=== PATIENT | male | born 1940 | race Caucasian/White ===

== ENCOUNTER 2024-01-27 14:08 | Outpatient (AMB) | payer OTHER, SELFPAY ==
[2024-01-27 14:13] VITALS: BP 112/60; PULSE 64; O2SAT 96; BMI 25.6
--- NOTE | 2024-01-27 14:13 | MHC.OFFVIS ---
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 Patient states that he was treated with a course of antibiotics with resolution of his bronchitis symptoms. Patient denies any dyspnea on exertion before or after his bronchitic episode. He was employed without exposure to industrial dusts. Patient denies prior personal of family history of lung disease. Results or imaging of CT chest and results of PFT are not available for this appointment. [facility] Social History (Updated 01/27/24 @ 14:25 by Melissa Huntley [facility]) Patient Tobacco Use Status: Former Tobacco user Non Cigarette Tobacco use Quit date or years: 1967 Review of Systems Const Denies daytime sleepiness, Denies excessive sweating, Denies fatigue, Denies fever(s), Denies lethargy, Denies malaise, Denies night sweats, Denies snoring and Denies weight loss Eyes Denies blurry vision and Denies itchy eyes ENT Denies nasal congestion, Denies post nasal drip, Denies sinus pain, Denies sinus pressure and Denies other ( Thrush) Card Denies chest pain, Denies pedal edema, Denies dyspnea, Denies orthopnea and Denies paroxysmal nocturnal dyspnea Resp Denies cough, Denies hemoptysis, Denies excessive phlegm production, Denies dyspnea, Denies snoring and Denies wheezing GI Denies abdominal pain and Denies heartburn Musc Denies myalgias, Denies arthralgias and Denies joint swelling Skin/Breast Denies rash Neuro Denies memory loss and Denies seizure-like activity Psych Denies abnormal sleep pattern, Denies anxiety and Denies memory loss Endo Denies excessive sweating, Denies fatigue and Denies heat intolerance Pranay/Lymph Denies easy bruising Aller/Immun Denies itchy eyes, Denies seasonal rhinorrhea and Denies wheezing Physical Exam Vital Signs: Last Vital Signs Pulse 64 01/27/24 14:13 BP 112/60 01/27/24 14:13 Pulse Ox 96 01/27/24 14:13 Oxygen Delivery Method Room Air 01/27/24 14:13 BMI result Body Mass Index 25.6 Const General: no acute distress and alert Nutritional Appearance: not obese Orientation/consciousness: Other orientation findings ( oriented) HEENT Head: Yes atraumatic Eyes General: appearance normal, both eyes and all related structures Sclerae: sclerae normal EOM: EOMs intact bilaterally Neck Neck: Yes supple Lymphatic: no lymphadenopathy noted Resp Effort & Inspection: normal respiratory effort and no use of accessory muscles Auscultation: clear to auscultation bilaterally Cardio Rate: regular rate Rhythm: regular rhythm Heart sounds: no gallops, no murmurs and no rubs Skin General skin exam: other ( warm) Extrem General: No clubbing, No cyanosis and No edema Assessment & Plan Assessment & Plan (1) Abnormal chest x-ray: Code(s): R93.89 - Abnormal findings on diagnostic imaging of other specified body structures Category: Medical Plan: History of abnormal chest x-ray at the time of an acute bronchitis. CT imaging of a chest obtained within 2 weeks of an acute bronchitic episode, however neither the results, nor imaging available for this appointment. Patient states that he had recent pulmonary function tests at [facility] with results not available for this appointment. At this time patient is essentially asymptomatic. Will request imaging and PFT results and review. Coding Level of Care Code New Pt Level 3 (38716) Diagnoses Abnormal chest x-ray R93.89
== END 2024-01-27 15:09 | disposition home or self-care (01) ==
PROVIDERS: PCP Physician Assistant; Visit Provider Internal Medicine Pulmonary Disease
DX: R93.89 Abnormal findings on diagnostic imaging of other specified body structures (principal)
CPT/HCPCS: 99203

== ENCOUNTER → 2024-01-27 14:08 | Outpatient (BNVA) | payer OTHER, SELFPAY | PROVIDERS: PCP Physician Assistant; Visit Provider Internal Medicine Pulmonary Disease | DX: R93.89 Abnormal findings on diagnostic imaging of other specified body structures (principal) | CPT/HCPCS: 99202 ==

== ENCOUNTER 2024-04-10 10:34 | Outpatient (AMB) | payer OTHER, SELFPAY ==
--- NOTE | 2024-04-10 10:49 | A.OFFVIS_ITS ---
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 He is a patient of Dr. Viramontes. He is seen for following urologic conditions - nephrolithiasis Nephrolithiasis CT scan small stones bilateral - question of lobulation Has passed 1 without too much difficulty Recommend fluid intake with vitamin B6 Six-month follow-up imaging renal ultrasound [facility] Medical History Unspecified hearing loss, unspecified ear Type 2 diabetes mellitus without complications Type 2 diabetes mellitus with diabetic nephropathy Pure hypercholesterolemia, unspecified Gout, unspecified Essential (primary) hypertension Deficiency of other specified B group vitamins Contact with and (suspected) exposure to other hazardous substances Arteriosclerotic coronary artery disease Social History Patient Tobacco Use Status: Former Tobacco user Review of Systems Const Denies chills and Denies fever(s) Card Reports no additional complaints and Denies syncope Resp Denies cough GI Denies abdominal pain and Denies heartburn Reports as per HPI and Denies change in libido Neuro Denies syncope Psych Denies change in libido Endo Denies change in libido Physical Exam Const General: cooperative, healthy appearing, comfortable and no acute distress Orientation/consciousness: patient oriented x3 HEENT Face and sinus: Yes normal facial exam Mouth: moist mucous membranes Neck Neck: Yes normal visual inspection, Yes full ROM and Yes trachea midline Chest Chest palpation & inspection: normal inspection of the chest Resp Effort & Inspection: normal respiratory effort, able to speak in complete sentences and no respiratory distress GI Inspection: Yes normal to inspection Back/Spine/Pelvis Cervical Spine: normal cervical lordosis Thoracic/Lumbar Spine: thoracic and lumbar spine normal to inspection Skin General skin exam: no rashes or lesions noted Neuro General: patient oriented x3, gait normal, tone normal and moves all extremities Extrem General: Yes normal to inspection and Yes capillary refill normal Assessment & Plan Assessment & Plan (1) Bilateral nephrolithiasis: Code(s): N20.0 - Calculus of kidney Category: Medical Plan Six-month follow-up renal ultrasound Orders: Orders US renal BI 6 Months N20.0 - Calculus of kidney Medications: New pyridoxine (vitamin B6) 50 mg PO DAILY 90 days 90 tabs 1RF N20.0 - Calculus of kidney Patient Instructions: Imaging studies, laboratory and physical exam results were discussed and reviewed in detail. No major barriers to patient understanding were identified. An opportunity to ask questions regarding the treatment plan was provided. All questions were answered. The patient expressed understanding and agreement with the above treatment plan. The patient is aware they should contact our office by phone for worsening of their current condition or the appearance of new urologic symptoms. Compliance is encouraged with any medications and followup testing that is ordered. It is a privilege to participate in the urologic care of your patient. If you have any questions or concerns regarding treatment for the above conditions, or other urologic issues, please do not hesitate to contact me. The office telephone contact is [phone]. This note is constructed using voice recognition software. While every effort has been made to ensure accuracy betting clerk errors may have been included. Yours sincerely, Dr Farhad Garrido MD, [facility] - Urology Providers of Expert, Compassionate Care for the Genitourinary System Coding Level of Care Code New Pt Level 3 (22281) Diagnoses Bilateral nephrolithiasis N20.0
== END 2024-04-10 11:14 | disposition home or self-care (01) ==
PROVIDERS: PCP Physician Assistant; Visit Provider Urology
DX: N20.0 Calculus of kidney (principal)
CPT/HCPCS: 99203

== ENCOUNTER → 2024-04-10 10:34 | Outpatient (BNVA) | payer OTHER, SELFPAY | PROVIDERS: PCP Physician Assistant; Visit Provider Urology | DX: N20.0 Calculus of kidney (principal) | CPT/HCPCS: 99202 ==

== ENCOUNTER 2024-06-04 10:52 | Outpatient (REF) | payer OTHER, SELFPAY ==
--- OUTSIDE RECORDS SUMMARY | 2024-06-04 12:16 | XMS_ITS | Encounter Summary ---
Author Name [facility] Organization [facility] Address [address] [place] [address] Care Team Providers Care Geoscientist Name Role Phone ADRIANA ROMERO Primary Care Provider YOSELIN Riojas Primary Care Provider Unavailabl e Insurance Providers: All historical and current Section Date Range: From patient's date of to the date document was created. This section includes the names of all active insurance providers for the patient. Insurance Provider Type of Coverage Plan Name Start of Policy Coverage End of Policy Coverage Group Number Member ID Insurance Provider's Telephone Number Policy Kendrick's Name Patient's Relationship to Policy Kendrick GIC INDEMNITY PLAN MEDICAL EXPENSE (OPT/PROF ) [facility] N Dec 28, 2016 [id number] [phone] EMILIA GONZALEZ HN PATIENT MEDICARE (WNR) MEDICARE (M) PART A Dec 28, 2016 PART A [id number] EMILIA GONZALEZ HN PATIENT MEDICARE (WNR) MEDICARE (M) PART B Dec 28, 2016 PART B [id number] EMILIA GONZALEZ HN PATIENT MEDICARE (WNR) MEDICARE (M) PART A Dec 28, 2016 PART A [id number] EMILIA GONZALEZ HN PATIENT MEDICARE (WNR) MEDICARE (M) PART B Dec 28, 2016 PART B [id number] EMILIA GONZALEZ PATIENT UNICVIRGIL PREFERRED PROVIDER ORGANIZAT ION (PPO) DENI [facility] N Dec 28, 2016 [id number] SBEMILIA [place] PATIENT UNICARE MEDICAL EXPENSE (OPT/PROF ) DENI [facility] N Dec 28, 2016 [id number] EMILIA GONZALEZ PATIENT Selected Encounter This section includes the information on record at ME for the Encounter. Date/Time Encounter Type Encounter Description Reason Provider Source October 25, 2023 08:00 AM COMPRE OPH EXAM EST PT 1/> OPTOMETRY ICD-10-CM E11.9 Type 2 diabetes mellitus without complications KAYLEE BARRAGAN [facility] Encounter Template Text not used by ME Assessments - Encounter Diagnoses This section includes the primary and secondary diagnoses documented for the Encounter. Date/Time Primary/Secondary Diagnosis Diagnosis Name Provider Source October 25, 2023 08:35 AM PRIMARY Type 2 diabetes mellitus without complications KAYLEE BARRAGAN [facility] [place] [facility] October 25, 2023 08:35 AM SECONDARY Age-related nuclear cataract, bilateral KAYLEE BARRAGAN [facility] [place] [facility] October 25, 2023 08:35 AM SECONDARY Hypermetropia, bilateral YUNG,KAYLEE B [facility] [place] [facility] Plan of Treatment: Future Appointments (+ 6 months) and Future Tests (+/- 45 days) The Plan of Treatment section includes future care activities for the patient from all [place] treatmentfacilities. This section includes future appointments and future orders which are active, pending or scheduled. Future Appointments This section includes appointments that were scheduled to occur 6 months from the date of the Encounter, up to a maximum of 20 appointments. The data comes from all [place] treatment facilities. Appointment Date/Time Appointment Type Appointme nt Facility Name Nov 03, 2023 09:00 AM AMBULATORY - MEDICINE [facility] [place] [facility] Nov 09, 2023 08:30 AM AMBULATORY - MEDICINE [facility] [place] [facility] Nov 18, 2023 08:30 AM AMBULATORY - NONE [facility] [place] [facility] Dec 13, 2023 02:30 PM [facility] Dec 21, 2023 09:45 AM AMBULATORY - MEDICINE [facility] [place] [facility] Jan 31, 2024 01:30 PM AMBULATORY - MEDICINE [facility] [place] [facility] Feb 02, 2024 11:15 AM [facility] NONE [facility] Apr 10, 2024 11:00 AM AMBULATORY - MEDICINE [facility] C [facility] Lab Results: +/- 30 days of the encounter This section includes the Chemistry and Hematology Lab Results on record with ME for the patient. Radiology Reports and Pathology Reports are provided separately, in subsequent sections. Lab Results This section contains the Chemistry/Hematology Results that were resulted 30 days before or 30 daysafter the date of the Encounter. Date/Time Source Result Type Result - Unit Interpretation Reference Range Comment Nov 01, 2023 08:44 AM [facility] BASIC METABOLIC PANEL (fasting) Specimen Type: SERUM No comment entered. Ordering Provider: MICHAELA ROMERO F Report Released Date/Time: Apr 18, 2023 10:07 AM Reporting Lab: [address] [address] Performing Lab: [address] [address] UREA NITROGEN 19 mg/dL 7-25 GLUCOSE 178 mg/dL H 65-100 SODIUM 138 mmol/L 135-145 POTASSIUM 5.2 mmol/L H 3.5-5.0 CHLORIDE 105 mmol/L 100-110 CO2 24 meq/L 20-30 CREATININE, Serum 1.39 mg/dL 0.50-1.40 eGFR(CKD-EPI 2020) 50 mL/min L >60 Nov 01, 2023 08:44 AM [facility] LIVER FUNCTION Specimen Type: SERUM No comment entered. Ordering Provider: MICHAELA ROMERO F Report Released Date/Time: Apr 18, 2023 10:07 AM Reporting Lab: [address] [address] Performing Lab: [facility] [address] [facility] [address] PROTEIN,TOTAL 7.1 g/dL 6.0-8.3 ALBUMIN 4.0 g/dL 3.5-5.0 ALKALINE PHOSPHATASE 57 U/L 40-150 AST 23 U/L 5-34 ALT 17 U/L BILIRUBIN, TOTAL 0.5 mg/dL 0.2-1.2 Nov 01, 2023 08:44 AM [facility] LIPID PANEL FASTING Specimen Type: SERUM No comment entered. Ordering Provider: MICHAELA ROMERO F Report Released Date/Time: Apr 18, 2023 10:07 AM Reporting Lab: [address] [address] Performing Lab: [address] [address] CHOLESTEROL 158 mg/dL TRIGLYCERIDE 131 mg/dL 0-150 LDL calculated 103 mg/dL 0-129 CHOL/HDL 5.4 HDL CHOLESTEROL 29 mg/dL L 40-60 Nov 01, 2023 08:44 AM [facility] HEMOGLOBIN A1C PANEL Specimen Type: BLOOD Comment: Values obtained from A1C measurements can vary. For atypical A1C assays, a reported value of 7.0 could actually be between 6.72 and 7.28 if measured by a reference method. A reported value of 9.0 could actually be between 8.73 and 9.27. Ref: http://www.ngs p.org/CAPdata. asp Ordering Provider: MICHAELA ROMERO F Report Released Date/Time: Apr 18, 2023 10:07 AM Reporting Lab: [address] [address] Performing Lab: [address] [address] HEMOGLOBIN A1C 8.2 H 4.0-5.6 Nov 01, 2023 08:44 AM [facility] MICROALBUMIN CREATININE RATIO PANEL Specimen Type: URINE No comment entered. Ordering Provider: MICHAELA ROMERO F Report Released Date/Time: Apr 18, 2023 10:07 AM Reporting Lab: [facility] [address] [facility] [address] Performing Lab: [facility] [address] [facility] [address] MICROALBUMIN/C REATININE RATIO 170.4 mg/g H 0-29.9 MICROALBUMIN,Q UANTITATIVE 11.6 mg/dL RR UNAVAIL CREATININE URINE 68.07 mg/dL Nov 01, 2023 08:44 AM [facility] URIC ACID Specimen Type: SERUM No comment entered. Ordering Provider: MICHAELA ROMERO Report Released Date/Time: Nov 07, 2023 10:27 AM Reporting Lab: [facility] [address] [facility] [address] Performing Lab: [address] [address] URIC ACID 5.7 mg/dL 3.5-7.2 Social History: Smoking Status (Most current) and Tobacco Use (All prior to encounter date) This section includes the most current, and the historical, smoking and tobacco- related health factors from the ME facility where the Encounter took place. Current Smoking Status This section includes the most current smoking, or tobacco-related health factor, from the ME facility where the Encounter took place. Date/Time Current Smoking Status Comment Facil ity Dec 10, 2022 10:00 AM VA-TOBACCO FORMER USER [facility] Tobacco Use History This section includes a history of the smoking, or tobacco-related health factors, that were collected on or before the date of the Encounter. The data comes from the ME facility where the Encounter took place. Date/Time Smoking Status/Tobacco Use Comment F acility Dec 10, 2022 10:00 AM ME-TOBACCO QUIT 15 YRS OR MORE [facility] Jan 07, 2022 12:47 PM VA-TOBACCO DOESNT USE WI 30 MIN WAKEUP [facility] Jan 07, 2022 12:47 PM VA-TOBACCO USE 30 YEARS OR MORE [facility] Jan 07, 2022 12:47 PM VA-TOBACCO USE ADVICE [facility] Jan 07, 2022 12:47 PM VA-TOBACCO USE GAME SHOW HOST NO [facility] L[facility]AT[facility] Jan 07, 2022 12:47 PM VA-TOBACCO USE MED NO [facility] L[facility] Jan 07, 2022 12:47 PM VA-TOBACCO USER EVERY DAY [facility] Radiology Reports: +/- 30 days of the encounter Radiology Reports For cases when an order for radiology services may have been completed prior to the date of the Encounter, the report list includes the Radiology Reports that were completed up to 30 days before dateof the Encounter. For cases when an order for radiology services may have been completed after the date of the Encounter, the report list also includes the Radiology Reports that were completed up to30 days after date of the Encounter. The data comes from all [facility] facilities. Date/Time Radiology Report Provider Source Nov 18, 2023 08:[address] W/O CONT: FABY GONZALEZ [id number] -[id number] M Exm Date: NOV 18, 2023@08:12 Req Phys: ADRIANA ROMERO Loc: CWM/NO/PHARM/PACT 3 (Req'g Loc Img Loc: NHM/CT Service: Unknown [facility] , (Case [id number] COMPLETE) CT THORAX W/O CONT (CT Detailed) CPT:36627 Reason for Study: pulmonary fibrosis on cxr at [facility] last week. Clinical History: pulmonary fibrosis on cxr at [facility] last week. He finished aUGMENTIN 6/5, but now reports that phlegm is now returning. Report Status: Verified Date Reported: NOV 24, 2023 Date Verified: NOV 24, 2023 Executive Advisor E-Sig: Report: EXAM: CT chest without contrast COMPARISON: None. HISTORY: pulmonary fibrosis on cxr at [facility] last week. He finished aUGMENTIN 6/5, but now reports that phlegm is now returning. TECHNIQUE: Contiguous axial images of the chest were obtained without intravenous contrast. Coronal and sagittal reformatted images were also obtained. Total number of images submitted = 1150. Total DLP (mGy*cm): 128.50 IV contrast: Not administered FINDINGS: Lungs/pleura: Bilateral subpleural reticular opacities, which involve all lobes, but greatest for in the lung bases. Associated traction bronchiectasis in the right middle lobe and lingula. Mild bibasilar honeycombing. No lung consolidation or masses. Multiple small bilateral calcified granulomas. No pleural effusions. Mediastinum/farnaz: No mediastinal or hilar lymphadenopathy. Coronary artery, aortic and aortic valvular calcifications. Status post CABG. Borderline enlarged ascending and descending aorta, measuring 4.0 cm and 3 cm, respectively. No pericardial effusion. Chest wall/axillae: No axillary lymphadenopathy. Upper abdomen: Nonobstructing 5 mm left upper pole renal calculus. Bones: Thoracic dextroscoliosis. Multilevel degenerative changes within the spine. No suspicious bone lesions. Impression: 1. No acute abnormality. 2. UIP pattern of pulmonary fibrosis. READING PHYSICIAN: Kaiden Jacob D.O. -[phone] 11/24/2023 13:44 EDT [facility] National Teleradiology Program [phone] (For Medical Practitioner Use Only) Attention Patients / Veterans: If you have questions or concerns about these test results, please contact your ordering provider or primary care team. Primary Diagnostic Code: NO ALERT REQUIRED Primary Interpreting Staff: RADIOLOGY,OUTSIDE SERVICE, Staff Physician / RADIOLOGY,OUTSIDE SERVICE [facility] October 25, 2023 10:53 AM OUTSIDE CHEST (2 VIEWS): FABY GONZALEZ [id number] -1940 M Ex Date: OCTOBER 25, 2023@10:53 Req Phys: ADRIANA ROMERO Loc: [facility]/OUTSIDE IMAGING NON-CNT (R Img Loc: OUTSIDE GENERAL RADIOLOGY Service: Unknown (Case 10 COMPLETE) OUTSIDE CHEST (2 VIEWS) (RAD Detailed) CPT:33570 Reason for Study: outside images downloaded for continuity of care Clinical History: outside images downloaded for continuity of care Report Status: Electronically Filed Date Reported: OCTOBER 25, 2023 Report: THIS EXAM WAS PERFORMED AND INTERPRETED AT AN OUTSIDE HOSPITAL Impression: THIS EXAM WAS PERFORMED AND INTERPRETED AT AN OUTSIDE HOSPITAL Primary Diagnostic Code: VERIFIED BY: / *ELECTRONICALLY FILED* [facility] [place] [facility] Encounter Notes: All associated encounter notes This section contains the clinical notes associated to the Encounter. Date/Time Encounter Note(s) Provider Source October 25, 2023 07:42 AM OPTOMETRY NOTE: LOCAL TITLE: OPTOMETRY NOTE STANDARD TITLE: OPTOMETRY NOTE DATE OF NOTE: OCTOBER 25, 2023@07:42 ENTRY DATE: OCTOBER 25, 2023@07:43:08 AUTHOR: TONYA MARY JR EXP COSIGNER: KAYLEE BARRAGAN URGENCY: STATUS: COMPLETED OPTOMETRY NOTE Has ADDENDA Active problems - Computerized Problem List is the source for the followin. Exposure to potentially hazardous substance ([facility] [id number]) 2. 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 Hearing Loss ([facility] [id number]) 4. Vitamin B12 Deficiency ([facility] [id number]) 5. CAD - Coronary Artery Disease ([facility] [id number]) 6. Diabetes Mellitus Type 2 ([facility] [id number]) 7. Gout ([facility] [id number]) 8. Hypercholesterolemia 9. Hypertension Active Outpatient Medications (including Supplies): Active Outpatient Medications Status 1) ASPIRIN 81MG EC TAB TAKE ONE TABLET BY MOUTH ONCE ACTIVE DAILY TO PREVENT STROKE/HEART ATTACK TAKE 15 MINUTES BEFORE NIACIN TO REDUCE/PREVENT FLUSHING. 2) ATORVASTATIN CALCIUM 80MG TAB TAKE ONE TABLET BY ACTIVE MOUTH ONCE DAILY FOR CHOLESTEROL 3) CANDESARTAN CILEXETIL 8MG TAB TAKE ONE TABLET BY ACTIVE MOUTH ONCE DAILY 4) CHOLECALCIF 25MCG (D3-1,000UNIT) TAB TAKE ONE TABLET ACTIVE BY MOUTH ONCE DAILY FOR VITAMIN SUPPLEMENTATION 5) CYANOCOBALAMIN 1000MCG TAB TAKE ONE TABLET BY MOUTH ACTIVE ONCE DAILY FOR VITAMIN SUPPLEMENTATION 6) EZETIMIBE 10MG TAB TAKE ONE TABLET BY MOUTH ONCE ACTIVE DAILY TO LOWER CHOLESTEROL 7) FOLIC ACID 1MG TAB TAKE TWO TABLETS BY MOUTH ONCE ACTIVE DAILY VITAMIN/NUTRITION SUPPLEMENT 8) GEMFIBROZIL 600MG TAB TAKE ONE TABLET BY MOUTH TWICE ACTIVE DAILY TO LOWER CHOLESTEROL 9) METFORMIN HCL 500MG TAB TAKE ONE TABLET BY MOUTH ACTIVE TWICE DAILY FOR DIABETES 10) METRONIDAZOLE 0.75% TOP CREAM APPLY A SMALL AMOUNT ACTIVE TOPICALLY AT BEDTIME NEEDED FOR SKIN INFECTION 11) MULTIVITAMIN/MINERALS CAP/TAB TAKE 1 TABLET BY MOUTH ACTIVE ONCE DAILY FOR VITAMIN SUPPLEMENTATION Allergies: SHRIMP, BENAZEPRIL All medications including those prescribed by outside VA's, community providers, and all OTC meds were reviewed and reconciled with patient to the best of their abilities. This 82 year old MALE is seen today for annual diabetic CEE. ANNE-MARIE 09/2022 in our clinic. Chief Complaint: Pt. is here for CEE. Feels that vision is fine through near portion of glasses, having slight blur OU with distance portion since last visit. Denies any changes to ocular health or vision since last visit. No changes to systemic health or medication use. Pt. has been diabetic for ~10 years. Does not recall last BS reading or A1C. Says that his PCP is happy with his diabetic control and meets with him for routine check-ups Last A1C 7.4% per chart. OHx: - T2 DM with Mild NPDR OS, no retinopathy OD. No DME OU - NS cataracts OU - Hyperopia with astigmatism & presbyopia OU (-) Pain: (-) Flashes: (-) Floaters: (-) Eye Injury: (-) Eye Surgery: (-) Itch (-) Redness FOHx: (-) Glaucoma/ARMD/Blindness VITALS (most recent, as listed in the electronic record): B/P: 130/70 (04/18/2023 09:31) Pulse: 47 (04/18/2023 09:31) Temperature: 98.3 F [36.8 C] (04/18/2023 09:31) Weight: 174.5 lb [79.15 kg] (04/18/2023 09:31) Height: 69 in [175.3 cm] (04/20/2022 10:35) BMI: BMI: 25.8 PERTINENT LABS: HEMOGLOBIN A1C TREND Collection DT Spec HGBA1c 04/14/2023 07:58 BLOOD 7.4 H 08/09/2022 08:02 BLOOD 7.3 H 04/14/2022 07:52 BLOOD 7.1 H 01/18/2022 07:25 BLOOD 7.3 H (-) Smoker/Length of Time/PPD: Current Rx with last BCVA: OD:+1.25-2.77b023 20/20-1 OS:+1.00-1.36t411 2020-2 Add:+2.50 20/20 OU DVA ( )sc (x)cc - phoropter OD: 20-1 OS: 2020-2 Pupils: PERRL (-)APD EOMs: SAFE OU, (-)Pain/Diplopia CVF (facial, peripheral): FTFC OU Subjective Refraction: OD:+1.25-2.77q030 20/20 OS:+0.75-1.34z334 20/20 OU 20/20 Add: +2.50 20/20 All the above performed by student, reviewed by attending Anterior segment: Performed by student, repeated by attending Lids: Dermatochalasis OU Conj: white and quiet OU Cornea: Arcus OU AC: 4x4 OU Iris: flat and clear OU (-)NVI Lens: 2+ NS OU Tr. ACC OS Tonometry: Performed by student, reviewed by attending [x] GAT [ ] iCare OD 14 mmHg OS 14 mmHg Time:7:59am Fundus exam: Dilated: XX 8:03am Non dilated: Dilating Drops: 1GTT 1 % Tropicamide OU & 1GTT 2.5% Phenylephrine OU (Pt. ed. on side effects, dilation warning given and verbal consent obtained) Patient advised not to drive if they feel they have any symptoms which could affect their ability to drive safely. Patient advised not to engage in any activities which could put themselves or others at risk if they feel they have any symptoms which could affect their ability to perform those activities safely. Performed by student, repeated by attending Vit: Syneresis OU C/D: 0.35 OD, 0.35 OS, pink & healthy rim tissue (-)NVD OU Macula: flat and clear (-)DME OU PPole: clear (-)NVE (-)dot/blot hemorrhage (-)exudates A/V: 2/3 Vessels: normal caliber (-)VB OU Periph: flat and intact (-)holes, tears, detachments 360 OU (-)NVE (-)Exudates (-)dot/blot hemorrhage OU Assessment/Plan: 1. Type II Diabetes without retinopathy or macular edema OU. Last A1c 7.4% - Pt ed on today's findings and the possible ocular health and visual complications associated with diabetes. - Ed. on importance of attending future appointments - Encouraged pt to monitor blood sugar and continue taking medications as prescribed by their PCP - Pt ed to call immediately if experiencing any sudden changes in vision - Monitor annually 2. Nuclear sclerosis Cataracts OU - Pt. ed. on findings - cataracts are not visually significant and that surgery is not necessary at this time - Ed. 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 educated on refractive findings and minor change in Rx. - Picking out new PAL frames today - Continue to monitor Return to Clinic 1 year or earlier PRN Patient Education: Diabetes: Patient was educated regarding diabetes and related ocular complications including retinopathy and cataract formation as well as other related systemic complications. The importance of good blood sugar control, blood sugar testing as recommended by their PCP and the importance of timely follow up were all emphasized. /renny/ TONYA MARY JR OPTOMETRY STUDENT Signed: 10/25/2023 09:10 /renny/ KAYLEE BARRAGAN OD Cinder Pit Crane Operator Cosigned: 10/25/2023 09:12 10/25/2023 ADDENDUM STATUS: COMPLETED The optometry software developer intern participated in this exam, I saw this [place] in conjunction with the optometry student. The entrance tests and refraction were performed by the student and reviewed by me. I personally met with the patient, confirmed the history, complaints and the student's findings, and performed slit lamp and fundus evaluation as indicated. I reviewed and agree with the stated findings, assessment and plan. I have added/edited the documentation to reflect my exam findings and changes to the assessment and plan. patient offered and declined printed medication list Medication Reconciliation: Outpatient: Has the patient been taking medications as documented in the EMLR? YES: The patient has been taking medications as documented in the EMLR. Essential Medication List for Review used to complete this medication reconciliation. INCLUDED IN THIS LIST: Alphabetical list of active outpatient prescriptions dispensed from this ME (local) and dispensed from another ME or DoD facility (remote) as well as inpatient orders (local, pending and active), local clinic medications, locally documented non-VA medications, and local prescriptions that have or been discontinued in the past 90 days. - All changes in medications, including all non-VA/Herbal/OTC medications were entered into CPRS. - If there were any medications the patient should no longer take, they were discontinued. - The patient/caregiver was instructed to update this list, discard old lists, and take this list to the next appointment, whether with a VA or non-VA provider. JLV Link Data on this list may not be complete. Please check JLV. Allergies/ADRs (Tool #5) FACILITY ALLERGY/ADR -------- [facility] BAND-AIDS [facility] BENAZEPRIL [facility] SHRIMP [facility] [place] [facility] BENAZEPRIL [facility] [place] [facility] SHRIMP Med Recon NoGlossary (Tool #1) INCLUDED IN THIS LIST: Alphabetical list of active outpatient prescriptions dispensed from this ME (local) and dispensed from another ME or DoD facility (remote) as well as inpatient orders (local pending and active), local clinic medications, locally documented non-VA medications, and local prescriptions that have or been discontinued in the past 90 days. Non-VA Meds Last Documented On: Data not found NOTE The display of VA prescriptions dispensed from another ME or DoD facility (remote) is limited to active outpatient prescription entries matched to National Drug File at the originating site and may not include some items such as investigational drugs, compounds, etc. NOT INCLUDED IN THIS LIST: Medications self-entered by the patient into personal health records (i.e. [employer]) are NOT included in this list. Non-VA medications documented outside this ME, remote inpatient orders (regardless of status) and remote clinic medications are NOT included in this list. The patient and provider must always discuss medications the patient is taking, regardless of where the medication was dispensed or obtained. OUTPT ASPIRIN 81MG EC TAB (Status = Discontinued) TAKE ONE TABLET BY MOUTH ONCE DAILY TO PREVENT STROKE/HEART ATTACK TAKE 15 MINUTES BEFORE NIACIN TO REDUCE/PREVENT FLUSHING. Rx# [id number] Last Released: 08/10/23 Qty/Days Supply: 120/90 Rx Expiration Date: 08/24/23 Refills Remainin Indication: FOR MYOCARDIAL REINFARCTION PREVENTION OUTPT ASPIRIN 81MG EC TAB (Status = Active) TAKE ONE TABLET BY MOUTH ONCE DAILY TO PREVENT STROKE/HEART ATTACK TAKE 15 MINUTES BEFORE NIACIN TO REDUCE/PREVENT FLUSHING. Rx# [id number] Last Released: 10/19/23 Qty/Days Supply: 120/90 Rx Expiration Date: 10/18/24 Refills Remainin Indication: FOR MYOCARDIAL REINFARCTION PREVENTION OUTPT ATORVASTATIN CALCIUM 80MG TAB (Status = Discontinued) TAKE ONE TABLET BY MOUTH ONCE DAILY FOR CHOLESTEROL Rx# [id number] Last Released: 06/01/23 Qty/Days Supply: Rx Expiration Date: 08/11/23 Refills Remainin OUTPT ATORVASTATIN CALCIUM 80MG TAB (Status = Active) TAKE ONE TABLET BY MOUTH ONCE DAILY FOR CHOLESTEROL Rx# [id number] Last Released: 10/19/23 Qty/Days Supply: Rx Expiration Date: 08/08/24 Refills Remainin OUTPT CANDESARTAN CILEXETIL 8MG TAB (Status = Discontinued) TAKE ONE TABLET BY MOUTH ONCE DAILY Rx# [id number] Last Released: 06/01/23 Qty/Days Supply: Rx Expiration Date: 08/11/23 Refills Remainin OUTPT CANDESARTAN CILEXETIL 8MG TAB (Status = Active) TAKE ONE TABLET BY MOUTH ONCE DAILY Rx# [id number] Last Released: 10/19/23 Qty/Days Supply: Rx Expiration Date: 08/08/24 Refills Remainin OUTPT CHOLECALCIF 25MCG (D3-1,000UNIT) TAB (Status = Discontinued) TAKE ONE TABLET BY MOUTH ONCE DAILY FOR VITAMIN SUPPLEMENTATION Rx# [id number] Last Released: 06/01/23 Qty/Days Supply: Rx Expiration Date: 08/11/23 Refills Remainin OUTPT CHOLECALCIF 25MCG (D3-1,000UNIT) TAB (Status = Active) TAKE ONE TABLET BY MOUTH ONCE DAILY FOR VITAMIN SUPPLEMENTATION Rx# [id number] Last Released: 10/19/23 Qty/Days Supply: Rx Expiration Date: 08/08/24 Refills Remainin OUTPT CYANOCOBALAMIN 1000MCG TAB (Status = Discontinued) TAKE ONE TABLET BY MOUTH ONCE DAILY FOR VITAMIN SUPPLEMENTATION Rx# [id number] Last Released: 06/01/23 Qty/Days Supply: Rx Expiration Date: 08/11/23 Refills Remainin OUTPT CYANOCOBALAMIN 1000MCG TAB (Status = Active) TAKE ONE TABLET BY MOUTH ONCE DAILY FOR VITAMIN SUPPLEMENTATION Rx# [id number] Last Released: 10/19/23 Qty/Days Supply: 90 Rx Expiration Date: 08/08/24 Refills Remainin OUTPT EZETIMIBE 10MG TAB (Status = Discontinued) TAKE ONE TABLET BY MOUTH ONCE DAILY TO LOWER CHOLESTEROL Rx# [id number] Last Released: 06/01/23 Qty/Days Supply: 90 Rx Expiration Date: 08/11/23 Refills Remainin OUTPT EZETIMIBE 10MG TAB (Status = Active) TAKE ONE TABLET BY MOUTH ONCE DAILY TO LOWER CHOLESTEROL Rx# [id number] Last Released: 10/19/23 Qty/Days Supply: 90 Rx Expiration Date: 08/08/24 Refills Remainin OUTPT FOLIC ACID 1MG TAB (Status = Discontinued) TAKE TWO TABLETS BY MOUTH ONCE DAILY VITAMIN/NUTRITION SUPPLEMENT Rx# [id number] Last Released: 06/01/23 Qty/Days Supply: 180 Rx Expiration Date: 08/11/23 Refills Remainin OUTPT FOLIC ACID 1MG TAB (Status = Active) TAKE TWO TABLETS BY MOUTH ONCE DAILY VITAMIN/NUTRITION SUPPLEMENT Rx# [id number] Last Released: 10/19/23 Qty/Days Supply: 180 Rx Expiration Date: 08/08/24 Refills Remainin OUTPT GEMFIBROZIL 600MG TAB (Status = Discontinued) TAKE ONE TABLET BY MOUTH TWICE DAILY TO LOWER CHOLESTEROL Rx# [id number] Last Released: 06/01/23 Qty/Days Supply: 180 Rx Expiration Date: 08/11/23 Refills Remainin OUTPT GEMFIBROZIL 600MG TAB (Status = Active) TAKE ONE TABLET BY MOUTH TWICE DAILY TO LOWER CHOLESTEROL Rx# [id number] Last Released: 10/19/23 Qty/Days Supply: 180 Rx Expiration Date: 08/08/24 Refills Remainin OUTPT METFORMIN HCL 500MG TAB (Status = Discontinued) TAKE ONE TABLET BY MOUTH TWICE DAILY FOR DIABETES Rx# [id number] Last Released: 06/01/23 Qty/Days Supply: 180 Rx Expiration Date: 08/11/23 Refills Remainin OUTPT METFORMIN HCL 500MG TAB (Status = Active) TAKE ONE TABLET BY MOUTH TWICE DAILY FOR DIABETES Rx# [id number] Last Released: 10/19/23 Qty/Days Supply: 180 Rx Expiration Date: 08/08/24 Refills Remainin OUTPT METRONIDAZOLE 0.75% TOP CREAM (Status = Discontinued) APPLY A SMALL AMOUNT TOPICALLY AT BEDTIME NEEDED FOR SKIN INFECTION Rx# [id number] Last Released: 08/18/23 Qty/Days Supply: Rx Expiration Date: 04/18/24 Refills Remainin Indication: FOR ACNE ROSACEA OUTPT METRONIDAZOLE 0.75% TOP CREAM (Status = Active) APPLY A SMALL AMOUNT TOPICALLY AT BEDTIME NEEDED FOR SKIN INFECTION Rx# [id number] Last Released: 10/19/23 Qty/Days Supply: Rx Expiration Date: 10/18/24 Refills Remainin Indication: FOR ACNE ROSACEA OUTPT MULTIVITAMIN/MINERALS CAP/TAB (Status = Discontinued) TAKE 1 TABLET BY MOUTH ONCE DAILY FOR VITAMIN SUPPLEMENTATION Rx# [id number] Last Released: 02/04/23 Qty/Days Supply: Rx Expiration Date: 08/11/23 Refills Remainin OUTPT MULTIVITAMIN/MINERALS CAP/TAB (Status = Active) TAKE 1 TABLET BY MOUTH ONCE DAILY FOR VITAMIN SUPPLEMENTATION Rx# [id number] Last Released: 10/19/23 Qty/Days Supply: Rx Expiration Date: 08/08/24 Refills Remainin SUPPLIES /mary ellen BARRAGAN OD Cinder Pit Crane Operator Signed: 10/25/2023 09:13 TONYA MARY JR [facility]
--- OUTSIDE RECORDS SUMMARY | 2024-06-04 12:16 | XMS_ITS | Encounter Summary ---
Author Name [facility] [facility] [place] Address [address] [place] [address] Care Team Providers Care Electrical Worker Name Role Phone ADRIANA ROMERO Primary Care [...] GIC INDEMNITY PLAN MEDICAL EXPENSE (OPT/PROF ) [facility] N Dec 28, 2016 [id number] [phone] EMILIA GONZALEZ HN PATIENT MEDICARE (WNR) MEDICARE (M) PART A Dec 28, 2016 PART A [id number] [phone] LISAEMILIA HN PATIENT MEDICARE (WNR) MEDICARE (M) PART B Dec 28, 2016 PART B [id number] EMILIA GONZALEZ HN PATIENT MEDICARE (WNR) MEDICARE (M) PART A Dec 28, 2016 PART A [id number] SBREGA,EMILIA HN PATIENT MEDICARE (WNR) MEDICARE (M) PART B Dec 28, 2016 PART B [id number] EMILIA GONZALEZ PATIENT BRIANA PREFERRED PROVIDER ORGANIZAT ION (PPO) DENI IRAHETA [facility] INDEM N Dec 28, 2016 [id number] EMILIA GONZALEZ PATIENT UNICARE MEDICAL EXPENSE (OPT/PROF ) DENI IRAHETA [facility] N Dec 28, 2016 [id number] EMILIA GONZALEZ PATIENT Selected Encounter This section includes the information on record at [place] for the Encounter. Date/Time Encounter Type Encounter Description Reason Provider Source October 25, 2023 08:47 AM FIT SPECTACLES MULTIFOCAL OPTOMETRY ICD-10-CM Z46.0 Encounter for fit/adjst of spectacles and contact lenses KAYLEE BARRAGAN IHE Encounter Template Text not used by [place] Assessments - Encounter Diagnoses This section includes the primary and secondary diagnoses documented for the Encounter. Date/Time Primary/Secondary Diagnosis Diagnosis Name Provider Source October 25, 2023 08:47 AM PRIMARY Encounter for fit/adjst of spectacles and contact lenses LEIDA HIRSCH [place] [facility] [place] [facility] Plan of Treatment: Future Appointments (+ 6 months) and Future Tests (+/- 45 days) The Plan of Treatment section includes future care activities for the patient from all [place] treatmentfacilities. This section includes future appointments and future orders which are active, pending or scheduled. Future Appointments This section includes appointments that were scheduled to occur 6 months from the date of the Encounter, up to a maximum of 20 appointments. The data comes from all [place] treatment facilities. Appointment Date/Time Appointment Type Appointme nt Facility Name Nov 03, 2023 09:00 AM AMBULATORY - MEDICINE [place] [facility] [place] [facility] Nov 09, 2023 08:30 AM AMBULATORY - MEDICINE [facility] [place] [facility] Nov 18, 2023 08:30 AM AMBULATORY - NONE [place] [facility] [place] [facility] Dec 13, 2023 02:30 PM AMBULATORY - MEDICINE [place] [facility] [place] [facility] Dec 21, 2023 09:45 AM AMBULATORY - MEDICINE [place] [facility] [place] [facility] Jan 31, 2024 01:30 PM AMBULATORY - MEDICINE [place] [facility] [place] [facility] Feb 02, 2024 11:15 AM [facility] Apr 10, 2024 11:00 AM AMBULATORY - MEDICINE [facility] Lab Results: +/- 30 days of the encounter This section includes the Chemistry and Hematology Lab Results on record with [place] for the patient. Radiology Reports and Pathology Reports are provided separately, in subsequent sections. Lab Results This section contains the Chemistry/Hematology Results that were resulted 30 days before or 30 daysafter the date of the Encounter. Date/Time Source Result Type Result - Unit Interpretation Reference Range Comment Nov 01, 2023 08:44 AM [facility] BASIC METABOLIC PANEL (fasting) Specimen Type: SERUM No comment entered. Ordering Provider: MICHAELA ROMERO F Report Released Date/Time: Apr 18, 2023 10:07 AM Reporting Lab[facility] [address] [address] Performing Lab: [facility] [address] [address] UREA NITROGEN 19 mg/dL 7-25 GLUCOSE 178 mg/dL H 65-100 SODIUM 138 mmol/L 135-145 POTASSIUM 5.2 mmol/L H 3.5-5.0 CHLORIDE 105 mmol/L 100-110 CO2 24 meq/L 20-30 CREATININE, Serum 1.39 mg/dL 0.50-1.40 eGFR(CKD-EPI 2020) 50 mL/min L >60 Nov 01, 2023 08:44 AM [facility] LIVER FUNCTION Specimen Type: SERUM No comment entered. Ordering Provider: MICHAELA ROMERO F Report Released Date/Time: Apr 18, 2023 10:07 AM Reporting Lab: [facility] [address] [address] Performing Lab: [address] [address] PROTEIN,TOTAL 7.1 g/dL 6.0-8.3 ALBUMIN 4.0 g/dL 3.5-5.0 ALKALINE PHOSPHATASE 57 U/L 40-150 AST 23 U/L 5-34 ALT 17 U/L BILIRUBIN, TOTAL 0.5 mg/dL 0.2-1.2 Nov 01, 2023 08:44 AM [facility] HEMOGLOBIN A1C PANEL Specimen Type: BLOOD Comment: Values obtained from A1C measurements can vary. For atypical A1C assays, a reported value of 7.0 could actually be between 6.72 and 7.28 if measured by a reference method. A reported value of 9.0 could actually be between 8.73 and 9.27. Ref: http://www.ngs p.org/CAPdata. asp Ordering Provider: MICHAELA ROMERO Report Released Date/Time: Apr 18, 2023 10:07 AM Reporting Lab: [address] [address] Performing Lab: [address] [address] HEMOGLOBIN A1C 8.2 H 4.0-5.6 Nov 01, 2023 08:44 AM [facility] LIPID PANEL FASTING Specimen Type: SERUM No comment entered. Ordering Provider: MICHAELA ROMERO Report Released Date/Time: Apr 18, 2023 10:07 AM Reporting Lab: [address] [address] Performing Lab: [address] [address] CHOLESTEROL 158 mg/dL TRIGLYCERIDE 131 mg/dL 0-150 LDL calculated 103 mg/dL 0-129 CHOL/HDL 5.4 HDL CHOLESTEROL 29 mg/dL L 40-60 Nov 01, 2023 08:44 AM [facility] MICROALBUMIN CREATININE RATIO PANEL Specimen Type: URINE No comment entered. Ordering Provider: MICHAELA ROMERO Report Released Date/Time: Apr 18, 2023 10:07 AM Reporting Lab: [address] [address] Performing Lab: [address] [place] [address] MICROALBUMIN/C REATININE RATIO 170.4 mg/g H 0-29.9 MICROALBUMIN,Q UANTITATIVE 11.6 mg/dL RR UNAVAIL CREATININE URINE 68.07 mg/dL Nov 01, 2023 08:44 AM [facility] URIC ACID Specimen Type: SERUM No comment entered. Ordering Provider: MICHAELA ROMERO Report Released Date/Time: Nov 07, 2023 10:27 AM Reporting Lab: [facility] [address] [facility] [address] Performing Lab: [address] [address] URIC ACID 5.7 mg/dL 3.5-7.2 Social History: Smoking Status (Most current) and Tobacco Use (All prior to encounter date) This section includes the most current, and the historical, smoking and tobacco- related health factors from the [place] facility where the Encounter took place. Current Smoking Status This section includes the most current smoking, or tobacco-related health factor, from the [place] facility where the Encounter took place. Date/Time Current Smoking Status Comment Facil ity Dec 10, 2022 10:00 AM VA-TOBACCO FORMER USER [facility] Tobacco Use History This section includes a history of the smoking, or tobacco-related health factors, that were collected on or before the date of the Encounter. The data comes from the [place] facility where the Encounter took place. Date/Time Smoking Status/Tobacco Use Comment F acility Dec 10, 2022 10:00 AM VA-TOBACCO QUIT 15 YRS OR MORE [facility] Jan 07, 2022 12:47 PM VA-TOBACCO DOESNT USE WI 30 MIN WAKEUP [facility] Jan 07, 2022 12:47 PM VA-TOBACCO USE 30 YEARS OR MORE [place] [facility] Jan 07, 2022 12:47 PM VA-TOBACCO USE ADVICE [facility] Jan 07, 2022 12:47 PM VA-TOBACCO USE HEARING AID CONSULTANT NO [facility] Jan 07, 2022 12:47 PM VA-TOBACCO USE MED NO [facility] Jan 07, 2022 12:47 PM VA-TOBACCO USER EVERY DAY [facility] Radiology Reports: +/- 30 days of the [...] the Encounter. The data comes from all [place] treatment facilities. Date/Time Radiology Report Provider Source Nov 18, 2023 08:[address] W/O CONT: SHEELAJENNIFERFABY Hinkle J [id number] -1940 M Exm Date: NOV 18, 2023@08:12 Req Phys: ADRIANA ROMERO Loc: CWM/NO/PHARM/PACT 3 (Req'g Loc Img Loc: [facility]/CT Service: Unknown [facility] , (Case [id number] COMPLETE) CT THORAX W/O CONT (CT Detailed) CPT:90164 Reason for Study: pulmonary fibrosis on cxr at [facility] last week. Clinical History: pulmonary fibrosis on cxr at [facility] last week. He finished aUGMENTIN 6/5, but now reports that phlegm is now returning. Report Status: Verified Date Reported: NOV 24, 2023 Date Verified: NOV 24, 2023 Talent Acquisition Assistant E-Sig: Report: EXAM: CT chest without contrast COMPARISON: None. HISTORY: pulmonary fibrosis on cxr at [facility] week. He finished aUGMENTIN 6/5, but [...] pulmonary fibrosis. READING PHYSICIAN: Kaiden Jacob D.O. -[phone] 11/24/2023 13:44 EDT [facility] [phone] (For Medical Practitioner Use Only) Attention Patients / Veterans: If you have questions or concerns about these test results, please contact your ordering provider or primary care team. Primary Diagnostic Code: NO ALERT REQUIRED Primary Interpreting Staff: RADIOLOGY,OUTSIDE SERVICE, Staff Physician / RADIOLOGY,OUTSIDE SERVICE [facility] October 25, 2023 10:53 AM OUTSIDE CHEST (2 VIEWS): FABY GONZALEZ [id number] -1940 M Exm Date: OCTOBER 25, 2023@10:53 Req Phys: ADRIANA ROMERO Loc: [facility]/OUTSIDE IMAGING NON-CNT (R Img Loc: OUTSIDE GENERAL RADIOLOGY Service: Unknown (Case 10 COMPLETE) OUTSIDE CHEST (2 VIEWS) (RAD Detailed) CPT:90019 Reason for Study: outside images downloaded for continuity of care Clinical History: outside images downloaded for continuity of care Report Status: Electronically Filed Date Reported: OCTOBER 25, 2023 Report: THIS EXAM WAS PERFORMED AND INTERPRETED AT AN OUTSIDE HOSPITAL Impression: THIS EXAM WAS PERFORMED AND INTERPRETED AT AN OUTSIDE HOSPITAL Primary Diagnostic Code: VERIFIED BY: / *ELECTRONICALLY FILED* [facility] Encounter Notes: All associated encounter notes This section contains the clinical notes associated to the Encounter. Date/Time Encounter Note(s) Provider Source October 25, 2023 08:47 AM OPTOMETRY NOTE: LOCAL TITLE: OPTOMETRY NOTE STANDARD TITLE: OPTOMETRY NOTE DATE OF NOTE: OCTOBER 25, 2023@08:47 ENTRY DATE: OCTOBER 25, 2023@08:47:07 AUTHOR: KISHAN VERDE EXP COSIGNER: URGENCY: STATUS: COMPLETED OPTOMETRY NOTE Has ADDENDA The quote provided below is for informational purposes only. Please verify prior to the creation of a purchase order. FABY Sportoman[employer] [id number] RX INFORMATION OD +1.25 -2.00 X90 Add:+2.50 Pzm:0.00 Dir: Prz2:0.00 Dir2: OS +0.75 -1.75 X95 Add:+2.50 Pzm:0.00 Dir: Prz2:0.00 Dir2: FITTING INFORMATION FPD: NPD: [place]:R:29.5 L:31.0 SEG HT:R:21 L:21 Tint:None Shade:None VA Billable Items FRAME: BIG TWIST BLACK [phone] Right Lens: PLASTIC VA PROGRESSIVE PHOTOCHROMIC RODRIGUEZ 1.498 PLASTIC CR39 Left Lens: PLASTIC VA PROGRESSIVE PHOTOCHROMIC RODRIGUEZ 1.498 PLASTIC CR39 KLEAR ANTI-REFLECTIVE COATING /renny/ KISHAN VERDE BACK STAYER Signed: 10/25/2023 08:47 Receipt Acknowledged By: 10/25/2023 15:54 /renny/ [facility] 10/25/2023 ADDENDUM STATUS: COMPLETED PDS equipment services associate fit 1 PAL eyeglasses on 10/25/2023. OPT HT entered consult(s) as requested for provider signature. /renny/ [facility] Signed: 10/25/2023 15:55 KISHAN VERDE [facility]
--- OUTSIDE RECORDS SUMMARY | 2024-06-04 12:16 | XMS_ITS | Encounter Summary ---
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 Name Role Phone ADRIANA ROMERO Primary Care [...] GIC INDEMNITY PLAN MEDICAL EXPENSE (OPT/PROF ) [facility] N Dec 28, 2016 [id number] LISAEMILIA HN PATIENT MEDICARE (WNR) MEDICARE (M) PART A Dec 28, 2016 PART A [id number] LISAEMILIA HN PATIENT MEDICARE (WNR) MEDICARE (M) PART B Dec 28, 2016 PART B [id number] [phone] LISAEMILIA HN PATIENT MEDICARE (WNR) MEDICARE (M) PART A Dec 28, 2016 PART A [id number] [phone] LISAEMILIA HN PATIENT MEDICARE (WNR) MEDICARE (M) PART B Dec 28, 2016 PART B [id number] EMILIA GONZALEZ HN PATIENT BRIANA PREFERRED PROVIDER ORGANIZAT ION (PPO) [facility] Dec [facility], 2016 [id number] [id number] [phone] EMILIA GONZALEZ PATIENT UNICARE MEDICAL EXPENSE (OPT/PROF ) [facility] Dec 28, 2016 [id number] [phone] EMILIA GONZALEZ PATIENT Selected Encounter This section includes the information on record at [place] for the Encounter. Date/Time Encounter Type Encounter Description Reason Pro vider Source Nov 11, 2023 09:50 AM Outpatient Encounter ADMIN PAT ACTIVTIES (MASNONCT) IHE Encounter Template Text not used by [place] Plan of Treatment: Future Appointments (+ 6 months) and Future Tests (+/- 45 days) The Plan of Treatment section includes future care activities for the patient from all [place] treatmentfacilities. This section includes future appointments and future orders which are active, pending or scheduled. Future Appointments This section includes appointments that were scheduled to occur 6 months from the date of the Encounter, up to a maximum of 20 appointments. The data comes from all [place] treatment facilities. Appointment Date/Time Appointment Type Appointme nt Facility Name Nov 18, 2023 08:30 AM AMBULATORY - NONE [place] [facility] [place] [facility] Dec 13, 2023 02:30 PM AMBULATORY - [place]ICINE [place] [facility] [place] [facility] Dec 21, 2023 09:45 AM AMBULATORY - MEDICINE [place] [facility] [facility] Jan 31, 2024 01:30 PM AMBULATORY - MEDICINE [place] [facility] [place] [facility] Feb 02, 2024 11:15 AM AMBULATORY - NONE [place] [facility] [place] [facility] Apr 10, 2024 11:00 AM AMBULATORY - MEDICINE [place] [facility] [facility] May 10, 2024 09:00 AM AMBULATORY - MEDICINE [facility] [place] [facility] Lab Results: +/- 30 days of the encounter This section includes the Chemistry and Hematology Lab Results on record with [place] for the patient. Radiology Reports and Pathology Reports are provided separately, in subsequent sections. Lab Results This section contains the Chemistry/Hematology Results that were resulted 30 days before or 30 daysafter the date of the Encounter. Date/Time Source Result Type Result - Unit Interpretation Reference Range Comment Nov 01, 2023 08:44 AM [facility] BASIC METABOLIC PANEL (fasting) Specimen Type: SERUM No comment entered. Ordering Provider: MICHAELA ROMERO F Report Released Date/Time: Apr 18, 2023 10:07 AM Reporting Lab: [facility] [address] [facility] [address] Performing Lab: [address] [address] UREA NITROGEN 19 mg/dL 7-25 GLUCOSE 178 mg/dL H 65-100 SODIUM 138 mmol/L 135-145 POTASSIUM 5.2 mmol/L H 3.5-5.0 CHLORIDE 105 mmol/L 100-110 CO2 24 meq/L 20-30 CREATININE, Serum 1.39 mg/dL 0.50-1.40 eGFR(CKD-EPI 2020) 50 mL/min L >60 Nov 01, 2023 08:44 AM [facility] LIVER FUNCTION Specimen Type: SERUM No comment entered. Ordering Provider: MICHAELA ROMERO F Report Released Date/Time: Apr 18, 2023 10:07 AM Reporting Lab: [facility] [address] [facility] [address] Performing Lab: [address] [address] PROTEIN,TOTAL 7.1 g/dL 6.0-8.3 ALBUMIN 4.0 g/dL 3.5-5.0 ALKALINE PHOSPHATASE 57 U/L 40-150 AST 23 U/L 5-34 ALT 17 U/L BILIRUBIN, TOTAL 0.5 mg/dL 0.2-1.2 Nov 01, 2023 08:44 AM [facility] HEMOGLOBIN A1C PANEL Specimen Type: BLOOD [...] Apr 18, 2023 10:07 AM Reporting Lab: [facility] [address] [facility] [address] Performing Lab: [facility] [address] [address] HEMOGLOBIN A1C 8.2 H 4.0-5.6 Nov 01, 2023 08:44 AM [facility] LIPID PANEL FASTING Specimen Type: SERUM No comment entered. Ordering Provider: MICHAELA ROMERO F Report Released Date/Time: Apr 18, 2023 10:07 AM Reporting Lab: [facility] [address] [facility] [address] Performing Lab: [facility] [address] CHOLESTEROL 158 mg/dL TRIGLYCERIDE 131 mg/dL 0-150 LDL calculated 103 mg/dL 0-129 CHOL/HDL 5.4 HDL CHOLESTEROL 29 mg/dL L 40-60 Nov 01, 2023 08:44 AM [facility] MICROALBUMIN CREATININE RATIO PANEL Specimen Type: URINE No comment entered. Ordering Provider: MICHAELA ROMERO Report Released Date/Time: Apr 18, 2023 10:07 AM Reporting Lab: [facility] [address] [facility] [address] Performing Lab: [facility] [address] MICROALBUMIN/C REATININE RATIO 170.4 mg/g H 0-29.9 MICROALBUMIN,Q UANTITATIVE 11.6 mg/dL RR UNAVAIL CREATININE URINE 68.07 mg/dL Nov 01, 2023 08:44 AM [facility] URIC ACID Specimen Type: SERUM No comment entered. Ordering Provider: MICHAELA ROMERO F Report Released Date/Time: Nov 07, 2023 10:27 AM Reporting Lab: [facility] [address] [facility] [address] Performing Lab: [facility] [address] [facility] [address] URIC ACID 5.7 mg/dL 3.5-7.2 Social History: Smoking Status (Most current) and Tobacco Use (All prior to encounter date) This section includes the most current, and the historical, smoking and tobacco- related health factors from the [place] facility where the Encounter took place. Current Smoking Status This section includes the most current smoking, or tobacco-related health factor, from the [place] facility where the Encounter took place. Date/Time Current Smoking Status Comment Facil ity Oct 30, 2019 10:03 AM [place]-TOBACCO QUIT [address] [facility] Tobacco Use History This section includes a history of the smoking, or tobacco-related health factors, that were collected on or before the date of the Encounter. The data comes from the [place] facility where the Encounter took place. Date/Time Smoking Status/Tobacco Use Comment F acility Oct 30, 2019 10:03 AM VA-TOBACCO QUIT [address] [facility] Aug 28, 2018 02:25 PM VA-TOBACCO FORMER USER [facility] Aug 28, 2018 02:25 PM VA-TOBACCO QUIT [address] [facility] Sep 12, 2017 08:15 AM QUIT TOBACCO USE > 7 YEARS AGO Quit smoking in [address] [facility] October 05, 2016 07:24 AM QUIT TOBACCO USE > [address] [facility] Apr 30, 2015 07:44 AM QUIT TOBACCO USE > 7 YEARS AGO [address] [facility] Jan 05, 2012 01:53 PM QUIT TOBACCO USE > [address] [facility] Radiology Reports: +/- 30 days of [...] the Encounter. The data comes from all [place] treatment facilities. Date/Time Radiology Report Provider Source Nov 18, 2023 08:[address] W/O CONT: FABY GONZALEZ [id number] -1940 M Exm Date: NOV 18, 2023@08:12 Req Phys: ADRIANA ROMERO Pat Loc: CWM/NO/PHARM/PACT 3 (Req'g Loc Img Loc: NHM/CT Service: Unknown [place] [facility] , ([id number] COMPLETE) CT THORAX W/O CONT (CT Detailed) CPT:09171 Reason for Study: pulmonary fibrosis on cxr at [facility] last week. Clinical History: pulmonary fibrosis on cxr at [facility] last week. He finished aUGMENTIN 6/5, but now reports that phlegm is now returning. Report Status: Verified Date Reported: NOV 24, 2023 Date Verified: NOV 24, 2023 Textile Technologist E-Sig: Report: EXAM: CT chest without contrast COMPARISON: None. HISTORY: pulmonary fibrosis on cxr at [facility] last week. He finished aUGMENTIN 6/5, but [...] pulmonary fibrosis. READING PHYSICIAN: Kaiden Jacob D.O. -[id number] 11/24/2023 13:44 EDT [facility] [employer] Program [phone] (For Medical Practitioner Use Only) Attention Patients / Veterans: If you have questions or concerns about these test results, please contact your ordering provider or primary care team. Primary Diagnostic Code: NO ALERT REQUIRED Primary Interpreting Staff: RADIOLOGY,OUTSIDE SERVICE, Staff Physician / RADIOLOGY,OUTSIDE SERVICE [facility] October 25, 2023 10:53 AM OUTSIDE CHEST (2 VIEWS): FABY GONZALEZ [id number] -1940 M Exm Date: OCTOBER 25, 2023@10:53 Req Phys: ADRIANA ROMERO Loc: NHM/OUTSIDE IMAGING NON-CNT (R Img Loc: OUTSIDE GENERAL RADIOLOGY Service: Unknown (Case 10 COMPLETE) OUTSIDE CHEST (2 VIEWS) (RAD Detailed) CPT:09242 Reason for Study: outside images downloaded for continuity of care Clinical History: outside images downloaded for continuity of care Report Status: Electronically Filed Date Reported: OCTOBER 25, 2023 Report: THIS EXAM WAS PERFORMED AND INTERPRETED AT AN OUTSIDE HOSPITAL Impression: THIS EXAM WAS PERFORMED AND INTERPRETED AT AN OUTSIDE HOSPITAL Primary Diagnostic Code: VERIFIED BY: / *ELECTRONICALLY FILED* [facility] Encounter Notes: All associated encounter notes This section contains the clinical notes associated to the Encounter. Date/Time Encounter Note(s) Provider Source Nov 11, 2023 09:50 AM ERRONEOUSLY ENTERE D DOCUMENT: LOCAL TITLE: ERRONEOUS NOTE/HIMS STANDARD TITLE: ERRONEOUSLY ENTERED DOCUMENT DATE OF NOTE: NOV 11, 2023@09:50:33 ENTRY DATE: NOV 11, 2023@09:50:33 AUTHOR: JOSE ANGEL PULLIAM EXP COSIGNER: URGENCY: STATUS: COMPLETED ERRONEOUS NOTE/HIMS Has ADDENDA You may not VIEW this COMPLETED ERRONEOUS NOTE/HIMS. JOSE ANGEL PULLIAMWYSelma [facility]
--- OUTSIDE RECORDS SUMMARY | 2024-06-04 12:16 | XMS_ITS | Encounter Summary ---
Author Name [facility] [place] Organization [facility] [place] Address [address] [place] [address] Care Team Providers Care Dietetic Technician Name Role Phone ADRIANA ROMERO Primary Care [...] GIC INDEMNITY PLAN MEDICAL EXPENSE (OPT/PROF ) [facility] Dec 28, 2016 [id number] [phone] LISAEMILIA HN PATIENT MEDICARE (WNR) MEDICARE (M) PART A Dec 28, 2016 PART A [id number] [phone] LISAEMILIA HN PATIENT MEDICARE (WNR) MEDICARE (M) PART B Dec 28, 2016 PART B [id number] LISAEMILIA HN PATIENT MEDICARE (WNR) MEDICARE (M) PART A Dec 28, 2016 PART A [id number] LISAEMILIA HN PATIENT MEDICARE (WNR) MEDICARE (M) PART B Dec 28, 2016 PART B [id number] [phone] EMILIA GONZALEZ HN PATIENT BRIANA PREFERRED PROVIDER ORGANIZAT ION (PPO) [facility] Dec [facility], 2016 [id number] [id number] [phone] EMILIA GONZALEZ PATIENT UNICARE MEDICAL EXPENSE (OPT/PROF ) [facility] Dec 28, 2016 [id number] [phone] EMILIA GONZALEZ PATIENT Selected Encounter This section includes the information on record at [place] for the Encounter. Date/Time Encounter Type Encounter Description Reason Pro vider Source Nov 11, 2023 09:01 AM Outpatient Encounter ADMIN PAT ACTIVTIES (MASNONCT) IHE Encounter Template Text not used by [place] Plan of Treatment: Future Appointments (+ 6 months) and Future Tests (+/- 45 days) The Plan of Treatment section includes future care activities for the patient from all [place] treatmentfacilities. This section includes future appointments and future orders which are active, pending or scheduled. Future Appointments This section includes appointments that were scheduled to occur 6 months from the date of the Encounter, up to a maximum of 20 appointments. The data comes from all [place] treatment facilities. Appointment Date/Time Appointment Type Appointme nt Facility Name Nov 18, 2023 08:30 AM AMBULATORY - NONE [place] [facility] [place] [place] [facility] Dec 13, 2023 02:30 PM AMBULATORY - MEDICINE [place] [facility] [place] [facility] Dec 21, 2023 09:45 AM AMBULATORY - MEDICINE [place] [facility] [place] [facility] Jan 31, 2024 01:30 PM AMBULATORY - MEDICINE [place] [facility] [place] [facility] Feb 02, 2024 11:15 AM AMBULATORY - NONE [place] [facility] [place] [facility] Apr 10, 2024 11:00 AM AMBULATORY - MEDICINE [place] [facility] [place] [facility] May 10, 2024 09:00 AM AMBULATORY - MEDICINE [facility] [place] [facility] Lab Results: +/- 30 days of the encounter This section includes the Chemistry and Hematology Lab Results on record with [place] for the patient. Radiology Reports and Pathology Reports are provided separately, in subsequent sections. Lab Results This section contains the Chemistry/Hematology Results that were resulted 30 days before or 30 daysafter the date of the Encounter. Date/Time Source Result Type Result - Unit Interpretation Reference Range Comment Nov 01, 2023 08:44 AM [facility] BASIC METABOLIC PANEL (fasting) Specimen Type: SERUM No comment entered. Ordering Provider: MICHAELA ROMERO F Report Released Date/Time: Apr 18, 2023 10:07 AM Reporting Lab: [address] [address] Performing Lab: [address] [address] UREA NITROGEN 19 mg/dL 7-25 GLUCOSE 178 mg/dL H 65-100 SODIUM 138 mmol/L 135-145 POTASSIUM 5.2 mmol/L H 3.5-5.0 CHLORIDE 105 mmol/L 100-110 CO2 24 meq/L 20-30 CREATININE, Serum 1.39 mg/dL 0.50-1.40 eGFR(CKD-EPI 2020) 50 mL/min L >60 Nov 01, 2023 08:44 AM [facility] LIVER FUNCTION Specimen Type: SERUM No comment entered. Ordering Provider: MICHAELA ROMERO F Report Released Date/Time: Apr 18, 2023 10:07 AM Reporting Lab: [address] [address] Performing Lab: [address] [address] PROTEIN,TOTAL 7.1 g/dL 6.0-8.3 ALBUMIN 4.0 g/dL 3.5-5.0 ALKALINE PHOSPHATASE 57 U/L 40-150 AST 23 U/L 5-34 ALT 17 U/L BILIRUBIN, TOTAL 0.5 mg/dL 0.2-1.2 Nov 01, 2023 08:44 AM [facility] LIPID PANEL FASTING Specimen Type: SERUM No comment entered. Ordering Provider: MICHAELA ROMERO F Report Released Date/Time: Apr 18, 2023 10:07 AM Reporting Lab: [address] [place] [address] Performing Lab: [facility] [address] [facility] [address] CHOLESTEROL 158 mg/dL TRIGLYCERIDE 131 mg/dL 0-150 LDL calculated 103 mg/dL 0-129 CHOL/HDL 5.4 HDL CHOLESTEROL 29 mg/dL L 40-60 Nov 01, 2023 08:44 AM [facility] HEMOGLOBIN A1C PANEL Specimen Type: BLOOD [...] Apr 18, 2023 10:07 AM Reporting Lab: [address] [address] Performing Lab: [address] [address] HEMOGLOBIN A1C 8.2 H 4.0-5.6 Nov 01, 2023 08:44 AM [facility] MICROALBUMIN CREATININE RATIO PANEL Specimen Type: URINE No comment entered. Ordering Provider: MICHAELA ROMERO Report Released Date/Time: Apr 18, 2023 10:07 AM Reporting Lab: [address] [address] Performing Lab: [address] [address] MICROALBUMIN/C REATININE RATIO 170.4 mg/g H 0-29.9 MICROALBUMIN,Q UANTITATIVE 11.6 mg/dL RR UNAVAIL CREATININE URINE 68.07 mg/dL Nov 01, 2023 08:44 AM [facility] URIC ACID Specimen Type: SERUM No comment entered. Ordering Provider: MICHAELA ROMERO Report Released Date/Time: Nov 07, 2023 10:27 AM Reporting Lab: [facility] [address] [facility] [address] Performing Lab: [facility] [address] [facility] [address] URIC ACID 5.7 mg/dL 3.5-7.2 Social History: Smoking Status (Most current) and Tobacco Use (All prior to encounter date) This section includes the most current, and the historical, smoking and tobacco- related health factors from the [place] facility where the Encounter took place. Current Smoking Status This section includes the most current smoking, or tobacco-related health factor, from the [place] facility where the Encounter took place. Date/Time Current Smoking Status Comment Facil ity Oct 30, 2019 10:03 AM PR-TOBACCO QUIT [address] [facility] Tobacco Use History This section includes a history of the smoking, or tobacco-related health factors, that were collected on or before the date of the Encounter. The data comes from the [place] facility where the Encounter took place. Date/Time Smoking Status/Tobacco Use Comment F acility Oct 30, 2019 10:03 AM VA-TOBACCO QUIT [address] [facility] Aug 28, 2018 02:25 PM VA-TOBACCO FORMER USER [facility] Aug 28, 2018 02:25 PM VA-TOBACCO QUIT [address] OR [address] [facility] Sep 12, 2017 08:15 AM QUIT TOBACCO USE > 7 YEARS AGO Quit smoking in [address] [facility] October 05, 2016 07:24 AM QUIT TOBACCO USE > [address] [facility] Apr 30, 2015 07:44 AM QUIT TOBACCO USE > 7 YEARS AGO [address] [facility] Jan 05, 2012 01:53 PM QUIT TOBACCO USE > [address] [facility] Radiology Reports: +/- 30 days [...] the Encounter. The data comes from all [place] treatment facilities. Date/Time Radiology Report Provider Source Nov 18, 2023 08:[address] W/O CONT: FABY GONZALEZ [id number] -1940 M Exm Date: NOV 18, 2023@08:12 Req Phys: ADRIANA ROMERO Pat Loc: CWM/NO/PHARM/PACT 3 (Req'g Loc Img Loc: NHM/CT Service: Unknown [place] [facility] , (Case 542 COMPLETE) CT THORAX W/O CONT (CT Detailed) CPT:32770 Reason for Study: pulmonary fibrosis on cxr at [facility] last week. Clinical History: pulmonary fibrosis on cxr at [facility] last week. He finished aUGMENTIN 6/5, but now reports that phlegm is now returning. Report Status: Verified Date Reported: NOV 24, 2023 Date Verified: NOV 24, 2023 Roll Forming Machine Set Up Mechanic E-Sig: Report: EXAM: CT chest without contrast [...] pulmonary fibrosis. READING PHYSICIAN: Kaiden Jacob D.O. -[phone] 11/24/2023 13:44 EDT [facility] [employer] Program [phone] (For Medical Practitioner Use Only) Attention Patients / Veterans: If you have questions or concerns about these test results, please contact your ordering provider or primary care team. Primary Diagnostic Code: NO ALERT REQUIRED Primary Interpreting Staff: RADIOLOGY,OUTSIDE SERVICE, Staff Physician / RADIOLOGY,OUTSIDE SERVICE [place] [facility] [place] [facility] October 25, 2023 10:53 AM OUTSIDE CHEST (2 VIEWS): FABY GONZALEZ [id number] -1940 M Exm Date: OCTOBER 25, 2023@10:53 Req Phys: ADRIANA ROMERO Loc: NHM/OUTSIDE IMAGING NON-CNT (R Img Loc: OUTSIDE GENERAL RADIOLOGY Service: Unknown (Case 10 COMPLETE) OUTSIDE CHEST (2 VIEWS) (RAD Detailed) CPT:04173 Reason for Study: outside images downloaded for continuity of care Clinical History: outside images downloaded for continuity of care Report Status: Electronically Filed Date Reported: OCTOBER 25, 2023 Report: THIS EXAM WAS PERFORMED AND INTERPRETED AT AN OUTSIDE HOSPITAL Impression: THIS EXAM WAS PERFORMED AND INTERPRETED AT AN OUTSIDE HOSPITAL Primary Diagnostic Code: VERIFIED BY: / *ELECTRONICALLY FILED* [facility] Encounter Notes: All associated encounter notes This section contains the clinical notes associated to the Encounter. Date/Time Encounter Note(s) Provider Source Nov 11, 2023 09:42 AM ADDENDUM: LOCAL TITLE: Addendum STANDARD TITLE: ADDENDUM DATE OF NOTE: NOV 11, 2023@09:42:09 ENTRY DATE: NOV 11, 2023@09:42:10 AUTHOR: CARLOS ABDI EXP COSIGNER: URGENCY: STATUS: COMPLETED Chart reviewed is no longer established with [facility] system. Established in [facility]. Notified AMA PACT RN via teams, who acknowledged alert from and agrees to follow up. Spoke with . Alert and oriented x3. NAD. Storage Specialist alerted typewriter aligner alerted his AMA PACT and to to follow up with them regarding his concerns as his call was forwarded to previous va. apprecative of assistance. Endorses he has [place] PCC number. ALERT HSS Please remove ve from PCP3 panel, no longer established with [facility]. Seen by AMA PR. /es/ S Michelle TITUS Signed: 11/11/2023 09:47 Receipt Acknowledged By: 11/14/2023 14:13 /es/ BIPIN CARRILLO [facility] Clinical Assessment Manager CBOC's --- Original Document --- 11/11/23 CCC: SCHEDULING ADMINISTRATION: Patient Demographics Patient Name: FABY GONZALEZ Patient Primary Phone: [phone] Patient Primary [address] [address] [place] [id number] Patient : 1940 Patient Age: 82 Caller/Recipient Relation to Patient: Self Administrative Administrative Note Reason: Other Administrative Note Comments: [place] has been treated for lung issues and pneumonia has run out of medication. Was advised to get an x-ray after medication however still not feeling 100%. Still coughing up phlegm. How should I proceed please advise. Declined transfer to TRIAGE /renny/ ERICKA ARANDA 1 [facility] AMSA Signed: 11/11/2023 09:01 Receipt Acknowledged By: 11/11/2023 09:39 /es/ S CARLOS Conn RN [facility] Nov 11, 2023 09:01 AM ADMINISTRATIVE NOT E: LOCAL TITLE: CCC: SCHEDULING ADMINISTRATION STANDARD TITLE: ADMINISTRATIVE NOTE DATE OF NOTE: NOV 11, 2023@09:01:22 ENTRY DATE: NOV 11, 2023@09:01:22 AUTHOR: ERICKA LOVE EXP COSIGNER: URGENCY: STATUS: COMPLETED CCC: SCHEDULING ADMINISTRATION Has ADDENDA Patient Demographics Patient Name: FABY GONZALEZ Patient Primary Phone: [phone] Patient Primary Address: [address] [place] [id number] Patient : 1940 Patient Age: 82 Caller/Recipient Relation to Patient: Self Administrative Administrative Note Reason: Other Administrative Note Comments: [place] has been treated for lung issues and pneumonia has run out of medication. Was advised to get an x-ray after medication however still not feeling 100%. Still coughing up phlegm. How should I proceed please advise. Declined transfer to TRIAGE /renny/ ERICKA LOVE VISN 1 [facility] AMSA Signed: 11/11/2023 09:01 Receipt Acknowledged By: 11/11/2023 09:39 /renny/ Yousuf Abdi RN 11/11/2023 ADDENDUM STATUS: COMPLETED Chart reviewed is no longer established with [facility] system. Established in [facility]. Notified [place] PACT RN via teams, who acknowledged alert from and agrees to follow up. Spoke with . Alert and oriented x3. NAD. Storage Specialist alerted typewriter aligner alerted his [place] PACT and to to follow up with them regarding his concerns as his call was forwarded to previous va. apprecative of assistance. Endorses he has [place] PCC number. ALERT HSS Please remove ve from PCP3 panel, no longer established with [facility]. Seen by [facility]. /renny/ Yousuf Abdi RN Signed: 11/11/2023 09:47 Receipt Acknowledged By: * AWAITING SIGNATURE * BIPIN CARRILLO,ERICKA Maher [facility]
--- OUTSIDE RECORDS SUMMARY | 2024-06-04 12:16 | XMS_ITS | Encounter Summary ---
Author Name [facility] [place] Address [address] [place] [address] Care Team Providers Care Web Merchant Name Role Phone JAGDISH HUITRON Primary Care Provider YOSELIN Riojas Primary Care [...] GIC INDEMNITY PLAN MEDICAL EXPENSE (OPT/PROF ) [facility] N Dec 28, 2016 [id number] EMILIA GONZALEZ HN PATIENT MEDICARE (WNR) MEDICARE (M) PART A Dec 28, 2016 PART A [id number] [phone] EMILIA GONZALEZ HN PATIENT MEDICARE (WNR) MEDICARE (M) PART B Dec 28, 2016 PART B [id number] [phone] EMILAI GONZALEZ HN PATIENT MEDICARE (WNR) MEDICARE (M) PART A Dec 28, 2016 PART A [id number] EMILIA GONZALEZ HN PATIENT MEDICARE (WNR) MEDICARE (M) PART B Dec 28, 2016 PART B [id number] EMILIA GONZALEZ PATIENT UNICARE PREFERRED PROVIDER ORGANIZAT ION (PPO) DENI [facility] Dec 28, 2016 [id number] [phone] SBEMILIA HILL PATIENT UNICARE MEDICAL EXPENSE (OPT/PROF ) DENI [facility] N Dec 28, 2016 [id number] EMILIA GONZALEZ PATIENT Selected Encounter This section includes the information on record at [place] for the Encounter. Date/Time Encounter Type Encounter Description Reason Pro vider Source Aug 05, 2023 03:33 PM Outpatient Encounter ADMIN PAT ACTIVTIES (MASNONCT) IHE Encounter Template Text not used by [place] Plan of Treatment: Future Appointments (+ 6 months) and Future Tests (+/- 45 days) The Plan of Treatment section includes future care activities for the patient from all [place] treatmentfacilities. This section includes future appointments and future orders which are active, pending or scheduled. Future Appointments This section includes appointments that were scheduled to occur 6 months from the date of the Encounter, up to a maximum of 20 appointments. The data comes from all [place] treatment facilities. Appointment Date/Time Appointment Type Appointme nt Facility Name Aug 10, 2023 09:00 AM AMBULATORY - MEDICINE [facility] [place] [facility] October 25, 2023 08:00 AM AMBULATORY - MEDICINE [facility] [place] [place] [facility] Nov 03, 2023 09:00 AM AMBULATORY - MEDICINE [facility] [place] [facility] Nov 09, 2023 08:30 AM AMBULATORY - MEDICINE [facility] [place] [facility] Nov 18, 2023 08:30 AM AMBULATORY - NONE [facility] [place] [facility] Dec 13, 2023 02:30 PM AMBULATORY - MEDICINE [facility] [place] [facility] Dec 21, 2023 09:45 AM AMBULATORY - MEDICINE [facility] [facility] Jan 31, 2024 01:30 PM AMBULATORY - MEDICINE [facility] [place] [facility] Feb 02, 2024 11:15 AM [facility]ORY - NONE [facility] Social History: Smoking Status (Most current) and Tobacco Use (All prior to encounter date) This section includes the most current, and the historical, smoking and tobacco- related health factors from the [place] facility where the Encounter took place. Current Smoking Status This section includes the most current smoking, or tobacco-related health factor, from the [place] facility where the Encounter took place. Date/Time Current Smoking Status Comment Sun gruber Dec 10, 2022 10:00 AM VA-TOBACCO [facility] Tobacco Use History This section includes a history of the smoking, or tobacco-related health factors, that were collected on or before the date of the Encounter. The data comes from the [place] facility where the Encounter took place. Date/Time Smoking Status/Tobacco Use Comment F gabriella Dec 10, 2022 10:00 AM VA-TOBACCO QUIT 15 YRS OR MORE [place] [facility] Jan 07, 2022 12:47 PM VA-TOBACCO DOESNT USE WI 30 MIN WAKEUP [place] [facility] [place] [facility] Jan 07, 2022 12:47 PM VA-TOBACCO USE 30 YEARS OR MORE [place] [facility] [place] [facility] Jan 07, 2022 12:47 PM VA-TOBACCO USE ADVICE [place] [facility] [place] [facility] Jan 07, 2022 12:47 PM VA-TOBACCO USE FREIGHT CAR CLEANER NO [place] [facility] [place] [facility] Jan 07, 2022 12:47 PM VA-TOBACCO USE MED NO [place] [facility] Jan 07, 2022 12:47 PM VA-TOBACCO USER EVERY DAY [facility] Encounter Notes: All associated encounter notes This section contains the clinical notes associated to the Encounter. Date/Time Encounter Note(s) Provider Source Aug 08, 2023 08:11 AM ADDENDUM: LOCAL TITLE: Addendum STANDARD TITLE: ADDENDUM DATE OF NOTE: AUG 08, 2023@08:11:48 ENTRY DATE: AUG 08, 2023@08:11:49 AUTHOR: JAGDISH HUITRON COSIGNER: URGENCY: STATUS: COMPLETED renewed as above. I reviewed DR Bojorquez's last note in which he mentioned using FOUR antilipid agents. I will ask our CPP to review and consider consulting with this patient for same as well as DM. /renny/ Jagdish Huitron PA-C STAFF PHYSICIAN DIPPER CLOCK AND WATCH HANDS Signed: 08/08/2023 08:13 Receipt Acknowledged By: 08/10/2023 16:09 /renny/ CHRISTIANO MCKEON PHARMD,[facility] PRACTITIONER === --- Original Document --- 08/05/23 CCC: SCHEDULING ADMINISTRATION: Patient Demographics Patient Name: FABY GONZALEZ Patient Primary Phone: [phone] Patient Primary Address: [address] [place] [address] Patient : 1940 Patient Age: 82 Caller/Recipient Relation to Patient: Self Administrative Administrative Note Reason: Medication Renewal Medications Refill/Renewal Request: [place] requesting renewal of the following medications to be mailed, address verified Rx #[id number] - ATORVASTATIN CALCIUM 80MG TAB Rx #[id number] - CANDESARTAN CILEXETIL 8MG TAB Rx #[id number] - CHOLECALCIF 25MCG (D3-1,000UNIT) TAB Rx #[id number] - CYANOCOBALAMIN 1000MCG TAB Rx #[id number] - EZETIMIBE 10MG TAB Rx #[id number] - FOLIC ACID 1MG TAB Rx #[id number] - GEMFIBROZIL 600MG TAB Rx #[id number] - METFORMIN HCL 500MG TAB Rx #[id number] - MULTIVITAMIN/MINERALS CAP/TAB /es/ DAKOTAH IBARRA VISN1 [facility] AMSA Signed: 08/05/2023 15:33 Receipt Acknowledged By: 08/08/2023 09:50 /es/ NI FLETCHER RN REGISTERED NURSE 08/08/2023 08:21 /renny/ Jagdish Huitron PA-C STAFF PHYSICIAN DIPPER CLOCK AND WATCH HANDS JAGDISH HUITRON [place] [facility] Aug 05, 2023 03:33 PM ADMINISTRATIVE NOTE: LOCAL TITLE: CCC: SCHEDULING ADMINISTRATION STANDARD TITLE: ADMINISTRATIVE NOTE DATE OF NOTE: AUG 05, 2023@15:33:42 ENTRY DATE: AUG 05, 2023@15:33:42 AUTHOR: DAKOTAH IBARRAIGNER: URGENCY: STATUS: COMPLETED CCC: SCHEDULING ADMINISTRATION Has ADDENDA Patient Demographics Patient Name: FAYB GONZALEZ Patient Primary Phone: [phone] Patient Primary Address: [address] [place] [id number] Patient : 1940 Patient Age: 82 Caller/Recipient Relation to Patient: Self Administrative Administrative Note Reason: Medication Renewal Medications Refill/Renewal Request: requesting renewal of the following medications to be mailed, address verified Rx #[id number] - ATORVASTATIN CALCIUM 80MG TAB Rx #[id number] - CANDESARTAN CILEXETIL 8MG TAB Rx #[id number] - CHOLECALCIF 25MCG (D3-1,000UNIT) TAB Rx #[id number] - CYANOCOBALAMIN 1000MCG TAB Rx #[id number] - EZETIMIBE 10MG TAB Rx #[id number] - FOLIC ACID 1MG TAB Rx #[id number] - GEMFIBROZIL 600MG TAB Rx #[id number] - METFORMIN HCL 500MG TAB Rx #[id number] - MULTIVITAMIN/MINERALS CAP/TAB /renny/ DAKOTAH IBARRA VISN1 [facility] AMS[facility] Signed: 08/05/2023 15:33 Receipt Acknowledged By: 08/08/2023 09:50 /es/ NI FLETCHER RN REGISTERED NURSE 08/08/2023 08:21 /es/ Jagdish Huitron PA-C STAFF PHYSICIAN DIPPER CLOCK AND WATCH HANDS 08/08/2023 ADDENDUM STATUS: COMPLETED renewed as above. I reviewed DR Bojorquez's last note in which he mentioned using FOUR antilipid agents. I will ask our CPP to review and consider consulting with this patient for same as well as DM. /renny/ Jagdish Huitron PA-C STAFF PHYSICIAN DIPPER CLOCK AND WATCH HANDS Signed: 08/08/2023 08:13 Receipt Acknowledged By: * AWAITING SIGNATURE * CHRISTIANO MCKEON L[place]NN [facility]
--- OUTSIDE RECORDS SUMMARY | 2024-06-04 12:16 | XMS_ITS | Encounter Summary ---
Author Name [facility] [place] Address [address] [place] [address] Care Team Providers Care Mining Manager Name Role Phone ADRIANA ROMERO Primary Care [...] GIC INDEMNITY PLAN MEDICAL EXPENSE (OPT/PROF ) [facility] N Dec 28, 2016 [id number] EMILIA GONZALEZ HN PATIENT MEDICARE (WNR) MEDICARE (M) PART A Dec 28, 2016 PART A [id number] [phone] EMILIA GONZALEZ HN PATIENT MEDICARE (WNR) MEDICARE (M) PART B Dec 28, 2016 PART B [id number] EMILIA GONZALEZ HN PATIENT MEDICARE (WNR) MEDICARE (M) PART A Dec 28, 2016 PART A [id number] [phone] EMIILA GONZALEZ PATIENT MEDICARE (WNR) MEDICARE (M) PART B Dec 28, 2016 PART B [id number] EMILIA GONZALEZ PATIENT BRIANA PREFERRED PROVIDER ORGANIZAT ION (PPO) DENI [place] N Dec 28, 2016 [id number] EMILIA GONZALEZ PATIENT UNICARE MEDICAL EXPENSE (OPT/PROF ) DENI [place] [facility] N Dec 28, 2016 [id number] EMILIA GONZALEZ PATIENT Selected Encounter This section includes the [place] for the Encounter. 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 This section includes future appointments and future orders which are active, pending or scheduled. Future Appointments This section includes appointments that were scheduled to occur 6 months from the date of the Encounter, up to a maximum of 20 appointments. The data comes from all [place] treatment facilities. Appointment Date/Time Appointment Type Appointme nt Facility Name October 25, 2023 08:00 AM AM[place]ULATORY [place] [facility] Nov 03, 2023 09:00 AM AMBULATORY - MEDICINE [place] [facility] Nov 09, 2023 08:30 AM AMBULATORY - MEDICINE [place] [facility] Nov 18, 2023 08:30 AM AMBULATORY - NONE [place] [facility] [place] [facility] Dec 13, 2023 02:30 PM AMBULATORY - MEDICINE [facility] [place] [facility] Dec 21, 2023 09:45 AM AMBULATORY - MEDICINE [facility] [place] [facility] Jan 31, 2024 01:30 PM AMBULATORY - MEDICINE [place] [facility] [place] [facility] Feb 02, 2024 11:15 AM [facility]UL[place]ORY - NONE [place] [facility] Social History: Smoking Status (Most current) and Tobacco Use (All prior to encounter date) This section includes the most current, and the historical, smoking and tobacco- related health factors from the [place] facility where the Encounter took place. Current Smoking Status This section includes the most current smoking, or tobacco-related health factor, from the [place] facility where the Encounter took place. Date/Time Current Smoking Status Comment Facil ity Dec 10, 2022 10:00 AM [facility] Tobacco Use History This section includes a history of the smoking, or tobacco-related health factors, that were collected on or before the date of the Encounter. The data comes from the [place] facility where the Encounter took place. Date/Time Smoking Status/Tobacco Use Comment F acility Dec 10, 2022 10:00 AM VA-TOBACCO QUIT 15 YRS OR MORE [place] [facility] [facility] Jan 07, 2022 12:47 PM VA-TOBACCO DOESNT USE WI 30 MIN WAKEUP [place] [facility] [facility] Jan 07, 2022 12:47 PM VA-TOBACCO USE 30 YEARS OR MORE [place] [facility] Jan 07, 2022 12:47 PM VA-TOBACCO USE ADVICE [place] [facility] [place] [facility] Jan 07, 2022 12:47 PM VA-TOBACCO USE BATCH TESTER NO [facility] [place] [facility] Jan 07, 2022 12:47 PM VA-TOBACCO USE MED NO [place] [facility] [place] [facility] Jan 07, 2022 12:47 PM VA-TOBACCO USER EVERY DAY [place] [facility] Encounter Notes: All associated encounter notes This section contains the clinical notes associated to the Encounter. Date/Time Encounter Note(s) Provider Source Aug 10, 2023 01:43 PM PODIATRY NOTE: LOCAL TITLE: PODIATRY PAVE FOOT EXAM STANDARD TITLE: PODIATRY NOTE DATE OF NOTE: AUG 10, 2023@13:43 ENTRY DATE: AUG 10, 2023@13:43:12 AUTHOR: RENETTA KYLE COSIGNER: URGENCY: STATUS: COMPLETED Patient will follow-up at primary care annually for PAVE foot exam does not need to return to podiatry unless wrist exam elevates to level 2 PAVE FOOT EXAM A foot risk level was completed. The following risk level was identified for this patient: +POD RISK SCORE+ * --LEVEL 1 - (LOW RISK)* Normal sensation and circulation EITHER foot deformity OR minor foot infection No ulceration, nor history of ulceration, osteomyelitis, or amputation No Charcot joint disease with foot deformity No chronic kidney disease, or less than CKD 4 LEVEL 1 FOOT EDUCATION: 1. Advised patient not to walk barefoot. Instructed the patient to pay close attention to the style and fit of shoes. 2. Explained the importance of daily foot checks. Explained that loss of sensation leads to callouses. Callouses break down, which result in ulcers that may lead to gangrene and amputation. 3. Stressed the importance of daily foot hygiene. Warm (not hot) bathing of the feet, complete drying and thorough inspection for changes in the condition of the skin constitute daily foot care. Demonstrated how to do a thorough foot check. 4. Emphasized the use of clean, non-restrictive socks/stockings and well fitting shoes. 5. Stressed the importance of immediate follow-up of any foot injuries or ulcers. Explained that he/she should be non-weight bearing whenever there are lesions on the foot, to prevent cellular damage. Level of Understanding: Herbert /renny/ RENETTA KYLE DPM PODIATRY ATTENDING Signed: 08/10/2023 13:43 RENETTA KYLE [place] [facility] Aug 10, 2023 09:28 AM PODIATRY NOTE: LOCAL TITLE: PODIATRY NOTE STANDARD TITLE: PODIATRY NOTE DATE OF NOTE: AUG 10, 2023@09:28 ENTRY DATE: AUG 10, 2023@09:28:19 AUTHOR: RENETTA KYLE EXP COSIGNER: URGENCY: STATUS: COMPLETED Podiatry High Risk Foot Encounter [facility] provider: Renetta Kyle DPM Date: AUG 10, 2023 FABY GONZALEZ [id number] Nov [employer] FROM Mar TO Apr Primary Care:T[facility] Subjective: 82-year-old type II diabetic male with out history of PVD or neuropathy remote history of left foot injury in high school that left him with some mild degenerative changes and deformity however this is largely asymptomatic. Patient denies claudication denies paresthesias in feet denies any difficulty with ambulation is able to care for his own toenails. Diabetic/ HRF/ PVD LE History: [None] pvd [None] pvd interventions [None] neuropathy [ ] meds: [None] wound active [None] infection active [None] wound history yes [None] amputation hx [Left foot] deformity [ ] charcot [None] surgical deformity intervention PMH list CPRS: Active problems - Computerized Problem List is the source for the followin. 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 [id number]) 2. Hearing Loss ([facility] [id number]) 3. Vitamin B12 Deficiency ([facility] [id number]) 4. CAD - Coronary Artery Disease ([facility] [id number]) 5. Diabetes Mellitus Type 2 ([facility] [id number]) 6. Gout ([facility] [id number]) 7. Hypercholesterolemia 8. Hypertension Active Out Patient medications: Active Outpatient Medications (including Supplies): Active Outpatient [...] MOUTH ACTIVE ONCE DAILY FOR VITAMIN SUPPLEMENTATION Imaging reports: Lab Data: CHEM 7 TREND LAB CUMULATIVE SELECTED Collection DT Spec GLUCOSE BUN CREATIN Sodium K+/Pot CL CO2 04/14/2023 07:58 SERUM 144 H 33 H 1.49 H 139 4.6 104 23 12/08/2022 08:22 SERUM 123 H 24 1.47 H 141 4.6 106 24 08/09/2022 08:02 SERUM 153 H 19 1.39 141 4.2 106 24 04/14/2022 07:52 SERUM 153 H 19 1.27 141 4.2 105 26 01/18/2022 07:25 SERUM 134 H 23 1.35 140 4.4 103 25 LAB CUMULATIVE SELECTED 2 No selection items chosen for this component. CHEM 7 Results Collection DT Spec Sodium K+/Pot CL CO2 GLUCOSE BUN 04/14/2023 07:58 SERUM 139 4.6 104 23 144 H 33 H 12/08/2022 08:22 SERUM 141 4.6 106 24 123 H 24 08/09/2022 08:02 SERUM 141 4.2 106 24 153 H 19 04/14/2022 07:52 SERUM 141 4.2 105 26 153 H 19 01/18/2022 07:25 SERUM 140 4.4 103 25 134 H 23 HEMOGLOBIN A1C TREND Collection DT Spec HGBA1c 04/14/2023 07:58 BLOOD 7.4 H 08/09/2022 08:02 BLOOD 7.3 H 04/14/2022 07:52 BLOOD 7.1 H 01/18/2022 07:25 BLOOD 7.3 H ALBUMIN Collection DT Specimen Test Name Result Units Ref Range 04/14/2023 07:58 SERUM ALBUMIN 4.2 g/dL 3.5 - 5.0 BMI:BMI: 25.8 PE:General: -palpable pulses -warm [place] skin -sensate to swmf -mild dj at mid tarsus left asymptomatic -no calluses, nails normal well trimmed. PAVE:0 Impression: -low no risk -send back to primary care for annula foot exam Plan: exam discharged. white socks ordered. Return sooner if any clinical signs of infection such as redness, swelling drainage fever chills nausea , or go to nearest hospital emergency / urgent care for evaluation. -As part of the service the pertinent primary care, specialty care and urgent care notes have been reviewed as well as the patient's medication list, problem list, and current imaging as well as past imaging, laboratory data and other pertinent contributory consults. -All new and discontinued medications have been discussed in detail with the patient and or caregiver, including indications for additions and deletions, as well as possible side effects, interactions as foreseen, and risk of not taking as prescribed If applicable, the patient was advised clearly on application of wound care agents how to apply and when to apply. The patient was able to recitethis information back to the prescriber with good understanding and agreed to the plan of care as indicated above. -Plan of care discuss with the patient and or caregiver, including medical decision making which includes discussion of abnormal lab results, imaging and other diagnostic modalities as well as results of the physical exam and regional engagement consultant opinions and recommendations as sought. Alternatives to surgery or outlined care above as appropriate have also been discussed. -The patient/ caregiver has displayed good understanding of above and with no further questions at this time. Patient is aware of next appointment and agrees to follow-up interval. Patient agrees to seek sooner follow up if any irregular events occur in between such as cardinal signs of infection, increased pain or deformity. -The on this visit was given information [employer] service and encouraged to enroll if not already having done so. Disease / RENETTA KYLE DPM PODIATRY ATTENDING Signed: 08/10/2023 13:43 RENETTA KYLE [place] [facility]
--- OUTSIDE RECORDS SUMMARY | 2024-06-04 12:16 | XMS_ITS | Encounter Summary ---
Author Name [facility] [place] [facility] [place] Address [address] [place] [address] Care Team Providers [employer] Community Relations Coordinator Name Role Phone JAGDISH HUITRON Primary Care Provider YOSELIN Rioajs Primary Care Provider Unavailabl e Insurance Providers: [...] GIC INDEMNITY PLAN MEDICAL EXPENSE (OPT/PROF ) [facility] N Dec 28, 2016 [id number] EMILIA GONZALEZ HN PATIENT MEDICARE (WNR) MEDICARE (M) PART A Dec 28, 2016 PART A [id number] [phone] EMILIA GONZALEZ HN PATIENT MEDICARE (WNR) MEDICARE (M) PART B Dec 28, 2016 PART B [id number] [phone] EMILIA GONZALEZ HN PATIENT MEDICARE (WNR) MEDICARE (M) PART A Dec 28, 2016 PART A [id number] EMILIA GONZALEZ HN PATIENT MEDICARE (WNR) MEDICARE (M) PART B Dec 28, 2016 PART B [id number] EMILIA GONZALEZ PATIENT UNICARE PREFERRED PROVIDER ORGANIZAT ION (PPO) [facility] Dec 28, 2016 [id number] SBEM[place]IA [place] PATIENT UNICARE MEDICAL EXPENSE (OPT/PROF ) [facility] N Dec 28, 2016 [id number] EMILIA GONZALEZ PATIENT Selected Encounter This section includes the [place] at [place] for the [place]counter. Date/Time Encounter Type Encounter Description Reason Pro vider Source October 17, 2023 05:38 PM Outpatient Encounter ADMIN PAT ACTIVTIES (MASNONCT) [...] - MEDICINE [facility] [place] [facility] Nov 03, 2023 09:00 AM AMBULATORY - MEDICINE [facility] [place] [facility] Nov 09, 2023 08:30 AM AMBULATORY - MEDICINE [facility] [place] [facility] Nov 18, 2023 08:30 AM AMBULATORY - NONE [facility] [place] [facility] Dec 13, 2023 02:30 PM AMBULATORY - MEDICINE [facility] [place] [facility] Dec 21, 2023 09:45 AM AMBULATORY - MEDICINE [facility] [place] [facility] Jan 31, 2024 01:30 PM AMBULATORY - MEDICINE [facility] [place] [facility] Feb 02, 2024 11:15 AM AMBULATORY - NONE [facility] [place] [facility] Apr 10, 2024 11:00 AM AMBULATORY - MEDICINE [facility] Lab Results: +/- 30 days of [...] Range Comment Nov 01, 2023 08:44 AM [facility] LIVER FUNCTION Specimen Type: SERUM No comment entered. Ordering Provider: MICHAELA HUITRON F Report Released Date/Time: Apr 18, 2023 10:07 AM Reporting Lab: [address] [address] Performing Lab: [address] [address] PROTEIN,TOTAL 7.1 g/dL 6.0-8.3 ALBUMIN 4.0 g/dL 3.5-5.0 ALKALINE PHOSPHATASE 57 U/L 40-150 AST 23 U/L 5-34 ALT 17 U/L BILIRUBIN, TOTAL 0.5 mg/dL 0.2-1.2 Nov 01, 2023 08:44 AM [facility] BASIC METABOLIC PANEL (fasting) Specimen Type: SERUM No comment entered. Ordering Provider: MICHAELA HUITRON F Report Released Date/Time: Apr 18, 2023 10:07 AM Reporting Lab: [address] [address] Performing Lab: [address] [address] UREA NITROGEN 19 mg/dL 7-25 GLUCOSE 178 mg/dL H 65-100 SODIUM 138 mmol/L 135-145 POTASSIUM 5.2 mmol/L H 3.5-5.0 CHLORIDE 105 mmol/L 100-110 CO2 24 meq/L 20-30 CREATININE, Serum 1.39 mg/dL 0.50-1.40 eGFR(CKD-EPI 2020) 50 mL/min L >60 Nov 01, 2023 08:44 AM [facility] LIPID PANEL FASTING Specimen Type: SERUM No comment entered. Ordering Provider: MICHAELA HUITRON F Report Released Date/Time: Apr 18, 2023 10:07 AM Reporting Lab: [facility] [address] [address] Performing Lab: [facility] [address] [address] CHOLESTEROL 158 mg/dL TRIGLYCERIDE 131 mg/dL 0-150 LDL calculated 103 mg/dL 0-129 CHOL/HDL 5.4 HDL CHOLESTEROL 29 mg/dL L 40-60 Nov 01, 2023 08:44 AM [facility] MICROALBUMIN CREATININE RATIO PANEL Specimen Type: URINE No comment entered. Ordering Provider: MICHAELA HUITRON F Report Released Date/Time: Apr 18, 2023 10:07 AM Reporting Lab: [address] [address] Performing Lab: [address] [address] MICROALBUMIN/C REATININE RATIO 170.4 mg/g H 0-29.9 MICROALBUMIN,Q UANTITATIVE 11.6 mg/dL RR UNAVAIL CREATININE URINE 68.07 mg/dL Nov 01, 2023 08:44 AM [facility] HEMOGLOBIN A1C PANEL Specimen Type: BLOOD Comment: Values obtained from A1C measurements can vary. For atypical A1C assays, a reported value of 7.0 could actually be between 6.72 and 7.28 if measured by a reference method. A reported value of 9.0 could actually be between 8.73 and 9.27. Ref: http://www.ngs p.org/CAPdata. asp Ordering Provider: MICHAELA HUITRON F Report Released Date/Time: Apr 18, 2023 10:07 AM Reporting Lab: [facility] [address] [address] Performing Lab: [address] [address] HEMOGLOBIN A1C 8.2 H 4.0-5.6 Nov 01, 2023 08:44 [facility] URIC ACID Specimen Type: SERUM No comment entered. Ordering Provider: MICHAELA HUITRON Report Released Date/Time: Nov 07, 2023 10:27 AM Reporting Lab: [facility] [address] [address] Performing Lab: [facility] [address] [address] URIC ACID 5.7 mg/dL 3.5-7.2 Social History: [...] 10, 2022 10:00 AM VA-TOBACCO FOR[facility] USER [facility] Tobacco Use History This section includes a history of the smoking, or tobacco-related health factors, that were collected on or before the date of the Encounter. The data comes from the [place] facility where the Encounter took place. Date/Time Smoking Status/Tobacco Use Comment F acility Dec 10, 2022 10:00 AM VA-TOBACCO QUIT 15 YRS OR MORE [place] [facility] [place] [facility] Jan 07, 2022 12:47 PM VA-TOBACCO DOESNT USE WI 30 MIN WAKEUP [place] [facility] [place] [facility] Jan 07, 2022 12:47 PM VA-TOBACCO USE 30 YEARS OR MORE [place] [facility] [place] [facility] Jan 07, 2022 12:47 PM VA-TOBACCO USE ADVICE [place] [facility] [place] [facility] Jan 07, 2022 12:47 PM VA-TOBACCO USE ADMINISTRATIVE SERVICES MANAGER NO [place] [facility] [place] [facility] Jan 07, 2022 12:47 PM VA-TOBACCO USE MED NO [place] [facility] [place] [facility] Jan 07, 2022 12:47 PM VA-TOBACCO USER EVERY DAY [facility] Radiology Reports: +/- 30 days of [...] treatment facilities. Date/Time Radiology Report Provider Source October 25, 2023 10:53 AM OUTSIDE CHEST (2 V IEWS): FABY GONZALEZ [id number] -[id number] M Exm Date: OCTOBER 25, 2023@10:53 Req Phys: JAGDISH HUITRON Loc: [facility]/OUTSIDE IMAGING NON-CNT (R Img Loc: OUTSIDE GENERAL RADIOLOGY Service: Unknown (Case 10 COMPLETE) OUTSIDE CHEST (2 VIEWS) (RAD Detailed) CPT:39203 Reason for Study: outside images downloaded for continuity of care Clinical History: outside images downloaded for continuity of care Report Status: Electronically Filed Date Reported: OCTOBER 25, 2023 Report: THIS EXAM WAS PERFORMED AND INTERPRETED AT AN OUTSIDE HOSPITAL Impression: THIS EXAM WAS PERFORMED AND INTERPRETED AT AN OUTSIDE HOSPITAL Primary Diagnostic Code: VERIFIED BY: / *ELECTRONICALLY FILED* [place] [facility] [place] [facility] Encounter Notes: All associated encounter notes This section contains the clinical notes associated to the Encounter. Date/Time Encounter Note(s) Provider Source October 17, 2023 05:38 PM PHARMACY NOTE: LOCAL TITLE: V1 PHARMACY CUSTOMER CARE MEDICATION RENEWAL STANDARD TITLE: PHARMACY NOTE DATE OF NOTE: OCTOBER 17, 2023@17:38 ENTRY DATE: OCTOBER 17, 2023@17:38:59 AUTHOR: MOMO IQBAL COSIGNER: URGENCY: STATUS: COMPLETED Date: September Division: [facility] referred by Pharmacy Call Center for medication renewal: Non-controlled/maintenanc e medication Medications requested: [id number] ASPIRIN 81MG EC TAB [id number] METRONIDAZOLE 0.75% TOP CREAM Defer to primary care provider To be mailed . Please review and renew if appropriate. *This note was generated by [facility] Pharm[facility] Customer Care. If you have any questions or need assistance, do not contact this author. Please refer all questions to your local, on-site pharmacy departments. /renny/ MOMO IQBAL CPhT RADAR ENGINEERING TEACHER, MS/PHARMACY CUSTOMER CARE Signed: 10/17/2023 17:39 Receipt Acknowledged By: 10/18/2023 08:04 /renny/ NI FLETCHER RN REGISTERED NURSE 10/18/2023 08:00 /renny/ Jagdish Huitron PA-C STAFF PHYSICIAN SHOP COOPER MOMO IQBAL [place] [facility]
--- OUTSIDE RECORDS SUMMARY | 2024-06-04 12:17 | XMS_ITS | Encounter Summary ---
Author Name [facility] [place] Organization [facility] [place] Address [address] [place] [address] Care Team Providers Care Merchant Police Name Role Phone ADRIANA ROMERO Primary Care [...] INDEMNITY PLAN MEDICAL EXPENSE (OPT/PROF ) [facility] N Dec 28, 2016 [id number] EMILIA GONZALEZ HN PATIENT MEDICARE (WNR) MEDICARE (M) PART A Dec 28, 2016 PART A [id number] EMILIA GONZALEZ HN PATIENT MEDICARE (WNR) MEDICARE (M) PART B Dec 28, 2016 PART B [id number] [phone] EMILIA GONZALEZ HN PATIENT MEDICARE (WNR) MEDICARE (M) PART A Dec 28, 2016 PART A [id number] [phone] EMILIA GONZALEZ PATIENT MEDICARE (WNR) MEDICARE (M) PART B Dec 28, 2016 PART B [id number] EMILIA GONZALEZ PATIENT BRIANA PREFERRED PROVIDER ORGANIZAT ION (PPO) [facility] N Dec 28, 2016 [id number] EMILIA GONZALEZ PATIENT UNICARE MEDICAL EXPENSE (OPT/PROF ) [facility] N Dec 28, 2016 [id number] EMILIA GONZALEZ PATIENT Selected Encounter This section includes the information on record at OR for the Encounter. 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 Date/Time Primary/Secondary Diagnosis Diagnosis Name Provider Source Nov 04, 2023 09:44 AM PRIMARY Athscl heart disease of [place] coronary artery w/o ang pctrs CHRISTIANO MCKEON [facility] Nov 04, 2023 09:44 AM SECONDARY Pure hypercholesterolem ia, unspecified CHRISTIANO MCKEON [facility] [place] [facility] Nov 04, 2023 09:44 AM SECONDARY Type 2 diabetes mellitus without complications [facility] Plan of Treatment: Future Appointments (+ 6 months) and Future Tests (+/- 45 days) The Plan of Treatment section includes future care activities for the patient from all OR treatmentfacilities. This section includes future appointments and future orders which are active, pending or scheduled. Future Appointments This section includes appointments that were scheduled to occur 6 months from the date of the Encounter, up to a maximum of 20 appointments. The data comes from all [place] treatment facilities. Appointment Date/Time Appointment Type Appointme nt Facility Name Nov 09, 2023 08:30 AM AMBULATORY - MEDICINE [facility] Nov 18, 2023 08:30 AM AMBULATORY - NONE [place] [facility] [place] [facility] Dec 13, 2023 02:30 PM [facility] Dec 21, 2023 09:45 AM AMBULATORY - MEDICINE [place] [facility] [place] [facility] Jan 31, 2024 01:30 PM [facility] Feb 02, 2024 11:15 AM [facility] Apr 10, 2024 11:00 AM AMBULATORY - MEDICINE [facility] Lab Results: +/- 30 days of the encounter This section includes the Chemistry and Hematology Lab Results on record with OR for the patient. Radiology Reports and Pathology Reports are provided separately, in subsequent sections. Lab Results This section contains the Chemistry/Hematology Results that were resulted 30 days before or 30 daysafter the date of the Encounter. Date/Time Source Result Type Result - Unit Interpretation Reference Range Comment Nov 01, 2023 08:44 AM [facility] BASIC METABOLIC PANEL (fasting) Specimen Type: SERUM No comment entered. Ordering Provider: MICHAELA ROMERO F Report Released Date/Time: Apr 18, 2023 10:07 AM Reporting Lab: [address] [address] Performing Lab: [address] [address] UREA NITROGEN 19 mg/dL 7-25 GLUCOSE 178 mg/dL H 65-100 SODIUM 138 mmol/L 135-145 POTASSIUM 5.2 mmol/L H 3.5-5.0 CHLORIDE 105 mmol/L 100-110 CO2 24 meq/L 20-30 CREATININE, Serum 1.39 mg/dL 0.50-1.40 eGFR(CKD-EPI 2020) 50 mL/min L >60 Nov 01, 2023 08:44 AM [facility] LIVER FUNCTION Specimen Type: SERUM No comment entered. Ordering Provider: MICHAELA ROMERO F Report Released Date/Time: Apr 18, 2023 10:07 AM Reporting Lab: [address] [address] Performing Lab: [facility] [address] [facility] [address] PROTEIN,TOTAL 7.1 g/dL 6.0-8.3 ALBUMIN 4.0 g/dL 3.5-5.0 ALKALINE PHOSPHATASE 57 U/L 40-150 AST 23 U/L 5-34 ALT 17 U/L BILIRUBIN, TOTAL 0.5 mg/dL 0.2-1.2 Nov 01, 2023 08:44 AM [facility] HEMOGLOBIN A1C PANEL Specimen Type: [...] Apr 18, 2023 10:07 AM Reporting Lab: [facility] [address] [facility] [address] Performing Lab: [facility] [address] [facility] [address] HEMOGLOBIN A1C 8.2 H 4.0-5.6 Nov 01, 2023 08:44 AM [facility] LIPID PANEL FASTING Specimen Type: SERUM No comment entered. Ordering Provider: MICHAELA ROMERO Report Released Date/Time: Apr 18, 2023 10:07 AM Reporting Lab: [facility] [address] [facility] [address] Performing Lab: [facility] [address] [facility] [address] CHOLESTEROL 158 mg/dL TRIGLYCERIDE 131 mg/dL 0-150 LDL calculated 103 mg/dL 0-129 CHOL/HDL 5.4 HDL CHOLESTEROL 29 mg/dL L 40-60 Nov 01, 2023 08:44 AM [facility] MICROALBUMIN CREATININE RATIO PANEL Specimen Type: URINE No comment entered. Ordering Provider: MICHAELA ROMERO F Report Released Date/Time: Apr 18, 2023 10:07 AM Reporting [facility] [address] [facility] [address] Performing Lab: [facility] [address] [facility] [address] MICROALBUMIN/C REATININE RATIO 170.4 mg/g H 0-29.9 MICROALBUMIN,Q UANTITATIVE 11.6 mg/dL RR UNAVAIL CREATININE URINE 68.07 mg/dL Nov 01, 2023 08:44 AM [facility] URIC ACID Specimen Type: SERUM No comment entered. Ordering Provider: MICHAELA ROMERO F Report Released Date/Time: Nov 07, 2023 10:27 AM Reporting [facility] [address] [facility] [address] Performing Lab: [facility] [address] [facility] [address] URIC ACID 5.7 mg/dL 3.5-7.2 Social History: Smoking Status (Most current) and Tobacco Use (All prior to encounter date) This section includes the most current, and the historical, smoking and tobacco- related health factors from the OR facility where the Encounter took place. Current Smoking Status This section includes the most current smoking, or tobacco-related health factor, from the OR facility where the Encounter took place. Date/Time Current Smoking Status Comment Facil ity Dec 10, 2022 10:00 AM OR-TOBACCO QUIT 15 YRS OR MORE [facility] Tobacco Use History This section includes a history of the smoking, or tobacco-related health factors, that were collected on or before the date of the Encounter. The data comes from the OR facility where the Encounter took place. Date/Time Smoking Status/Tobacco Use Comment F acsimón Dec 10, 2022 10:00 AM OR-TOBACCO QUIT [address] [facility] Jan 07, 2022 12:47 PM VA-TOBACCO DOESNT USE [place] [address] [facility] Jan 07, 2022 12:47 PM VA-TOBACCO USE [address] 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 The data comes from all [place] treatment facilities. Date/Time Radiology Report Provider Source Nov 18, 2023 08:[address] W/O CONT: FABY GONZALEZ [id number] -[id number] M Exm Date: NOV 18, 2023@08:12 Req Phys: ADRIANA ROMERO Loc: CWM/NO/PHARM/PACT 3 (Req'g Loc Img Loc: NHM/CT Service: Unknown [facility] , (Case [id number] COMPLETE) CT THORAX W/O CONT (CT Detailed) CPT:05158 Reason for Study: pulmonary fibrosis on cxr at [facility] last week. Clinical History: pulmonary fibrosis on cxr at [facility] last week. He finished aUGMENTIN 6/5, but now reports that phlegm is now returning. 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 HISTORY: pulmonary fibrosis on cxr at [facility] last week. He finished aUGMENTIN 6/5, [...] pulmonary fibrosis. READING PHYSICIAN: Kaiden Jacob D.O. -[phone] 11/24/2023 13:44 EDT [facility] National Teleradiology Program [phone] (For Medical Practitioner Use Only) Attention Patients / Veterans: If you have questions or concerns about these test results, please contact your ordering provider or primary care team. Primary Diagnostic Code: NO ALERT REQUIRED Primary Interpreting Staff: RADIOLOGY,OUTSIDE SERVICE, Staff Physician / RADIOLOGY,OUTSIDE SERVICE [facility] October 25, 2023 10:53 AM OUTSIDE CHEST (2 VIEWS): FABY GONZALEZ [id number] -1940 M Ex Date: OCTOBER 25, 2023@10:53 Req Phys: ADRIANA ROMERO Loc: [facility]/OUTSIDE IMAGING NON-CNT (R Img Loc: OUTSIDE GENERAL RADIOLOGY Service: Unknown (Case 10 COMPLETE) OUTSIDE CHEST (2 VIEWS) (RAD Detailed) CPT:01500 Reason for Study: outside images downloaded for continuity of care Clinical History: outside images downloaded for continuity of care Report Status: Electronically Filed Date Reported: OCTOBER 25, 2023 Report: THIS EXAM WAS PERFORMED AND INTERPRETED AT AN OUTSIDE HOSPITAL Impression: THIS EXAM WAS PERFORMED AND INTERPRETED AT AN OUTSIDE HOSPITAL Primary Diagnostic Code: VERIFIED BY: / *ELECTRONICALLY FILED* OR [facility] [facility] Encounter Notes: All associated encounter notes This section contains the clinical notes associated to the Encounter. Date/Time Encounter Note(s) Provider Source Nov 04, 2023 04:22 PM ADDENDUM: LOCAL TITLE: Addendum STANDARD TITLE: ADDENDUM DATE OF NOTE: NOV 04, 2023@16:22:25 ENTRY DATE: NOV 04, 2023@16:22:25 AUTHOR: CHRISTIANO MCKEON EXP COSIGNER: URGENCY: STATUS: COMPLETED Will ask AMSA to please schedule patient for: [X] CWM/NO/PHARM/PACT 3 RTC order placed. Appointment Length: _60__ minutes. 11/09/23 @ 0830 Thank you! /renny/ CHRISTIANO MCKEON PHARMD,[facility] CLINICAL PHARMACY PRACTITIONER Signed: 11/04/2023 16:22 Receipt Acknowledged By: 11/04/2023 16:29 /es/ JOSE ANGEL HOUGH Clinical Rock [employer] Insulator --- Original Document --- 11/04/23 TELEPHONE NOTE/PHARMACY: FABY GONZALEZ, 82 yo WHITE MALE, contacted via telephone for diabetes and hyperlipidemia management. Today, pt reports he is doing ok. We discuss rational for dc of gemfibrozil. He would like a CC cardilogy consult- forgot to ask PCP. He denies any steroid used within the past 3 month or any sickness that could increase BG. He denies any changes that would increase BG. He notes he only had a problem when he took the immediate release niacin. He denies any current episodes of gout- was on allopurinol, is no longer. Current diabetes medications: - metformin 500 mg BID Current hyperlipidemia medications: - atorvastatin 80 mg - ezetimibe 10 mg Previous hyperlipidemia medications: - niacin- d/c d/t not available - gemfibrozil dc d/t DI Medication Adherence: daily no misses Diet Patterns: patient eats on avg. 3x/day: B:cereal/toast L:yogurt or toast if not for bf D:meat/veg/starch Snacks: no Drinks:2 cups of flavored coffee, no water, seltzer 48 oz, cranberry and oj Alcohol:2-3 drinks/week Tobacco:none- quit August 1967 Exercise:very little SMBG: doesnt check SMBG assessment: HYPOGLYCEMIC Events: 0 in last 2 weeks - Hypoglycemia recognition & treatment reviewed: Yes Allergies/ADR: SHRIMP, BENAZEPRIL Active and Recently Outpatient Medications (including Supplies): Active Outpatient Medications [...] MOUTH ONCE ACTIVE DAILY VITAMIN/NUTRITION SUPPLEMENT 8) METFORMIN HCL 500MG TAB TAKE ONE TABLET BY MOUTH ACTIVE TWICE DAILY FOR DIABETES 9) METRONIDAZOLE 0.75% TOP CREAM APPLY A SMALL AMOUNT ACTIVE TOPICALLY AT BEDTIME NEEDED FOR SKIN INFECTION 10) MULTIVITAMIN/MINERALS CAP/TAB TAKE 1 TABLET BY MOUTH ACTIVE ONCE DAILY FOR VITAMIN SUPPLEMENTATION Inactive Outpatient Medications Status 1) ASPIRIN 81MG EC TAB TAKE ONE TABLET BY MOUTH ONCE DISCONTINUED DAILY TO PREVENT STROKE/HEART ATTACK TAKE 15 MINUTES BEFORE NIACIN TO REDUCE/PREVENT FLUSHING. 2) ASPIRIN 81MG EC TAB TAKE ONE TABLET BY MOUTH TWICE DISCONTINUED DAILY FOR MYOCARDIAL REINFARCTION PREVENTION TO (EDIT) PREVENT STROKE/HEART ATTACK TAKE 15 MINUTES BEFORE NIACIN TO REDUCE/PREVENT FLUSHING. 3) ASPIRIN 81MG EC TAB TAKE ONE TABLET BY MOUTH ONCE DISCONTINUED DAILY TO PREVENT STROKE/HEART ATTACK (EDIT) 4) ATORVASTATIN CALCIUM 80MG TAB TAKE ONE TABLET BY DISCONTINUED MOUTH ONCE DAILY FOR CHOLESTEROL 5) CANDESARTAN CILEXETIL 8MG TAB TAKE ONE TABLET BY DISCONTINUED MOUTH ONCE DAILY 6) CHOLECALCIF 25MCG (D3-1,000UNIT) TAB TAKE ONE TABLET DISCONTINUED BY MOUTH ONCE DAILY FOR VITAMIN SUPPLEMENTATION 7) CYANOCOBALAMIN 1000MCG TAB TAKE ONE TABLET BY MOUTH DISCONTINUED ONCE DAILY FOR VITAMIN SUPPLEMENTATION 8) EZETIMIBE 10MG TAB TAKE ONE TABLET BY MOUTH ONCE DISCONTINUED DAILY TO LOWER CHOLESTEROL 9) FOLIC ACID 1MG TAB TAKE TWO TABLETS BY MOUTH ONCE DISCONTINUED DAILY VITAMIN/NUTRITION SUPPLEMENT 10) GEMFIBROZIL 600MG TAB TAKE ONE TABLET BY MOUTH TWICE DISCONTINUED DAILY TO LOWER CHOLESTEROL 11) METFORMIN HCL 500MG TAB TAKE ONE TABLET BY MOUTH DISCONTINUED TWICE DAILY FOR DIABETES 12) METRONIDAZOLE 0.75% TOP CREAM APPLY A SMALL AMOUNT DISCONTINUED TOPICALLY AT BEDTIME NEEDED FOR SKIN INFECTION 13) MULTIVITAMIN/MINERALS CAP/TAB TAKE 1 TABLET BY MOUTH DISCONTINUED ONCE DAILY FOR VITAMIN SUPPLEMENTATION 14) NIACIN (SLO-NIACIN) 500MG TAB,SA TAKE TWO TABLETS BY DISCONTINUED MOUTH ONCE DAILY 24 Total Medications Labs: CHEM 7 TREND LAB CUMULATIVE SELECTED Collection DT Spec GLUCOSE BUN CREATIN Sodium K+/Pot CL CO2 11/01/2023 08:44 SERUM 178 H 19 1.39 138 5.2 H 105 24 04/14/2023 07:58 SERUM 144 H 33 H 1.49 H 139 4.6 104 23 12/08/2022 08:22 SERUM 123 H 24 1.47 H 141 4.6 106 24 08/09/2022 08:02 SERUM 153 H 19 1.39 141 4.2 106 24 04/14/2022 07:52 SERUM 153 H 19 1.27 141 4.2 105 26 LAB CUMULATIVE SELECTED 2 No selection items chosen for this component. CHEM 7 Results Collection DT Spec Sodium K+/Pot CL CO2 GLUCOSE BUN 11/01/2023 08:44 SERUM 138 5.2 H 105 24 178 H 19 04/14/2023 07:58 SERUM 139 4.6 104 23 144 H 33 H 12/08/2022 08:22 SERUM 141 4.6 106 24 123 H 24 08/09/2022 08:02 SERUM 141 4.2 106 24 153 H 19 04/14/2022 07:52 SERUM 141 4.2 105 26 153 H 19 01/18/2022 07:25 SERUM 140 4.4 103 25 134 H 23 eGFR CKD-EPI 202011/01/23 08:44 50 L SERUM LIVER PANEL TREND Collection DT Spec AST ALT T BILI ALK ANALI T. PROT ALBUMIN 11/01/2023 08:44 SERUM 23 17 0.5 57 7.1 4.0 04/14/2023 07:58 SERUM 30 19 0.4 66 7.8 4.2 12/08/2022 08:22 SERUM 28 22 0.6 56 7.5 4.2 08/09/2022 08:02 SERUM 24 21 0.5 65 7.6 4.3 04/14/2022 07:52 SERUM 29 22 0.5 64 7.8 4.4 HEMOGLOBIN A1C TREND Collection DT Spec HGBA1c 11/01/2023 08:44 BLOOD 8.2 H 04/14/2023 07:58 BLOOD 7.4 H 08/09/2022 08:02 BLOOD 7.3 H 04/14/2022 07:52 BLOOD 7.1 H 01/18/2022 07:25 BLOOD 7.3 H LIPID PANEL TREND Collection DT Spec CHOL HDL CHO/HDL LDL-c TRIG 11/01/2023 08:44 SERUM 158 29 L 5.4 103 131 04/14/2023 07:58 SERUM 153 33 L 4.6 97 115 12/08/2022 08:22 SERUM 150 29 L 5.2 96 125 08/09/2022 08:02 SERUM 113 32 L 3.5 60 107 04/14/2022 07:52 SERUM 112 33 L 3.4 58 104 == Vitals: Ht: 69 in [175.3 cm] (04/20/2022 10:35) Wt: 179 lb [81.19 kg] (11/03/2023 08:55) BMI: BMI: 26.5 BP: 108/62 (11/03/2023 08:55) HR: 70 (11/03/2023 08:55) Assessment: DIABETES: Goal: A1c goal is 7.5% based on microalbuminuria, CAD and age -A1c is above goal of 7.5% (8.2% 11/01/23) CARDIOVASCULAR: Goal BP = <130/80 mmHg -Current BP is108/62 (11/03/2023 08:55) -Lipids:LDL is above goal- on max dose statin -ASA:81 mg daily PREVENTIVE CARE: - Most recent visit to Podiatry:? 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 Plan: - Medication management - CONTINUE: Metformin 500 mg BID - Will consider adding empagliflozing during office visit - Schedule Office visit to review how to SMBG with glucometer - Continue to SMBG x/day - Monitor for s/sx hypoglycemia and contact clinic if BG consistently <70mg/dL - Healthy dietary and lifestyle modifications encouraged - Repeat A1c:tbd on therapy change - ADD uric acid to 11/01/23 labs - Request CC cardiology apt - Discuss lipid management with PCP EDUCATION -A shared decision-making approach was used in the development of this plan, involving the [place], clinician, and any caregivers present. The [place] was provided the opportunity express questions or concerns, and the plan was adjusted as needed to address these concerns. -Reviewed with [place] any new medications, changes to the medication list, education, and plan from today's visit. Patient (and/or caregiver) verbalized understanding of the plan, including possible known risks and benefits, and had no additional questions. RTC:11/09/23 @ 0830 Time Spent: 28 mins PBM PharmD Pharmacotherapy Rem V12: PHARMACIST INTERVENTIONS: LIPID MANAGEMENT Medication monitoring, no dosage change required, continue to monitor and assess TYPE 2 DIABETES MELLITUS Medication monitoring, no dosage change required, continue to monitor and assess /renny/ CHRISTIANO MCKEON PHARMD,[facility] CLINICAL PHARMACY PRACTITIONER Signed: 11/04/2023 16:22 CHRISTIANO MCKEON [facility] Nov 04, 2023 09:44 AM PHARMACY TELEPHONE ENCOUNTER NOTE: LOCAL TITLE: TELEPHONE NOTE/PHARMACY STANDARD TITLE: PHARMACY TELEPHONE ENCOUNTER NOTE DATE OF NOTE: NOV 04, 2023@09:44 ENTRY DATE: NOV 04, 2023@09:44:39 AUTHOR: CHRISTIANO MCKEONIGNER: URGENCY: STATUS: COMPLETED TELEPHONE NOTE/PHARMACY Has ADDENDA FABY GONZALEZ, 82 yo WHITE MALE, contacted via telephone for diabetes and hyperlipidemia management. Today, pt reports he is doing ok. We discuss rational for dc of gemfibrozil. He would like a CC cardilogy consult- forgot to ask PCP. He denies any steroid used within the past 3 month or any sickness that could increase BG. He denies any changes that would increase BG. He notes he only had a problem when he took the immediate release niacin. He denies any current episodes of gout- was on allopurinol, is no longer. Current diabetes medications: - metformin 500 mg BID Current hyperlipidemia medications: - atorvastatin 80 mg - ezetimibe 10 mg Previous hyperlipidemia medications: - niacin- d/c d/t not available - gemfibrozil dc d/t DI Medication Adherence: daily no misses Diet Patterns: patient eats on avg. 3x/day: B:cereal/toast L:yogurt or toast if not for bf D:meat/veg/starch Snacks: no Drinks:2 cups of flavored coffee, no water, seltzer 48 oz, cranberry and oj Alcohol:2-3 drinks/week Tobacco:none- quit August 1967 Exercise:very little SMBG: doesnt check SMBG assessment: HYPOGLYCEMIC Events: 0 in last 2 weeks - Hypoglycemia recognition & treatment reviewed: Yes Allergies/ADR: SHRIMP, BENAZEPRIL Active and Recently Outpatient Medications (including Supplies): Active Outpatient Medications [...] MOUTH ONCE ACTIVE DAILY VITAMIN/NUTRITION SUPPLEMENT 8) METFORMIN HCL 500MG TAB TAKE ONE TABLET BY MOUTH ACTIVE TWICE DAILY FOR DIABETES 9) METRONIDAZOLE 0.75% TOP CREAM APPLY A SMALL AMOUNT ACTIVE TOPICALLY AT BEDTIME NEEDED FOR SKIN INFECTION 10) MULTIVITAMIN/MINERALS CAP/TAB TAKE 1 TABLET BY MOUTH ACTIVE ONCE DAILY FOR VITAMIN SUPPLEMENTATION Inactive Outpatient Medications Status 1) ASPIRIN 81MG EC TAB TAKE ONE TABLET BY MOUTH ONCE DISCONTINUED DAILY TO PREVENT STROKE/HEART ATTACK TAKE 15 MINUTES BEFORE NIACIN TO REDUCE/PREVENT FLUSHING. 2) ASPIRIN 81MG EC TAB TAKE ONE TABLET BY MOUTH TWICE DISCONTINUED DAILY FOR MYOCARDIAL REINFARCTION PREVENTION TO (EDIT) PREVENT STROKE/HEART ATTACK TAKE 15 MINUTES BEFORE NIACIN TO REDUCE/PREVENT FLUSHING. 3) ASPIRIN 81MG EC TAB TAKE ONE TABLET BY MOUTH ONCE DISCONTINUED DAILY TO PREVENT STROKE/HEART ATTACK (EDIT) 4) ATORVASTATIN CALCIUM 80MG TAB TAKE ONE TABLET BY DISCONTINUED MOUTH ONCE DAILY FOR CHOLESTEROL 5) CANDESARTAN CILEXETIL 8MG TAB TAKE ONE TABLET BY DISCONTINUED MOUTH ONCE DAILY 6) CHOLECALCIF 25MCG (D3-1,000UNIT) TAB TAKE ONE TABLET DISCONTINUED BY MOUTH ONCE DAILY FOR VITAMIN SUPPLEMENTATION 7) CYANOCOBALAMIN 1000MCG TAB TAKE ONE TABLET BY MOUTH DISCONTINUED ONCE DAILY FOR VITAMIN SUPPLEMENTATION 8) EZETIMIBE 10MG TAB TAKE ONE TABLET BY MOUTH ONCE DISCONTINUED DAILY TO LOWER CHOLESTEROL 9) FOLIC ACID 1MG TAB TAKE TWO TABLETS BY MOUTH ONCE DISCONTINUED DAILY VITAMIN/NUTRITION SUPPLEMENT 10) GEMFIBROZIL 600MG TAB TAKE ONE TABLET BY MOUTH TWICE DISCONTINUED DAILY TO LOWER CHOLESTEROL 11) METFORMIN HCL 500MG TAB TAKE ONE TABLET BY MOUTH DISCONTINUED TWICE DAILY FOR DIABETES 12) METRONIDAZOLE 0.75% TOP CREAM APPLY A SMALL AMOUNT DISCONTINUED TOPICALLY AT BEDTIME NEEDED FOR SKIN INFECTION 13) MULTIVITAMIN/MINERALS CAP/TAB TAKE 1 TABLET BY MOUTH DISCONTINUED ONCE DAILY FOR VITAMIN SUPPLEMENTATION 14) NIACIN (SLO-NIACIN) 500MG TAB,SA TAKE TWO TABLETS BY DISCONTINUED MOUTH ONCE DAILY 24 Total Medications Labs: CHEM 7 TREND LAB CUMULATIVE SELECTED Collection DT Spec GLUCOSE BUN CREATIN Sodium K+/Pot CL CO2 11/01/2023 08:44 SERUM 178 H 19 1.39 138 5.2 H 105 24 04/14/2023 07:58 SERUM 144 H 33 H 1.49 H 139 4.6 104 23 12/08/2022 08:22 SERUM 123 H 24 1.47 H 141 4.6 106 24 08/09/2022 08:02 SERUM 153 H 19 1.39 141 4.2 106 24 04/14/2022 07:52 SERUM 153 H 19 1.27 141 4.2 105 26 LAB CUMULATIVE SELECTED 2 No selection items chosen for this component. CHEM 7 Results Collection DT Spec Sodium K+/Pot CL CO2 GLUCOSE BUN 11/01/2023 08:44 SERUM 138 5.2 H 105 24 178 H 19 04/14/2023 07:58 SERUM 139 4.6 104 23 144 H 33 H 12/08/2022 08:22 SERUM 141 4.6 106 24 123 H 24 08/09/2022 08:02 SERUM 141 4.2 106 24 153 H 19 04/14/2022 07:52 SERUM 141 4.2 105 26 153 H 19 01/18/2022 07:25 SERUM 140 4.4 103 25 134 H 23 eGFR CKD-EPI 202011/01/23 08:44 50 L SERUM LIVER PANEL TREND Collection DT Spec AST ALT T BILI ALK ANALI T. PROT ALBUMIN 11/01/2023 08:44 SERUM 23 17 0.5 57 7.1 4.0 04/14/2023 07:58 SERUM 30 19 0.4 66 7.8 4.2 12/08/2022 08:22 SERUM 28 22 0.6 56 7.5 4.2 08/09/2022 08:02 SERUM 24 21 0.5 65 7.6 4.3 04/14/2022 07:52 SERUM 29 22 0.5 64 7.8 4.4 HEMOGLOBIN A1C TREND Collection DT Spec HGBA1c 11/01/2023 08:44 BLOOD 8.2 H 04/14/2023 07:58 BLOOD 7.4 H 08/09/2022 08:02 BLOOD 7.3 H 04/14/2022 07:52 BLOOD 7.1 H 01/18/2022 07:25 BLOOD 7.3 H LIPID PANEL TREND Collection DT Spec CHOL HDL CHO/HDL LDL-c TRIG 11/01/2023 08:44 SERUM 158 29 L 5.4 103 131 04/14/2023 07:58 SERUM 153 33 L 4.6 97 115 12/08/2022 08:22 SERUM 150 29 L 5.2 96 125 08/09/2022 08:02 SERUM 113 32 L 3.5 60 107 04/14/2022 07:52 SERUM 112 33 L 3.4 58 104 == Vitals: Ht: 69 in [175.3 cm] (04/20/2022 10:35) Wt: 179 lb [81.19 kg] (11/03/2023 08:55) BMI: BMI: 26.5 BP: 108/62 (11/03/2023 08:55) HR: 70 (11/03/2023 08:55) Assessment: DIABETES: Goal: A1c goal is 7.5% based on microalbuminuria, CAD and age -A1c is above goal of 7.5% (8.2% 11/01/23) CARDIOVASCULAR: Goal BP = <130/80 mmHg -Current BP is108/62 (11/03/2023 08:55) -Lipids:LDL is above goal- on max dose statin -ASA:81 mg daily PREVENTIVE CARE: - Most recent visit to Podiatry:? 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 Plan: - Medication management - CONTINUE: Metformin 500 mg BID - Will consider adding empagliflozing during office visit - Schedule Office visit to review how to SMBG with glucometer - Continue to SMBG x/day - Monitor for s/sx hypoglycemia and contact clinic if BG consistently <70mg/dL - Healthy dietary and lifestyle modifications encouraged - Repeat A1c:tbd on therapy change - ADD uric acid to 11/01/23 labs - Request [facility] cardiology apt - Discuss lipid management with PCP EDUCATION -A shared decision-making approach was used in the development of this plan, involving the [place], clinician, and any caregivers present. The was provided the opportunity express questions or concerns, and the plan was adjusted as needed to address these concerns. -Reviewed with any new medications, changes to the medication list, education, and plan from today's visit. Patient (and/or caregiver) verbalized understanding of the plan, including possible known risks and benefits, and had no additional questions. RTC:11/09/23 @ 0830 Time Spent: 28 mins PBM PharmD Pharmacotherapy Rem V12: PHARMACIST INTERVENTIONS: LIPID MANAGEMENT Medication monitoring, no dosage change required, continue to monitor and assess TYPE 2 DIABETES MELLITUS Medication monitoring, no dosage change required, continue to monitor and assess /mary ellen MCKEON PHARMD,MICAH CLINICAL PHARMACY PRACTITIONER Signed: 11/04/2023 16:22 11/04/2023 ADDENDUM STATUS: COMPLETED Will ask [facility] to please schedule patient for: [X] CWM/NO/PHARM/PACT 3 RTC order placed. Appointment Length: _60__ minutes. 11/09/23 @ 0830 Thank you! /mary ellen MCKEON PHARMD,MICAH CLINICAL PHARMACY PRACTITIONER Signed: 11/04/2023 16:22 Receipt Acknowledged By: * AWAITING SIGNATURE * JOSE ANGEL HOUGH JODI A [facility]
--- OUTSIDE RECORDS SUMMARY | 2024-06-04 12:17 | XMS_ITS | Encounter Summary ---
Author Name [facility] [place] [facility] [place] Address [address] [place] [address] Care Team Providers Care Grinding Room Inspector Name Role Phone ADRIANA ROMERO Primary Care [...] GIC INDEMNITY PLAN MEDICAL EXPENSE (OPT/PROF ) [facility] N Dec 28, 2016 [id number] EMILIA GONZALEZ HN PATIENT MEDICARE (WNR) MEDICARE (M) PART A Dec 28, 2016 PART A [id number] EMILIA GONZALEZ HN PATIENT MEDICARE (WNR) MEDICARE (M) PART B Dec 28, 2016 PART B [id number] [phone] EMILIA GONZALEZ HN PATIENT MEDICARE (WNR) MEDICARE (M) PART A Dec 28, 2016 PART A [id number] EMILIA GONZALEZ HN PATIENT MEDICARE (WNR) MEDICARE (M) PART B Dec 28, 2016 PART B [id number] EMILIA GONZALEZ HN PATIENT UNICVIRGIL PREFERRED PROVIDER ORGANIZAT ION (PPO) [facility]I [facility] N Dec 28, 2016 [id number] SBEMILIA HILL PATIENT UNICARE MEDICAL EXPENSE (OPT/PROF ) [facility] Dec 28, 2016 [id number] EMILIA GONZALEZ PATIENT Selected Encounter This section includes the information on record at [place] for the Encounter. Date/Time Encounter Type Encounter Description Reason Pro vider Source October 28, 2023 03:09 PM Outpatient Encounter ADMIN PAT ACTIVTIES (MASNONCT) IHE Encounter Template Text not used by [place] Plan of Treatment: Future Appointments (+ 6 months) and Future Tests (+/- 45 days) The Plan of Treatment section includes future care activities for the patient from all [place] treatmentfacilities. This section includes future appointments and future orders which are active, pending or scheduled. Future Appointments This section includes appointments that were scheduled to occur 6 months from the date of the Encounter, up to a maximum of 20 appointments. The data comes from all [place] treatment facilities. Appointment Date/Time Appointment Type Appointme nt Facility Name Nov 03, 2023 09:00 AM AMBULATORY - MEDICINE [place] [facility] [place] [facility] Nov 09, 2023 08:30 AM AMBULATORY - MEDICINE [place] [facility] [place] [facility] Nov 18, 2023 08:30 AM AMBULATORY - NONE [facility] [place] [facility] Dec 13, 2023 02:30 PM AMBULATORY - MEDICINE [facility] [place] [facility] Dec 21, 2023 09:45 AM AMBULATORY - MEDICINE [facility] [place] [facility] Jan 31, 2024 01:30 PM AMBULATORY - MEDICINE [facility] [place] [facility] Feb 02, 2024 11:15 AM AMBULATORY - NONE [facility] [place] [facility] Apr 10, 2024 11:00 AM AMBULATORY - MEDICINE [place] [facility] [place] [facility] Lab Results: +/- 30 days of the encounter This section includes the Chemistry and Hematology Lab Results on record with [place] for the patient. Radiology Reports and Pathology Reports are provided separately, in subsequent sections. Lab Results This section contains the Chemistry/Hematology Results that were resulted 30 days before or 30 daysafter the date of the Encounter. Date/Time Source Result Type Result - Unit Interpretation Reference Range Comment Nov 01, 2023 08:44 AM [facility] BASIC METABOLIC PANEL (fasting) Specimen Type: SERUM No comment entered. Ordering Provider: MICHAELA ROMERO F Report Released Date/Time: Apr 18, 2023 10:07 AM Reporting Lab: [address] [address] Performing Lab: [address] [address] UREA NITROGEN 19 mg/dL 7-25 GLUCOSE 178 mg/dL H 65-100 SODIUM 138 mmol/L 135-145 POTASSIUM 5.2 mmol/L H 3.5-5.0 CHLORIDE 105 mmol/L 100-110 CO2 24 meq/L 20-30 CREATININE, Serum 1.39 mg/dL 0.50-1.40 eGFR(CKD-EPI 2020) 50 mL/min L >60 Nov 01, 2023 08:44 AM [facility] LIVER FUNCTION Specimen Type: SERUM No comment entered. Ordering Provider: MICHAELA ROMERO F Report Released Date/Time: Apr 18, 2023 10:07 AM Reporting Lab: [address] [address] Performing Lab: [address] [address] PROTEIN,TOTAL 7.1 g/dL 6.0-8.3 ALBUMIN 4.0 g/dL 3.5-5.0 ALKALINE PHOSPHATASE 57 U/L 40-150 AST 23 U/L 5-34 ALT 17 U/L BILIRUBIN, TOTAL 0.5 mg/dL 0.2-1.2 Nov 01, 2023 08:44 AM [facility] HEMOGLOBIN A1C PANEL Specimen Type: BLOOD [...] Apr 18, 2023 10:07 AM Reporting Lab: [facility] [address] [facility] [address] Performing Lab: [facility] [address] [facility] [address] HEMOGLOBIN A1C 8.2 H 4.0-5.6 Nov 01, 2023 08:44 AM [facility] LIPID PANEL FASTING Specimen Type: SERUM No comment entered. Ordering Provider: MICHAELA ROMERO F Report Released Date/Time: Apr 18, 2023 10:07 AM Reporting [facility]: [facility] [address] [facility] [address] Performing Lab: [facility] [address] [facility] [facility] [address] CHOLESTEROL 158 mg/dL TRIGLYCERIDE 131 mg/dL 0-150 LDL calculated 103 mg/dL 0-129 CHOL/HDL 5.4 HDL CHOLESTEROL 29 mg/dL L 40-60 Nov 01, 2023 08:44 AM [facility] MICROALBUMIN CREATININE RATIO PANEL Specimen Type: URINE No comment entered. Ordering Provider: MICHAELA ROMERO F Report Released Date/Time: Apr 18, 2023 10:07 AM Reporting Lab: [facility] [address] [facility] [facility] [address] Performing [facility]: [facility] [address] [facility] [address] MICROALBUMIN/C REATININE RATIO 170.4 mg/g H 0-29.9 MICROALBUMIN,Q UANTITATIVE 11.6 mg/dL RR UNAVAIL CREATININE URINE 68.07 mg/dL Nov 01, 2023 08:44 AM [facility] URIC ACID Specimen Type: SERUM No comment entered. Ordering Provider: MICHAELA ROMERO Report Released Date/Time: Nov 07, 2023 10:27 AM Reporting Lab: [facility] [address] [facility] [facility] [address] Performing Lab: [place] [facility] [address] [facility] [facility] [address] URIC ACID 5.7 mg/dL 3.5-7.2 Social History: Smoking Status (Most current) and Tobacco Use (All prior to encounter date) This section includes the most current, and the historical, smoking and tobacco- related health factors from the [place] facility where the Encounter took place. Current Smoking Status This section includes the most current smoking, or tobacco-related health factor, from the [place] facility where the Encounter took place. Date/Time Current Smoking Status Comment Facil ity Dec 10, 2022 10:00 AM VA-TOBACCO QUIT 15 YRS OR MORE [facility] Tobacco Use History This section includes a history of the smoking, or tobacco-related health factors, that were collected on or before the date of the Encounter. The data comes from the [place] facility where the Encounter took place. Date/Time Smoking Status/Tobacco Use Comment F acility Dec 10, 2022 10:00 AM VA-TOBACCO QUIT 15 YRS OR MORE [place] [facility] [place] [facility] Jan 07, 2022 12:47 PM VA-TOBACCO DOESNT USE WI 30 MIN WAKEUP [place] [facility] [place] [facility] Jan 07, 2022 12:47 PM VA-TOBACCO USE 30 YEARS OR MORE [place] [facility] [place] [facility] Jan 07, 2022 12:47 PM VA-TOBACCO USE ADVICE [place] [facility] [place] [facility] Jan 07, 2022 12:47 PM VA-TOBACCO USE HOME CARE AIDE NO [place] [facility] [place] [facility] Jan 07, 2022 12:47 PM VA-TOBACCO USE MED NO [facility] Jan 07, 2022 12:47 PM VA-TOBACCO USER EVERY DAY [facility] Radiology Reports: +/- 30 days of [...] the Encounter. The data comes from all [place] treatment facilities. Date/Time Radiology Report Provider Source Nov 18, 2023 08:[address] W/O CONT: FABY GONZALEZ [id number] -1940 M Exm Date: NOV 18, 2023@08:12 Req Phys: ADRIANA ROMERO Loc: CWM/NO/PHARM/PACT 3 (Req'g Loc Img Loc: NHM/CT Service: Unknown [facility] , (Case [id number] COMPLETE) CT THORAX W/O CONT (CT Detailed) CPT:02589 Reason for Study: pulmonary fibrosis on cxr at [facility] last week. Clinical History: pulmonary fibrosis on cxr at [facility] last week. He finished aUGMENTIN 6/5, but now reports that phlegm is now returning. Report Status: Verified Date Reported: NOV 24, 2023 Date Verified: NOV 24, 2023 [employer] E-Sig: Report: EXAM: CT chest without contrast COMPARISON: None. HISTORY: pulmonary fibrosis on cxr at [facility] last week. He finished aUGMENTIN [...] pulmonary fibrosis. READING PHYSICIAN: Kaiden Jacob D.O. -[phone] 11/24/2023 13:44 EDT [facility] National Teleradiology Program [phone] (For Medical Practitioner Use Only) Attention Patients / Veterans: If you have questions or concerns about these test results, please contact your ordering provider or primary care team. Primary Diagnostic Code: NO ALERT REQUIRED Primary Interpreting Staff: RADIOLOGY,OUTSIDE SERVICE, Staff Physician / RADIOLOGY,OUTSIDE SERVICE [facility] October 25, 2023 10:53 AM OUTSIDE CHEST (2 VIEWS): FABY GONZALEZ [id number] -1940 M Exm Date: OCTOBER 25, 2023@10:53 Req Phys: ADRIANA ROMERO Loc: NHM/OUTSIDE IMAGING NON-CNT (R Img Loc: OUTSIDE GENERAL RADIOLOGY Service: Unknown (Case [id number] COMPLETE) OUTSIDE CHEST (2 VIEWS) (RAD Detailed) CPT:49027 Reason for Study: outside images downloaded for continuity of care Clinical History: outside images downloaded for continuity of care Report Status: Electronically Filed Date Reported: OCTOBER 25, 2023 Report: THIS EXAM WAS PERFORMED AND INTERPRETED AT AN OUTSIDE HOSPITAL Impression: THIS EXAM WAS PERFORMED AND INTERPRETED AT AN OUTSIDE HOSPITAL Primary Diagnostic Code: VERIFIED BY: / *ELECTRONICALLY FILED* [facility] Encounter Notes: All associated encounter notes This section contains the clinical notes associated to the Encounter. Date/Time Encounter Note(s) Provider Source Oct 30, 2023 09:22 AM ADDENDUM: LOCAL TITLE: Addendum STANDARD TITLE: ADDENDUM DATE OF NOTE: OCT 30, 2023@09:22:48 ENTRY DATE: OCT 30, 2023@09:22:49 AUTHOR: TOM BROWN COSIGNER: URGENCY: STATUS: COMPLETED Pls let vet know xray should be completed after treatment. /renny/ TOM BROWN NP NURSE PRACTITIONER Signed: 10/30/2023 09:27 Receipt Acknowledged By: 10/31/2023 11:47 /es/ GEORGETTE LONDONO REGISTERED NURSE for NI FLETCHER 10/31/2023 10:00 /es/ CHARLIE MARTINO LPN === --- Original Document --- 10/28/23 CCC: SCHEDULING ADMINISTRATION: Patient Demographics Patient Name: FABY GONZALEZ Patient Primary Phone: [phone] Patient Primary Address: [address] [place] [address] Patient : 1940 Patient Age: 82 Caller/Recipient Relation to Patient: Self Administrative Administrative Note Comments: Patient states, would like a call back on his cell phone # in regards to questions on labs he needs to get done, and the x-ray for his lungs, he has PCP appointment on 11/03/2023 ,and to call his cell phone # on file. /es/ TABBY [id number] [facility] Signed: 10/28/2023 15:09 Receipt Acknowledged By: 10/28/2023 15:24 /es/ NI FLETCHER RN REGISTERED NURSE 10/31/2023 10:00 /es/ CHARLIE MARTINO LPN 10/28/2023 ADDENDUM STATUS: COMPLETED See MD/OUTSIDE CONSULT REPORT SUMMARY entered today. Spoke to [place] who will hVe labs done on Tuesday for November 02 PCP appointment, would also like f/u Chest Xray ordered. He is currently still on ABX medication. /renny/ NI FLETCHER RN REGISTERED NURSE Signed: 10/28/2023 15:29 Receipt Acknowledged By: 10/30/2023 09:22 /renny/ TOM BROWN NP NURSE PRACTITIONER for ADRIANA Rangel NICK 10/31/2023 ADDENDUM STATUS: COMPLETED Call placed to to inform him Xray should take place after finishing ATBX therapy. Left voicemail /es/ CHARLIE MARTINO LPN Signed: 10/31/2023 10:01 TOM BROWN [facility] [place] [facility] October 28, 2023 03:26 PM ADDENDUM: LOCAL TITLE: Addendum STANDARD TITLE: ADDENDUM DATE OF NOTE: OCTOBER 28, 2023@15:26:37 ENTRY DATE: OCTOBER 28, 2023@15:26:37 AUTHOR: NI FLETCHER EXP COSIGNER: URGENCY: STATUS: COMPLETED See MD/OUTSIDE CONSULT REPORT SUMMARY entered today. Spoke to who will hVe labs done on Tuesday for November 02 PCP appointment, would also like f/u Chest Xray ordered. He is currently still on ABX medication. /renny/ NI FLETCHER RN REGISTERED NURSE Signed: 10/28/2023 15:29 Receipt Acknowledged By: 10/30/2023 09:22 /renny/ TOM BROWN NP NURSE PRACTITIONER for ADRIANA ROMERO === --- Original Document --- 10/28/23 CCC: SCHEDULING ADMINISTRATION: Patient Demographics Patient Name: FABY GONZALEZ Patient Primary Phone: [phone] Patient Primary [address]: [address] [place] [address] Patient : 1940 Patient Age: 82 Caller/Recipient Relation to Patient: Self Administrative Administrative Note Comments: Patient states, would like a call back on his cell phone # in regards to questions on labs he needs to get done, and the x-ray for his lungs, he has PCP appointment on 11/03/2023 ,and to call his cell phone # on file. /renny/ TABBY MIN [facility] AMSA Signed: 10/28/2023 15:09 Receipt Acknowledged By: 10/28/2023 15:24 /renny/ NI FLETCHER RN REGISTERED NURSE * AWAITING SIGNATURE * CHARLIE MARTINO LAUREN M [facility] [place] [facility] October 28, 2023 03:09 PM ADMINISTRATIVE NOTE: LOCAL TITLE: CCC: SCHEDULING ADMINISTRATION STANDARD TITLE: ADMINISTRATIVE NOTE DATE OF NOTE: OCTOBER 28, 2023@15:09:05 ENTRY DATE: OCTOBER 28, 2023@15:09:06 AUTHOR: TABBY VALENZUELA COSIGNER: URGENCY: STATUS: COMPLETED CCC: SCHEDULING ADMINISTRATION Has ADDENDA Patient Demographics Patient Name: FABY GONZALEZ Patient Primary Phone: [phone] Patient Primary [address]: [address] [place] [address] Patient : 1940 Patient Age: 82 Caller/Recipient Relation to Patient: Self Administrative Administrative Note Comments: Patient states, would like a call back on his cell phone # in regards to questions on labs he needs to get done, and the x-ray for his lungs, he has PCP appointment on 11/03/2023 ,and to call his cell phone # on file. /renny/ TABBY VALENZUELA [email or web address] [facility] AMS[facility] Signed: 10/28/2023 15:09 Receipt Acknowledged By: 10/28/2023 15:24 /renny/ NI FLETCHER RN REGISTERED NURSE 10/31/2023 10:00 /renny/ CHARLIE MARTINO SENIOR GL ACCOUNTANT CHARLIE MARTINO LPN 10/28/2023 ADDENDUM STATUS: COMPLETED See MD/OUTSIDE CONSULT REPORT SUMMARY entered today. Spoke to who will hVe labs done on Tuesday for November 02 PCP appointment, would also like f/u Chest Xray ordered. He is currently still on ABX medication. /renny/ NI FLETCHER RN REGISTERED NURSE Signed: 10/28/2023 15:29 Receipt Acknowledged By: 10/30/2023 09:22 /renny/ TOM BROWN NP NURSE PRACTITIONER for ADRIANA Rangel NICK 10/30/2023 ADDENDUM STATUS: COMPLETED Pls let vet know xray should be completed after treatment. /mary ellen BROWN NP NURSE PRACTITIONER Signed: 10/30/2023 09:27 Receipt Acknowledged By: * AWAITING SIGNATURE * NI FLETCHER 10/31/2023 10:00 /renny/ CHARLIE MARTINO LPN 10/31/2023 ADDENDUM STATUS: COMPLETED Call placed to to inform him Xray should take place after finishing ATBX therapy. Left voicemail /renny/ CHARLIE MARTINO LPN Signed: 10/31/2023 10:01 TABBY VALENZUELA [facility]
--- OUTSIDE RECORDS SUMMARY | 2024-06-04 12:17 | XMS_ITS | Encounter Summary ---
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 Role Phone ADRIANA HUITRON Primary Care Provider YOSELIN Riojas Primary [...] GIC INDEMNITY PLAN MEDICAL EXPENSE (OPT/PROF ) [facility] Dec 28, 2016 [id number] EMILIA CROOKS HN PATIENT MEDICARE (WNR) MEDICARE (M) PART A Dec 28, 2016 PART A [id number] LISAEMILIA HN PATIENT MEDICARE (WNR) MEDICARE (M) PART B Dec 28, 2016 PART B [id number] LISAEMILIA HN PATIENT MEDICARE (WNR) MEDICARE (M) PART A Dec 28, 2016 PART A [id number] SBREGA,EMILIA HN PATIENT MEDICARE (WNR) MEDICARE (M) PART B Dec 28, 2016 PART B [id number] EMILIA CROOKS PATIENT BRIANA PREFERRED PROVIDER ORGANIZAT ION (PPO) [facility] Dec 28, 2016 [id number] [phone] EMILIA CROOKS PATIENT UNICARE MEDICAL EXPENSE (OPT/PROF ) [facility] Dec 28, 2016 [id number] [phone] EMILIA CROOKS PATIENT Selected Encounter This section includes the information on record at [place] for the Encounter. Date/Time Encounter Type Encounter Description Reason Pro vider Source October 28, 2023 03:25 PM Outpatient Encounter PRIMARY CARE/MEDICINE IHE Encounter Template Text not used by [place] Plan of Treatment: Future Appointments (+ 6 months) and Future Tests (+/- 45 days) The Plan of Treatment section includes future care activities for the patient from all [place] treatmentfacilities. This section includes future appointments and future orders which are active, pending or scheduled. Future Appointments This section includes appointments that were scheduled to occur 6 months from the date of the Encounter, up to a maximum of 20 appointments. The data comes from all [place] treatment facilities. Appointment Date/Time Appointment Type Appointme nt Facility Name Nov 03, 2023 09:00 AM [place]ULATORY [place]ICINE [place] [facility] [place] [facility] Nov 09, 2023 08:30 AM [place] [facility] [place] [facility] Nov 18, 2023 08:30 AM AMBULATORY - NONE [facility] [place] [facility] Dec 13, 2023 02:30 PM [place]INE [place] [facility] [place] [facility] Dec 21, 2023 09:45 AM [facility] [place]ICINE [place] [facility] [place] [facility] Jan 31, 2024 01:30 PM [facility] [place]INE [place] [facility] [place] [facility] Feb 02, 2024 11:15 AM AMBULATORY - NONE [facility] [place] [facility] Apr 10, 2024 11:00 AM [facility]ULATORY [place]ICINE [place] [facility] [place] [facility] Lab Results: +/- 30 days of the encounter This section includes the Chemistry and Hematology Lab Results on record with [place] for the patient. Radiology Reports and Pathology Reports are provided separately, in subsequent sections. Lab Results This section contains the Chemistry/Hematology Results that were resulted 30 days before or 30 daysafter the date of the Encounter. Date/Time Source Result Type Result - Unit Interpretation Reference Range Comment Nov 01, 2023 08:44 AM [facility] BASIC METABOLIC PANEL (fasting) Specimen Type: SERUM No comment entered. Ordering Provider: MICHAELA HUITRON F Report Released Date/Time: Apr 18, 2023 10:07 AM Reporting Lab: [address] [address] Performing Lab: [address] [address] UREA NITROGEN 19 mg/dL 7-25 GLUCOSE 178 mg/dL H 65-100 SODIUM 138 mmol/L 135-145 POTASSIUM 5.2 mmol/L H 3.5-5.0 CHLORIDE 105 mmol/L 100-110 CO2 24 meq/L 20-30 CREATININE, Serum 1.39 mg/dL 0.50-1.40 eGFR(CKD-EPI 2020) 50 mL/min L >60 Nov 01, 2023 08:44 AM [facility] LIVER FUNCTION Specimen Type: SERUM No comment entered. Ordering Provider: MICHAELA HUITRON F Report Released Date/Time: Apr 18, 2023 10:07 AM Reporting Lab: [address] [address] Performing Lab: [address] [address] PROTEIN,TOTAL 7.1 g/dL 6.0-8.3 ALBUMIN 4.0 g/dL 3.5-5.0 ALKALINE PHOSPHATASE 57 U/L 40-150 AST 23 U/L 5-34 ALT 17 U/L BILIRUBIN, TOTAL 0.5 mg/dL 0.2-1.2 Nov 01, 2023 08:44 AM [facility] HEMOGLOBIN A1C PANEL Specimen Type: BLOOD [...] Apr 18, 2023 10:07 AM Reporting Lab: [facility] [address] [address] Performing Lab: [facility] [address] [facility] [address] HEMOGLOBIN A1C 8.2 H 4.0-5.6 Nov 01, 2023 08:44 AM [facility] LIPID PANEL FASTING Specimen Type: SERUM No comment entered. Ordering Provider: MICHAELA HUITRON F Report Released Date/Time: Apr 18, 2023 10:07 AM Reporting Lab: [address] [address] Performing Lab: [facility] [address] [address] CHOLESTEROL 158 mg/dL TRIGLYCERIDE 131 mg/dL 0-150 LDL calculated 103 mg/dL 0-129 CHOL/HDL 5.4 HDL CHOLESTEROL 29 mg/dL L 40-60 Nov 01, 2023 08:44 AM [facility] MICROALBUMIN CREATININE RATIO PANEL Specimen Type: URINE No comment entered. Ordering Provider: MICHAELA HUITRON F Report Released Date/Time: Apr 18, 2023 10:07 AM Reporting Lab: [facility] [address] [address] Performing Lab: [facility] [address] MICROALBUMIN/C REATININE RATIO 170.4 mg/g H 0-29.9 MICROALBUMIN,Q UANTITATIVE 11.6 mg/dL RR UNAVAIL CREATININE URINE 68.07 mg/dL Nov 01, 2023 08:44 AM [facility] URIC ACID Specimen Type: SERUM No comment entered. Ordering Provider: VANWAGNER,WILL FIONA F Report Released Date/Time: Nov 07, 2023 10:27 AM Reporting Lab: [facility] [address] [facility] [address] Performing Lab: [facility] [address] [address] URIC ACID 5.7 mg/dL 3.5-7.2 Social History: Smoking Status (Most current) and Tobacco Use (All prior to encounter date) This section includes the most current, and the historical, smoking and tobacco- related health factors from the [place] facility where the Encounter took place. Current Smoking Status This section includes the most current smoking, or tobacco-related health factor, from the [place] facility where the Encounter took place. Date/Time Current Smoking Status Comment Facil ity Dec 10, 2022 10:00 AM [facility] Tobacco Use History This section includes a history of the smoking, or tobacco-related health factors, that were collected on or before the date of the Encounter. The data comes from the [place] facility where the Encounter took place. Date/Time Smoking Status/Tobacco Use Comment F acility Dec 10, 2022 10:00 AM VA-TOBACCO QUIT 15 YRS OR MORE [facility] [place] [facility] Jan 07, 2022 12:47 PM VA-TOBACCO DOESNT USE WI 30 MIN WAKEUP [facility] [place] [facility] Jan 07, 2022 12:47 PM VA-TOBACCO USE 30 YEARS OR MORE [facility] [place] [facility] Jan 07, 2022 12:47 PM VA-TOBACCO USE ADVICE [facility] [place] [facility] Jan 07, 2022 12:47 PM VA-TOBACCO USE GARBAGE PICK UP MAN NO [facility] [place] [facility] Jan 07, 2022 12:47 PM VA-TOBACCO USE MED NO [facility] Jan 07, 2022 12:47 PM VA-TOBACCO USER EVERY DAY [facility] Radiology Reports: +/- 30 days [...] the Encounter. The data comes from all [place] treatment facilities. Date/Time Radiology Report Provider Source Nov 18, 2023 08:[address] W/O CONT: FABY CROOKS [id number] -[id number] M Exm Date: NOV 18, 2023@08:12 Req Phys: ADRIANA HUITRON Pat Loc: [facility]/NO/PHARM/PACT 3 (Req'g Loc Img Loc: [facility]/CT Service: Unknown [facility] , (Case [id number] COMPLETE) CT THORAX W/O CONT (CT Detailed) CPT:89316 Reason for Study: pulmonary fibrosis on cxr at [facility] in [place] last week. Clinical History: pulmonary fibrosis on cxr at [facility] in [place] last week. He finished aUGMENTIN 6/5, but now reports that phlegm is now returning. 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 HISTORY: pulmonary fibrosis on cxr at [facility] in [place] last week. He finished aUGMENTIN 6/5, but [...] pulmonary fibrosis. READING PHYSICIAN: Kaiden Jacob D.O. -[phone] 11/24/2023 13:44 EDT [facility] National Teleradiology Program [phone] (For Medical Practitioner Use Only) Attention Patients / Veterans: If you have questions or concerns about these test results, please contact your ordering provider or primary care team. Primary Diagnostic Code: NO ALERT REQUIRED Primary Interpreting Staff: RADIOLOGY,OUTSIDE SERVICE, Staff Physician / RADIOLOGY,OUTSIDE SERVICE [facility] October 25, 2023 10:53 AM OUTSIDE CHEST (2 VIEWS): LISASWATI [id number] -[id number] M Exm Date: OCTOBER 25, 2023@10:53 Req Phys: ADRIANA HUITRON Loc: [facility]/OUTSIDE IMAGING NON-CNT (R Img Loc: OUTSIDE GENERAL RADIOLOGY Service: Unknown (Case 10 COMPLETE) OUTSIDE CHEST (2 VIEWS) (RAD Detailed) CPT:64444 Reason for Study: outside images downloaded for continuity of care Clinical History: outside images downloaded for continuity of care Report Status: Electronically Filed Date Reported: OCTOBER 25, 2023 Report: THIS EXAM WAS PERFORMED AND INTERPRETED AT AN OUTSIDE HOSPITAL Impression: THIS EXAM WAS PERFORMED AND INTERPRETED AT AN OUTSIDE HOSPITAL Primary Diagnostic Code: VERIFIED BY: / *ELECTRONICALLY FILED* [facility] Encounter Notes: All associated encounter notes This section contains the clinical notes associated to the Encounter. Date/Time Encounter Note(s) Provider Source October 28, 2023 03:25 PM NONVA CONSULT: LOCAL TITLE: MD/OUTSIDE CONSULT REPORT SUMMARY STANDARD TITLE: NONVA CONSULT DATE OF NOTE: OCTOBER 28, 2023@15:25 ENTRY DATE: OCTOBER 28, 2023@15:25:30 AUTHOR: NI FLETCHER COSIGNER: URGENCY: STATUS: COMPLETED PER [facility] RECORDS OF [facility] ER VISIT: Janna Robertson FNP - 10/25/2023 10:50 AM EDT: Images from the original note were not included. Subjective: Patient ID: Faby Crooks is a 82 y.o. male. Pt with productive cough for 3 weeks. Yellow, brown, green. Denies sob or chest pain. Denies any other symptoms. Denies hx of asthma copd or other lung diseases. Review of Systems Constitutional: Negative for fatigue and fever. HENT: Negative for congestion, ear pain and sore throat. Eyes: Negative for pain. Respiratory: Positive for cough. Negative for shortness of breath. Cardiovascular: Negative for chest pain. Gastrointestinal: Negative for abdominal pain, constipation, diarrhea, nausea and vomiting. Genitourinary: Negative for dysuria and flank pain. Neurological: Negative for dizziness, light-headedness and headaches. Hematological: Negative for adenopathy. All other systems reviewed and are negative. Skin: Negative for color change. Musculoskeletal: Negative for joint pain, back pain and neck pain. Vitals: 10/25/23 1039 BP: 116/79 Pulse: 78 Resp: 18 Temp: 36.5 ?C (97.7 ?F) SpO2: 97% Weight: 76.2 kg (168 lb) Objective: Physical Exam Vitals and nursing note reviewed. Constitutional: General: He is not in acute distress. Appearance: Normal appearance. He is not ill-appearing, toxic-appearing or diaphoretic. HENT: Head: Normocephalic and atraumatic. Right Ear: Tympanic membrane, ear canal and external ear normal. Left Ear: Tympanic membrane, ear canal and external ear normal. Nose: Nose normal. No congestion or rhinorrhea. Mouth/Throat: Mouth: Mucous membranes are moist. Pharynx: Oropharynx is clear. No oropharyngeal exudate or posterior oropharyngeal erythema. Eyes: Extraocular Movements: Extraocular movements intact. Conjunctiva/sclera: Conjunctivae normal. Pupils: Pupils are equal, round, and reactive to light. Cardiovascular: Rate and Rhythm: Normal rate and regular rhythm. Pulses: Normal pulses. Heart sounds: Normal heart sounds. Pulmonary: Effort: Pulmonary effort is normal. No respiratory distress. Breath sounds: Rales (bilateral bases) present. No wheezing. Abdominal: Palpations: Abdomen is soft. Musculoskeletal: General: Normal range of motion. Cervical back: Normal range of motion and neck supple. No tenderness. Lymphadenopathy: Cervical: No cervical adenopathy. Skin: General: Skin is warm and dry. Coloration: Skin is not pale. Findings: No erythema or rash. Neurological: General: No focal deficit present. Mental Status: He is alert and oriented to person, place, and time. Mental status is at baseline. Psychiatric: Mood and Affect: Mood normal. Behavior: Behavior normal. Thought Content: Thought content normal. Judgment: Judgment normal. No results found for this visit on 10/25/23. Procedure: Procedures Assessment/Plan: Diagnosis Plan 1. Acute cough XR Chest 2. Opacities of both lungs present on chest x-ray Assessment and Plan: Pt with productive cough for 3 weeks. Pt is well appearing, pink, warm and dry, in nad. Pt denies any hx of copd, asthma or any lung diseases. Cxr viewed and interpreted by me as opacities bilateral bases. Rad read as: Peripheral interstitial opacities likely representing pulmonary fibrosis. Pt has no hx of fibrosis. States has had cxr at [place] and he does not remember any abnormalities. Pt advised to follow up with primary care, has appt next week. Need comparison to old xray and reray after tx. Rx augmentin, proair, spacer and tessalon. Discussed and agreed on pharm and non pharm plan of care. Recheck if worsening or no better 2-3 days. ED if difficulty breathing, chest pain or other concerns. Procedure Note Brian Godoy MD, [facility] - 10/25/2023 XR CHEST PA AND LATERAL 2 VIEWS Referring clinician's provided indication for this examination in Epic: Cough; productive cough for 3 weeks COMPARISON: None FINDINGS: Lungs: No lobar consolidations. Peripheral interstitial opacities likely representing pulmonary fibrosis. Pleura: No pleural effusion. No pneumothorax Heart/Mediastinum: Sternotomy. Aorta vascular calcifications. Bones/Soft Tissues: No acute finding IMPRESSION: No lobar consolidations. Peripheral interstitial opacities likely representing pulmonary fibrosis. /renny/ NI FLETCHER, RN REGISTERED NURSE Signed: 10/28/2023 15:26 Receipt Acknowledged By: 11/02/2023 08:38 /renny/ Adriana Huitron PA-C STAFF PHYSICIAN ADVERTISING CLERK NI FLETCHER [facility]
--- OUTSIDE RECORDS SUMMARY | 2024-06-04 12:17 | XMS_ITS | Encounter Summary ---
Author Name [facility] [place] Address [address] [place] [address] Care Team Providers Care German Teacher Name Role Phone ADRIANA HUITRON Primary Care [...] GIC INDEMNITY PLAN MEDICAL EXPENSE (OPT/PROF ) [facility] N Dec 28, 2016 [id number] EMILIA GONZALEZ HN PATIENT MEDICARE (WNR) MEDICARE (M) PART A Dec 28, 2016 PART A [id number] EMILIA GONZALEZ HN PATIENT MEDICARE (WNR) MEDICARE (M) PART B Dec 28, 2016 PART B [id number] EMILIA GONZALEZ HN PATIENT MEDICARE (WNR) MEDICARE (M) PART A Dec 28, 2016 PART A [id number] [phone] EMILIA GONZALEZ HN PATIENT MEDICARE (WNR) MEDICARE (M) PART B Dec 28, 2016 PART B [id number] EMILIA GONZALEZ PATIENT BRIANA PREFERRED PROVIDER ORGANIZAT ION (PPO) [facility] N Dec 28, 2016 [id number] EMILIA GONZALEZ PATIENT UNICARE MEDICAL EXPENSE (OPT/PROF ) [facility] N Dec 28, 2016 [id number] EMILIA GONZALEZ PATIENT Selected Encounter This section includes the information on record at [place] for the Encounter. Date/Time Encounter Type Encounter Description Reason Provider Source October 27, 2023 02:26 PM QNHP OL DIG ASSMT&MGMT 21+ CLINICAL PHARMACY ICD-10-CM E11.21 Type 2 diabetes mellitus with diabetic nephropathy CHRISTIANO MCKEON [facility] Encounter Template Text not used by [place] Assessments - Encounter Diagnoses This section includes the primary and secondary diagnoses documented for the Encounter. Date/Time Primary/Secondary Diagnosis Diagnosis Name Provider Source October 27, 2023 02:59 PM PRIMARY Type 2 diabetes mellitus with diabetic nephropathy CHRISTIANO MCKEON [facility] October 27, 2023 02:59 PM SECONDARY Athscl heart disease of [place] coronary artery w/o ang pctrs CHRISTIANO MCKEON [facility] October 27, 2023 02:59 PM SECONDARY Type 2 diabetes mellitus without complications CHRISTIANO MCKEON [facility] Plan of Treatment: Future Appointments (+ [...] 03, 2023 09:00 AM AMBULATORY - MEDICINE [facility] Nov 09, 2023 08:30 AM [facility] [place] [facility] Nov 18, 2023 08:30 AM AMBULATORY - NONE [place] [facility] [place] [facility] Dec 13, 2023 02:30 PM [place] [facility] [place] [facility] Dec 21, 2023 09:45 AM [place]ORY [place] [facility] [place] [facility] Jan 31, 2024 01:30 PM [facility] [place] [facility] [place] [facility] Feb 02, 2024 11:15 AM [facility] [place] [facility] Apr 10, 2024 11:00 AM AMBULATORY - [facility]ICINE [facility] Lab Results: +/- 30 days of the encounter This section includes the Chemistry and Hematology Lab Results on record with [place] for the patient. Radiology Reports and Pathology Reports are provided separately, in subsequent sections. Lab Results This section contains the Chemistry/Hematology Results that were resulted 30 days before or 30 daysafter the date of the Encounter. Date/Time Source Result Type Result - Unit Interpretation Reference Range Comment Nov 01, 2023 08:44 AM [facility] BASIC METABOLIC PANEL (fasting) Specimen Type: SERUM No comment entered. Ordering Provider: MICHAELA HUITRON F Report Released Date/Time: Apr 18, 2023 10:07 AM Reporting Lab: [facility] [address] [facility] [address] Performing Lab: [address] [address] UREA NITROGEN 19 mg/dL 7-25 GLUCOSE 178 mg/dL H 65-100 SODIUM 138 mmol/L 135-145 POTASSIUM 5.2 mmol/L H 3.5-5.0 CHLORIDE 105 mmol/L 100-110 CO2 24 meq/L 20-30 CREATININE, Serum 1.39 mg/dL 0.50-1.40 eGFR(CKD-EPI 2020) 50 mL/min L >60 Nov 01, 2023 08:44 AM [facility] LIVER FUNCTION Specimen Type: SERUM No comment entered. Ordering Provider: MICHAELA HUITRON F Report Released Date/Time: Apr 18, 2023 10:07 AM Reporting Lab: [facility] [address] [facility] [address] Performing Lab: [facility] [address] [facility] [address] PROTEIN,TOTAL 7.1 g/dL 6.0-8.3 ALBUMIN 4.0 g/dL 3.5-5.0 ALKALINE PHOSPHATASE 57 U/L 40-150 AST 23 U/L 5-34 ALT 17 U/L BILIRUBIN, TOTAL 0.5 mg/dL 0.2-1.2 Nov 01, 2023 08:44 AM [facility] LIPID PANEL FASTING Specimen Type: SERUM No comment entered. Ordering Provider: MICHAELA HUITRON Report Released Date/Time: Apr 18, 2023 10:07 AM Reporting Lab: [facility] [address] [facility] [address] Performing Lab: [address] [address] CHOLESTEROL 158 mg/dL TRIGLYCERIDE 131 mg/dL 0-150 LDL calculated 103 mg/dL 0-129 CHOL/HDL 5.4 HDL CHOLESTEROL 29 mg/dL L 40-60 Nov 01, 2023 08:44 AM [facility] HEMOGLOBIN A1C PANEL Specimen Type: BLOOD [...] Apr 18, 2023 10:07 AM Reporting Lab: [facility] [address] [facility] [address] Performing Lab: [address] [address] HEMOGLOBIN A1C 8.2 H 4.0-5.6 Nov 01, 2023 08:44 AM [facility] MICROALBUMIN CREATININE RATIO PANEL Specimen Type: URINE No comment entered. Ordering Provider: MICHAELA HUITRON F Report Released Date/Time: Apr 18, 2023 10:07 AM Reporting Lab: [facility] [address] [facility] [address] Performing Lab: [facility] [address] [facility] [address] MICROALBUMIN/C REATININE RATIO 170.4 mg/g H 0-29.9 MICROALBUMIN,Q UANTITATIVE 11.6 mg/dL RR UNAVAIL CREATININE URINE 68.07 mg/dL Nov 01, 2023 08:44 AM [facility] URIC ACID Specimen Type: SERUM No comment entered. Ordering Provider: MICHAELA HUITRON F Report Released Date/Time: Nov 07, 2023 10:27 AM Reporting Lab: [facility] [address] [facility] [address] Performing Lab: [address] [address] URIC ACID 5.7 mg/dL 3.5-7.2 Social History: [...] place. Date/Time Current Smoking Status Comment Sun christiansony Dec 10, 2022 10:00 AM VA-TOBACCO FORMER USER [facility] Tobacco Use History This section includes a history of the smoking, or tobacco-related health factors, that were collected on or before the date of the Encounter. The data comes from the [place] facility where the Encounter took place. 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 The data comes from all [place] treatment facilities. Date/Time Radiology Report Provider Source Nov 18, 2023 08:[address] W/O CONT: LISASWATI [id number] M Exm Date: NOV 18, 2023@08:12 Req Phys: ADRIANA HUITRON Loc: CWM/NO/PHARM/PACT 3 (Req'g Loc Img Loc: NHM/CT Service: Unknown [facility] , (Case [id number] COMPLETE) CT THORAX W/O CONT (CT Detailed) CPT:19201 Reason for Study: pulmonary fibrosis on cxr at [facility] last week. Clinical History: pulmonary fibrosis on cxr at [facility] last week. He finished aUGMENTIN 6/5, but now reports that phlegm is now returning. Report Status: Verified Date Reported: NOV 24, 2023 Date Verified: NOV 24, 2023 Director Of Property Management E-Sig: Report: EXAM: CT chest without contrast COMPARISON: None. HISTORY: pulmonary fibrosis on cxr at [facility] last week. He finished aUGMENTIN 6/5, but [...] pulmonary fibrosis. READING PHYSICIAN: Kaiden Jacob D.O. -[phone] 11/24/2023 13:44 EDT [facility] National Teleradiology Program [phone] (For Medical Practitioner Use Only) Attention Patients / Veterans: If you have questions or concerns about these test results, please contact your ordering provider or primary care team. Primary Diagnostic Code: NO ALERT REQUIRED Primary Interpreting Staff: RADIOLOGY,OUTSIDE SERVICE, Staff Physician / RADIOLOGY,OUTSIDE SERVICE [place] [facility] [place] [facility] October 25, 2023 10:53 AM OUTSIDE CHEST (2 VIEWS): FABY GONZALEZ [id number] -[id number] [facility] Date: OCTOBER 25, 2023@10:53 Req Phys: ADRIANA HUITRON Loc: [facility]/OUTSIDE IMAGING NON-CNT (R Img Loc: OUTSIDE GENERAL RADIOLOGY Service: Unknown (Case [id number] COMPLETE) OUTSIDE CHEST (2 VIEWS) (RAD Detailed) CPT:64654 Reason for Study: outside images downloaded for continuity of care Clinical History: outside images downloaded for continuity of care Report Status: Electronically Filed Date Reported: OCTOBER 25, 2023 Report: THIS EXAM WAS PERFORMED AND INTERPRETED AT AN OUTSIDE HOSPITAL Impression: THIS EXAM WAS PERFORMED AND INTERPRETED AT AN OUTSIDE HOSPITAL Primary Diagnostic Code: VERIFIED BY: / *ELECTRONICALLY FILED* [facility] [place] [facility] Encounter Notes: All associated encounter notes This section contains the clinical notes associated to the Encounter. Date/Time Encounter Note(s) Provider Source October 27, 2023 02:26 PM PHARMACY MEDICATION MGT NOTE: LOCAL TITLE: CLINICAL PHARMACIST DRUG REGIMEN REVIEW STANDARD TITLE: PHARMACY MEDICATION MGT NOTE DATE OF NOTE: OCTOBER 27, 2023@14:26 ENTRY DATE: OCTOBER 27, 2023@14:26:52 AUTHOR: CHRISTIANO MCKEON COSIGNER: URGENCY: STATUS: COMPLETED This consult is for drug information questions, requests for clinical recommendations from Clinical Pharmacy Specialists (CPS), poly-pharmacy medication reviews, or general chart reviews for medication appropriateness. This consult is not for medication management as it is only an e-consult. Recommendations are included in this response. QUESTION: I reviewed DR Bojorquez's last note in which he mentioned using FOUR antilipid agents. I will ask our CPP to review and consider consulting with this patient for same as well as DM. Current lipid medications: - Atorvastatin 80 mg daily - Ezetimibe 10 mg daily - Gemfibrozil 600 mg BID PERTINENT INFORMATION: Active Problem Exposure to potentially hazardous s 09/07/2023 CALI MCCONNELL Kidney Disorder Associated with Typ 08/10/2022 ADRIANA HUITRON Hearing Loss (SCT 47963678) H91.90 01/21/2022 ADRIANA HUITRON Vitamin B12 Deficiency (SCT 7506045 01/21/2022 ADRIANA HUITRON CAD - Coronary Artery Disease ([facility] 01/21/2022 ADRIANA HUITRON Diabetes Mellitus Type 2 ([facility] [address] 01/21/2022 ADRIANA HUITRON Gout ([facility] [id number]) M10.9 01/13/2022 ADRIANA HUITRON Hypercholesterolemia E78.00, Onset 01/07/2022September,ALEYDA Renner Hypertension I10., Onset 01/07/2022September,ALEYDA Renner Active and Recently Outpatient Medications (including Supplies): [...] TWO TABLETS BY DISCONTINUED MOUTH ONCE DAILY 25 Total Medications Labs: CBC TREND Collection DT Spec WBC RBC HGB HCT MCV MCH PLT 04/14/2022 07:52 BLOOD 6.46 4.00 L 12.2 L 37.1 L 92.8 30.5 236 01/18/2022 07:25 BLOOD 7.53 3.93 L 12.4 L 36.6 L 93.1 31.6 255 CHEM 7 TREND LAB CUMULATIVE SELECTED Collection [...] 140 4.4 103 25 134 H 23 LIVER PANEL TREND Collection DT Spec AST ALT T BILI ALK ANALI T. PROT ALBUMIN 04/14/2023 07:58 SERUM 30 19 0.4 66 7.8 4.2 12/08/2022 08:22 SERUM 28 22 0.6 56 7.5 4.2 08/09/2022 08:02 SERUM 24 21 0.5 65 7.6 4.3 04/14/2022 07:52 SERUM 29 22 0.5 64 7.8 4.4 01/18/2022 07:25 SERUM 27 21 0.6 67 7.9 4.2 LIPID PANEL TREND Collection DT Spec CHOL HDL CHO/HDL LDL-c TRIG 04/14/2023 07:58 SERUM 153 33 L 4.6 97 115 12/08/2022 08:22 SERUM 150 29 L 5.2 96 125 08/09/2022 08:02 SERUM 113 32 L 3.5 60 107 04/14/2022 07:52 SERUM 112 33 L 3.4 58 104 01/18/2022 07:25 SERUM 111 31 L 3.6 66 72 HEMOGLOBIN A1C TREND Collection DT Spec HGBA1c 04/14/2023 07:58 BLOOD 7.4 H 08/09/2022 08:02 BLOOD 7.3 H 04/14/2022 07:52 BLOOD 7.1 H 01/18/2022 07:25 BLOOD 7.3 H IRON PANEL TREND Collection DT Spec IRON Ferrit 04/14/2022 07:52 SERUM 82 99 No data for IRON & TIBC PANEL THYROID PANEL Collection DT Specimen Test Name Result Units Ref Range 12/08/2022 08:22 SERUM TSH 3.01 uIU/mL 0.35 - 5.00 VITAMIN D 25-OH No data available Apr 14, 2023@07:58 URINE mALB/Cr: 83.2 H mg/G 0 - 29.9 Apr 14, 2023@07:58 URINE MICROALBUMIN,QUANTITATIVE:7.5 mg/dL Ref: RR UNAVAIL Apr 14, 2023@07:58 URINE CREATININE URINE: 90.12 mg/dL Vitals: Ht: 69 in [175.3 cm] (04/20/2022 10:35) Wt: 174.5 lb [79.15 kg] (04/18/2023 09:31) BMI: BMI: 25.8 BP: 130/70 (04/18/2023 09:31) HR: 47 (04/18/2023 09:31) Pain: 0 (04/18/2023 09:31) Crcl adjusted BW:42.9 ml/min Crcl acual BW: 40.1 ml/min Assessment: Pt is a 82 y/o male with coronary artery disease; 2004 CABG surgery ([facility]). Per cardiology note 02/12/22- Pt has been tolerating intense lipid lowering regimen of ezetimibe, atorvastatin, gemfibrozil and nicacin for many years. Niacin was d/naz 07/2022 d/t back order. As recommended in Dr. Bojorquez's note d/t risk of myositis it would be beneficial to consider dc of gemfibrozil and if warranted add on icosapent ethyl. Additionally KDIGO guidelines recommmend against the use to fibric acid derivatives in pts with CKD except for in the rare patient with severe hypertriglyceridemia who is at risk for pancreatitis. Noteable pt has microalbuminuria and CKD in which he may benefit from SGLT2i for both dm management and renal protection. Recommendation: - Updated labs would be beneficial in determining next steps, pt has been contacted to have labs prior to PCP visit. - It would be prudent to consider discontinuing gemfibrozil d/t risk of myositis with combination of atorvastatin. - If TG are elevated w/ dc of niacin previously could consider addting icosapent ethyl ( assuming dc of gemfibrozil as well) - In respect to dm, pt would benefit from SGLT2i from CVD and CKD prospective, age and hydration status could be a barrier. Please review, discuss with pt and refer to CPP for management if indicated. Time spent: 30 minutes PBM PharmD Pharmacotherapy Rem V12: Prevent or manage an adverse drug reaction or event /es/ CHRISTIANO MCKEON, NEGROD,BCPS CLINICAL PHARMACY PRACTITIONER Signed: 10/27/2023 15:00 Receipt Acknowledged By: 11/03/2023 09:55 /es/ Adriana Huitron PA-C STAFF PHYSICIAN CEREAL SUPERVISOR CHRISTIANO MCKEON [facility]
--- OUTSIDE RECORDS SUMMARY | 2024-06-04 12:17 | XMS_ITS | Encounter Summary ---
Author Name [facility] [place] [facility] [place] Address [address] [place] [address] Care Team Providers Care Ccu Nurse Name Role Phone ADRIANA ROMERO Primary Care Provider YOSELIN Riojas Primary Care Provider [facility] Insurance Providers: All historical and current [...] GIC INDEMNITY PLAN MEDICAL EXPENSE (OPT/PROF ) [facility] N Dec 28, 2016 [id number] CLAIREEMILIA Hinkle HN PATIENT MEDICARE (WNR) MEDICARE (M) PART A Dec 28, 2016 PART A [id number] [phone] SHEELAJENNIFEREMILIA Hinkle HN PATIENT MEDICARE (WNR) MEDICARE (M) PART B Dec 28, 2016 PART B [id number] [phone] SHEELALIZEMILIA HN PATIENT MEDICARE (WNR) MEDICARE (M) PART A Dec 28, 2016 PART A [id number] LISAEMILIA HN PATIENT MEDICARE (WNR) MEDICARE (M) PART B Dec 28, 2016 PART B [id number] EMILIA GONZALEZ HN PATIENT UNICARE PREFERRED PROVIDER ORGANIZAT ION (PPO) [facility] N Dec 28, 2016 [id number] [phone] EMILIA GONZALEZ HN PATIENT UNICARE MEDICAL EXPENSE (OPT/PROF ) [facility] N Dec 28, 2016 [id number] [phone] EMILIA GONZALEZ HN PATIENT Selected Encounter This section includes the information on record at [place] for the En[place]. Date/Time Encounter Type Encounter Description Reason Pro vider Source IHE Encounter Template Text not used by [place]
--- OUTSIDE RECORDS SUMMARY | 2024-06-04 12:17 | XMS_ITS | Encounter Summary ---
Author Name [facility] [place] [facility] [place] Address [address] [place] [address] Care Team Providers Care Xray Tech Name Role Phone ADRIANA ROMERO Primary Care [...] GIC INDEMNITY PLAN MEDICAL EXPENSE (OPT/PROF ) [facility] IN[facility] N Dec 28, 2016 [id number] LISAEMILIA HN PATIENT MEDICARE (WNR) MEDICARE (M) PART A Dec 28, 2016 PART A [id number] [phone] LISAEMILIA HN PATIENT MEDICARE (WNR) MEDICARE (M) PART B Dec 28, 2016 PART B [id number] LISAEMILIA HN PATIENT MEDICARE (WNR) MEDICARE (M) PART A Dec 28, 2016 PART A [id number] LISAEMILIA HN PATIENT MEDICARE (WNR) MEDICARE (M) PART B Dec 28, 2016 PART B [id number] EMILIA GONZALEZ PATIENT BRIANA PREFERRED PROVIDER ORGANIZAT ION (PPO) [facility] Dec 28, 2016 [id number] [phone] EMILIA GONZALEZ PATIENT UNICARE MEDICAL EXPENSE (OPT/PROF ) [facility] Dec 28, 2016 [id number] [phone] EMILIA GONZALEZ PATIENT Selected Encounter This section includes the information on record at [place] for the Encounter. Date/Time Encounter Type Encounter Description Reason Pro vider Source October 26, 2023 09:46 AM Outpatient Encounter TELEPHONE TRIAGE IHE Encounter Template Text not used by [place] Plan of Treatment: Future Appointments (+ 6 months) and Future Tests (+/- 45 days) The Plan of Treatment section includes future care activities for the patient from all [place] treatmentfacilities. This section includes future appointments and future orders which are active, pending or scheduled. Future Appointments This section includes appointments that were scheduled to occur 6 months from the date of the Encounter, up to a maximum of 20 appointments. The data comes from all [place] treatment facilities. Appointment Date/Time Appointment Type Appointme nt Facility Name Nov 03, 2023 09:00 AM [place] [facility] [place] [facility] Nov 09, 2023 08:30 AM [place] [facility] [place] [facility] Nov 18, 2023 08:30 AM AMBULATORY - NONE [place] [facility] [place] [facility] Dec 13, 2023 02:30 PM AM[place]ULATORY [place]ICINE [place] [facility] [place] [facility] Dec 21, 2023 09:45 AM [place]ATORY [place]ICINE [place] [facility] [place] [facility] Jan 31, 2024 01:30 PM [place]ULATORY [place]ICINE [place] [facility] [place] [facility] Feb 02, 2024 11:15 AM AMBULATORY - NONE [place] [facility] [place] [facility] Apr 10, 2024 11:00 AM AM[place]ULATORY [place] [facility] [place] [facility] Lab Results: +/- 30 days of the encounter This section includes the Chemistry and Hematology Lab Results on record with [place] for the patient. Radiology Reports and Pathology Reports are provided separately, in subsequent sections. Lab Results This section contains the Chemistry/Hematology Results that were resulted 30 days before or 30 daysafter the date of the Encounter. Date/Time Source Result Type Result - Unit Interpretation Reference Range Comment Nov 01, 2023 08:44 AM [facility] BASIC METABOLIC PANEL (fasting) Specimen Type: SERUM No comment entered. Ordering Provider: MICHAELA ROMERO F Report Released Date/Time: Apr 18, 2023 10:07 AM Reporting Lab: [address] [address] Performing Lab: [address] [address] UREA NITROGEN 19 mg/dL 7-25 GLUCOSE 178 mg/dL H 65-100 SODIUM 138 mmol/L 135-145 POTASSIUM 5.2 mmol/L H 3.5-5.0 CHLORIDE 105 mmol/L 100-110 CO2 24 meq/L 20-30 CREATININE, Serum 1.39 mg/dL 0.50-1.40 eGFR(CKD-EPI 2020) 50 mL/min L >60 Nov 01, 2023 08:44 AM [facility] LIVER FUNCTION Specimen Type: SERUM No comment entered. Ordering Provider: MICHAELA ROMERO F Report Released Date/Time: Apr 18, 2023 10:07 AM Reporting Lab: [address] [address] Performing Lab: [address] [address] PROTEIN,TOTAL 7.1 g/dL 6.0-8.3 ALBUMIN 4.0 g/dL 3.5-5.0 ALKALINE PHOSPHATASE 57 U/L 40-150 AST 23 U/L 5-34 ALT 17 U/L BILIRUBIN, TOTAL 0.5 mg/dL 0.2-1.2 Nov 01, 2023 08:44 AM [facility] HEMOGLOBIN A1C PANEL Specimen Type: BLOOD [...] Apr 18, 2023 10:07 AM Reporting Lab: [facility] [address] [address] Performing Lab: [facility] [address] HEMOGLOBIN A1C 8.2 H 4.0-5.6 Nov 01, 2023 08:44 AM [facility] LIPID PANEL FASTING Specimen Type: SERUM No comment entered. Ordering Provider: MICHAELA ROMERO F Report Released Date/Time: Apr 18, 2023 10:07 AM Reporting Lab: [address] [address] Performing Lab: [facility] [address] [address] CHOLESTEROL 158 mg/dL TRIGLYCERIDE 131 mg/dL 0-150 LDL calculated 103 mg/dL 0-129 CHOL/HDL 5.4 HDL CHOLESTEROL 29 mg/dL L 40-60 Nov 01, 2023 08:44 AM [facility] MICROALBUMIN CREATININE RATIO PANEL Specimen Type: URINE No comment entered. Ordering Provider: MICHAELA ROMERO Report Released Date/Time: Apr 18, 2023 10:07 AM Reporting Lab: [facility] [address] [facility] [address] Performing Lab: [address] [address] MICROALBUMIN/C REATININE RATIO 170.4 mg/g H 0-29.9 MICROALBUMIN,Q UANTITATIVE 11.6 mg/dL RR UNAVAIL CREATININE URINE 68.07 mg/dL Nov 01, 2023 08:44 AM [facility] URIC ACID Specimen Type: SERUM No comment entered. Ordering Provider: MICHAELA ROMERO F Report Released Date/Time: Nov 07, 2023 10:27 AM Reporting Lab: [facility] [address] [facility] [address] Performing Lab: [facility] [address] [address] URIC ACID 5.7 mg/dL 3.5-7.2 Social History: Smoking Status (Most current) and Tobacco Use (All prior to encounter date) This section includes the most current, and the historical, smoking and tobacco- related health factors from the [place] facility where the Encounter took place. Current Smoking Status This section includes the most current smoking, or tobacco-related health factor, from the [place] facility where the Encounter took place. Date/Time Current Smoking Status Comment Facil ity Dec 10, 2022 10:00 AM VA-TOBACCO FOR[facility] USER [facility] Tobacco Use History This section includes a history of the smoking, or tobacco-related health factors, that were collected on or before the date of the Encounter. The data comes from the [place] facility where the Encounter took place. Date/Time Smoking Status/Tobacco Use Comment F acility Dec 10, 2022 10:00 AM VA-TOBACCO QUIT 15 YRS OR MORE [place] [facility] [place] [facility] Jan 07, 2022 12:47 PM VA-TOBACCO DOESNT USE WI 30 MIN WAKEUP [place] [facility] [place] [facility] Jan 07, 2022 12:47 PM VA-TOBACCO USE 30 YEARS OR MORE [place] [facility] [place] [facility] Jan 07, 2022 12:47 PM VA-TOBACCO USE ADVICE [place] [facility] [place] [facility] Jan 07, 2022 12:47 PM VA-TOBACCO USE CHARTER REPRESENTATIVE NO [place] [facility] [place] [facility] Jan 07, 2022 12:47 PM VA-TOBACCO USE MED NO [place] [facility] [place] [facility] Jan 07, 2022 12:47 PM VA-TOBACCO USER EVERY DAY [facility] Radiology Reports: +/- 30 days of [...] the Encounter. The data comes from all [place] treatment facilities. Date/Time Radiology Report Provider Source Nov 18, 2023 08:[address] W/O CONT: FABY GONZALEZ [id number] -1940 M Exm Date: NOV 18, 2023@08:12 Req Phys: ADRIANA ROMERO Pat Loc: CWM/NO/PHARM/PACT 3 (Req'g Loc Img Loc: NHM/CT Service: Unknown [facility] , (Case [id number] COMPLETE) CT THORAX W/O CONT (CT Detailed) CPT:13873 Reason for Study: pulmonary fibrosis on cxr at [facility] last week. Clinical History: pulmonary fibrosis on cxr at [facility] last week. He finished aUGMENTIN 6/5, but now reports that phlegm is now returning. Report Status: Verified Date Reported: NOV 24, 2023 Date Verified: NOV 24, 2023 Information Systems Professor E-Sig: Report: EXAM: CT chest without contrast COMPARISON: None. HISTORY: pulmonary fibrosis on cxr at [facility] last week. He finished aUGMENTIN [...] pulmonary fibrosis. READING PHYSICIAN: Kaiden Jacob D.O. -[phone] 11/24/2023 13:44 EDT [facility] National Teleradiology Program [phone] (For Medical Practitioner Use Only) Attention Patients / Veterans: If you have questions or concerns about these test results, please contact your ordering provider or primary care team. Primary Diagnostic Code: NO ALERT REQUIRED Primary Interpreting Staff: RADIOLOGY,OUTSIDE SERVICE, Staff Physician / RADIOLOGY,OUTSIDE SERVICE [facility] October 25, 2023 10:53 AM OUTSIDE CHEST (2 VIEWS): LISAFABYSWATI [id number] -1940 M Exm Date: OCTOBER 25, 2023@10:53 Req Phys: ADRIANA ROMERO Loc: [facility]M/OUTSIDE IMAGING NON-CNT (R Img Loc: OUTSIDE GENERAL RADIOLOGY Service: Unknown (Case 10 COMPLETE) OUTSIDE CHEST (2 VIEWS) (RAD Detailed) CPT:72208 Reason for Study: outside images downloaded for continuity of care Clinical History: outside images downloaded for continuity of care Report Status: Electronically Filed Date Reported: OCTOBER 25, 2023 Report: THIS EXAM WAS PERFORMED AND INTERPRETED AT AN OUTSIDE HOSPITAL Impression: THIS EXAM WAS PERFORMED AND INTERPRETED AT AN OUTSIDE HOSPITAL Primary Diagnostic Code: VERIFIED BY: / *ELECTRONICALLY FILED* [facility] Encounter Notes: All associated encounter notes This section contains the clinical notes associated to the Encounter. Date/Time Encounter Note(s) Provider Source October 26, 2023 09:46 AM RN PROGRESS NOTE: LOCAL TITLE: CCC: CLINICAL TRIAGE STANDARD TITLE: RN PROGRESS NOTE DATE OF NOTE: OCTOBER 26, 2023@09:46:31 ENTRY DATE: OCTOBER 26, 2023@09:46:31 AUTHOR: TAMRA JOE COSIGNER: URGENCY: STATUS: COMPLETED CCC: CLINICAL TRIAGE Has ADDENDA Patient Demographics Patient Name: FABY Bar LISA Patient Primary Address: [address] [place] [address] Patient Primary Phone: [phone] Patient : 1940 Patient Age: 82 Call Back Number: [phone] Caller/Recipient Relation to Patient: Self Emergency Contact: EMILIA GONZALEZ Nursing Plan and Disposition Other course(s) of action Generated msg to PACT/Provider Provided guidance for worsening symptoms: *Caller/Patient* advised to call facilities [place] Clinical Contact Center or seek immediate medical attention for new or worsening symptoms Nurse Summary Nurse Summary: Pt called this AM saying he has an appt with his [facility] PCP on 11/03/23 and he wants to make sure his PACT has received a copy of the note and CXR report from [facility] from 10/25/23. Pt says he went to because he's had a productive cough for the past several weeks. Pt says he was told that his CXR showed some scarring and he was prescribed an Albuterol inhaler and 2 oral medications. The pt says it's still kind of early but he is already feeling improvement with the prescribed medications. Pt was encouraged to call back if he develops any new or worsening symptoms. Pt v/u. Will forward to the PACT for review and f/u Clinical Contact Center Codes Clinic/Location: V1 [facility] PHONE [facility] RN /renny/ TAMRA JOE CALL CENTER REGISTERED NURSE Signed: 10/26/2023 09:46 Receipt Acknowledged By: 10/26/2023 14:33 /renny/ NI FLETCHER RN REGISTERED NURSE 10/28/2023 11:04 /renny/ CHARLIE MARTINO LPN 10/26/2023 ADDENDUM STATUS: COMPLETED Records available from [facility] in Community Coordination widget in [facility]. No prior imaging here to compare, recommendation repeat for clearance after treatment. Spoke to [place] and let him know this and to have labs done prior to appt. Understood and agreed to plan. /renny/ NI FLETCHER RN REGISTERED NURSE Signed: 10/26/2023 14:33 TAMRA JOE [place] [facility]
--- OUTSIDE RECORDS SUMMARY | 2024-06-04 12:17 | XMS_ITS | Encounter Summary ---
Author Name [facility] Organization [facility] [place] Address [address] [place] [address] Care Team Providers Care Marine Equipment Design Engineer Name Role Phone JAGDISH ROMERO Primary Care Provider YOSELIN Riojas Primary [...] [facility] N Dec 28, 2016 [id number] [phone] EMILIA GONZALEZ HN PATIENT MEDICARE (WNR) MEDICARE (M) PART A Dec 28, 2016 PART A [id number] EMILIA GONZALEZ HN PATIENT MEDICARE (WNR) MEDICARE (M) PART B Dec 28, 2016 PART B [id number] EMILIA GONZALEZ HN PATIENT MEDICARE (WNR) MEDICARE (M) PART A Dec 28, 2016 PART A [id number] EMILIA GONZALEZ HN PATIENT MEDICARE (WNR) MEDICARE (M) PART B Dec 28, 2016 PART B [id number] EMILIA GONZALEZ HN PATIENT UNICARE PREFERRED PROVIDER ORGANIZAT ION (PPO) DENI [facility] N Dec 28, 2016 [id number] SBEMILIA HILL PATIENT UNICARE MEDICAL EXPENSE (OPT/PROF ) [facility] Dec 28, 2016 [id number] EMILIA GONZALEZ PATIENT Selected Encounter This section includes the information on record at [place] for the Encounter. Date/Time Encounter Type Encounter Description Reason Pro vider Source Oct 31, 2023 11:56 AM Outpatient Encounter ADMIN PAT ACTIVTIES (MASNONCT) IHE Encounter Template Text not used by [place] Plan of Treatment: Future Appointments (+ 6 months) and Future Tests (+/- 45 days) The Plan of Treatment section includes future care activities for the patient from all [place] treatmentfacilities. This section includes future appointments and future orders which are active, pending or scheduled. Future Appointments This section includes appointments that were scheduled to occur 6 months from the date of the Encounter, up to a maximum of 20 appointments. The data comes from all [place] treatment facilities. Appointment Date/Time Appointment Type Appointme nt Facility Name Nov 03, 2023 09:00 AM AMBULATORY - MEDICINE [place] [facility] [place] [facility] Nov 09, 2023 08:30 AM AMBULATORY [facility] MEDICINE [place] [facility] [place] [facility] Nov 18, 2023 08:30 AM AMBULATORY - NONE [facility] [place] [facility] Dec 13, 2023 02:30 PM AMBULATORY - MEDICINE [facility] [place] [facility] Dec 21, 2023 09:45 AM AMBULATORY - MEDICINE [facility] [place] [facility] Jan 31, 2024 01:30 PM AMBULATORY - MEDICINE [facility] [place] [facility] Feb 02, 2024 11:15 AM AMBULATORY - NONE [facility] [place] [facility] Apr 10, 2024 11:00 AM AMBULATORY - MEDICINE [place] [facility] [place] [facility] Lab Results: +/- 30 days of the encounter This section includes the Chemistry and Hematology Lab Results on record with [place] for the patient. Radiology Reports and Pathology Reports are provided separately, in subsequent sections. Lab Results This section contains the Chemistry/Hematology Results that were resulted 30 days before or 30 daysafter the date of the Encounter. Date/Time Source Result Type Result - Unit Interpretation Reference Range Comment Nov 01, 2023 08:44 AM [facility] LIVER FUNCTION Specimen Type: SERUM No comment entered. Ordering Provider: MICHAELA ROMERO F Report Released Date/Time: Apr 18, 2023 10:07 AM Reporting Lab: [address] [address] Performing Lab: [address] [address] PROTEIN,TOTAL 7.1 g/dL 6.0-8.3 ALBUMIN 4.0 g/dL 3.5-5.0 ALKALINE PHOSPHATASE 57 U/L 40-150 AST 23 U/L 5-34 ALT 17 U/L BILIRUBIN, TOTAL 0.5 mg/dL 0.2-1.2 Nov 01, 2023 08:44 AM [facility] LIPID PANEL FASTING Specimen Type: SERUM No comment entered. Ordering Provider: MICHAELA ROMERO F Report Released Date/Time: Apr 18, 2023 10:07 AM Reporting Lab: [facility] [address] Performing Lab: [address] [address] CHOLESTEROL 158 mg/dL TRIGLYCERIDE 131 mg/dL 0-150 LDL calculated 103 mg/dL 0-129 CHOL/HDL 5.4 HDL CHOLESTEROL 29 mg/dL L 40-60 Nov 01, 2023 08:44 AM [facility] BASIC METABOLIC PANEL (fasting) Specimen Type: SERUM No comment entered. Ordering Provider: MICHAELA ROMERO F Report Released Date/Time: Apr 18, 2023 10:07 AM Reporting Lab: [facility] [address] Performing Lab: [facility] [address] [facility] [address] UREA NITROGEN 19 mg/dL 7-25 GLUCOSE 178 mg/dL H 65-100 SODIUM 138 mmol/L 135-145 POTASSIUM 5.2 mmol/L H 3.5-5.0 CHLORIDE 105 mmol/L 100-110 CO2 24 meq/L 20-30 CREATININE, Serum 1.39 mg/dL 0.50-1.40 eGFR(CKD-EPI 2020) 50 mL/min L >60 Nov 01, 2023 08:44 AM [facility] HEMOGLOBIN A1C PANEL Specimen Type: BLOOD [...] Apr 18, 2023 10:07 AM Reporting Lab: [facility] [address] [facility] [address] Performing Lab: [facility] [address] [facility] [address] HEMOGLOBIN A1C 8.2 H 4.0-5.6 Nov 01, 2023 08:44 AM [facility] MICROALBUMIN CREATININE RATIO PANEL Specimen Type: URINE No comment entered. Ordering Provider: MICHAELA ROMERO Report Released Date/Time: Apr 18, 2023 10:07 AM Reporting Lab: [facility] [address] [facility] [address] Performing Lab: [address] [address] MICROALBUMIN/C REATININE RATIO 170.4 mg/g H 0-29.9 MICROALBUMIN,Q UANTITATIVE 11.6 mg/dL RR UNAVAIL CREATININE URINE 68.07 mg/dL Nov 01, 2023 08:44 AM [facility] URIC ACID Specimen Type: SERUM No comment entered. Ordering Provider: MICHAELA ROMERO Report Released Date/Time: Nov 07, 2023 10:27 AM Reporting Lab[facility] [address] [facility] [address] Performing Lab: [place] [facility] [address] [facility] [address] URIC ACID 5.7 mg/dL 3.5-7.2 Social History: Smoking Status (Most current) and Tobacco Use (All prior to encounter date) This section includes the most current, and the historical, smoking and tobacco- related health factors from the [place] facility where the Encounter took place. Current Smoking Status This section includes the most current smoking, or tobacco-related health factor, from the [place] facility where the Encounter took place. Date/Time Current Smoking Status Comment Facil ity Dec 10, 2022 10:00 AM VA-TOBACCO QUIT 15 YRS OR MORE [facility] Tobacco Use History This section includes a history of the smoking, or tobacco-related health factors, that were collected on or before the date of the Encounter. The data comes from the [place] facility where the Encounter took place. 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 The data comes from all [place] treatment facilities. Date/Time Radiology Report Provider Source Nov 18, 2023 08:[address] W/O CONT: FABY GONZALEZ [id number] -1940 M Exm Date: NOV 18, 2023@08:12 Req Phys: JAGDISH ROMERO Loc: CWM/NO/PHARM/PACT 3 (Req'g Loc Img Loc: NHM/CT Service: Unknown [facility] , (Case [id number] COMPLETE) CT THORAX W/O CONT (CT Detailed) CPT:48601 Reason for Study: pulmonary fibrosis on cxr at [facility] last week. Clinical History: pulmonary fibrosis on cxr at [facility] last week. He finished aUGMENTIN 6/5, but now reports that phlegm is now returning. Report Status: Verified Date Reported: NOV 24, 2023 Date Verified: NOV 24, 2023 Radiological Technician E-Sig: Report: EXAM: CT chest without contrast [...] pulmonary fibrosis. READING PHYSICIAN: Kaiden Jacob D.O. -[id number] 11/24/2023 13:44 EDT [facility] National Teleradiology Program [phone] (For Medical Practitioner Use Only) Attention Patients / Veterans: If you have questions or concerns about these test results, please contact your ordering provider or primary care team. Primary Diagnostic Code: NO ALERT REQUIRED Primary Interpreting Staff: RADIOLOGY,OUTSIDE SERVICE, Staff Physician / RADIOLOGY,OUTSIDE SERVICE [facility] October 25, 2023 10:53 AM OUTSIDE CHEST (2 VIEWS): FABY GONZALEZ [id number] -1940 M Exm Date: OCTOBER 25, 2023@10:53 Req Phys: JAGDISH ROMERO Loc: NHM/OUTSIDE IMAGING NON-CNT (R Img Loc: OUTSIDE GENERAL RADIOLOGY Service: Unknown (Case 10 COMPLETE) OUTSIDE CHEST (2 VIEWS) (RAD Detailed) CPT:56721 Reason for Study: outside images downloaded for continuity of care Clinical History: outside images downloaded for continuity of care Report Status: Electronically Filed Date Reported: OCTOBER 25, 2023 Report: THIS EXAM WAS PERFORMED AND INTERPRETED AT AN OUTSIDE HOSPITAL Impression: THIS EXAM WAS PERFORMED AND INTERPRETED AT AN OUTSIDE HOSPITAL Primary Diagnostic Code: VERIFIED BY: / *ELECTRONICALLY FILED* [facility] Encounter Notes: All associated encounter notes This section contains the clinical notes associated to the Encounter. Date/Time Encounter Note(s) Provider Source Nov 01, 2023 12:58 PM ADDENDUM: LOCAL TITLE: Addendum STANDARD TITLE: ADDENDUM DATE OF NOTE: NOV 01, 2023@12:58:16 ENTRY DATE: NOV 01, 2023@12:58:17 AUTHOR: GEORGETTE LONDONO EXP COSIGNER: URGENCY: STATUS: COMPLETED Defer to PCP for review if appropriate /es/ GEORGETTE LONDONO REGISTERED NURSE Signed: 11/01/2023 13:03 Receipt Acknowledged By: 11/01/2023 13:07 /es/ Jagdish Hills DNP, CLINICAL NURSING MANAGER-, CNL Primary Care Nurse Practitioner for JAGDISH ROMERO === --- Original Document --- 10/31/23 CCC: SCHEDULING ADMINISTRATION: Patient Demographics Patient Name: FABY GONZALEZ Patient Primary Phone: [phone] Patient Primary [address]: [address] [place] [id number] Patient : 1940 Patient Age: 82 Caller/Recipient Relation to Patient: Self Administrative Administrative Note Reason: Returned Call Administrative Note Comments: returned called to inform clinic he will be finished his medication on 11/01 and would like to have X-ray's on 11/02, same day as PCP appt. Please place new order for X-ray's /renny/ NEGRITA ARANDA 1 CCC AMSA Signed: 10/31/2023 11:57 Receipt Acknowledged By: * AWAITING SIGNATURE * NI FLETCHER 11/01/2023 12:58 /es/ GEORGETTE BARILLAS LPN, LPN [place] [facility] Oct 31, 2023 11:57 AM ADMINISTRATIVE NOTE: LOCAL TITLE: CCC: SCHEDULING ADMINISTRATION STANDARD TITLE: ADMINISTRATIVE NOTE DATE OF NOTE: OCT 31, 2023@11:57:02 ENTRY DATE: OCT 31, 2023@11:57:03 AUTHOR: NEGRITA SALAS EXP COSIGNER: URGENCY: STATUS: COMPLETED CCC: SCHEDULING ADMINISTRATION Has ADDENDA Patient Demographics Patient Name: FABY GONZALEZ Patient Primary Phone: [phone] Patient Primary Address: [address] [place] [id number] Patient : 1940 Patient Age: 82 Caller/Recipient Relation to Patient: Self Administrative Administrative Note Reason: Returned Call Administrative Note Comments: [place] returned called to inform clinic he will be finished his medication on 11/01 and would like to have X-ray's on 11/02, same day as PCP appt. Please place new order for X-ray's /renny/ NEGRITA ARANDA 1 CCC AMSA Signed: 10/31/2023 11:57 Receipt Acknowledged By: 11/01/2023 13:11 /es/ GEORGETTE LONDONO REGISTERED NURSE for NI Amador CATALINASEHLLEY 11/01/2023 12:58 /es/ CHARLIE MARTINO LPN 11/01/2023 ADDENDUM STATUS: COMPLETED Defer to PCP for review if appropriate /renny/ GEORGETTE LONDONO REGISTERED NURSE Signed: 11/01/2023 13:03 Receipt Acknowledged By: 11/01/2023 13:07 /es/ Jagdish Hills DNP, CLINICAL NURSING MANAGER-BC, CNL Primary Care Nurse Practitioner for NEGRITA GUAMAN [facility]
--- OUTSIDE RECORDS SUMMARY | 2024-06-04 12:17 | XMS_ITS | Encounter Summary ---
Author Name [facility] [place] Organization [facility] [place] Address [address] [place] [address] Care Team Providers Care Windows 7 Deployment Lead Name Role Phone JAGDISH HUITRON Primary Care [...] GIC INDEMNITY PLAN MEDICAL EXPENSE (OPT/PROF ) [facility] N Dec 28, 2016 [id number] EMILIA GONZALEZ HN PATIENT MEDICARE (WNR) MEDICARE (M) PART A Dec 28, 2016 PART A [id number] [phone] EMILIA GONZALEZ HN PATIENT MEDICARE (WNR) MEDICARE (M) PART B Dec 28, 2016 PART B [id number] [phone] EMILIA GONZALEZ HN PATIENT MEDICARE (WNR) MEDICARE (M) PART A Dec 28, 2016 PART A [id number] EMILIA GONZALEZ PATIENT MEDICARE (WNR) MEDICARE (M) PART B Dec 28, 2016 PART B [id number] EMILIA GONZALEZ PATIENT UNICARE PREFERRED PROVIDER ORGANIZAT ION (PPO) [facility] N Dec 28, 2016 [id number] EMILIA GONZALEZ PATIENT UNICARE MEDICAL EXPENSE (OPT/PROF ) [facility] N Dec 28, 2016 [id number] EMILIA GONZALEZ PATIENT Selected Encounter This section includes the information on record at [place] for the Encounter. Date/Time Encounter Type Encounter Description Reason Provider Source Nov 03, 2023 09:00 AM OFFICE O/P EST LOW 20 MIN PRIMARY CARE/MEDICINE ICD-10-CM E11.21 Type 2 diabetes mellitus with diabetic nephropathy MICHAELA HUITRON FIONA F IHE Encounter Template Text not used by [place] Assessments - Encounter Diagnoses This section includes the primary and secondary diagnoses documented for the Encounter. Date/Time Primary/Secondary Diagnosis Diagnosis Name Provider Source Dec 06, 2023 10:41 AM PRIMARY Type 2 diabetes mellitus with diabetic nephropathy SANDRA HUITRON [facility] [place] [facility] Dec 06, 2023 10:41 AM SECONDARY Athscl heart disease of [place] coronary artery w/o ang pctrs SANDRA HUITRON [facility] [place] [facility] Dec 06, 2023 10:41 AM SECONDARY Essential (primary) hypertension SANDRA HUITRON [facility] [place] [facility] Dec 06, 2023 10:41 AM SECONDARY Pure hypercholesterolem ia, unspecified SANDRA HUITRON [facility] [place] [facility] Dec 06, 2023 10:41 AM SECONDARY Type 2 diabetes mellitus without complications SANDRA HUITRON [facility] [place] [facility] Plan of Treatment: Future Appointments (+ [...] 09, 2023 08:30 AM AMBULATORY - MEDICINE PR C [facility] [place] [facility] Nov 18, 2023 08:30 AM AMBULATORY - NONE [facility] Dec 13, 2023 02:30 PM AMBULATORY - MEDICINE PR C [facility] [place] [facility] Dec 21, 2023 09:45 AM AMBULATORY - MEDICINE PR C [facility] [place] [facility] Jan 31, 2024 01:30 PM AMBULATORY - MEDICINE PR C [facility] [place] [facility] Feb 02, 2024 11:15 AM AMBULATORY - NONE [facility] Apr 10, 2024 11:00 AM AMBULATORY - MEDICINE [facility] Lab Results: +/- 30 days of [...] Range Comment Nov 01, 2023 08:44 AM [facility] BASIC METABOLIC PANEL (fasting) Specimen Type: SERUM No comment entered. Ordering Provider: MICHAELA HUITRON Report Released Date/Time: Apr 18, 2023 10:07 AM Reporting Lab[facility] [address] [address] Performing Lab: [facility] [address] [facility] [address] UREA NITROGEN 19 mg/dL 7-25 GLUCOSE 178 mg/dL H 65-100 SODIUM 138 mmol/L 135-145 POTASSIUM 5.2 mmol/L H 3.5-5.0 CHLORIDE 105 mmol/L 100-110 CO2 24 meq/L 20-30 CREATININE, Serum 1.39 mg/dL 0.50-1.40 eGFR(CKD-EPI 2020) 50 mL/min L >60 Nov 01, 2023 08:44 AM [facility] LIVER FUNCTION Specimen Type: SERUM No comment entered. Ordering Provider: MICHAELA HUITRON F Report Released Date/Time: Apr 18, 2023 10:07 AM Reporting Lab: [facility] [address] [address] Performing Lab: [facility] [address] [address] PROTEIN,TOTAL 7.1 g/dL 6.0-8.3 ALBUMIN 4.0 g/dL 3.5-5.0 ALKALINE PHOSPHATASE 57 U/L 40-150 AST 23 U/L 5-34 ALT 17 U/L BILIRUBIN, TOTAL 0.5 mg/dL 0.2-1.2 Nov 01, 2023 08:44 AM [facility] HEMOGLOBIN A1C PANEL Specimen Type: BLOOD Comment: Values obtained from A1C measurements can vary. For atypical A1C assays, a reported value of 7.0 could actually be between 6.72 and 7.28 if measured by a reference method. A reported value of 9.0 could actually be between 8.73 and 9.27. Ref: http://www.ngs p.org/CAPdata. asp Ordering Provider: MICHAELA HUITRON Report Released Date/Time: Apr 18, 2023 10:07 AM Reporting Lab: [facility] [address] [address] Performing Lab: [facility] [address] [address] HEMOGLOBIN A1C 8.2 H 4.0-5.6 Nov 01, 2023 08:44 AM [facility] LIPID PANEL FASTING Specimen Type: SERUM No comment entered. Ordering Provider: MICHAELA HUITRON Report Released Date/Time: Apr 18, 2023 10:07 AM Reporting Lab: [facility] [address] [facility] [address] Performing Lab: [facility] [address] [facility] [address] CHOLESTEROL 158 mg/dL TRIGLYCERIDE 131 mg/dL 0-150 LDL calculated 103 mg/dL 0-129 CHOL/HDL 5.4 HDL CHOLESTEROL 29 mg/dL L 40-60 Nov 01, 2023 08:44 AM [facility] MICROALBUMIN CREATININE RATIO PANEL Specimen Type: URINE No comment entered. Ordering Provider: MICHAELA HUITRON F Report Released Date/Time: Apr 18, 2023 10:07 AM Reporting Lab: [facility] [address] [facility] [address] Performing Lab: [facility] [address] [address] MICROALBUMIN/C REATININE RATIO 170.4 mg/g H 0-29.9 MICROALBUMIN,Q UANTITATIVE 11.6 mg/dL RR UNAVAIL CREATININE URINE 68.07 mg/dL Nov 01, 2023 08:44 AM [facility] URIC ACID Specimen Type: SERUM No comment entered. Ordering Provider: MICHAELA HUITRON F Report Released Date/Time: Nov 07, 2023 10:27 AM Reporting Lab: [facility] [address] [facility] [address] Performing Lab: [address] [address] URIC ACID 5.7 mg/dL 3.5-7.2 Vital Signs: All taken on the encounter date This section contains inpatient and outpatient Vital Signs collected on the date of the Encounter. Date/Time Temperature Pulse Blood Pressure Respiratory Rate SP02 Pain Height Weight Body Mass Index Source Nov 03, 2023 08:55 AM 97.7 70 108/62 16 97 179 26 [facility] Social History: Smoking Status (Most current) [...] AM VA-TOBACCO QUIT 15 YRS OR MORE [facility] Tobacco Use History This section includes a history of the smoking, or tobacco-related health factors, that were collected on or before the date of the Encounter. The data comes from the [place] facility where the Encounter took place. Date/Time Smoking Status/Tobacco Use Comment F acility Dec 10, 2022 10:00 AM VA-TOBACCO QUIT 15 YRS OR MORE [facility] Jan 07, 2022 12:47 PM VA-TOBACCO DOESNT USE WI 30 MIN WAKEUP [facility] Jan 07, 2022 12:47 PM VA-TOBACCO USE 30 YEARS OR MORE [facility] Jan 07, 2022 12:47 PM VA-TOBACCO USE ADVICE [facility] Jan 07, 2022 12:47 PM VA-TOBACCO USE PULMONARY PHYSICAL THERAPIST NO [facility] Jan 07, 2022 12:47 PM VA-TOBACCO USE MED NO [facility] Jan 07, 2022 12:47 PM VA-TOBACCO USER EVERY DAY [facility] Radiology Reports: +/- 30 days of [...] 2023 08:[address] W/O CONT: LISAFABYSWATI [id number] M Exm Date: NOV 18, 2023@08:12 Req Phys: JAGDISH HUITRON Loc: CWM/NO/PHARM/PACT 3 (Req'g Loc Img Loc: NHM/CT Service: Unknown [facility] , (Case [id number] COMPLETE) CT THORAX W/O CONT (CT Detailed) CPT:92763 Reason for Study: pulmonary fibrosis on cxr at [facility] last week. Clinical History: pulmonary fibrosis on cxr at [facility] last week. He finished aUGMENTIN 6/5, but now reports that phlegm is now returning. Report Status: Verified Date Reported: NOV 24, 2023 Date Verified: NOV 24, 2023 [employer] E-Sig: Report: EXAM: CT chest without contrast COMPARISON: None. HISTORY: pulmonary fibrosis on cxr at [facility] last week. He finished aUGMENTIN 6/5, [...] pulmonary fibrosis. READING PHYSICIAN: Kaiden Jacob D.O. -[id number] 11/24/2023 13:44 EDT [facility] National Teleradiology Program [phone] (For Medical Practitioner Use Only) Attention Patients / Veterans: If you have questions or concerns about these test results, please contact your ordering provider or primary care team. Primary Diagnostic Code: NO ALERT REQUIRED Primary Interpreting Staff: RADIOLOGY,OUTSIDE SERVICE, Staff Physician / RADIOLOGY,OUTSIDE SERVICE [facility] [place] [facility] October 25, 2023 10:53 AM OUTSIDE CHEST (2 VIEWS): FABY GONZALEZ [id number] -[id number] M Ex Date: OCTOBER 25, 2023@10:53 Req Phys: JAGDISH HUITRON Pat Loc: NHM/OUTSIDE IMAGING NON-CNT (R Img Loc: OUTSIDE GENERAL RADIOLOGY Service: Unknown (Case 10 COMPLETE) OUTSIDE CHEST (2 VIEWS) (RAD Detailed) CPT:02795 Reason for Study: outside images downloaded for continuity of care Clinical History: outside images downloaded for continuity of care Report Status: Electronically Filed Date Reported: OCTOBER 25, 2023 Report: THIS EXAM WAS PERFORMED AND INTERPRETED AT AN OUTSIDE HOSPITAL Impression: THIS EXAM WAS PERFORMED AND INTERPRETED AT AN OUTSIDE HOSPITAL Primary Diagnostic Code: VERIFIED BY: / *ELECTRONICALLY FILED* [facility] [place] [facility] Encounter Notes: All associated encounter notes This section contains the clinical notes associated to the Encounter. Date/Time Encounter Note(s) Provider Source Nov 03, 2023 09:34 AM PHYSICIAN [employer] LAW ENFORCEMENT AGENT NOTE: LOCAL TITLE: PA NOTE STANDARD TITLE: PHYSICIAN ALCOHOL LAW ENFORCEMENT AGENT NOTE DATE OF NOTE: NOV 03, 2023@09:34 ENTRY DATE: NOV 03, 2023@09:34:33 AUTHOR: JAGDISH HUITRON EXP COSIGNER: URGENCY: STATUS: COMPLETED CC/HPI/A/P: 82 year old MALE here in follow-up for; Dm, some climb in ha1c, reviewed with CPP, he is agreeable to conferring with her, which we arrange. Diabetic nephropathy, on an ARB. Dyslipidemia, on 3 agents after stopping niacin with DR Bojorquez last year. We review lipids nad stop gemfibrozil as well. Recheck at next. 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 Given. pulmonary fibrosis on cxr at [facility] last week. He finished aUGMENTIN yesterday, reports that he is doing 'really well' We plan repeat cxr one month and wardlely pulm consult to follow for fibrosis. Review of systems: Patient reports no changes from [place] [place] [facility], in meds or any admissions. Active problems - Computerized Problem List is the source for the followin. Exposure to potentially hazardous substance ([facility] [id number]) Entered automatically through [employer] Problem List documentation program 2. Kidney Disorder Associated with Type 2 Diabetes Mellitus ([facility] [id number]) 3. Hearing Loss ([facility] [id number]) 4. Vitamin B12 Deficiency ([facility] [id number]) 5. CAD - Coronary Artery Disease ([facility] [id number]) 3 vessel cabg 2003. 6. Diabetes Mellitus Type 2 ([facility] [id number]) 7. Gout ([facility] [id number]) 8. Hypercholesterolemia 9. Hypertension SERVICE CONNECTED % - 80 VA and Non VA meds were reconciled with the patient who left with a corrected copy. See medication page for details. Active and Recently Outpatient Medications (excluding Supplies): Active Outpatient Medications Status 1) ASPIRIN [...] MOUTH ACTIVE ONCE DAILY FOR VITAMIN SUPPLEMENTATION 97.7 F [36.5 C] (11/03/2023 08:55) 70 (11/03/2023 08:55) 16 (11/03/2023 08:55) 108/62 (11/03/2023 08:55) 0 (04/18/2023 09:31) 69 in [175.3 cm] (04/20/2022 10:35) 179 lb [81.19 kg] (11/03/2023 08:55) BMI: 26.5 Neuro: Alert and oriented times three, grossly nonfocal, nasolabial folds intact. Thyroid nonpalpable. Cor: Regular rate and rhythm, normal s1 and 2 without Murmur, carotid bruits or pedal edema. Lungs; Clear to auscultation bilaterally. Recent labs reviewed with patient today:yes RHS Screen: RHS Screen Environmental Check Upon inquiry, the individual reports that the environment is safe to proceed. Informed Consent to Screen and Document The individual consents to proceed with screening. The individual consents to documentation of responses. PRIMARY SCREEN: In the past 12 months, how often did a current or former intimate partner (e.g., boyfriend, girlfriend, , , sexual partner): 1. Scream or curse at you Never 2. Insult or talk down to you Never 3. Threaten you with harm Never 4. Physically hurt you Never 5. Force or pressure you to have sexual contact against your will, or when you were unable to say no Never ?? The HITS tool (items 1-4 above) is [place] copyright protected by Saw Rodriguez MD, and the user has full rights to use it throughout the [place] system. PRIMARY SCREEN RESULT: The Primary Screen is NEGATIVE. The individual answered never to all forms of IPV above (i.e., answered never to all 5 items) The individual accepts education and/or resources: Other: EDUCATION: Other: /renny/ Jagdish Huitron PA-C STAFF PHYSICIAN ALCOHOL LAW ENFORCEMENT AGENT Signed: 11/03/2023 09:54 JAGDISH HUITRON [facility] [place] [facility] Nov 03, 2023 09:00 AM PREVENTIVE MEDICINE NURSING NOTE: LOCAL TITLE: CLINICAL REMINDERS/NURSING STANDARD TITLE: PREVENTIVE MEDICINE NURSING NOTE DATE OF NOTE: NOV 03, 2023@09:00 ENTRY DATE: NOV 03, 2023@09:00:54 AUTHOR: CHARLIE MARTINOIGNER: URGENCY: STATUS: COMPLETED Falls & Incontinence Screen: Falls Screen: 4. No falls within the past year. Incontinence Screen No incontinence. /renny/ CHARLIE MARTINO LPN Signed: 11/03/2023 09:01 CHRISTINA MARTINO [facility]
--- OUTSIDE RECORDS SUMMARY | 2024-06-04 12:18 | XMS_ITS | Encounter Summary ---
Author Name [facility] [facility] [place] Address [address] [place] [address] Care Team Providers Care Recep Name Role Phone ADRIANA ROMERO Primary Care [...] GIC INDEMNITY PLAN MEDICAL EXPENSE (OPT/PROF ) [facility] N Dec 28, 2016 [id number] EMILIA GONZALEZ HN PATIENT MEDICARE (WNR) MEDICARE (M) PART A Dec 28, 2016 PART A [id number] EMILIA GONZALEZ HN PATIENT MEDICARE (WNR) MEDICARE (M) PART B Dec 28, 2016 PART B [id number] EMILIA GONZALEZ HN PATIENT MEDICARE (WNR) MEDICARE (M) PART A Dec 28, 2016 PART A [id number] EMILIA GONZALEZ PATIENT MEDICARE (WNR) MEDICARE (M) PART B Dec 28, 2016 PART B [id number] EMILIA GONZALEZ PATIENT BRIANA PREFERRED PROVIDER ORGANIZAT ION (PPO) DENI [facility] N Dec 28, 2016 [id number] EMILIA GONZALEZ PATIENT UNICARE MEDICAL EXPENSE (OPT/PROF ) DENI [facility] N Dec 28, 2016 [id number] EMILIA GONZALEZ PATIENT Selected Encounter This section includes the information on record at [place] for the Encounter. Date/Time Encounter Type Encounter Description Reason Provider Source Nov 09, 2023 08:30 AM MTMS BY PHARM JON 15 MIN CLINICAL PHARMACY ICD-10-CM E11.9 Type 2 diabetes mellitus without complications CHRISTIANO MCKEON [facility] Encounter Template Text not used by [place] Assessments - Encounter Diagnoses This section includes the primary and secondary diagnoses documented for the Encounter. 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 This section includes future appointments and future orders which are active, pending or scheduled. Future Appointments This section includes appointments that were scheduled to occur 6 months from the date of the Encounter, up to a maximum of 20 appointments. The data comes from all [place] treatment facilities. Appointment Date/Time Appointment Type Appointme nt Facility Name Nov 18, 2023 08:30 AM [facility] Dec 13, 2023 02:30 PM AMBULATORY - MEDICINE [place] [facility] [place] [facility] Dec 21, 2023 09:45 AM AMBULATORY - MEDICINE IN [place] [facility] [place] [place] [facility] Jan 31, 2024 01:30 PM AMBULATORY - MEDICINE IN [place] [facility] [place] [facility] Feb 02, 2024 11:15 AM AMBULATORY - NONE [place] [facility] [place] [facility] Apr 10, 2024 11:00 AM AMBULATORY - MEDICINE [place] [facility] [place] [facility] May 10, 2024 09:00 AM AMBULATORY - MEDICINE [facility] Lab Results: +/- 30 days of the encounter This section includes the Chemistry and Hematology Lab Results on record with [place] for the patient. Radiology Reports and Pathology Reports are provided separately, in subsequent sections. Lab Results This section contains the Chemistry/Hematology Results that were resulted 30 days before or 30 daysafter the date of the Encounter. Date/Time Source Result Type Result - Unit Interpretation Reference Range Comment Nov 01, 2023 08:44 AM [facility] LIVER FUNCTION Specimen Type: SERUM No comment entered. Ordering Provider: MICHAELA ROMERO F Report Released Date/Time: Apr 18, 2023 10:07 AM Reporting Lab: [facility] [address] [address] Performing Lab: [facility] [address] [address] PROTEIN,TOTAL 7.1 g/dL 6.0-8.3 ALBUMIN 4.0 g/dL 3.5-5.0 ALKALINE PHOSPHATASE 57 U/L 40-150 AST 23 U/L 5-34 ALT 17 U/L BILIRUBIN, TOTAL 0.5 mg/dL 0.2-1.2 Nov 01, 2023 08:44 AM [facility] BASIC METABOLIC PANEL (fasting) Specimen Type: SERUM No comment entered. Ordering Provider: MICHAELA ROMERO F Report Released Date/Time: Apr 18, 2023 10:07 AM Reporting Lab: [facility] [address] [address] Performing Lab: [facility] [address] [address] UREA NITROGEN 19 mg/dL 7-25 GLUCOSE 178 mg/dL H 65-100 SODIUM 138 mmol/L 135-145 POTASSIUM 5.2 mmol/L H 3.5-5.0 CHLORIDE 105 mmol/L 100-110 CO2 24 meq/L 20-30 CREATININE, Serum 1.39 mg/dL 0.50-1.40 eGFR(CKD-EPI 2020) 50 mL/min L >60 Nov 01, 2023 08:44 AM [facility] LIPID PANEL FASTING Specimen Type: SERUM No comment entered. Ordering Provider: MICHAELA ROMERO F Report Released Date/Time: Apr 18, 2023 10:07 AM Reporting Lab: [address] [address] Performing Lab: [address] [address] CHOLESTEROL 158 mg/dL TRIGLYCERIDE 131 mg/dL 0-150 LDL calculated 103 mg/dL 0-129 CHOL/HDL 5.4 HDL CHOLESTEROL 29 mg/dL L 40-60 Nov 01, 2023 08:44 AM [facility] MICROALBUMIN CREATININE RATIO PANEL Specimen Type: URINE No comment entered. Ordering Provider: MICHAELA ROMERO F Report Released Date/Time: Apr 18, 2023 10:07 AM Reporting Lab: [facility] [address] [address] Performing Lab: [address] [address] MICROALBUMIN/C REATININE RATIO 170.4 mg/g H 0-29.9 MICROALBUMIN,Q UANTITATIVE 11.6 mg/dL RR UNAVAIL CREATININE URINE 68.07 mg/dL Nov 01, 2023 08:44 AM [facility] HEMOGLOBIN A1C PANEL Specimen Type: BLOOD [...] Apr 18, 2023 10:07 AM Reporting Lab: [facility] [address] [address] Performing Lab: [facility] [address] [address] HEMOGLOBIN A1C 8.2 H 4.0-5.6 Nov 01, 2023 08:44 AM [facility] URIC ACID Specimen Type: SERUM No comment entered. Ordering Provider: MICHAELA ROMERO F Report Released Date/Time: Nov 07, 2023 10:27 AM Reporting Lab: [facility] [address] [address] Performing Lab: [facility] [address] [address] URIC ACID 5.7 mg/dL 3.5-7.2 Social History: Smoking Status (Most current) and Tobacco Use (All prior to encounter date) This section includes the most current, and the historical, smoking and tobacco- related health factors from the [place] facility where the Encounter took place. Current Smoking Status This section includes the most current smoking, or tobacco-related health factor, from the [place] facility where the Encounter took place. Date/Time Current Smoking Status Comment Facil [email or web address] Dec 10, 2022 10:00 AM VA-TOBACCO FORMER USER [facility] Tobacco Use History This section includes a history of the smoking, or tobacco-related health factors, that were collected on or before the date of the Encounter. The data comes from the [place] facility where the Encounter took place. 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 The data comes from all [place] treatment facilities. Date/Time Radiology Report Provider Source Nov 18, 2023 08:[address] W/O CONT: LISASWATI [id number] M Exm Date: NOV 18, 2023@08:12 Req Phys: ADRIANA ROMERO Loc: CWM/NO/PHARM/PACT 3 (Req'g Loc Img Loc: NHM/CT Service: Unknown [facility] , (Case [id number] COMPLETE) CT THORAX W/O CONT (CT Detailed) CPT:99087 Reason for Study: pulmonary fibrosis on cxr at [facility] last week. Clinical History: pulmonary fibrosis on cxr at [facility] last week. He finished aUGMENTIN 6/5, but now reports that phlegm is now returning. Report Status: Verified Date Reported: NOV 24, 2023 Date Verified: NOV 24, 2023 Stand Up Comedian E-Sig: Report: EXAM: CT chest without contrast COMPARISON: None. HISTORY: pulmonary fibrosis on cxr at [facility] last week. He finished aUGMENTIN [...] pulmonary fibrosis. READING PHYSICIAN: Kaiden Jacob D.O. -[id number] 11/24/2023 13:44 EDT [facility] National [employer]eler[employer] Program [phone] (For Medical Practitioner Use Only) Attention Patients / Veterans: If you have questions or concerns about these test results, please contact your ordering provider or primary care team. Primary Diagnostic Code: NO ALERT REQUIRED Primary Interpreting Staff: RADIOLOGY,OUTSIDE SERVICE, Staff Physician / RADIOLOGY,OUTSIDE SERVICE [facility] October 25, 2023 10:53 AM OUTSIDE CHEST (2 VIEWS): FABY GONZALEZ [id number] M Exm Date: OCTOBER 25, 2023@10:53 Req Phys: ADRIANA ROMERO Loc: NHM/OUTSIDE IMAGING NON-CNT (R Img Loc: OUTSIDE GENERAL RADIOLOGY Service: Unknown (Case 10 COMPLETE) OUTSIDE CHEST (2 VIEWS) (RAD Detailed) CPT:25611 Reason for Study: outside images downloaded for continuity of care Clinical History: outside images downloaded for continuity of care Report Status: Electronically Filed Date Reported: OCTOBER 25, 2023 Report: THIS EXAM WAS PERFORMED AND INTERPRETED AT AN OUTSIDE HOSPITAL Impression: THIS EXAM WAS PERFORMED AND INTERPRETED AT AN OUTSIDE HOSPITAL Primary Diagnostic Code: VERIFIED BY: / *ELECTRONICALLY FILED* [facility] [place] [facility] Encounter Notes: All associated encounter notes This section contains the clinical notes associated to the Encounter. Date/Time Encounter Note(s) Provider Source Nov 09, 2023 12:53 PM ADDENDUM: LOCAL TITLE: Addendum STANDARD TITLE: ADDENDUM DATE OF NOTE: NOV 09, 2023@12:53:18 ENTRY DATE: NOV 09, 2023@12:53:19 AUTHOR: CHRISTIANO MCKEON COSIGNER: URGENCY: STATUS: COMPLETED Will ask AMSA to please schedule patient for: [X] CWM/NO/PHARM/PACT 3 RTC order placed. Appointment Length: _30__ minutes. 12/12/23 0830 Thank you! /renny/ CHRISTIANO MCKEON PHARMD,[facility] CLINICAL PH[facility] PRACTITIONER Signed: 11/09/2023 12:53 Receipt Acknowledged By: 11/09/2023 13:13 /renny/ HIEU YO JENNIFER --- Original Document --- 11/09/23 PHARMACY CLINIC NOTE: FABY GONZALEZ, 82 yo WHITE MALE, presents in clinic for diabetes and hyperlipidemia management. Today, pt reports he is doing ok. We discuss rational for dc of gemfibrozil again. We throughly review previous medications and rational of why pt should receive an alternative regimen. He does endorse that he has been having more sweets that previous d/t celebrations. He suggests that he can be more cautious with his diet in order to reduce his A1c. He would like to hold off on adding empagliflozin for now and try diet modificantion to reduce A1c x 3 months. If A1c does not improve, will consider adding additional medications. Reviewed options PCSK9i VS icosapent ethyl with pt, he opts for PCSK9i. Current diabetes medications: - metformin 500 mg [...] 108/62 (11/03/2023 08:55) HR: 70 (11/03/2023 08:55) Clinical Assessment: DIABETES: Goal: A1c goal is 7.5% [...] Diabetes without retinopathy or macular edema OU ASSESSMENT/PLAN: Pt is a 82 y/o male with DX s/o CAD (CABG), DM, CKD and gout that is clinically relevant to descion making for treatments for hyperlipidemia and DM. It is recommended to DC gemfibrozil d/t possible ADRS that could result with use along with statin. [facility], may have at one point but has been on gemfibrozil for many years. D/t elevated LDL > 70 in setting of pt with CAD, age, DM and CKD pt would be considered very high risk for recurrence of CV event. Therefore, PCSK9i would be indicated for this pt. Risk vs. benefit was discussed with pt. Optional tx plan would be to dc gemfibrozil and add Icosapent Ethyl ( CVD protection and tg lowering to replace gemfibrozil). Pt is willing to trial injection. For the time being pt will work on diet/ increase walking to reduce A1c, if no improvement with A1c in January will add empagliflozin. Plan: - Diabetes Medication Management - CONTINUE: Metformin 500 mg BID - Will consider adding empagliflozin if A1c 01/2024 is above goal - Hyperlipidemia Medication Management: - CONTINUE: Atorvastatin 80 mg once daily - CONTINUE: Ezetimibe 10 mg once daily - DISCONTINUE: Gemfibrozil - Placed PA-F for alirocumab - Continue to SMBG 2x/week - Reviewed how to use glucometer and set goals FBG 90-145 mg/dL, 2H PP less than 200 mg/dL - Monitor for s/sx hypoglycemia and contact clinic if BG consistently <70mg/dL - Healthy dietary and lifestyle modifications encouraged - Repeat A1c:01/2024 EDUCATION -A shared decision-making approach was used in the development of this plan, involving the , clinician, and any caregivers present. The was provided the opportunity express questions or concerns, and the plan was adjusted as needed to address these concerns. -Reviewed with any new medications, changes to the medication list, education, and plan from today's visit. Patient (and/or caregiver) verbalized understanding of the plan, including possible known risks and benefits, and had no additional questions. RTC:12/12/23 0830 Time spent: 60 mins PBM PharmD Pharmacotherapy Rem V12: PHARMACIST INTERVENTIONS: LIPID MANAGEMENT Medication monitoring, no dosage change required, continue to monitor and assess TYPE 2 DIABETES MELLITUS Medication monitoring, no dosage change required, continue to monitor and assess Medication reconciliation (changes to active VA and non-VA medication lists to reconcile differences) No changes to medication lists made (medication review completed, no discrepancies identified) /renny/ CHRISTIANO MCKEON PHARMD,[facility] CLINICAL PHARMACY PRACTITIONER Signed: 11/09/2023 12:53 CHRISTIANO MCKEON IN [facility] [place] [facility] Nov 09, 2023 08:15 AM PHARMACY OUTPATIEN T NOTE: LOCAL TITLE: PHARMACY CLINIC NOTE STANDARD TITLE: PHARMACY OUTPATIENT NOTE DATE OF NOTE: NOV 09, 2023@08:15 ENTRY DATE: NOV 09, 2023@08:15:39 AUTHOR: CHRISTIANO MCKEON EXP COSIGNER: URGENCY: STATUS: COMPLETED PHARMACY CLINIC NOTE Has ADDENDA FABY GONZALEZ, 82 yo WHITE MALE, presents in clinic for diabetes and hyperlipidemia management. Today, pt reports he is doing ok. We discuss rational for dc of gemfibrozil again. We throughly review previous medications and rational of why pt should receive an alternative regimen. He does endorse that he has been having more sweets that previous d/t celebrations. He suggests that he can be more cautious with his diet in order to reduce his A1c. He would like to hold off on adding empagliflozin for now and try diet modificantion to reduce A1c x 3 months. If A1c does not improve, will consider adding additional medications. Reviewed options PCSK9i VS icosapent ethyl with pt, he opts for PCSK9i. Current diabetes medications: - metformin 500 mg [...] 108/62 (11/03/2023 08:55) HR: 70 (11/03/2023 08:55) Clinical Assessment: DIABETES: Goal: A1c goal is 7.5% [...] Diabetes without retinopathy or macular edema OU ASSESSMENT/PLAN: Pt is a 82 y/o male with DX s/o CAD (CABG), DM, CKD and gout that is clinically relevant to descion making for treatments for hyperlipidemia and DM. It is recommended to DC gemfibrozil d/t possible ADRS that could result with use along with statin. Pt [place] not have hx of elevated [place] local [place], may have at one point but has been on gemfibrozil for many years. D/t elevated LDL > 70 in setting of pt with CAD, age, DM and CKD pt would be considered very high risk for recurrence of CV event. Therefore, PCSK9i would be indicated for this pt. Risk vs. benefit was discussed with pt. Optional tx plan would be to dc gemfibrozil and add Icosapent Ethyl ( CVD protection and tg lowering to replace gemfibrozil). Pt is willing to trial injection. For the time being pt will work on diet/ increase walking to reduce A1c, if no improvement with A1c in January will add empagliflozin. Plan: - Diabetes Medication Management - CONTINUE: Metformin 500 mg BID - Will consider adding empagliflozin if A1c 01/2024 is above goal - Hyperlipidemia Medication Management: - CONTINUE: Atorvastatin 80 mg once daily - CONTINUE: Ezetimibe 10 mg once daily - DISCONTINUE: Gemfibrozil - Placed PA-F for alirocumab - Continue to SMBG 2x/week - Reviewed how to use glucometer and set goals FBG 90-145 mg/dL, 2H PP less than 200 mg/dL - Monitor for s/sx hypoglycemia and contact clinic if BG consistently <70mg/dL - Healthy dietary and lifestyle modifications encouraged - Repeat A1c:01/2024 EDUCATION -A shared decision-making approach was used in the development of this plan, involving the , clinician, and any caregivers present. The was provided the opportunity express questions or concerns, and the plan was adjusted as needed to address these concerns. -Reviewed with [place] any new medications, changes to the medication list, education, and plan from today's visit. Patient (and/or caregiver) verbalized understanding of the plan, including possible known risks and benefits, and had no additional questions. RTC:12/12/23 0830 Time spent: 60 mins PBM PharmD Pharmacotherapy Rem V12: PHARMACIST INTERVENTIONS: LIPID MANAGEMENT Medication monitoring, no dosage change required, continue to monitor and assess TYPE 2 DIABETES MELLITUS Medication monitoring, no dosage change required, continue to monitor and assess Medication reconciliation (changes to active VA and non-VA medication lists to reconcile differences) No changes to medication lists made (medication review completed, no discrepancies identified) /renny/ NEGRO ANTONIOD,[facility] CLINICAL PHARMACY PRACTITIONER Signed: 11/09/2023 12:53 11/09/2023 ADDENDUM STATUS: COMPLETED Will ask AMSA to please schedule patient for: [X] CWM/NO/PHARM/PACT 3 RTC order placed. Appointment Length: _30__ minutes. 12/12/23 0830 Thank you! /renny/ CHRISTIANO MCKEON PHARMD,[facility] CLINICAL PHARMACY PRACTITIONER Signed: 11/09/2023 12:53 Receipt Acknowledged By: * AWAITING SIGNATURE * [facility]IEU Y[facility] JODI [facility]
--- OUTSIDE RECORDS SUMMARY | 2024-06-04 12:18 | XMS_ITS | Encounter Summary ---
Author Name [facility] [place] Organization [place] Address [address] [place] [address] Care Team Providers Care Cyber Systems Administrator Name Role Phone ADRIANA ROMERO Primary Care [...] INDEMNITY PLAN MEDICAL EXPENSE (OPT/PROF ) [facility] N Dec 28, 2016 [id number] EMIILA GONZALEZ HN PATIENT MEDICARE (WNR) MEDICARE (M) PART A Dec 28, 2016 PART A [id number] EMILIA GONZALEZ HN PATIENT MEDICARE (WNR) MEDICARE (M) PART B Dec 28, 2016 PART B [id number] EMILIA GONZALEZ HN PATIENT MEDICARE (WNR) MEDICARE (M) PART A Dec 28, 2016 PART A [id number] EMILIA GONZALEZ HN PATIENT MEDICARE (WNR) MEDICARE (M) PART B Dec 28, 2016 PART B [id number] [phone] EMILIA GONZALEZ HN PATIENT UNICARE PREFERRED PROVIDER ORGANIZAT ION (PPO) [facility] N Dec 28, 2016 [id number] SBEMILIA HILL PATIENT UNICARE MEDICAL EXPENSE (OPT/PROF ) [facility] N Dec 28, 2016 [id number] EMILIA GONZALEZ PATIENT Selected Encounter This section includes the information on record at [place] for the Encounter. 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 This section includes future appointments and future orders which are active, pending or scheduled. Future Appointments This section includes appointments that were scheduled to occur 6 months from the date of the Encounter, up to a maximum of 20 appointments. The data comes from all [place] treatment facilities. Appointment Date/Time Appointment Type Appointme nt Facility Name Nov 18, 2023 08:30 AM AMBULATORY - NONE [place] [facility] [place] [facility] Dec 13, 2023 02:30 PM AMBULATORY - MEDICINE DE C [facility] [place] [facility] Dec 21, 2023 09:45 AM AMBULATORY - MEDICINE DE C [facility] [place] [facility] Jan 31, 2024 01:30 PM AMBULATORY - MEDICINE DE C [facility] [place] [facility] Feb 02, 2024 11:15 AM AMBULATORY - NONE DE [facility]N [facility] Apr 10, 2024 11:00 AM AMBULATORY - MEDICINE DE C [facility]L [facility] May 10, 2024 09:00 AM AMBULATORY - MEDICINE [facility] Lab Results: +/- 30 days of the encounter This section includes the Chemistry and Hematology Lab Results on record with [place] for the patient. Radiology Reports and Pathology Reports are provided separately, in subsequent sections. Lab Results This section contains the Chemistry/Hematology Results that were resulted 30 days before or 30 daysafter the date of the Encounter. Date/Time Source Result Type Result - Unit Interpretation Reference Range Comment Nov 01, 2023 08:44 AM [facility] BASIC METABOLIC PANEL (fasting) Specimen Type: SERUM No comment entered. Ordering Provider: MICHAELA ROMERO F Report Released Date/Time: Apr 18, 2023 10:07 AM Reporting Lab: [address] [address] Performing Lab: [address] [address] UREA NITROGEN 19 mg/dL 7-25 GLUCOSE 178 mg/dL H 65-100 SODIUM 138 mmol/L 135-145 POTASSIUM 5.2 mmol/L H 3.5-5.0 CHLORIDE 105 mmol/L 100-110 CO2 24 meq/L 20-30 CREATININE, Serum 1.39 mg/dL 0.50-1.40 eGFR(CKD-EPI 2020) 50 mL/min L >60 Nov 01, 2023 08:44 AM [facility] LIVER FUNCTION Specimen Type: SERUM No comment entered. Ordering Provider: MICHAELA ROMERO F Report Released Date/Time: Apr 18, 2023 10:07 AM Reporting Lab: [facility] [address] [facility] [address] Performing Lab: [address] [address] PROTEIN,TOTAL 7.1 g/dL 6.0-8.3 ALBUMIN 4.0 g/dL 3.5-5.0 ALKALINE PHOSPHATASE 57 U/L 40-150 AST 23 U/L 5-34 ALT 17 U/L BILIRUBIN, TOTAL 0.5 mg/dL 0.2-1.2 Nov 01, 2023 08:44 AM [facility] LIPID PANEL FASTING Specimen Type: SERUM No comment entered. Ordering Provider: MICHAELA ROMERO F Report Released Date/Time: Apr 18, 2023 10:07 AM Reporting Lab: [facility] [place] [facility] [address] [facility] [address] Performing Lab: [facility] [address] [facility] [address] CHOLESTEROL 158 mg/dL TRIGLYCERIDE 131 mg/dL 0-150 LDL calculated 103 mg/dL 0-129 CHOL/HDL 5.4 HDL CHOLESTEROL 29 mg/dL L 40-60 Nov 01, 2023 08:44 AM [facility] HEMOGLOBIN A1C PANEL Specimen Type: BLOOD [...] Apr 18, 2023 10:07 AM Reporting Lab: [facility] [place] [facility] [address] [facility] [address] Performing Lab: [facility] [address] [facility] [address] HEMOGLOBIN A1C 8.2 H 4.0-5.6 Nov 01, 2023 08:44 AM [facility] MICROALBUMIN CREATININE RATIO PANEL Specimen Type: URINE No comment entered. Ordering Provider: MICHAELA ROMERO Report Released Date/Time: Apr 18, 2023 10:07 AM Reporting Lab: [facility] [address] [facility] [address] Performing Lab: [facility] [address] [address] MICROALBUMIN/C REATININE RATIO 170.4 mg/g H 0-29.9 MICROALBUMIN,Q UANTITATIVE 11.6 mg/dL RR UNAVAIL CREATININE URINE 68.07 mg/dL Nov 01, 2023 08:44 AM [facility] URIC ACID Specimen Type: SERUM No comment entered. Ordering Provider: MICHAELA ROMERO Report Released Date/Time: Nov 07, 2023 10:27 AM Reporting Lab: [facility] [address] [facility] [address] Performing Lab: [facility] [address] [facility] [address] URIC ACID 5.7 mg/dL 3.5-7.2 Radiology Reports: +/- 30 days of the [...] the Encounter. The data comes from all [place] treatment facilities. Date/Time Radiology Report Provider Source Nov 18, 2023 08:[address] W/O CONT: LISAFABYSWATI [id number] -1940 M Exm Date: NOV 18, 2023@08:12 Req Phys: ADRIANA ROMERO Pat Loc: CWM/NO/PHARM/PACT 3 (Req'g Loc Img Loc: NHM/CT Service: Unknown [facility] , (Case 542 COMPLETE) CT THORAX W/O CONT (CT Detailed) CPT:60038 Reason for Study: pulmonary fibrosis on cxr at [facility] last week. Clinical History: pulmonary fibrosis on cxr at [facility] last week. He finished aUGMENTIN 11/01, but now reports that phlegm is now returning. 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 HISTORY: pulmonary fibrosis on cxr at [facility] last week. He finished aUGMENTIN 11/01, but now reports that phlegm is now [...] pulmonary fibrosis. READING PHYSICIAN: Kaiden Jacob D.O. -[phone] 11/24/2023 13:44 EDT [facility] National Teleradiology Program [phone] (For Medical Practitioner Use Only) Attention Patients / Veterans: If you have questions or concerns about these test results, please contact your ordering provider or primary care team. Primary Diagnostic Code: NO ALERT REQUIRED Primary Interpreting Staff: RADIOLOGY,OUTSIDE SERVICE, Staff Physician / RADIOLOGY,OUTSIDE SERVICE [place] [facility] [place] [facility] October 25, 2023 10:53 AM OUTSIDE CHEST (2 VIEWS): FABY GONZALEZ [id number] -1940 M Ex Date: OCTOBER 25, 2023@10:53 Req Phys: ADRIANA ROMERO Loc: NHM/OUTSIDE IMAGING NON-CNT (R Img Loc: OUTSIDE GENERAL RADIOLOGY Service: Unknown (Case 10 COMPLETE) OUTSIDE CHEST (2 VIEWS) (RAD Detailed) CPT:97897 Reason for Study: outside images downloaded for continuity of care Clinical History: outside images downloaded for continuity of care Report Status: Electronically Filed Date Reported: OCTOBER 25, 2023 Report: THIS EXAM WAS PERFORMED AND INTERPRETED AT AN OUTSIDE HOSPITAL Impression: THIS EXAM WAS PERFORMED AND INTERPRETED AT AN OUTSIDE HOSPITAL Primary Diagnostic Code: VERIFIED BY: / *ELECTRONICALLY FILED* [place] [facility] [place] [facility] Encounter Notes: All associated encounter notes This section contains the clinical notes associated to the Encounter. Date/Time Encounter Note(s) Provider Source Nov 09, 2023 02:01 PM PHARMACY CONSULT: LOCAL TITLE: CONSULT REPORT/PRIOR AUTH FACILITY PADR STANDARD TITLE: PHARMACY CONSULT DATE OF NOTE: NOV 09, 2023@14:01 ENTRY DATE: NOV 09, 2023@14:01:32 AUTHOR: SABINE ESQUIVEL COSIGNER: URGENCY: STATUS: COMPLETED The medical record has been reviewed with regard to this restricted drug request. Medication requested: ALIROCUMAB 75MG/ML INJ 1ML PEN Medication indication: HLP/CAD Medical history relevant to this request: Pt is a 82 y/o male with CAD prior bypass surgery. His LDL was previously controlled by gemfibrozil, atorvastatin, niacin, and ezetimibe. Niacin SR was no longer available pt had adr to IR. Gemfibrozil and statin combo put pt at risk of ADR given age and kidney fxn and given LDL not at goal. Recommend DC gemfibrozil to PCP. Given LDL not at goal, pt would benefit from PCSK9i. SERUM Oct 31 Apr 14 Dec 08 Reference 2023 2022 2022 08:44 07:58 08:22 Units Ranges ---- CHOL 158 153 150 mg/dL <7 - 199 TRIG 131 115 125 mg/dL 0 - 150 HDL 29 L 33 L 29 L mg/dL 40 - 60 LDL 103 97 96 mg/dL 0 - 129 The request is approved - A documented therapeutic failure of the preferred formulary alternative(s) exists - Per UpToDate: A benefit from the use of PCSK9 inhibitor (alirocumab) in older patients was found in a prespecified analysis of the ODYSSEY OUTCOMES trial of patients with an acute coronary syndrome [29] (see Low-density lipoprotein-cholesterol (LDL-C) lowering after an acute coronary syndrome , section on 'PCSK9 inhibitors'). In this subgroup analysis, the relative risk reduction for all-cause mortality was similar for patients =65 versus <65 years of age (hazard ratio 0.77 in both groups). As expected, the three-year absolute reduction in with alirocumab was significantly greater in the older group (2.1 versus 0.1 percent). - Monitor FLP for improvement Time Spent: 10 min /renny/ SABINE ESQUIVEL, PHARMD, [facility] Clinical Pharmacist Practitioner Signed: 11/09/2023 14:04 SABINE ESQUIVEL [facility] ([id number])
--- OUTSIDE RECORDS SUMMARY | 2024-06-04 12:18 | XMS_ITS | Encounter Summary ---
Author Name [facility] [place] Organization [place] Address [address] [place] [address] Care Team Providers Care Interim Controller Name Role Phone ADRIANA ROMERO Primary Care [...] GIC INDEMNITY PLAN MEDICAL EXPENSE (OPT/PROF ) [facility] N Dec 28, 2016 [id number] [phone] EMILIA GONZALEZ HN PATIENT MEDICARE (WNR) MEDICARE (M) PART A Dec 28, 2016 PART A [id number] EMILIA GONZALEZ HN PATIENT MEDICARE (WNR) MEDICARE (M) PART B Dec 28, 2016 PART B [id number] EMILIA GONZALEZ HN PATIENT MEDICARE (WNR) MEDICARE (M) PART A Dec 28, 2016 PART A [id number] EMILIA GONZALEZ HN PATIENT MEDICARE (WNR) MEDICARE (M) PART B Dec 28, 2016 PART B [id number] [phone] EMILIA GONZALEZ HN PATIENT UNICVIRGIL PREFERRED PROVIDER ORGANIZAT ION (PPO) [facility] N Dec 28, 2016 [id number] SBEMILIA HILL PATIENT UNICARE MEDICAL EXPENSE (OPT/PROF ) [facility] N Dec 28, 2016 [id number] [phone] EMILIA GONZALEZ PATIENT Selected Encounter This section includes the information on record at [place] for the Encounter. Date/Time Encounter Type Encounter Description Reason Pro vider Source Nov 14, 2023 10:38 AM Outpatient Encounter ADMIN PAT ACTIVTIES (MASNONCT) IHE Encounter Template Text not used by [place] Plan of Treatment: Future Appointments (+ 6 months) and Future Tests (+/- 45 days) The Plan of Treatment section includes future care activities for the patient from all [place] treatmentfacilities. This section includes future appointments and future orders which are active, pending or scheduled. Future Appointments This section includes appointments that were scheduled to occur 6 months from the date of the Encounter, up to a maximum of 20 appointments. The data comes from all [place] treatment facilities. Appointment Date/Time Appointment Type Appointme nt Facility Name Nov 18, 2023 08:30 AM AMBULATORY - NONE [place] [facility] [place] [facility] Dec 13, 2023 02:30 PM AMBULATORY - MEDICINE HI C [facility]TR[facility] [place] [facility] Dec 21, 2023 09:45 AM AMBULATORY - MEDICINE HI C [facility] [place] [facility] Jan 31, 2024 01:30 PM AMBULATORY - MEDICINE HI C [facility] [facility] Feb 02, 2024 11:15 AM AMBULATORY - NONE [place] [facility] [place] [facility] Apr 10, 2024 11:00 AM AMBULATORY - MEDICINE HI C [facility] [facility] May 10, 2024 09:00 AM AMBULATORY - MEDICINE HI C [facility] [facility] Lab Results: +/- 30 days of the encounter This section includes the Chemistry and Hematology Lab Results on record with [place] for the patient. Radiology Reports and Pathology Reports are provided separately, in subsequent sections. Lab Results This section contains the Chemistry/Hematology Results that were resulted 30 days before or 30 daysafter the date of the Encounter. Date/Time Source Result Type Result - Unit Interpretation Reference Range Comment Nov 01, 2023 08:44 AM [facility] BASIC METABOLIC PANEL (fasting) Specimen Type: SERUM No comment entered. Ordering Provider: MICHAELA ROMERO F Report Released Date/Time: Apr 18, 2023 10:07 AM Reporting Lab: [address] [address] Performing Lab: [address] [address] UREA NITROGEN 19 mg/dL 7-25 GLUCOSE 178 mg/dL H 65-100 SODIUM 138 mmol/L 135-145 POTASSIUM 5.2 mmol/L H 3.5-5.0 CHLORIDE 105 mmol/L 100-110 CO2 24 meq/L 20-30 CREATININE, Serum 1.39 mg/dL 0.50-1.40 eGFR(CKD-EPI 2020) 50 mL/min L >60 Nov 01, 2023 08:44 AM [facility] LIVER FUNCTION Specimen Type: SERUM No comment entered. Ordering Provider: MICHAELA ROMERO F Report Released Date/Time: Apr 18, 2023 10:07 AM Reporting Lab: [address] [address] Performing Lab: [address] [address] PROTEIN,TOTAL 7.1 g/dL 6.0-8.3 ALBUMIN 4.0 g/dL 3.5-5.0 ALKALINE PHOSPHATASE 57 U/L 40-150 AST 23 U/L 5-34 ALT 17 U/L BILIRUBIN, TOTAL 0.5 mg/dL 0.2-1.2 Nov 01, 2023 08:44 AM [facility] HEMOGLOBIN A1C PANEL Specimen Type: BLOOD [...] Apr 18, 2023 10:07 AM Reporting Lab: [facility] [address] [facility] [address] Performing Lab: [facility] [address] HEMOGLOBIN A1C 8.2 H 4.0-5.6 Nov 01, 2023 08:44 AM [facility] LIPID PANEL FASTING Specimen Type: SERUM No comment entered. Ordering Provider: MICHAELA ROMERO Report Released Date/Time: Apr 18, 2023 10:07 AM Reporting Lab: [address] [address] Performing Lab: [facility] [address] CHOLESTEROL 158 mg/dL TRIGLYCERIDE 131 mg/dL 0-150 LDL calculated 103 mg/dL 0-129 CHOL/HDL 5.4 HDL CHOLESTEROL 29 mg/dL L 40-60 Nov 01, 2023 08:44 AM [facility] MICROALBUMIN CREATININE RATIO PANEL Specimen Type: URINE No comment entered. Ordering Provider: MICHAELA ROMERO F Report Released Date/Time: Apr 18, 2023 10:07 AM Reporting Lab: [facility] [address] Performing Lab: [facility] [address] MICROALBUMIN/C REATININE RATIO 170.4 mg/g H 0-29.9 MICROALBUMIN,Q UANTITATIVE 11.6 mg/dL RR UNAVAIL CREATININE URINE 68.07 mg/dL Nov 01, 2023 08:44 AM [facility] URIC ACID Specimen Type: SERUM No comment entered. Ordering Provider: MICHAELA ROMERO Report Released Date/Time: Nov 07, 2023 10:27 AM Reporting Lab: [facility] [place] [facility] [address] [facility] [address] Performing Lab: [facility] [address] [facility] [address] URIC ACID 5.7 mg/dL 3.5-7.2 Social History: Smoking Status (Most current) and Tobacco Use (All prior to encounter date) This section includes the most current, and the historical, smoking and tobacco- related health factors from the [place] facility where the Encounter took place. Current Smoking Status This section includes the most current smoking, or tobacco-related health factor, from the [place] facility where the Encounter took place. Date/Time Current Smoking Status Comment Facil ity Dec 10, 2022 10:00 AM VA-TOBACCO FOR[facility] USER [facility] Tobacco Use History This section includes a history of the smoking, or tobacco-related health factors, that were collected on or before the date of the Encounter. The data comes from the [place] facility where the Encounter took place. Date/Time Smoking Status/Tobacco Use Comment F acility Dec 10, 2022 10:00 AM VA-TOBACCO QUIT 15 YRS OR MORE HI [facility] [place] [facility] Jan 07, 2022 12:47 PM VA-TOBACCO DOESNT USE WI 30 MIN WAKEUP [facility] Jan 07, 2022 12:47 PM VA-TOBACCO USE 30 YEARS OR MORE [place] [facility] [place] [facility] Jan 07, 2022 12:47 PM VA-TOBACCO USE ADVICE [place] [facility] [facility] Jan 07, 2022 12:47 PM VA-TOBACCO USE PROFESSIONAL DEVELOPMENT DIRECTOR NO [place] [facility] [facility] Jan 07, 2022 12:47 PM VA-TOBACCO USE MED NO [place] [facility] [facility] Jan 07, 2022 12:47 PM VA-TOBACCO USER EVERY DAY [facility] Radiology Reports: +/- 30 days of [...] the Encounter. The data comes from all [place] treatment facilities. Date/Time Radiology Report Provider Source Nov 18, 2023 08:[address] W/O CONT: FABY GONZALEZ [id number] -1940 M Exm Date: NOV 18, 2023@08:12 Req Phys: ADRIANA ROMERO Pat Loc: CWM/NO/PHARM/PACT 3 (Req'g Loc Img Loc: NHM/CT Service: Unknown [facility] , (Case 542 COMPLETE) CT THORAX W/O CONT (CT Detailed) CPT:73203 Reason for Study: pulmonary fibrosis on cxr at [facility] last week. Clinical History: pulmonary fibrosis on cxr at [facility] last week. He finished aUGMENTIN 6/5, but now reports that phlegm is now returning. Report Status: Verified Date Reported: NOV 24, 2023 Date Verified: NOV 24, 2023 Sample Maker Original E-Sig: Report: EXAM: CT chest without contrast COMPARISON: None. HISTORY: pulmonary fibrosis on cxr at [facility] last week. He finished aUGMENTIN [...] pulmonary fibrosis. READING PHYSICIAN: Kaiden Jacob D.O. -[phone] 11/24/2023 13:44 EDT [facility] National Teleradiology Program [phone] (For Medical Practitioner Use Only) Attention Patients / Veterans: If you have questions or concerns about these test results, please contact your ordering provider or primary care team. Primary Diagnostic Code: NO ALERT REQUIRED Primary Interpreting Staff: RADIOLOGY,OUTSIDE SERVICE, Staff Physician / RADIOLOGY,OUTSIDE SERVICE [facility] October 25, 2023 10:53 AM OUTSIDE CHEST (2 VIEWS): FABY GONZALEZ [id number] -1940 M Exm Date: OCTOBER 25, 2023@10:53 Req Phys: ADRIANA ROMERO Loc: NHM/OUTSIDE IMAGING NON-CNT (R Img Loc: OUTSIDE GENERAL RADIOLOGY Service: Unknown (Case 10 COMPLETE) OUTSIDE CHEST (2 VIEWS) (RAD Detailed) CPT:34263 Reason for Study: outside images downloaded for continuity of care Clinical History: outside images downloaded for continuity of care Report Status: Electronically Filed Date Reported: OCTOBER 25, 2023 Report: THIS EXAM WAS PERFORMED AND INTERPRETED AT AN OUTSIDE HOSPITAL Impression: THIS EXAM WAS PERFORMED AND INTERPRETED AT AN OUTSIDE HOSPITAL Primary Diagnostic Code: VERIFIED BY: / *ELECTRONICALLY FILED* [facility] Encounter Notes: All associated encounter notes This section contains the clinical notes associated to the Encounter. Date/Time Encounter Note(s) Provider Source Nov 14, 2023 10:38 AM ADMINISTRATIVE NOT E: LOCAL TITLE: CCC: SCHEDULING ADMINISTRATION STANDARD TITLE: ADMINISTRATIVE NOTE DATE OF NOTE: NOV 14, 2023@10:38:35 ENTRY DATE: NOV 14, 2023@10:38:36 AUTHOR: PRISCILLA ALANIZ COSIGNER: URGENCY: STATUS: COMPLETED Patient Demographics Patient Name: FABY GONZALEZ Patient Primary Phone: [phone] Patient Primary [address]: [address] [place] [id number] Patient : 1940 Patient Age: 82 Call Back Number: [phone] Caller/Recipient Relation to Patient: Self Administrative Administrative Note Reason: Returned Call Administrative Note Comments: returned call to PACT nurse from earlier this morning and can be reached at [phone]. Thank you /renny/ PRISCILLA ARANDA 1 [facility] AMS[facility] Signed: 11/14/2023 10:38 Receipt Acknowledged By: 11/14/2023 13:24 /es/ NI FLETCHER, ARIELA REGISTERED NURSE 11/14/2023 13:30 /es/ PRISCILLA HILTON LPN, LPN CNTRL [facility]
--- OUTSIDE RECORDS SUMMARY | 2024-06-04 12:18 | XMS_ITS ---
Author Name [facility] [place] Address [address] [place] [address] Care Team Providers Care Otolaryngology Rep Name Role Phone ADRIANA HUITRON Primary Care [...] GIC INDEMNITY PLAN MEDICAL EXPENSE (OPT/PROF ) [facility] N Dec 28, 2016 [id number] [phone] EMILIA GONZALEZ HN PATIENT MEDICARE (WNR) MEDICARE (M) PART A Dec 28, 2016 PART A [id number] [phone] LISAEMILIA HN PATIENT MEDICARE (WNR) MEDICARE (M) PART B Dec 28, 2016 PART B [id number] [phone] LISAEMILIA HN PATIENT MEDICARE (WNR) MEDICARE (M) PART A Dec 28, 2016 PART A [id number] SBREGA,EMILIA HN PATIENT MEDICARE (WNR) MEDICARE (M) PART B Dec 28, 2016 PART B [id number] EMILIA GONZALEZ PATIENT BRIANA PREFERRED PROVIDER ORGANIZAT ION (PPO) [facility] Dec 28, 2016 [id number] [phone] EMILIA GONZALEZ PATIENT UNICARE MEDICAL EXPENSE (OPT/PROF ) [facility] Dec 28, 2016 [id number] [phone] EMILIA GONZALEZ PATIENT Selected Encounter This section includes the information on record at [place] for the Encounter. Date/Time Encounter Type Encounter Description Reason Pro vider Source Nov 24, 2023 10:22 AM Outpatient Encounter COMMUNITY CARE CONSULT IHE Encounter Template Text not used by [place] Plan of Treatment: Future Appointments (+ 6 months) and Future Tests (+/- 45 days) The Plan of Treatment section includes future care activities for the patient from all [place] treatmentfacilities. This section includes future appointments and future orders which are active, pending or scheduled. Future Appointments This section includes appointments that were scheduled to occur 6 months from the date of the Encounter, up to a maximum of 20 appointments. The data comes from all [place] treatment facilities. Appointment Date/Time Appointment Type Appointme nt Facility Name Dec 13, 2023 02:30 PM AMBULATORY - MEDICINE [place] [facility] Dec 21, 2023 09:45 AM AMBULATORY - MEDICINE [place] [facility] Jan 31, 2024 01:30 PM AMBULATORY - MEDICINE [place] [facility] [place] [facility] Feb 02, 2024 11:15 AM AMBULATORY - [facility] [place] [facility] Apr 10, 2024 11:00 AM AMBULATORY - MEDICINE [place] [facility] [place] [facility] May 10, 2024 09:00 AM AMBULATORY - MEDICINE [place] [facility] [place] [facility] Lab Results: +/- 30 days of the encounter This section includes the Chemistry and Hematology Lab Results on record with [place] for the patient. Radiology Reports and Pathology Reports are provided separately, in subsequent sections. Lab Results This section contains the Chemistry/Hematology Results that were resulted 30 days before or 30 daysafter the date of the Encounter. Date/Time Source Result Type Result - Unit Interpretation Reference Range Comment Nov 01, 2023 08:44 AM [facility] BASIC METABOLIC PANEL (fasting) Specimen Type: SERUM No comment entered. Ordering Provider: MICHAELA HUITRON F Report Released Date/Time: Apr 18, 2023 10:07 AM Reporting Lab: [facility] [address] [address] Performing Lab: [address] [address] UREA NITROGEN 19 mg/dL 7-25 GLUCOSE 178 mg/dL H 65-100 SODIUM 138 mmol/L 135-145 POTASSIUM 5.2 mmol/L H 3.5-5.0 CHLORIDE 105 mmol/L 100-110 CO2 24 meq/L 20-30 CREATININE, Serum 1.39 mg/dL 0.50-1.40 eGFR(CKD-EPI 2020) 50 mL/min L >60 Nov 01, 2023 08:44 AM [facility] LIVER FUNCTION Specimen Type: SERUM No comment entered. Ordering Provider: MICHAELA HUITRON F Report Released Date/Time: Apr 18, 2023 10:07 AM Reporting Lab: [address] [address] Performing Lab: [address] [address] PROTEIN,TOTAL 7.1 g/dL 6.0-8.3 ALBUMIN 4.0 g/dL 3.5-5.0 ALKALINE PHOSPHATASE 57 U/L 40-150 AST 23 U/L 5-34 ALT 17 U/L BILIRUBIN, TOTAL 0.5 mg/dL 0.2-1.2 Nov 01, 2023 08:44 AM [facility] LIPID PANEL FASTING Specimen Type: SERUM No comment entered. Ordering Provider: MICHAELA HUITRON F Report Released Date/Time: Apr 18, 2023 10:07 AM Reporting Lab: [address] [address] Performing Lab: [address] [address] CHOLESTEROL 158 mg/dL TRIGLYCERIDE 131 mg/dL 0-150 LDL calculated 103 mg/dL 0-129 CHOL/HDL 5.4 HDL CHOLESTEROL 29 mg/dL L 40-60 Nov 01, 2023 08:44 AM [facility] HEMOGLOBIN A1C PANEL Specimen Type: [...] Apr 18, 2023 10:07 AM Reporting Lab: [address] [address] Performing Lab: [address] [address] HEMOGLOBIN A1C 8.2 H 4.0-5.6 Nov 01, 2023 08:44 AM [facility] MICROALBUMIN CREATININE RATIO PANEL Specimen Type: URINE No comment entered. Ordering Provider: MICHAELA HUITRON Report Released Date/Time: Apr 18, 2023 10:07 AM Reporting Lab: [address] [address] Performing Lab: [address] [address] MICROALBUMIN/C REATININE RATIO 170.4 mg/g H 0-29.9 MICROALBUMIN,Q UANTITATIVE 11.6 mg/dL RR UNAVAIL CREATININE URINE 68.07 mg/dL Nov 01, 2023 08:44 AM [facility] URIC ACID Specimen Type: SERUM No comment entered. Ordering Provider: MICHAELA HUITRON F Report Released Date/Time: Nov 07, 2023 10:27 AM Reporting Lab: [address] [address] Performing Lab: [facility] [address] [address] URIC ACID 5.7 mg/dL 3.5-7.2 Social History: Smoking Status (Most current) and Tobacco Use (All prior to encounter date) This section includes the most current, and the historical, smoking and tobacco- related health factors from the [place] facility where the Encounter took place. Current Smoking Status This section includes the most current smoking, or tobacco-related health factor, from the [place] facility where the Encounter took place. Date/Time Current Smoking Status Comment Facil ity Dec 10, 2022 10:00 AM VA-TOBACCO [facility] Tobacco Use History This section includes a history of the smoking, or tobacco-related health factors, that were collected on or before the date of the Encounter. The data comes from the [place] facility where the Encounter took place. Date/Time Smoking Status/Tobacco Use Comment F acility Dec 10, 2022 10:00 AM VA-TOBACCO QUIT 15 YRS OR MORE [place] [facility] [place] [facility] Jan 07, 2022 12:47 PM VA-TOBACCO DOESNT USE WI 30 MIN WAKEUP [place] [facility] Jan 07, 2022 12:47 PM VA-TOBACCO USE 30 YEARS OR MORE [place] [facility] [place] [facility] Jan 07, 2022 12:47 PM VA-TOBACCO USE ADVICE [place] [facility] [place] [facility] Jan 07, 2022 12:47 PM VA-TOBACCO USE 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 The data comes from all [place] treatment facilities. Date/Time Radiology Report Provider Source Nov 18, 2023 08:[address] W/O CONT: FABY GONZALEZ [id number] -1940 M Exm Date: NOV 18, 2023@08:12 Req Phys: ADRIANA HUITRON Sonya Loc: CWM/NO/PHARM/PACT 3 (Req'g Loc Img Loc: NHM/CT Service: Unknown [facility] , (Case [id number] COMPLETE) CT THORAX W/O CONT (CT Detailed) CPT:04512 Reason for Study: [facility]. Clinical History: [facility]. He finished aUGMENTIN 6/5, but now reports that phlegm is now returning. Report Status: Verified Date Reported: NOV 24, 2023 Date Verified: NOV 24, 2023 Sql Programmer Analyst E-Sig: Report: EXAM: CT chest without contrast COMPARISON: None. HISTORY: [facility]. He finished aUGMENTIN 6/5, but [...] pulmonary fibrosis. READING PHYSICIAN: Kaiden Jacob D.O. -[id number] 11/24/2023 13:44 EDT [facility] National Teleradiology Program [phone] (For Medical Practitioner Use Only) Attention Patients / Veterans: If you have questions or concerns about these test results, please contact your ordering provider or primary care team. Primary Diagnostic Code: NO ALERT REQUIRED Primary Interpreting Staff: RADIOLOGY,OUTSIDE SERVICE, Staff Physician / RADIOLOGY,OUTSIDE SERVICE [facility] October 25, 2023 10:53 AM OUTSIDE CHEST (2 VIEWS): FABY GONZALEZ [id number] -1940 M Exm Date: OCTOBER 25, 2023@10:53 Req Phys: ADRIANA HUITRON Loc: NHM/OUTSIDE IMAGING NON-CNT (R Img Loc: OUTSIDE GENERAL RADIOLOGY Service: Unknown (Case 10 COMPLETE) OUTSIDE CHEST (2 VIEWS) (RAD Detailed) CPT:49139 Reason for Study: outside images downloaded for continuity of care Clinical History: outside images downloaded for continuity of care Report Status: Electronically Filed Date Reported: OCTOBER 25, 2023 Report: THIS EXAM WAS PERFORMED AND INTERPRETED AT AN OUTSIDE HOSPITAL Impression: THIS EXAM WAS PERFORMED AND INTERPRETED AT AN OUTSIDE HOSPITAL Primary Diagnostic Code: VERIFIED BY: / *ELECTRONICALLY FILED* [facility] Encounter Notes: All associated encounter notes This section contains the clinical notes associated to the Encounter. Date/Time Encounter Note(s) Provider Source Nov 24, 2023 02:56 PM ADDENDUM: LOCAL TITLE: Addendum STANDARD TITLE: ADDENDUM DATE OF NOTE: NOV 24, 2023@14:56:16 ENTRY DATE: NOV 24, 2023@14:56:16 AUTHOR: ADRIANA HUITRON EXP COSIGNER: URGENCY: STATUS: COMPLETED Please inform him that his CT Chest confirms fibrosis of lung, but does not find more worrisome issues. Our staff is working on booking him PFTs and will Pulmonary. Have him get a cd of his ct to take to [facility] appt /renny/ Adrinaa Huitron PA-C STAFF PHYSICIAN JAVA WEB ARCHITECT Signed: 11/24/2023 14:57 Receipt Acknowledged By: 11/24/2023 15:01 /renny/ NI FLETCHER RN REGISTERED NURSE ====== --- Original Document --- 11/24/23 COMMUNITY CARE-CARE COORDINATION PLAN NOTE: [facility] notified [facility] that is scheduled for his pulmonary appt. at [facility] on 12/21/2023. Request for ALEXANDRE scheduling of PFT with existing authorization sent to [facility] PULM. New consult is not needed. CC RN called [facility] Pulmonary to make sure they understood this is a separate request in addition to his Pulmonary appt. Alert to PCP- [facility] cannot schedule at this time (RT there on emergency leave). They will schedule as soon as they are able OR [facility] can send CC pulm for PFT to another facility. I can re-activate 11/22 CC Pulm for PFT, new consult not needed. Please advise. /renny/ KT CACERES [facility] RN Signed: 11/24/2023 11:05 11/24/2023 ADDENDUM STATUS: COMPLETED CC pulm provider confirmed with CC RN. PFT not being scheduled at their facility for near future due to staffing. PCP-CC RN will forward PFT to other CCP as no availability at [facility] in near future. /renny/ KT CACERES [facility] RN Signed: 11/24/2023 12:34 Receipt Acknowledged By: 11/24/2023 14:56 /renny/ Adriana Huitron PA-C STAFF PHYSICIAN JAVA WEB ARCHITECT ADRIANA HUITRON [place] [facility] Nov 24, 2023 12:31 PM ADDENDUM: LOCAL TITLE: Addendum STANDARD TITLE: ADDENDUM DATE OF NOTE: NOV 24, 2023@12:31:40 ENTRY DATE: NOV 24, 2023@12:31:41 AUTHOR: KT CACERES COSIGNER: URGENCY: STATUS: COMPLETED CC pulm provider confirmed with CC RN. PFT not being scheduled at their facility for near future due to staffing. PCP-CC RN will forward PFT to other [facility] as no availability at [facility] in near future. /renny/ KT CACERES [facility] RN Signed: 11/24/2023 12:34 Receipt Acknowledged By: 11/24/2023 14:56 /renny/ Adriana Huitron PA-C STAFF PHYSICIAN JAVA WEB ARCHITECT ====== --- Original Document --- 11/24/23 COMMUNITY CARE-CARE COORDINATION PLAN NOTE: [facility] notified [facility] that is scheduled for his pulmonary appt. at [facility] on 12/21/2023. Request for ALEXANDRE scheduling of PFT with existing authorization sent to [facility] PULM. New consult is not needed. CC RN called [facility] Pulmonary to make sure they understood this is a separate request in addition to his Pulmonary appt. Alert to PCP- [facility] cannot schedule at this time (RT there on emergency leave). They will schedule as soon as they are able OR [facility] can send CC pulm for PFT to another facility. I can re-activate 11/22 CC Pulm for PFT, new consult not needed. Please advise. /renny/ KT CACERES [facility] RN Signed: 11/24/2023 11:05 KT CACERES [place] [facility] Nov 24, 2023 10:22 AM NONVA NOTE: LOCAL TITLE: COMMUNITY CARE-CARE COORDINATION PLAN NOTE STANDARD TITLE: NONVA NOTE DATE OF NOTE: NOV 24, 2023@10:22 ENTRY DATE: NOV 24, 2023@10:22:15 AUTHOR: KT CACERES COSIGNER: URGENCY: STATUS: COMPLETED COMMUNITY CARE-CARE COORDINATION PLAN NOTE Has ADDENDA [facility] notified [facility] that [place] is scheduled for his pulmonary appt. at [facility] on 12/21/2023. Request for ALEXANDRE scheduling of PFT with existing authorization sent to [facility] PULM. New consult is not needed. CC RN called [facility] Pulmonary to make sure they understood this is a separate request in addition to his Pulmonary appt. Alert to PCP- [facility] cannot schedule at this time (RT there on emergency leave). They will schedule as soon as they are able OR [facility] can send CC pulm for PFT to another facility. I can re-activate 11/22 CC Pulm for PFT, new consult not needed. Please advise. /renny/ KT CACERES [facility] RN Signed: 11/24/2023 11:05 11/24/2023 ADDENDUM STATUS: COMPLETED CC pulm provider confirmed with CC RN. PFT not being scheduled at their facility for near future due to staffing. PCP-CC RN will forward PFT to other [facility] as no availability at [facility] in near future. /renny/ KT CACERES [facility] RN Signed: 11/24/2023 12:34 Receipt Acknowledged By: 11/24/2023 14:56 /renny/ Adriana Huitron PA-C STAFF PHYSICIAN JAVA WEB ARCHITECT 11/24/2023 ADDENDUM STATUS: COMPLETED Please inform him that his CT Chest confirms fibrosis of lung, but does not find more worrisome issues. Our staff is working on booking him PFTs and will Pulmonary. Have him get a cd of his ct to take to pulm appt /renny/ Adriana Huitron PA-C STAFF PHYSICIAN JAVA WEB ARCHITECT Signed: 11/24/2023 14:57 Receipt Acknowledged By: 11/24/2023 15:01 /renny/ NI FLETCHER RN REGISTERED NURSE KT CACERES [facility]
--- OUTSIDE RECORDS SUMMARY | 2024-06-04 12:18 | XMS_ITS | Encounter Summary ---
Author Name [facility] [place] Address [address] [place] [address] Care Team Providers Care Shop Cooper Name Role Phone ADRIANA ROMERO Primary Care [...] GIC INDEMNITY PLAN MEDICAL EXPENSE (OPT/PROF ) [facility] N Dec 28, 2016 [id number] EMILIA GONZALEZ HN PATIENT MEDICARE (WNR) MEDICARE (M) PART A Dec 28, 2016 PART A [id number] EMILIA GONZALEZ HN PATIENT MEDICARE (WNR) MEDICARE (M) PART B Dec 28, 2016 PART B [id number] [phone] EMILIA GONZALEZ HN PATIENT MEDICARE (WNR) MEDICARE (M) PART A Dec 28, 2016 PART A [id number] [phone] EMILIA GONZALEZ PATIENT MEDICARE (WNR) MEDICARE (M) PART B Dec 28, 2016 PART B [id number] EMILIA GONZALEZ PATIENT UNICVIRGIL PREFERRED PROVIDER ORGANIZAT ION (PPO) DENI [facility] N Dec 28, 2016 [id number] [phone] EMILIA GONZALEZ PATIENT UNICARE MEDICAL EXPENSE (OPT/PROF ) DENI [place] [facility] N Dec 28, 2016 [id number] EMILIA GONZALEZ PATIENT Selected Encounter This section includes the information on record at [place] for the Encounter. Date/Time Encounter Type Encounter Description Reason Pro vider Source Dec 15, 2023 02:06 PM Outpatient Encounter ADMIN PAT ACTIVTIES (MASNONCT) IHE Encounter Template Text not used by [place] Plan of Treatment: Future Appointments (+ 6 months) and Future Tests (+/- 45 days) The Plan of Treatment section includes future care activities for the patient from all [place] treatmentfacilities. This section includes future appointments and future orders which are active, pending or scheduled. Future Appointments This section includes appointments that were scheduled to occur 6 months from the date of the Encounter, up to a maximum of 20 appointments. The data comes from all [place] treatment facilities. Appointment Date/Time Appointment Type Appointme nt Facility Name Dec 21, 2023 09:45 AM AM[place]ULATORY [place]ICINE [place] [facility] Jan 31, 2024 01:30 PM AM[place]ULATORY [place]ICINE [place] [facility] Feb 02, 2024 11:15 AM AMBULATORY - NONE [place] [facility] Apr 10, 2024 11:00 AM AMBULATORY [place]ICINE [place] [facility] May 10, 2024 09:00 AM AMBULATORY [place]ICINE [place] [facility] Jun 11, 2024 01:00 PM AMBULATORY - MEDICINE [facility] [place] [facility] Social History: Smoking Status (Most current) and Tobacco Use (All prior to encounter date) This section includes the most current, and the historical, smoking and tobacco- related health factors from the [place] facility where the Encounter took place. Current Smoking Status This section includes the most current smoking, or tobacco-related health factor, from the [place] facility where the Encounter took place. Date/Time Current Smoking Status Comment Facil ity Dec 10, 2022 10:00 AM VA-TOBACCO FOR[facility] Tobacco Use History This section includes a history of the smoking, or tobacco-related health factors, that were collected on or before the date of the Encounter. The data comes from the [place] facility where the Encounter took place. Date/Time Smoking Status/Tobacco Use Comment F acility Dec 10, 2022 10:00 AM VA-TOBACCO QUIT 15 YRS OR MORE [place] [facility] Jan 07, 2022 12:47 PM VA-TOBACCO DOESNT USE WI 30 MIN WAKEUP [place] CN[place] [facility] Jan 07, 2022 12:47 PM VA-TOBACCO USE 30 YEARS OR MORE [place] [facility] Jan 07, 2022 12:47 PM VA-TOBACCO USE ADVICE [place] [facility] Jan 07, 2022 12:47 PM VA-TOBACCO USE OB/GYN PHYSICIAN NO [place] [facility] Jan 07, 2022 12:47 PM VA-TOBACCO USE MED NO [place] [facility] Jan 07, 2022 12:47 PM VA-TOBACCO USER EVERY DAY [facility] WSN [facility] Radiology Reports: +/- 30 days of [...] the Encounter. The data comes from all [place] treatment facilities. Date/Time Radiology Report Provider Source Nov 18, 2023 08:[address] W/O CONT: LISAFABYSWATI [id number] -1940 M Exm Date: NOV 18, 2023@08:12 Req Phys: ADRIANA ROMERO Pat Loc: CWM/NO/PHARM/PACT 3 (Req'g Loc Img Loc: NHM/CT Service: Unknown [facility] , (Case 542 COMPLETE) CT THORAX W/O CONT (CT Detailed) CPT:30748 Reason for Study: pulmonary fibrosis on cxr at [facility] last week. Clinical History: pulmonary fibrosis on cxr at [facility] last week. He finished aUGMENTIN 6/5, but now reports that phlegm is now returning. Report Status: Verified Date Reported: NOV 24, 2023 Date Verified: NOV 24, 2023 Apparel Stock Checker E-Sig: Report: EXAM: CT chest without contrast COMPARISON: None. HISTORY: pulmonary fibrosis on cxr at [facility] last week. He finished [...] pulmonary fibrosis. READING PHYSICIAN: Kaiden Jacob D.O. -[phone] 11/24/2023 13:44 EDT [facility] Program [phone] (For Medical Practitioner Use Only) Attention Patients / Veterans: If you have questions or concerns about these test results, please contact your ordering provider or primary care team. Primary Diagnostic Code: NO ALERT REQUIRED Primary Interpreting Staff: RADIOLOGY,OUTSIDE SERVICE, Staff Physician / RADIOLOGY,OUTSIDE SERVICE [facility] Encounter Notes: All associated encounter notes This section contains the clinical notes associated to the Encounter. Date/Time Encounter Note(s) Provider Source Dec 15, 2023 02:06 PM ADMINISTRATIVE NOT E: LOCAL TITLE: CCC: SCHEDULING ADMINISTRATION STANDARD TITLE: ADMINISTRATIVE NOTE DATE OF NOTE: DEC 15, 2023@14:06:50 ENTRY DATE: DEC 15, 2023@14:06:50 AUTHOR: OSMANY TERESA COSIGNER: URGENCY: STATUS: COMPLETED CCC: SCHEDULING ADMINISTRATION Has ADDENDA Patient Demographics Patient Name: FABY GONZALEZ Patient Primary Phone: [phone] Patient Primary [address] [address] [place] [id number] Patient : 1940 Patient Age: 83 Caller/Recipient Relation to Patient: Self Administrative Administrative Note Reason: Other Administrative Note Comments: called and stated that he would like to speak with a member of his Primary Care Team regarding non-VA appointments. He stated that he already had one outside appointment, a pulmonary function test at [facility] in [place]. But, he also has another appointment next week in [place] at the [facility] (Pulmonary). He would like to know if this second appointment is a follow-up to the pulmonary function test or if it is a duplicate. He would also like to know if the PFT results will go to his Primary Care Provider or to the non-VA pulmonary doctor in [place]. He is scheduled to be seen in [place] on 12/21/23. He will cancel it if his PCP would like to him to. Please call the [place] back as soon as possible to discuss. He can be reached at [phone]. /renny/ OSMANY TERESA VISN 1 [facility] AMSA Signed: 12/15/2023 14:06 Receipt Acknowledged By: 12/15/2023 14:53 /es/ NI FLETCHER, RN REGISTERED NURSE 12/19/2023 07:47 /es/ CHARLIE MARTINO LPN 12/15/2023 ADDENDUM STATUS: COMPLETED Spoke to and let him know PFTs needed prior to next appointment with Semi Driver, please keep appointment and bring results with you. Understood and agreed to plan. PACT has not yet received results, will send to [facility] Pulm when received. /renny/ NI FLETCHER, RN REGISTERED NURSE Signed: 12/15/2023 14:57 OSMANY TERESA [facility]
--- OUTSIDE RECORDS SUMMARY | 2024-06-04 12:18 | XMS_ITS | Encounter Summary ---
Author Name [facility] [place] [facility] [place] Address [address] [place] [address] Care Team Providers Care Test Manager Name Role Phone ADRIANA HUITRON Primary Care [...] INDEMNITY PLAN MEDICAL EXPENSE (OPT/PROF ) [facility] N Dec 28, 2016 [id number] [phone] EMILIA GONZALEZ HN PATIENT MEDICARE (WNR) MEDICARE (M) PART A Dec 28, 2016 PART A [id number] LISAEMILIA HN PATIENT MEDICARE (WNR) MEDICARE (M) PART B Dec 28, 2016 PART B [id number] LISAEMILIA HN PATIENT MEDICARE (WNR) MEDICARE (M) PART A Dec 28, 2016 PART A [id number] SBREGA,EMILIA HN PATIENT MEDICARE (WNR) MEDICARE (M) PART B Dec 28, 2016 PART B [id number] EMILIA GONZALEZ PATIENT BRIANA PREFERRED PROVIDER ORGANIZAT ION (PPO) [facility], [facility] [id number] [phone] EMILIA GONZALEZ PATIENT UNICARE MEDICAL EXPENSE (OPT/PROF ) [facility] Dec 28, 2016 [id number] [id number] [phone] EMILIA GONZALEZ PATIENT Selected Encounter This section includes the information on record at [place] for the Encounter. Date/Time Encounter Type Encounter Description Reason Provider Source Nov 24, 2023 02:01 PM Outpatient Encounter PRIMARY CARE/MEDICINE NI FLETCHER [place] Encounter Template Text not used by [place] Plan of Treatment: Future Appointments (+ 6 [...] - MEDICINE IN [place] [facility] Dec 21, 2023 09:45 AM AMBULATORY - MEDICINE IN [place] [facility] Jan 31, 2024 01:30 PM AMBULATORY - MEDICINE IN C [place] [facility] Feb 02, 2024 11:15 AM AMBULATORY - NONE IN [place] [facility] Apr 10, 2024 11:00 AM AMBULATORY - MEDICINE IN [place] [facility] May 10, 2024 09:00 AM AMBULATORY - MEDICINE IN C [place] [facility] Lab Results: +/- 30 days [...] Comment Nov 01, 2023 08:44 AM [facility] LIVER FUNCTION Specimen Type: SERUM No comment entered. Ordering Provider: MICHAELA HUITRON F Report Released Date/Time: Apr 18, 2023 10:07 AM Reporting Lab: [address] [address] Performing Lab: [address] [address] PROTEIN,TOTAL 7.1 g/dL 6.0-8.3 ALBUMIN 4.0 g/dL 3.5-5.0 ALKALINE PHOSPHATASE 57 U/L 40-150 AST 23 U/L 5-34 ALT 17 U/L BILIRUBIN, TOTAL 0.5 mg/dL 0.2-1.2 Nov 01, 2023 08:44 AM [facility] LIPID PANEL FASTING Specimen Type: SERUM No comment entered. Ordering Provider: MICHAELA HUITRONM F Report Released Date/Time: Apr 18, 2023 10:07 AM Reporting Lab: [address] [address] Performing Lab: [address] [address] CHOLESTEROL 158 mg/dL TRIGLYCERIDE 131 mg/dL 0-150 LDL calculated 103 mg/dL 0-129 CHOL/HDL 5.4 HDL CHOLESTEROL 29 mg/dL L 40-60 Nov 01, 2023 08:44 AM [facility] BASIC METABOLIC PANEL (fasting) Specimen Type: SERUM No comment entered. Ordering Provider: MICHAELA HUITRON F Report Released Date/Time: Apr 18, 2023 10:07 AM Reporting Lab: [address] [address] Performing Lab: [address] [address] UREA NITROGEN 19 mg/dL 7-25 GLUCOSE 178 mg/dL H 65-100 SODIUM 138 mmol/L 135-145 POTASSIUM 5.2 mmol/L H 3.5-5.0 CHLORIDE 105 mmol/L 100-110 CO2 24 meq/L 20-30 CREATININE, Serum 1.39 mg/dL 0.50-1.40 eGFR(CKD-EPI 2020) 50 mL/min L >60 Nov 01, 2023 08:44 AM [facility] HEMOGLOBIN A1C PANEL Specimen Type: BLOOD [...] Apr 18, 2023 10:07 AM Reporting Lab: [address] [address] Performing Lab: [address] [address] HEMOGLOBIN A1C 8.2 H 4.0-5.6 Nov 01, 2023 08:44 AM [facility] MICROALBUMIN CREATININE RATIO PANEL Specimen Type: URINE No comment entered. Ordering Provider: MICHAELA HUITRON Report Released Date/Time: Apr 18, 2023 10:07 AM Reporting Lab: [address] [address] Performing Lab: [address] [address] MICROALBUMIN/C REATININE RATIO 170.4 mg/g H 0-29.9 MICROALBUMIN,Q UANTITATIVE 11.6 mg/dL RR UNAVAIL CREATININE URINE 68.07 mg/dL Nov 01, 2023 08:44 AM [facility] URIC ACID Specimen Type: SERUM No comment entered. Ordering Provider: MICHAELA HUITRON F Report Released Date/Time: Nov 07, 2023 10:27 AM Reporting Lab: [address] [address] Performing Lab: [facility] [place] [facility] [address] [facility] [address] URIC ACID 5.7 mg/dL 3.5-7.2 Social History: [...] Facil ity Dec 10, 2022 10:00 AM IN-TOBACCO QUIT 15 YRS OR MORE [facility] Tobacco Use History This section includes a history of the smoking, or tobacco-related health factors, that were collected on or before the date of the Encounter. The data comes from the [place] facility where the Encounter took place. Date/Time Smoking Status/Tobacco Use Comment F acility Dec 10, 2022 10:00 AM IN-TOBACCO QUIT 15 YRS OR MORE [facility] Jan 07, 2022 12:47 PM VA-TOBACCO DOESNT USE WI 30 MIN WAKEUP [facility] Jan 07, 2022 12:47 PM VA-TOBACCO USE 30 YEARS OR MORE [facility] Jan 07, 2022 12:47 PM VA-TOBACCO [facility] ADVICE [facility] Jan 07, 2022 12:47 PM VA-TOBACCO USE TYPE COPY EXAMINER NO IN [facility] Jan 07, 2022 12:47 PM VA-TOBACCO USE MED NO IN [place] [facility] Jan 07, 2022 12:47 PM VA-TOBACCO USER EVERY DAY [facility] Radiology Reports: +/- 30 days of [...] AM CHEST CT W/O CONT: FABY GONZALEZ [id number] -1940 M Exm Date: NOV 18, 2023@08:12 Req Phys: NICKADRIANA Rangel Sonya Loc: CWM/NO/PHARM/PACT 3 (Req'g Loc Img Loc: NHM/CT Service: Unknown [facility] , (Case [id number] COMPLETE) CT THORAX W/O CONT (CT Detailed) CPT:48783 Reason for Study: pulmonary fibrosis on cxr at [facility] last week. Clinical History: pulmonary fibrosis on cxr at [facility] last week. He finished aUGMENTIN 6/5, but now reports that phlegm is now returning. Report Status: Verified Date Reported: NOV 24, 2023 Date Verified: NOV 24, 2023 Thoroughbred Horse Farm Manager E-Sig: Report: EXAM: CT chest without contrast COMPARISON: None. HISTORY: pulmonary fibrosis on cxr at [facility] last week. He finished aUGMENTIN [...] pulmonary fibrosis. READING PHYSICIAN: Kaiden Jacob D.O. -[id number] 11/24/2023 13:44 EDT [facility] National Teleradiology Program [phone] (For Medical Practitioner Use Only) Attention Patients / Veterans: If you have questions or concerns about these test results, please contact your ordering provider or primary care team. Primary Diagnostic Code: NO ALERT REQUIRED Primary Interpreting Staff: RADIOLOGY,OUTSIDE SERVICE, Staff Physician / RADIOLOGY,OUTSIDE SERVICE [facility] October 25, 2023 10:53 AM OUTSIDE CHEST (2 VIEWS): FABY GONZALEZ [id number] -1940 M Exm Date: OCTOBER 25, 2023@10:53 Req Phys: ADRIANA HUITRON Loc: NHM/OUTSIDE IMAGING NON-CNT (R Img Loc: OUTSIDE GENERAL RADIOLOGY Service: Unknown (Case 10 COMPLETE) OUTSIDE CHEST (2 VIEWS) (RAD Detailed) CPT:39850 Reason for Study: outside images downloaded for continuity of care Clinical History: outside images downloaded for continuity of care Report Status: Electronically Filed Date Reported: OCTOBER 25, 2023 Report: THIS EXAM WAS PERFORMED AND INTERPRETED AT AN OUTSIDE HOSPITAL Impression: THIS EXAM WAS PERFORMED AND INTERPRETED AT AN OUTSIDE HOSPITAL Primary Diagnostic Code: VERIFIED BY: / *ELECTRONICALLY FILED* [facility] Encounter Notes: All associated encounter notes This section contains the clinical notes associated to the Encounter. Date/Time Encounter Note(s) Provider Source Nov 24, 2023 02:01 PM PRIMARY CARE SECUR E MESSAGING: [facility] TITLE: PRIMARY CARE SECURE MESSAGING STANDARD TITLE: PRIMARY CARE SECURE MESSAGING DATE OF NOTE: NOV 24, 2023@14:01 ENTRY DATE: NOV 24, 2023@15:01:32 AUTHOR: NI FLETCHER EXP COSIGNER: URGENCY: STATUS: COMPLETED PRIMARY CARE SECURE MESSAGING Has ADDENDA ------Original Message --------- Sent: 11/24/2023 03:01 PM ET From: NI FLETCHER To: FABY GONZALEZ Subject: Test:Test Results Good afternoon, Per your PCP : Please inform him that his CT Chest confirms fibrosis of lung, but does not find more worrisome issues. Our staff is working on booking him PFTs and will Pulmonary. Have him get a cd of his ct to take to pulm appt /renny/ Adriana Huitron PA-C STAFF PHYSICIAN DRYING AND WINDING SUPERVISOR You will need to sign for a copy of your CT imaging in the Radiology department. If you have any questions, don't hesitate to ask. Thank you for your service, ARIELA Fox - PACT Par[employer] Post Order Clerk /renny/ NI FLETCHER RN REGISTERED NURSE Signed: 11/24/2023 15:01 11/24/2023 ADDENDUM STATUS: COMPLETED CD ROM of CT scan requested through IN BRENDA to send to [facility] Pulmonary. [place] is scheduled for first visit on 12/21/23 at 0945. /renny/ KT CACERES [facility] RN Signed: 11/24/2023 15:12 NI FLETCHER IN [facility]
--- OUTSIDE RECORDS SUMMARY | 2024-06-04 12:18 | XMS_ITS | Encounter Summary ---
Author Name [facility] [place] [facility] [place] [facility] [place] Address [address] [place] [address] Care Team Providers Care Fire Watcher Name Role Phone ADRIANA ROMERO Primary Care [...] GIC INDEMNITY PLAN MEDICAL EXPENSE (OPT/PROF ) [facility] N Dec 28, 2016 [id number] EMILIA GONZALEZ HN PATIENT MEDICARE (WNR) MEDICARE (M) PART A Dec 28, 2016 PART A [id number] LISAEMILIA HN PATIENT MEDICARE (WNR) MEDICARE (M) PART B Dec 28, 2016 PART B [id number] LISAEMILIA HN PATIENT MEDICARE (WNR) MEDICARE (M) PART A Dec 28, 2016 PART A [id number] SBREGA,EMILIA HN PATIENT MEDICARE (WNR) MEDICARE (M) PART B Dec 28, 2016 PART B [id number] EMILIA GONZALEZ PATIENT BRIANA PREFERRED PROVIDER ORGANIZAT ION (PPO) [facility] Dec [facility], 2016 [id number] [id number] [phone] EMILIA GONZALEZ PATIENT UNICARE MEDICAL EXPENSE (OPT/PROF ) [facility] Dec 28, 2016 [id number] [phone] EMILIA GONZALEZ PATIENT Selected Encounter This section includes the information on record at [place] for the Encounter. Date/Time Encounter Type Encounter Description Reason Provider Source Nov 24, 2023 02:15 PM Outpatient Encounter PRIMARY CARE/MEDICINE NI FLETCHER [place] Encounter Template Text not used by [place] Plan of Treatment: Future Appointments (+ 6 months) and Future Tests (+/- 45 days) The Plan of Treatment section includes future care activities for the patient from all [place] treatmentfacilities. This section includes future appointments and future orders which are active, pending or scheduled. Future Appointments This section includes appointments that were scheduled to occur 6 months from the date of the Encounter, up to a maximum of 20 appointments. The data comes from all [place] treatment facilities. Appointment Date/Time Appointment Type Appointme nt Facility Name Dec 13, 2023 02:30 PM AMBULATORY - MEDICINE [place] [facility] Dec 21, 2023 09:45 AM AMBULATORY - MEDICINE [place] [facility] Jan 31, 2024 01:30 PM AMBULATORY - MEDICINE [place] [facility] Feb 02, 2024 11:15 AM AMBULATORY - NONE [place] [facility] Apr 10, 2024 11:00 AM AMBULATORY - MEDICINE [place] [facility] May 10, 2024 09:00 AM AMBULATORY - MEDICINE [place] [facility] Lab Results: +/- 30 days of the encounter This section includes the Chemistry and Hematology Lab Results on record with [place] for the patient. Radiology Reports and Pathology Reports are provided separately, in subsequent sections. Lab Results This section contains the Chemistry/Hematology Results that were resulted 30 days before or 30 daysafter the date of the Encounter. Date/Time Source Result Type Result - Unit Interpretation Reference Range Comment Nov 01, 2023 08:44 AM [facility] BASIC METABOLIC PANEL (fasting) Specimen Type: SERUM No comment entered. Ordering Provider: MICHAELA ROMERO F Report Released Date/Time: Apr 18, 2023 10:07 AM Reporting Lab: [address] [address] Performing Lab: [address] [address] UREA NITROGEN 19 mg/dL 7-25 GLUCOSE 178 mg/dL H 65-100 SODIUM 138 mmol/L 135-145 POTASSIUM 5.2 mmol/L H 3.5-5.0 CHLORIDE 105 mmol/L 100-110 CO2 24 meq/L 20-30 CREATININE, Serum 1.39 mg/dL 0.50-1.40 eGFR(CKD-EPI 2020) 50 mL/min L >60 Nov 01, 2023 08:44 AM [facility] LIVER FUNCTION Specimen Type: SERUM No comment entered. Ordering Provider: MICHAELA ROMERO F Report Released Date/Time: Apr 18, 2023 10:07 AM Reporting Lab: [address] [address] Performing Lab: [address] [address] PROTEIN,TOTAL 7.1 g/dL 6.0-8.3 ALBUMIN 4.0 g/dL 3.5-5.0 ALKALINE PHOSPHATASE 57 U/L 40-150 AST 23 U/L 5-34 ALT 17 U/L BILIRUBIN, TOTAL 0.5 mg/dL 0.2-1.2 Nov 01, 2023 08:44 AM [facility] LIPID PANEL FASTING Specimen Type: SERUM No comment entered. Ordering Provider: MICHAELA ROMERO F Report Released Date/Time: Apr 18, 2023 10:07 AM Reporting Lab: [address] [address] Performing Lab: [place] [address] [facility] [address] CHOLESTEROL 158 mg/dL TRIGLYCERIDE 131 mg/dL 0-150 LDL calculated 103 mg/dL 0-129 CHOL/HDL 5.4 HDL CHOLESTEROL 29 mg/dL L 40-60 Nov 01, 2023 08:44 AM [facility] HEMOGLOBIN A1C PANEL Specimen Type: BLOOD [...] Apr 18, 2023 10:07 AM Reporting Lab: [address] [address] Performing Lab: [address] [address] HEMOGLOBIN A1C 8.2 H 4.0-5.6 Nov 01, 2023 08:44 AM [facility] MICROALBUMIN CREATININE RATIO PANEL Specimen Type: URINE No comment entered. Ordering Provider: MICHAELA ROMERO Report Released Date/Time: Apr 18, 2023 10:07 AM Reporting Lab: [address] [address] Performing Lab: [address] [address] MICROALBUMIN/C REATININE RATIO 170.4 mg/g H 0-29.9 MICROALBUMIN,Q UANTITATIVE 11.6 mg/dL RR UNAVAIL CREATININE URINE 68.07 mg/dL Nov 01, 2023 08:44 AM [facility] URIC ACID Specimen Type: SERUM No comment entered. Ordering Provider: MICHAELA ROMERO F Report Released Date/Time: Nov 07, 2023 10:27 AM Reporting Lab: [address] [address] Performing Lab: [facility] [place] [facility] [address] [facility] [address] URIC ACID 5.7 mg/dL 3.5-7.2 Social History: Smoking Status (Most current) and Tobacco Use (All prior to encounter date) This section includes the most current, and the historical, smoking and tobacco- related health factors from the [place] facility where the Encounter took place. Current Smoking Status This section includes the most current smoking, or tobacco-related health factor, from the [place] facility where the Encounter took place. Date/Time Current Smoking Status Comment Facil ity Dec 10, 2022 10:00 AM [facility]ACCO [facility] Tobacco Use History This section includes a history of the smoking, or tobacco-related health factors, that were collected on or before the date of the Encounter. The data comes from the [place] facility where the Encounter took place. Date/Time Smoking Status/Tobacco Use Comment F acility Dec 10, 2022 10:00 AM VA-TOBACCO QUIT 15 YRS OR MORE [facility] Jan 07, 2022 12:47 PM VA-TOBACCO DOESNT USE WI 30 MIN WAKEUP [place] [facility] Jan 07, 2022 12:47 PM VA-TOBACCO USE 30 YEARS OR MORE [facility] Jan 07, 2022 12:47 PM VA-TOBACCO USE ADVICE [facility] Jan 07, 2022 12:47 PM VA-TOBACCO USE ELECTROENCEPHALOGRAPHIC TECHNICIAN NO [place] [facility] Jan 07, 2022 12:47 PM VA-TOBACCO USE MED NO [place] [facility] Jan 07, 2022 12:47 PM VA-TOBACCO [facility]ER [facility] Radiology Reports: +/- 30 days of [...] the Encounter. The data comes from all [place] treatment facilities. Date/Time Radiology Report Provider Source Nov 18, 2023 08:[address] W/O CONT: FABY GONZALEZ [id number] -1940 M Ex Date: NOV 18, 2023@08:12 Req Phys: JHOANALUCRECIAADRIANA Rangel Sonya Loc: CWM/NO/PHARM/PACT 3 (Req'g Loc Img Loc: NHM/CT Service: Unknown [facility] , (Case 542 COMPLETE) CT THORAX W/O CONT (CT Detailed) CPT:92058 Reason for Study: pulmonary fibrosis on cxr at [facility] last week. Clinical History: pulmonary fibrosis on cxr at [facility] last week. He finished aUGMENTIN 6/5, but now reports that phlegm is now returning. Report Status: Verified Date Reported: NOV 24, 2023 Date Verified: NOV 24, 2023 Bit Sander E-Sig: Report: EXAM: CT chest without contrast COMPARISON: None. HISTORY: pulmonary fibrosis on cxr at [facility] last week. He finished aUGMENTIN 6/5, but [...] pulmonary fibrosis. READING PHYSICIAN: Kaiden Jacob D.O. -[id number] 11/24/2023 13:44 EDT [facility] National Teleradiology Program [phone] (For Medical Practitioner Use Only) Attention Patients / Veterans: If you have questions or concerns about these test results, please contact your ordering provider or primary care team. Primary Diagnostic Code: NO ALERT REQUIRED Primary Interpreting Staff: RADIOLOGY,OUTSIDE SERVICE, Staff Physician / RADIOLOGY,OUTSIDE SERVICE [facility] October 25, 2023 10:53 AM OUTSIDE CHEST (2 VIEWS): FABY GONZALEZ [id number] -1940 M Exm Date: OCTOBER 25, 2023@10:53 Req Phys: ADRIANA ROMERO Loc: NHM/OUTSIDE IMAGING NON-CNT (R Img Loc: OUTSIDE GENERAL RADIOLOGY Service: Unknown (Case 10 COMPLETE) OUTSIDE CHEST (2 VIEWS) (RAD Detailed) CPT:78335 Reason for Study: outside images downloaded for continuity of care Clinical History: outside images downloaded for continuity of care Report Status: Electronically Filed Date Reported: OCTOBER 25, 2023 Report: THIS EXAM WAS PERFORMED AND INTERPRETED AT AN OUTSIDE HOSPITAL Impression: THIS EXAM WAS PERFORMED AND INTERPRETED AT AN OUTSIDE HOSPITAL Primary Diagnostic Code: VERIFIED BY: / *ELECTRONICALLY FILED* [facility] Encounter Notes: All associated encounter notes This section contains the clinical notes associated to the Encounter. Date/Time Encounter Note(s) Provider Source Nov 24, 2023 02:15 PM PRIMARY CARE SECUR E MESSAGING: LOCAL TITLE: PRIMARY CARE SECURE MESSAGING STANDARD TITLE: PRIMARY CARE SECURE MESSAGING DATE OF NOTE: NOV 24, 2023@14:15 ENTRY DATE: NOV 24, 2023@15:15:48 AUTHOR: NI FLETCHER EXP COSIGNER: URGENCY: STATUS: COMPLETED ------Original Message ------- Sent: 11/24/2023 03:15 PM ET From: NI FLETCHER To: FABY GONZALEZ Subject: Appointment:Appointment Inquiry The [facility] team has already requested a copy of your CT image to send to the Bulk Clerk so you can disregard the previous message unless you would like a copy for yourself. Thank you for your service, ARIELA Fox - PACT Pl[employer] Compos[employer] Inspector // NI FLETCHER, RN REGISTERED NURSE Signed: 11/24/2023 15:15 NI FLETCHER [facility]
--- OUTSIDE RECORDS SUMMARY | 2024-06-04 12:18 | XMS_ITS | Encounter Summary ---
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 Name Role Phone ADRIANA HUITRON Primary Care [...] INDEMNITY PLAN MEDICAL EXPENSE (OPT/PROF ) [facility] N Dec 28, 2016 [id number] EMILIA GONZALEZ HN PATIENT MEDICARE (WNR) MEDICARE (M) PART A Dec 28, 2016 PART A [id number] EMILIA GONZALEZ HN PATIENT MEDICARE (WNR) MEDICARE (M) PART B Dec 28, 2016 PART B [id number] EMILIA GONZALEZ HN PATIENT MEDICARE (WNR) MEDICARE (M) PART A Dec 28, 2016 PART A [id number] [phone] EMILIA GONZALEZ HN PATIENT MEDICARE (WNR) MEDICARE (M) PART B Dec 28, 2016 PART B [id number] EMILIA GONZALEZ HN PATIENT UNICVIRGIL PREFERRED PROVIDER ORGANIZAT ION (PPO) [facility] N Dec 28, 2016 [id number] SBEMILIA HILL PATIENT UNICARE MEDICAL EXPENSE (OPT/PROF ) [facility] N Dec 28, 2016 [id number] EMILIA GONZALEZ PATIENT Selected Encounter This section includes the information on record at [place] for the Encounter. Date/Time Encounter Type Encounter Description Reason Pro vider Source Nov 11, 2023 10:25 AM Outpatient Encounter ADMIN PAT ACTIVTIES (MASNONCT) IHE Encounter Template Text not used by [place] Plan of Treatment: Future Appointments (+ 6 months) and Future Tests (+/- 45 days) The Plan of Treatment section includes future care activities for the patient from all [place] treatmentfacilities. This section includes future appointments and future orders which are active, pending or scheduled. Future Appointments This section includes appointments that were scheduled to occur 6 months from the date of the Encounter, up to a maximum of 20 appointments. The data comes from all [place] treatment facilities. Appointment Date/Time Appointment Type Appointme nt Facility Name Nov 18, 2023 08:30 AM AMBULATORY - NONE [place] [facility] [place] [facility] Dec 13, 2023 02:30 PM AMBULATORY - MEDICINE ND [facility] [place] [facility] Dec 21, 2023 09:45 AM AMBULATORY - MEDICINE ND C [facility] [place] [facility] Jan 31, 2024 01:30 PM AMBULATORY - MEDICINE ND C [facility] [place] [facility] Feb 02, 2024 11:15 AM AMBULATORY - NONE [place] [facility] [place] [facility] Apr 10, 2024 11:00 AM AMBULATORY - MEDICINE ND C [facility] [place] [facility] May 10, 2024 09:00 AM AMBULATORY - MEDICINE ND [facility] [place] [facility] Lab Results: +/- 30 days of the encounter This section includes the Chemistry and Hematology Lab Results on record with [place] for the patient. Radiology Reports and Pathology Reports are provided separately, in subsequent sections. Lab Results This section contains the Chemistry/Hematology Results that were resulted 30 days before or 30 daysafter the date of the Encounter. Date/Time Source Result Type Result - Unit Interpretation Reference Range Comment Nov 01, 2023 08:44 AM [facility] LIVER FUNCTION Specimen Type: SERUM No comment entered. Ordering Provider: MICHAELA HUITRON F Report Released Date/Time: Apr 18, 2023 10:07 AM Reporting Lab: [address] [address] Performing Lab: [address] [address] PROTEIN,TOTAL 7.1 g/dL 6.0-8.3 ALBUMIN 4.0 g/dL 3.5-5.0 ALKALINE PHOSPHATASE 57 U/L 40-150 AST 23 U/L 5-34 ALT 17 U/L BILIRUBIN, TOTAL 0.5 mg/dL 0.2-1.2 Nov 01, 2023 08:44 AM [facility] LIPID PANEL FASTING Specimen Type: SERUM No comment entered. Ordering Provider: MICHAELA HUITRON F Report Released Date/Time: Apr 18, 2023 10:07 AM Reporting Lab: [address] [address] Performing Lab: [address] [address] CHOLESTEROL 158 mg/dL TRIGLYCERIDE 131 mg/dL 0-150 LDL calculated 103 mg/dL 0-129 CHOL/HDL 5.4 HDL CHOLESTEROL 29 mg/dL L 40-60 Nov 01, 2023 08:44 AM [facility] BASIC METABOLIC PANEL (fasting) Specimen Type: SERUM No comment entered. Ordering Provider: MICHAELA HUITRON F Report Released Date/Time: Apr 18, 2023 10:07 AM Reporting Lab: [address] [address] Performing Lab: [address] [address] UREA NITROGEN 19 mg/dL 7-25 GLUCOSE 178 mg/dL H 65-100 SODIUM 138 mmol/L 135-145 POTASSIUM 5.2 mmol/L H 3.5-5.0 CHLORIDE 105 mmol/L 100-110 CO2 24 meq/L 20-30 CREATININE, Serum 1.39 mg/dL 0.50-1.40 eGFR(CKD-EPI 2020) 50 mL/min L >60 Nov 01, 2023 08:44 AM [facility] HEMOGLOBIN A1C PANEL Specimen Type: [...] Apr 18, 2023 10:07 AM Reporting Lab: [address] [address] Performing Lab: [address] [address] HEMOGLOBIN A1C 8.2 H 4.0-5.6 Nov 01, 2023 08:44 AM [facility] MICROALBUMIN CREATININE RATIO PANEL Specimen Type: URINE No comment entered. Ordering Provider: MICHAELA HUITRON Report Released Date/Time: Apr 18, 2023 10:07 AM Reporting Lab: [address] [address] Performing Lab: [address] [address] MICROALBUMIN/C REATININE RATIO 170.4 mg/g H 0-29.9 MICROALBUMIN,Q UANTITATIVE 11.6 mg/dL RR UNAVAIL CREATININE URINE 68.07 mg/dL Nov 01, 2023 08:44 AM [facility] URIC ACID Specimen Type: SERUM No comment entered. Ordering Provider: MICHAELA HUITRON Report Released Date/Time: Nov 07, 2023 10:27 AM Reporting Lab: [place] [facility] [place] [facility] [address] [facility] [address] Performing Lab: [place] [facility] [address] [address] [address] URIC ACID 5.7 mg/dL 3.5-7.2 Social History: Smoking Status (Most current) and Tobacco Use (All prior to encounter date) This section includes the most current, and the historical, smoking and tobacco- related health factors from the [place] facility where the Encounter took place. Current Smoking Status This section includes the most current smoking, or tobacco-related health factor, from the [place] facility where the Encounter took place. Date/Time Current Smoking Status Comment Facil ity Dec 10, 2022 10:00 AM ND-TOBACCO QUIT 15 YRS OR MORE [facility] Tobacco Use History This section includes a history of the smoking, or tobacco-related health factors, that were collected on or before the date of the Encounter. The data comes from the [place] facility where the Encounter took place. Date/Time Smoking Status/Tobacco Use Comment F acility Dec 10, 2022 10:00 AM VA-TOBACCO QUIT 15 YRS OR MORE [place] [facility] [place] [facility] Jan 07, 2022 12:47 PM VA-TOBACCO DOESNT USE WI 30 MIN WAKEUP [place] [facility] [place] [facility] Jan 07, 2022 12:47 PM VA-TOBACCO USE 30 YEARS OR MORE [place] [facility] [place] [facility] Jan 07, 2022 12:47 PM VA-TOBACCO USE ADVICE [place] [facility] [place] [facility] Jan 07, 2022 12:47 PM VA-TOBACCO USE RESIDENT MANAGER NO [place] [facility] [place] [facility] Jan 07, 2022 12:47 PM VA-TOBACCO USE MED NO [place] [facility] [place] [facility] Jan 07, 2022 12:47 PM [facility]ACCO [facility] Radiology Reports: +/- 30 days of [...] the Encounter. The data comes from all [place] treatment facilities. Date/Time Radiology Report Provider Source Nov 18, 2023 08:[address] W/O CONT: FABY GONZALEZ [id number] -1940 M Exm Date: NOV 18, 2023@08:12 Req Phys: ADRIANA HUITRON Loc: CWM/NO/PHARM/PACT 3 (Req'g Loc Img Loc: NHM/CT Service: Unknown [place] [facility] , (Case [id number] COMPLETE) CT THORAX W/O CONT (CT Detailed) CPT:34910 Reason for Study: pulmonary fibrosis on cxr at [facility] last week. Clinical History: pulmonary fibrosis on cxr at [facility] last week. He finished aUGMENTIN 6/5, but now reports that phlegm is now returning. Report Status: Verified Date Reported: NOV 24, 2023 Date Verified: NOV 24, 2023 Vegetable Vendor E-Sig: Report: EXAM: CT chest without contrast COMPARISON: None. HISTORY: pulmonary fibrosis on cxr at [facility] last week. He finished aUGMENTIN 6/5, but [...] pulmonary fibrosis. READING PHYSICIAN: Kaiden Jacob D.O. -[phone] 11/24/2023 13:44 EDT [facility] National Teleradiology Program [phone] (For Medical Practitioner Use Only) Attention Patients / Veterans: If you have questions or concerns about these test results, please contact your ordering provider or primary care team. Primary Diagnostic Code: NO ALERT REQUIRED Primary Interpreting Staff: RADIOLOGY,OUTSIDE SERVICE, Staff Physician / RADIOLOGY,OUTSIDE SERVICE [facility] October 25, 2023 10:53 AM OUTSIDE CHEST (2 VIEWS): FABY GONZALEZ [id number] -1940 M Exm Date: OCTOBER 25, 2023@10:53 Req Phys: ADRIANA HUITRON Loc: NHM/OUTSIDE IMAGING NON-CNT (R Img Loc: OUTSIDE GENERAL RADIOLOGY Service: Unknown (Case [id number] COMPLETE) OUTSIDE CHEST (2 VIEWS) (RAD Detailed) CPT:54551 Reason for Study: outside images downloaded for continuity of care Clinical History: outside images downloaded for continuity of care Report Status: Electronically Filed Date Reported: OCTOBER 25, 2023 Report: THIS EXAM WAS PERFORMED AND INTERPRETED AT AN OUTSIDE HOSPITAL Impression: THIS EXAM WAS PERFORMED AND INTERPRETED AT AN OUTSIDE HOSPITAL Primary Diagnostic Code: VERIFIED BY: / *ELECTRONICALLY FILED* [facility] Encounter Notes: All associated encounter notes This section contains the clinical notes associated to the Encounter. Date/Time Encounter Note(s) Provider Source Nov 14, 2023 04:41 PM ADDENDUM: LOCAL TITLE: Addendum STANDARD TITLE: ADDENDUM DATE OF NOTE: NOV 14, 2023@16:41:13 ENTRY DATE: NOV 14, 2023@16:41:13 AUTHOR: ARDIANA HUITORN EXP COSIGNER: URGENCY: STATUS: COMPLETED cxr changed to CT, PFTs and [facility] Pulm. Offer sick call as needed for breathing and have him schedule above. /renny/ Adriana Huitron PA-C STAFF PHYSICIAN [employer] Signed: 11/14/2023 16:42 Receipt Acknowledged By: 11/15/2023 09:02 /renny/ NI FLETCHER RN REGISTERED NURSE === --- Original Document --- 11/11/23 CCC: SCHEDULING ADMINISTRATION: Patient Demographics Patient Name: FABY GONZALEZ Patient Primary Phone: [phone] Patient Primary [address]: [address] [place] [id number] Patient : 1940 Patient Age: 82 Caller/Recipient Relation to Patient: Self Administrative Administrative Note Reason: Other Administrative Note Comments: is calling to report to pact team that he has started coughing again with a productive cough after recovering from pneumonia and he is wanting to speak with his pact team to discuss if the chest x ray is needed sooner that his PCP is requesting. Please call back at to discuss as is declining to speak with [facility] front desk officer /renny/ JOSE ANGEL ARANDA 1 [facility] AMSA Signed: 11/11/2023 10:25 Receipt Acknowledged By: 11/14/2023 08:08 /renny/ NI FLETCHER RN REGISTERED NURSE 11/14/2023 13:29 /renny/ CHARLIE MARTINO LPN 11/11/2023 ADDENDUM STATUS: COMPLETED seen November 02 by PCP: pulmonary fibrosis on cxr at [facility] last week. He finished aUGMENTIN yesterday, reports that he is doing 'really well' We plan repeat cxr one month and yunier pulm consult to follow for fibrosis. Chest xray on hold by PCP, please advise. /renny/ NI FLETCHER RN REGISTERED NURSE Signed: 11/11/2023 10:28 Receipt Acknowledged By: 11/11/2023 15:44 /renny/ Adriana Huitron PA-C STAFF PHYSICIAN [employer] 11/11/2023 ADDENDUM STATUS: COMPLETED ED now if he thinks appropriate vs I can order CT chest here next week and request pulmonary consult thru [facility]. OTC Guaifenesin. /renny/ Adriana Huitron PA-C STAFF PHYSICIAN [employer] Signed: 11/11/2023 15:44 Receipt Acknowledged By: 11/14/2023 15:29 /renny/ NI FLETCHER RN REGISTERED NURSE 11/14/2023 ADDENDUM STATUS: COMPLETED Spoke to who said this is not an ER situation but after meeting with him on Nov 02 they made a plan to look at chest x-ray again to make sure things cleared up but after finishing ABX treatment he feel congestion/phlegm has returned but that lungs feel clear still. Endorsing feeling increased tiredness and wiped out . Wanted to f/u with PCP plan to repeat Chest Xray. /mary ellen FLETCHER RN REGISTERED NURSE Signed: 11/14/2023 15:33 Receipt Acknowledged By: 11/14/2023 16:41 /renny/ Adriana Huitron PA-C STAFF PHYSICIAN [employer] 11/15/2023 ADDENDUM STATUS: COMPLETED Spoke to and relayed message per provider. understood and agreed to plan. /mary ellen FLETCHER RN REGISTERED NURSE Signed: 11/15/2023 09:02 ADRIANA HUITRON [place] [facility] [place] [facility] Nov 14, 2023 03:30 PM ADDENDUM: LOCAL TITLE: Addendum STANDARD TITLE: ADDENDUM DATE OF NOTE: NOV 14, 2023@15:30:21 ENTRY DATE: NOV 14, 2023@15:30:22 AUTHOR: NI FLETCHER EXP COSIGNER: URGENCY: STATUS: COMPLETED Spoke to who said this is not an ER situation but after meeting with him on Nov 02 they made a plan to look at chest x-ray again to make sure things cleared up but after finishing ABX treatment he feel congestion/phlegm has returned but that lungs feel clear still. Endorsing feeling increased tiredness and wiped out . Wanted to f/u with PCP plan to repeat Chest Xray. /mary ellen FLETCHER RN REGISTERED NURSE Signed: 11/14/2023 15:33 Receipt Acknowledged By: 11/14/2023 16:41 /es/ Adriana Huitron PA-C STAFF PHYSICIAN [employer] === --- Original Document --- 11/11/23 [facility]: SCHEDULING ADMINISTRATION: Patient Demographics Patient Name: FABY GONZALEZ Patient Primary Phone: [phone] Patient Primary Address: [address] [place] [address] [place] [address] Patient : 1940 Patient Age: 82 Caller/Recipient Relation to Patient: Self Administrative Administrative Note Reason: Other Administrative Note Comments: is calling to report to pact team that he has started coughing again with a productive cough after recovering from pneumonia and he is wanting to speak with his pact team to discuss if the chest x ray is needed sooner that his PCP is requesting. Please call back at to discuss as is declining to speak with [facility] front desk officer /es/ JOSE ANGEL ARANDA 1 [facility] AMSA Signed: 11/11/2023 10:25 Receipt Acknowledged By: 11/14/2023 08:08 /renny/ NI FLETCHER RN REGISTERED NURSE 11/14/2023 13:29 /renny/ CHARLIE MARTINO LPN 11/11/2023 ADDENDUM STATUS: COMPLETED seen November 02 by PCP: pulmonary fibrosis on cxr at [facility] last week. He finished aUGMENTIN yesterday, reports that he is doing 'really well' We plan repeat cxr one month and liklely pulm consult to follow for fibrosis. Chest xray on hold by PCP, please advise. /renny/ NI FLETCHER RN REGISTERED NURSE Signed: 11/11/2023 10:28 Receipt Acknowledged By: 11/11/2023 15:44 /renny/ Adriana Huitron PA-C STAFF PHYSICIAN [employer] 11/11/2023 ADDENDUM STATUS: COMPLETED ED now if he thinks appropriate vs I can order CT chest here next week and request pulmonary consult thru [facility]. OTC Guaifenesin. /renny/ Adriana Huitron PA-C STAFF PHYSICIAN [employer] Signed: 11/11/2023 15:44 Receipt Acknowledged By: 11/14/2023 15:29 /renny/ NI FLETCHER RN REGISTERED NURSE 11/14/2023 ADDENDUM STATUS: UNSIGNED You may not VIEW this UNSIGNED Addendum. NI FLETCHER [place] [facility] [place] [facility] Nov 11, 2023 03:43 PM ADDENDUM: LOCAL TITLE: Addendum STANDARD TITLE: ADDENDUM DATE OF NOTE: NOV 11, 2023@15:43:36 ENTRY DATE: NOV 11, 2023@15:43:37 AUTHOR: ADRIANA HUITRON COSIGNER: URGENCY: STATUS: COMPLETED ED now if he thinks appropriate vs I can order CT chest here next week and request pulmonary consult thru [facility]. OT Bennyaifendamián. /renny/ Adriana Huitron PA-C STAFF PHYSICIAN [employer] Signed: 11/11/2023 15:44 Receipt Acknowledged By: 11/14/2023 15:29 /renny/ NI FLETCHER RN REGISTERED NURSE === --- Original Document --- 11/11/23 [facility]: SCHEDULING ADMINISTRATION: Patient Demographics Patient Name: FABY GONZALEZ Patient Primary Phone: [phone] Patient Primary [address]: [address] [place] [address] Patient : 1940 Patient Age: 82 Caller/Recipient Relation to Patient: Self Administrative Administrative Note Reason: Other Administrative Note Comments: is calling to report to pact team that he has started coughing again with a productive cough after recovering from pneumonia and he is wanting to speak with his pact team to discuss if the chest x ray is needed sooner that his PCP is requesting. Please call back at to discuss as is declining to speak with [facility] front desk officer /es/ JOSE ANGEL ARNADA 1 [facility] AMSA Signed: 11/11/2023 10:25 Receipt Acknowledged By: 11/14/2023 08:08 /renny/ NI FLETCHER RN REGISTERED NURSE 11/14/2023 13:29 /es/ CHARLIE MARTINO LPN 11/11/2023 ADDENDUM STATUS: COMPLETED [place] seen November 02 by PCP: pulmonary fibrosis on cxr at [facility] last week. He finished aUGMENTIN yesterday, reports that he is doing 'really well' We plan repeat cxr one month and liklely pulm consult to follow for fibrosis. Chest xray on hold by PCP, please advise. /renny/ NI FLETCHER RN REGISTERED NURSE Signed: 11/11/2023 10:28 Receipt Acknowledged By: 11/11/2023 15:44 /renny/ Adriana Huitron PA-C STAFF PHYSICIAN [employer] ADRIANA HUITRON [place] [facility] Nov 11, 2023 10:26 AM ADDENDUM: LOCAL TITLE: Addendum STANDARD TITLE: ADDENDUM DATE OF NOTE: NOV 11, 2023@10:26:04 ENTRY DATE: NOV 11, 2023@10:26:05 AUTHOR: NI FLETCHER COSIGNER: URGENCY: STATUS: COMPLETED seen November 02 by PCP: pulmonary fibrosis on cxr at [facility] last week. He finished aUGMENTIN yesterday, reports that he is doing 'really well' We plan repeat cxr one month and liklely pulm consult to follow for fibrosis. Chest xray on hold by PCP, please advise. /renny/ NI FLETCHER RN REGISTERED NURSE Signed: 11/11/2023 10:28 Receipt Acknowledged By: 11/11/2023 15:44 /renny/ Adriana Huitron PA-C STAFF PHYSICIAN [employer] === --- Original Document --- 11/11/23 CCC: SCHEDULING ADMINISTRATION: Patient Demographics Patient Name: FABY GONZALEZ Patient Primary Phone: [phone] Patient Primary [address] [address] Patient : 1940 Patient Age: 82 Caller/Recipient Relation to Patient: Self Administrative Administrative Note Reason: Other Administrative Note Comments: [place] is calling to report to pact team that he has started coughing again with a productive cough after recovering from pneumonia and he is wanting to speak with his pact team to discuss if the chest x ray is needed sooner that his PCP is requesting. Please call back at to discuss as is declining to speak with [facility] front desk officer /es/ JOSE ANGEL ARANDA 1 [facility] AMSA Signed: 11/11/2023 10:25 Receipt Acknowledged By: * AWAITING SIGNATURE * NI FLETCHER * AWAITING SIGNATURE * CHARLIE MARTINO 11/11/2023 ADDENDUM STATUS: COMPLETED ED now if he thinks appropriate vs I can order CT chest here next week and request pulmonary consult thru [facility]. OTC Guaifenesin. /es/ Adriana Huitron PA-C STAFF PHYSICIAN [employer]ER Signed: 11/11/2023 15:44 Receipt Acknowledged By: * AWAITING SIGNATURE * NI FLETCHER LAUREN M [place] [facility] [place] [facility] Nov 11, 2023 10:25 AM ADMINISTRATIVE NOTE: LOCAL TITLE: [facility]: SCHEDULING ADMINISTRATION STANDARD TITLE: ADMINISTRATIVE NOTE DATE OF NOTE: NOV 11, 2023@10:25:27 ENTRY DATE: NOV 11, 2023@10:25:27 AUTHOR: JOSE ANGEL PULLIAM EXP COSIGNER: URGENCY: STATUS: COMPLETED [facility]: SCHEDULING ADMINISTRATION Has ADDENDA Patient Demographics Patient Name: FABY GONZALEZ Patient Primary Phone: [phone] Patient Primary Address: [place] [address] Patient : 1940 Patient Age: 82 Caller/Recipient Relation to Patient: Self Administrative Administrative Note Reason: Other Administrative Note Comments: [place] is calling to report to pact team that he has started coughing again with a productive cough after recovering from pneumonia and he is wanting to speak with his pact team to discuss if the chest x ray is needed sooner that his PCP is requesting. Please call back at to discuss as is declining to speak with [facility] front desk officer /renny/ JOSE ANGEL JONLUISITO MANOJ 1 [facility] AMSA Signed: 11/11/2023 10:25 Receipt Acknowledged By: 11/14/2023 08:08 /renny/ NI FLETCHER RN REGISTERED NURSE 11/14/2023 13:29 /renny/ CHARLIE MARTINO LPN 11/11/2023 ADDENDUM STATUS: COMPLETED seen November 02 by PCP: pulmonary fibrosis on cxr at [facility] last [facility]. He finished aUGMENTIN yesterday, reports that he is doing 'really well' We plan repeat cxr one month and yunier pulm consult to follow for fibrosis. Chest xray on hold by PCP, please advise. /renny/ NI FLETCHER RN REGISTERED NURSE Signed: 11/11/2023 10:28 Receipt Acknowledged By: 11/11/2023 15:44 /renny/ Adriana Huitron PA-C STAFF PHYSICIAN [employer]ER 11/11/2023 ADDENDUM STATUS: COMPLETED ED now if he thinks appropriate vs I can order CT chest here next week and request pulmonary consult thru [facility]. OTC Guaifenesin. /renny/ Adriana Huitron PA-C STAFF PHYSICIAN [employer]ER Signed: 11/11/2023 15:44 Receipt Acknowledged By: 11/14/2023 15:29 /renny/ NI FLETCHER RN REGISTERED NURSE 11/14/2023 ADDENDUM STATUS: COMPLETED Spoke to who said this is not an ER situation but after meeting with him on Nov 02 they made a plan to look at chest x-ray again to make sure things cleared up but after finishing ABX treatment he feel congestion/phlegm has returned but that lungs feel clear still. Endorsing feeling increased tiredness and wiped out . Wanted to f/u with PCP plan to repeat Chest Xray. /mary ellen FLETCHER RN REGISTERED NURSE Signed: 11/14/2023 15:33 Receipt Acknowledged By: 11/14/2023 16:41 /mary ellen Huitron PA-C STAFF PHYSICIAN [employer] 11/14/2023 ADDENDUM STATUS: COMPLETED cxr changed to CT, PFTs and CC Pulm. Offer sick call as needed for breathing and have him schedule above. /renny/ Adriana Huitron PA-C STAFF PHYSICIAN [employer]ER Signed: 11/14/2023 16:42 Receipt Acknowledged By: 11/15/2023 09:02 /renny/ NI FLETCHER, ARIELA REGISTERED NURSE 11/15/2023 ADDENDUM STATUS: COMPLETED Spoke to [place] and relayed message per provider. [place] understood and agreed to plan. /renny/ NI FLETCHER, RN REGISTERED NURSE Signed: 11/15/2023 09:02 JOSE AN[facility]EL PULLIAM [facility]
--- OUTSIDE RECORDS SUMMARY | 2024-06-04 12:18 | XMS_ITS | Encounter Summary ---
Author Name [facility] [place] [facility] [place] Organization [facility] [facility] [place] Address [address] [place] [address] Care Team Providers Care Aircraft Log Clerk Name Role Phone ADRIANA ROMERO Primary Care [...] INDEMNITY PLAN MEDICAL EXPENSE (OPT/PROF ) [facility] N Dec 28, 2016 [id number] [phone] LISAEMILIA HN PATIENT MEDICARE (WNR) MEDICARE (M) PART A Dec 28, 2016 PART A [id number] LISAEMILIA HN PATIENT MEDICARE (WNR) MEDICARE (M) PART B Dec 28, 2016 PART B [id number] LISAEMILIA HN PATIENT MEDICARE (WNR) MEDICARE (M) PART A Dec 28, 2016 PART A [id number] [phone] SBREGA,EMILIA HN PATIENT MEDICARE (WNR) MEDICARE (M) PART B Dec 28, 2016 PART B [id number] [phone] EMILIA GONZALEZ PATIENT UNICVIRGIL PREFERRED PROVIDER ORGANIZAT ION (PPO) DENI [place] [facility] IN[facility] N Dec 28, 2016 [id number] [phone] EMILIA GONZALEZ PATIENT UNICARE MEDICAL EXPENSE (OPT/PROF ) DENI [place] [facility] N Dec 28, 2016 [id number] [phone] EMILIA GONZALEZ PATIENT Selected Encounter This section includes the information on record at NE for the Encounter. Date/Time Encounter Type Encounter Description Reason Pro vider Source October 25, 2023 12:00 AM Outpatient Encounter EVENT (HISTORICAL) IHE Encounter Template Text not used by NE Plan of Treatment: Future Appointments (+ 6 months) and Future Tests (+/- 45 days) The Plan of Treatment section includes future care activities for the patient from all NE treatmentfacilities. This section includes future appointments and future orders which are active, pending or scheduled. Future Appointments This section includes appointments that were scheduled to occur 6 months from the date of the Encounter, up to a maximum of 20 appointments. The data comes from all NE treatment facilities. Appointment Date/Time Appointment Type Appointme nt Facility Name Nov 03, 2023 09:00 AM AMBULATORY - MEDICINE [place] [facility] [place] [facility] Nov 09, 2023 08:30 AM AMBULATORY - MEDICINE NE [facility] [place] [facility] Nov 18, 2023 08:30 AM AMBULATORY - NONE [place] [facility] [place] [facility] Dec 13, 2023 02:30 PM AMBULATORY - MEDICINE NE C [facility] [place] [facility] Dec 21, 2023 09:45 AM AMBULATORY - MEDICINE NE C [facility] [place] [facility] Jan 31, 2024 01:30 PM AMBULATORY - MEDICINE NE C [facility] [place] [facility] Feb 02, 2024 11:15 AM AMBULATORY - NONE NE [facility] [place] [facility] Apr 10, 2024 11:00 AM AMBULATORY - MEDICINE NE C [facility] [place] [facility] Lab Results: +/- 30 days of the encounter This section includes the Chemistry and Hematology Lab Results on record with NE for the patient. Radiology Reports and Pathology Reports are provided separately, in subsequent sections. Lab Results This section contains the Chemistry/Hematology Results that were resulted 30 days before or 30 daysafter the date of the Encounter. Date/Time Source Result Type Result - Unit Interpretation Reference Range Comment Nov 01, 2023 08:44 AM [facility] BASIC METABOLIC PANEL (fasting) Specimen Type: SERUM No comment entered. Ordering Provider: MICHAELA ROMERO F Report Released Date/Time: Apr 18, 2023 10:07 AM Reporting Lab: [address] [address] Performing Lab: [address] [address] UREA NITROGEN 19 mg/dL 7-25 GLUCOSE 178 mg/dL H 65-100 SODIUM 138 mmol/L 135-145 POTASSIUM 5.2 mmol/L H 3.5-5.0 CHLORIDE 105 mmol/L 100-110 CO2 24 meq/L 20-30 CREATININE, Serum 1.39 mg/dL 0.50-1.40 eGFR(CKD-EPI 2020) 50 mL/min L >60 Nov 01, 2023 08:44 AM [facility] LIVER FUNCTION Specimen Type: SERUM No comment entered. Ordering Provider: MICHAELA ROMERO F Report Released Date/Time: Apr 18, 2023 10:07 AM Reporting Lab: [address] [address] Performing Lab: [address] [address] PROTEIN,TOTAL 7.1 g/dL 6.0-8.3 ALBUMIN 4.0 g/dL 3.5-5.0 ALKALINE PHOSPHATASE 57 U/L 40-150 AST 23 U/L 5-34 ALT 17 U/L BILIRUBIN, TOTAL 0.5 mg/dL 0.2-1.2 Nov 01, 2023 08:44 AM [facility] LIPID PANEL FASTING Specimen Type: SERUM No comment entered. Ordering Provider: MICHAELA ROMERO F Report Released Date/Time: Apr 18, 2023 10:07 AM Reporting Lab: [facility] [address] [facility] [address] Performing Lab: [facility] [address] [address] CHOLESTEROL 158 mg/dL TRIGLYCERIDE 131 mg/dL 0-150 LDL calculated 103 mg/dL 0-129 CHOL/HDL 5.4 HDL CHOLESTEROL 29 mg/dL L 40-60 Nov 01, 2023 08:44 AM [facility] HEMOGLOBIN A1C PANEL Specimen Type: BLOOD [...] Apr 18, 2023 10:07 AM Reporting Lab: [facility] [address] [facility] [address] [address] Performing Lab: [facility] [address] [facility] [address] [address] HEMOGLOBIN A1C 8.2 H 4.0-5.6 Nov 01, 2023 08:44 AM [facility] MICROALBUMIN CREATININE RATIO PANEL Specimen Type: URINE No comment entered. Ordering Provider: MICHAELA ROMERO Report Released Date/Time: Apr 18, 2023 10:07 AM Reporting Lab: [facility] [address] [facility] [address] Performing Lab: [address] [address] MICROALBUMIN/C REATININE RATIO 170.4 mg/g H 0-29.9 MICROALBUMIN,Q UANTITATIVE 11.6 mg/dL RR UNAVAIL CREATININE URINE 68.07 mg/dL Nov 01, 2023 08:44 AM [facility] URIC ACID Specimen Type: SERUM No comment entered. Ordering Provider: VANWAGNER,WILL FIONA F Report Released Date/Time: Nov 07, 2023 10:27 AM Reporting Lab: [facility] [address] [facility] [address] Performing Lab: [facility] [address] [facility] [address] URIC ACID 5.7 mg/dL 3.5-7.2 Social History: Smoking Status (Most current) and Tobacco Use (All prior to encounter date) This section includes the most current, and the historical, smoking and tobacco- related health factors from the NE facility where the Encounter took place. Current Smoking Status This section includes the most current smoking, or tobacco-related health factor, from the NE facility where the Encounter took place. Date/Time Current Smoking Status Comment Facil ity Dec 10, 2022 10:00 AM VA-TOBACCO [facility] Tobacco Use History This section includes a history of the smoking, or tobacco-related health factors, that were collected on or before the date of the Encounter. The data comes from the NE facility where the Encounter took place. Date/Time Smoking Status/Tobacco Use Comment F acility Dec 10, 2022 10:00 AM VA-TOBACCO QUIT 15 YRS OR MORE NE [facility] [place] [facility] Jan 07, 2022 12:47 PM VA-TOBACCO DOESNT USE WI 30 MIN WAKEUP NE [facility] [place] [facility] Jan 07, 2022 12:47 PM VA-TOBACCO USE 30 YEARS OR MORE NE [facility] [place] [facility] Jan 07, 2022 12:47 PM VA-TOBACCO USE ADVICE NE [facility] [place] [facility] Jan 07, 2022 12:47 PM VA-TOBACCO USE LICENSED PHYSICAL THERAPIST ASSISTANT NO NE [facility] [place] [facility] Jan 07, 2022 12:47 PM VA-TOBACCO USE MED NO [facility] Jan 07, 2022 12:47 PM VA-TOBACCO USER EVERY DAY [facility] Radiology Reports: +/- 30 days of [...] the Encounter. The data comes from all NE treatment facilities. Date/Time Radiology Report Provider Source Nov 18, 2023 08:[address] W/O CONT: FABY GONZALEZ [id number] -1940 M Exm Date: NOV 18, 2023@08:12 Req Phys: ADRIANA ROMERO Pat Loc: CWM/NO/PHARM/PACT 3 (Req'g Loc Img Loc: NHM/CT Service: [facility] , (Case [id number] COMPLETE) CT THORAX W/O CONT (CT Detailed) CPT:53918 Reason for Study: pulmonary fibrosis on cxr at [facility] last week. Clinical History: pulmonary fibrosis on cxr at [facility] last week. He finished aUGMENTIN 6/5, but now reports that phlegm is now returning. Report Status: Verified Date Reported: NOV 24, 2023 Date Verified: NOV 24, 2023 Respiratory Care Program Director E-Sig: Report: EXAM: CT chest without contrast COMPARISON: None. HISTORY: pulmonary fibrosis on cxr at [facility]. He finished aUGMENTIN 6/5, but [...] pulmonary fibrosis. READING PHYSICIAN: Kaiden Jacob D.O. -[id number] 11/24/2023 13:44 EDT [facility] National Teleradiology Program [phone] (For Medical Practitioner Use Only) Attention Patients / Veterans: If you have questions or concerns about these test results, please contact your ordering provider or primary care team. Primary Diagnostic Code: NO ALERT REQUIRED Primary Interpreting Staff: RADIOLOGY,OUTSIDE SERVICE, Staff Physician / RADIOLOGY,OUTSIDE SERVICE [facility] October 25, 2023 10:53 AM OUTSIDE CHEST (2 VIEWS): SHEELAJENNIFERFABY Hinkle J [id number] -1940 M Exm Date: OCTOBER 25, 2023@10:53 Req Phys: ADRIANA ROMERO Loc: NHM/OUTSIDE IMAGING NON-CNT (R Img Loc: OUTSIDE GENERAL RADIOLOGY Service: Unknown (Case 10 COMPLETE) OUTSIDE CHEST (2 VIEWS) (RAD Detailed) CPT:61013 Reason for Study: outside images downloaded for continuity of care Clinical History: outside images downloaded for continuity of care Report Status: Electronically Filed Date Reported: OCTOBER 25, 2023 Report: THIS EXAM WAS PERFORMED AND INTERPRETED AT AN OUTSIDE HOSPITAL Impression: THIS EXAM WAS PERFORMED AND INTERPRETED AT AN OUTSIDE HOSPITAL Primary Diagnostic Code: VERIFIED BY: / *ELECTRONICALLY FILED* [facility] Encounter Notes: All associated encounter notes This section contains the clinical notes associated to the Encounter. Date/Time Encounter Note(s) Provider Source October 25, 2023 12:00 AM NONVA NOTE: LOCAL TITLE: COMMUNITY CARE-URGENT CARE RECORD STANDARD TITLE: NONVA NOTE DATE OF NOTE: OCTOBER 25, 2023 ENTRY DATE: DEC 07, 2023@13:25:31 AUTHOR: SYLVIE GIBSON MA COSIGNER: URGENCY: STATUS: COMPLETED VistA Imaging - Scanned Document SCANNED DOCUMENT SIGNATURE NOT REQUIRED Electronically Filed: 12/07/2023 by: SYLVIE GIBSON HAULPAK DRIVER SYLVIE GIBSON CNTRL [facility]
--- OUTSIDE RECORDS SUMMARY | 2024-06-04 12:18 | XMS_ITS ---
Author Name [facility] [place] Organization [facility] [place] [place] Address [address] [place] [address] Care Team Providers Care Salvage Engineering Technician Name Role Phone ADRIANA ROMERO Primary [...] GIC INDEMNITY PLAN MEDICAL EXPENSE (OPT/PROF ) [facility] IN[facility] N Dec 28, 2016 [id number] [phone] EMILIA GONZALEZ HN PATIENT MEDICARE (WNR) MEDICARE (M) PART A Dec 28, 2016 PART A [id number] LISAEMILIA HN PATIENT MEDICARE (WNR) MEDICARE (M) PART B Dec 28, 2016 PART B [id number] [phone] LISAEMILIA HN PATIENT MEDICARE (WNR) MEDICARE (M) PART A Dec 28, 2016 PART A [id number] SBREGA,EMILIA HN PATIENT MEDICARE (WNR) MEDICARE (M) PART B Dec 28, 2016 PART B [id number] EMILIA GONZALEZ PATIENT BRIANA PREFERRED PROVIDER ORGANIZAT ION (PPO) DENI [facility] Dec 28, 2016 [id number] [phone] EMILIA GONZALEZ PATIENT BRIANA MEDICAL EXPENSE (OPT/PROF ) DENI [facility] Dec 28, 2016 [id number] [phone] EMILIA GONZALEZ PATIENT Selected Encounter This section includes the information on record at [place] for the Encounter. Date/Time Encounter Type Encounter Description Reason Pro vider Source Nov 22, 2023 04:19 PM Outpatient Encounter PULMONARY FUNCTION IHE Encounter Template Text not used by [...] 13, 2023 02:30 PM AMBULATORY - MEDICINE [place] [facility] [place] [facility] Dec 21, 2023 09:45 AM AMBULATORY - MEDICINE [place] [place] [facility] Jan 31, 2024 01:30 PM AMBULATORY - MEDICINE [place] [facility] [place] [facility] Feb 02, 2024 11:15 AM AMBULATORY - NONE [place] [facility] [place] [facility] Apr 10, 2024 11:00 AM AMBULATORY - MEDICINE [place] [facility] [place] [place] [facility] May 10, 2024 09:00 AM AMBULATORY - MEDICINE [place] [place] [facility] Lab Results: +/- 30 days of [...] Apr 18, 2023 10:07 AM Reporting Lab: [address] [address] Performing Lab: [address] [address] UREA NITROGEN 19 mg/dL 7-25 GLUCOSE 178 [...] Apr 18, 2023 10:07 AM Reporting Lab: [address] [address] Performing Lab: [address] [address] PROTEIN,TOTAL 7.1 g/dL 6.0-8.3 ALBUMIN 4.0 g/dL [...] Apr 18, 2023 10:07 AM Reporting Lab: [facility] [address] [facility] [address] Performing Lab: [facility]N [facility] [address] [facility] [address] HEMOGLOBIN A1C 8.2 H 4.0-5.6 Nov 01, 2023 08:44 AM [facility] LIPID PANEL FASTING Specimen Type: SERUM No comment entered. Ordering Provider: MICHAELA ROMERO F Report Released Date/Time: Apr 18, 2023 10:07 AM Reporting Lab: [facility]ITALRGREIL [facility]ITALN [facility]USE[facility] [address] [facility] [address] Performing Lab: [facility]ITALRGREIL [facility]CH[facility]AT[facility] HOSPITALN [facility]ENTERUSETS [address] [address] CHOLESTEROL 158 mg/dL TRIGLYCERIDE 131 mg/dL 0-150 LDL calculated 103 mg/dL 0-129 CHOL/HDL 5.4 HDL CHOLESTEROL 29 mg/dL L 40-60 Nov 01, 2023 08:44 AM [facility] MICROALBUMIN CREATININE RATIO PANEL Specimen Type: URINE No comment entered. Ordering Provider: MICHAELA ROMERO F Report Released Date/Time: Apr 18, 2023 10:07 AM Reporting Lab: [facility] TRN [facility] [address] [facility] [address] Performing Lab: [facility]PITALRGREIL [facility]CH[facility]AT[facility] HOSPITALN [facility]ENTERUSETS [address] [address] MICROALBUMIN/C REATININE RATIO 170.4 mg/g H 0-29.9 MICROALBUMIN,Q UANTITATIVE 11.6 mg/dL RR UNAVAIL CREATININE URINE 68.07 mg/dL Nov 01, 2023 08:44 AM [facility] URIC ACID Specimen Type: SERUM No comment entered. Ordering Provider: MICHAELA ROMERO F Report Released Date/Time: Nov 07, 2023 10:27 AM Reporting Lab: [facility]ITALRGREIL [facility] HOSPITALN [facility]ENTERUSETS [address] [address] Performing Lab: [facility]ITALRL [facility]N [place] [facility] [address] [facility] [address] URIC ACID 5.7 mg/dL 3.5-7.2 Social History: [...] AM VA-TOBACCO QUIT 15 YRS OR MORE [facility] WSN [facility] Tobacco Use History This section includes a history of the smoking, or tobacco-related health factors, that were collected on or before the date of the Encounter. The data comes from the [place] facility where the Encounter took place. Date/Time Smoking Status/Tobacco Use Comment F acility Dec 10, 2022 10:00 AM VA-TOBACCO QUIT 15 YRS OR MORE [place] [facility] [place] [facility] Jan 07, 2022 12:47 PM VA-TOBACCO DOESNT USE WI 30 MIN WAKEUP [place] [facility] [place] [facility] Jan 07, 2022 12:47 PM VA-TOBACCO USE 30 YEARS OR MORE [place] [place] [facility] Jan 07, 2022 12:47 PM VA-TOBACCO USE ADVICE [place] [facility] [facility] Jan 07, 2022 12:47 PM VA-TOBACCO USE SKIN TOGGLER NO [place] [place] [facility] Jan 07, 2022 12:47 PM VA-TOBACCO USE MED NO [place] [facility] Jan 07, 2022 12:47 PM VA-TOBACCO USER EVERY DAY SD CNTRL WSTRN [facility] Radiology Reports: +/- 30 days of [...] AM CHEST CT W/O CONT: FABY GONZALEZ [id number] -1940 M Exm Date: NOV 18, 2023@08:12 Req Phys: JHOANALUCRECIAADRIANA Rangel Sonya Loc: CWM/NO/PHARM/PACT 3 (Req'g Loc Img Loc: NHM/CT Service: Unknown [place] [facility] , (Case 542 COMPLETE) CT THORAX W/O CONT (CT Detailed) CPT:13977 Reason for Study: pulmonary fibrosis on cxr at [facility] last week. Clinical History: pulmonary fibrosis on cxr at [facility] last week. He finished aUGMENTIN 6/5, but now reports that phlegm is now returning. Report Status: Verified Date Reported: NOV 24, 2023 Date Verified: NOV 24, 2023 Commercial Loan Coordinator E-Sig: Report: EXAM: CT chest without contrast COMPARISON: None. HISTORY: pulmonary fibrosis on cxr at [facility] last week. He finished aUGMENTIN 6/5, [...] pulmonary fibrosis. READING PHYSICIAN: Kaiden Jacob D.O. -[id number] 11/24/2023 13:44 EDT [facility] National Teleradiology Program [phone] (For Medical Practitioner Use Only) Attention Patients / Veterans: If you have questions or concerns about these test results, please contact your ordering provider or primary care team. Primary Diagnostic Code: NO ALERT REQUIRED Primary Interpreting Staff: RADIOLOGY,OUTSIDE SERVICE, Staff Physician / RADIOLOGY,OUTSIDE SERVICE [facility] October 25, 2023 10:53 AM OUTSIDE CHEST (2 VIEWS): FABY GONZALEZ [id number] -1940 M Exm Date: OCTOBER 25, 2023@10:53 Req Phys: ADRIANA ROMERO Loc: NHM/OUTSIDE IMAGING NON-CNT (R Img Loc: OUTSIDE GENERAL RADIOLOGY Service: Unknown (Case 10 COMPLETE) OUTSIDE CHEST (2 VIEWS) (RAD Detailed) CPT:26982 Reason for Study: outside images downloaded for [...] Encounter. Date/Time Encounter Note(s) Provider Source Nov 22, 2023 04:19 PM PRIMARY CARE LILIA RS: LOCAL TITLE: PATIENT LETTER - SPECIALTY [facility] STANDARD TITLE: PRIMARY CARE LETTERS DATE OF NOTE: NOV 22, 2023@16:19 ENTRY DATE: NOV 22, 2023@16:20 AUTHOR: LACY NEGRON COSIGNER: URGENCY: STATUS: COMPLETED [facility] Telephone number: [phone] FABY GONZALEZ [address], [place], [address] NOV 22, 2023 Dear , Thank you for choosing the [facility] as your primary choice for health care. As a partner in your health care, we are contacting you in writing since we have been unsuccessful in our attempts to reach you to date. We want to assure you we are doing everything possible to schedule Veterans for their VA medical care appointments. Our records indicate you are due for an appointment in Pulmonary. If you would like to be seen, please contact [place] Call Center at [phone] Ext. [phone] Option 3 to schedule an appointment. Thank you for your service to our nation, and we look forward to hearing from you soon. Sincerely, [facility] [address] [facility] [address] [place] [address] [place] [address] ext. [phone] [facility] [address] [facility] [address] [place] [address] [place] [address] [phone] [facility] [address] [address] [place] [address] ext. [phone] [facility] [address] [place] [address] ext. [phone] [facility] [address] [place] [phone] LACY NEGRON [place] [facility]
--- OUTSIDE RECORDS SUMMARY | 2024-06-04 12:19 | XMS_ITS ---
Author Name [facility] [place] [facility] [place] Address [address] [place] [address] Care Team Providers Care Chief Of Police Name Role Phone ADRIANA ROMERO Primary [...] [facility] Dec 28, 2016 [id number] [phone] LISAEMILIA HN PATIENT MEDICARE (WNR) MEDICARE (M) PART A Dec 28, 2016 PART A [id number] LISAEMILIA HN PATIENT MEDICARE (WNR) MEDICARE (M) PART B Dec 28, 2016 PART B [id number] LISAEMILIA HN PATIENT MEDICARE (WNR) MEDICARE (M) PART A Dec 28, 2016 PART A [id number] SBREGA,EMILIA HN PATIENT MEDICARE (WNR) MEDICARE (M) PART B Dec 28, 2016 PART B [id number] EMILIA GONZALEZ PATIENT BRIANA PREFERRED PROVIDER ORGANIZAT ION (PPO) [facility] Dec 28, 2016 [id number] [phone] EMILIA GONZALEZ PATIENT UNICARE MEDICAL EXPENSE (OPT/PROF ) [facility] Dec 28, 2016 [id number] [phone] [id number] [phone] EMILIA GONZALEZ PATIENT Selected Encounter This section includes the information on record at [place] for the Encounter. Date/Time Encounter Type Encounter Description Reason Pro vider Source Dec 13, 2023 12:00 AM Outpatient Encounter EVENT (HISTORICAL) IHE Encounter Template Text not used by [place] Plan of Treatment: Future Appointments (+ 6 months) and Future Tests (+/- 45 days) The Plan of Treatment section includes future care activities for the patient from all [place] treatmentfacilities. This section includes future appointments and future orders which are active, pending or scheduled. Future Appointments This section includes appointments that were scheduled to occur 6 months from the date of the Encounter, up to a maximum of 20 appointments. The data comes from all [place] treatment facilities. Appointment Date/Time Appointment Type Appointme nt Facility Name Dec 21, 2023 09:45 AM AM[place]ULATORY [place]ICINE [place] [facility] [place] [facility] Jan 31, 2024 01:30 PM AMBULATORY - MEDICINE [place] [facility] [place] [facility] Feb 02, 2024 11:15 AM AMBULATORY - [facility] [place] [facility] Apr 10, 2024 11:00 AM AMBULATORY - MEDICINE [place] [facility] [place] [facility] May 10, 2024 09:00 AM AMBULATORY - MEDICINE [place] [facility] [place] [facility] Jun 11, 2024 01:00 PM AMBULATORY - MEDICINE [facility] [place] [facility] Social History: Smoking Status (Most current) and Tobacco Use (All prior to encounter date) This section includes the most current, and the historical, smoking and tobacco- related health factors from the [place] facility where the Encounter took place. Current Smoking Status This section includes the most current smoking, or tobacco-related health factor, from the [facility] facility where the [facility]counter took place. Date/Time Current Smoking Status Comment Sun ity Dec 10, 2022 10:00 AM [place]-TOBACCO QUIT 15 YRS OR MORE [facility] Tobacco Use History This section includes a history of the smoking, or tobacco-related health factors, that were collected on or before the date of the Encounter. The data comes from the [place] facility where the Encounter took place. Date/Time Smoking Status/Tobacco Use Comment F acility Dec 10, 2022 10:00 AM [facility]RS [facility] Jan 07, 2022 12:47 PM VA-TOBACCO DOESNT USE WI 30 MIN [facility] Jan 07, 2022 12:47 PM VA-TOBACCO USE 30 YEARS OR MORE [facility] Jan 07, 2022 12:47 PM VA-TOBACCO USE ADVICE [facility] Jan 07, 2022 12:47 PM VA-TOBACCO USE PARTS CATALOGUER NO [facility] Jan 07, 2022 12:47 PM VA-TOBACCO USE MED NO [facility] Jan 07, 2022 12:47 PM VA-TOBACCO USER EVERY DAY [facility] Radiology Reports: +/- 30 days of [...] the Encounter. The data comes from all [place] treatment facilities. Date/Time Radiology Report Provider Source Nov 18, 2023 08:[address] W/O CONT: FABY GONZALEZ [id number] -[id number] M Exm Date: NOV 18, 2023@08:12 Req Phys: ADRIANA ROMERO Loc: CWM/NO/PHARM/PACT 3 (Req'g Loc Img Loc: NHM/CT Service: Unknown [facility] , (Case [id number] COMPLETE) CT THORAX W/O CONT (CT Detailed) CPT:55513 Reason for Study: pulmonary fibrosis on [facility]. Clinical History: pulmonary fibrosis on cxr at [facility]. He finished aUGMENTIN 6/5, but now reports that phlegm is now returning. Report Status: Verified Date Reported: NOV 24, 2023 Date Verified: NOV 24, 2023 Awning Installer E-Sig: Report: EXAM: CT chest without contrast COMPARISON: None. HISTORY: pulmonary fibrosis on cx[facility]. He finished aUGMENTIN 6/5, but [...] pulmonary fibrosis. READING PHYSICIAN: Kaiden Jacob D.O. -[id number] 11/24/2023 13:44 EDT [facility] National Teleradiology Program [phone] (For Medical Practitioner Use Only) Attention Patients / Veterans: If you have questions or concerns about these test results, please contact your ordering provider or primary care team. Primary Diagnostic Code: NO ALERT REQUIRED Primary Interpreting Staff: RADIOLOGY,OUTSIDE SERVICE, Staff Physician / RADIOLOGY,OUTSIDE SERVICE [facility] Encounter Notes: All associated encounter notes This section contains the clinical notes associated to the Encounter. Date/Time Encounter Note(s) Provider Source Dec 13, 2023 12:00 AM NONVA CONSULT: LOCAL TITLE: COMMUNITY CARE-CONSULT RESULT NOTE STANDARD TITLE: NONVA CONSULT DATE OF NOTE: DEC 13, 2023 ENTRY DATE: FEB 28, 2024@15:25:56 AUTHOR: CODIE EPSTEIN COSIGNER: URGENCY: STATUS: COMPLETED VistA Imaging - Scanned Document SCANNED DOCUMENT SIGNATURE NOT REQUIRED Electronically Filed: 02/28/2024 by: CODIE HALL [facility]
--- OUTSIDE RECORDS SUMMARY | 2024-06-04 12:19 | XMS_ITS ---
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 Role Phone ADRIANA ROMERO Primary Care [...] [facility] Dec 28, 2016 [id number] LISAEMILIA HN PATIENT MEDICARE (WNR) MEDICARE (M) PART A Dec 28, 2016 PART A [id number] [phone] LISAEMILIA HN PATIENT MEDICARE (WNR) MEDICARE (M) PART B Dec 28, 2016 PART B [id number] [phone] LISAEMILIA HN PATIENT MEDICARE (WNR) MEDICARE (M) PART A Dec 28, 2016 PART A [id number] [phone] EMILIA GONZALEZ HN PATIENT MEDICARE (WNR) MEDICARE (M) PART B Dec 28, 2016 PART B [id number] EMILIA GONZALEZ PATIENT BRIANA PREFERRED PROVIDER ORGANIZAT ION (PPO) DENI [facility] N Dec 28, 2016 [id number] [phone] EMILIA GONZALEZ PATIENT UNICARE MEDICAL EXPENSE (OPT/PROF ) DENI [place] [facility] N Dec 28, 2016 [id number] [phone] EMILIA GONZALEZ PATIENT Selected Encounter This section includes the information on record at NH for the Encounter. Date/Time Encounter Type Encounter Description Reason Provider Source Feb 01, 2024 12:58 PM Outpatient Encounter EVENT (HISTORICAL) GEORGE KAT [place] Encounter Template Text not used by NH Plan of Treatment: Future Appointments (+ 6 months) and Future Tests (+/- 45 days) The Plan of Treatment section includes future care activities for the patient from all NH treatmentfacilities. This section includes future appointments and future orders which are active, pending or scheduled. Future Appointments This section includes appointments that were scheduled to occur 6 months from the date of the Encounter, up to a maximum of 20 appointments. The data comes from all NH treatment facilities. Appointment Date/Time Appointment Type Appointme nt Facility Name Feb 02, 2024 11:15 AM AMBULATORY - NONE [place] [facility] [place] [facility] Apr 10, 2024 11:00 AM AMBULATORY - MEDICINE [place] [facility] [place] [facility] May 10, 2024 09:00 AM AMBULATORY - MEDICINE [facility] [place] [facility] Jun 11, 2024 01:00 PM AMBULATORY - MEDICINE [place] [facility] [place] [facility] Jul 12, 2024 09:00 AM AMBULATORY - MEDICINE [facility] Active, Pending, and Scheduled Orders This section includes a listing of several types of active, pending, and scheduled orders, including clinic medications orders, diagnostic test orders, procedure orders and consult orders; where the start date of the order is 45 days before the date of the Encounter or 45 days after the date of theEncounter. The data comes from all NH treatment facilities. Test Date/Time Test Type Test Details Facility Name Jan 31, 2024 07:45 AM Laboratory - Chemi stry Order CYTOLOGY, URINE #1 URINE #1 SP [facility] Lab Results: +/- 30 days of the encounter This section includes the Chemistry and Hematology Lab Results on record with NH for the patient. Radiology Reports and Pathology Reports are provided separately, in subsequent sections. Lab Results This section contains the Chemistry/Hematology Results that were resulted 30 days before or 30 daysafter the date of the Encounter. Date/Time Source Result Type Result - Unit Interpretation Reference Range Comment Jan 31, 2024 07:45 AM [facility] PSA Specimen Type: SERUM No comment entered. Ordering Provider: MICHAELA ROMERO F Report Released Date/Time: Jan 25, 2024 02:31 PM Reporting Lab: [address] [address] Performing Lab: [address] [address] PSA 1.70 ng/mL 0.00-4.00 Jan 31, 2024 07:45 AM [facility] URINALYSIS Specimen Type: URINE Comment: If Glucose = >500 and Ketones are positive, please alert the Physician. Ordering Provider: MICHAELA ROMERO F Report Released Date/Time: Jan 25, 2024 02:31 PM Reporting Lab: [address] [address] Performing Lab: [address] [address] UA COLOR Light-Yellow Yellow UA APPEARANCE Clear Clear UA GLUCOSE Normal mg/dL Negative UA KETONES NEGATIVE mg/dL Negative UA BLOOD NEGATIVE mg/dL Negative UA PROTEIN NEGATIVE mg/dL Negative UA NITRITE NEGATIVE mg/dL Negative UA BILIRUBIN NEGATIVE mg/dL Negative UA SPECIFIC GRAVITY 1.013 L 1.016-1.02 2 UA pH 5.5 5.0-9.0 UA UROBILINOGEN Normal mg/dL <2.0 UA LEUKOCYTE NEGATIVE Negative Jan 31, 2024 07:45 AM [facility] CT/GC DNA PANEL(IN-HOUSE) Specimen Type: URINE Comment: Test performed on the [employer] Genexpert. A negative test results does not exclude the possibility of infection because results may be affected by improper specimen collection, concurrent antibiotic therapy, or the number of organisms in the specimen which may be below the sensitivity of the test. Ordering Provider: MICHAELA ROMERO F Report Released Date/Time: Jan 25, 2024 02:31 PM Reporting Lab: [address] [address] Performing Lab: [address] [address] GC PCR NOT DETECTED Not Detected CT PCR NOT DETECTED Not Detected Jan 31, 2024 07:44 AM [facility] HEMOGLOBIN A1C [...] Provider: MICHAELA ROMERO Report Released Date/Time: Nov 03, 2023 09:54 AM Reporting Lab: [address] [address] Performing Lab: [address] [address] HEMOGLOBIN A1C 7.1 H 4.0-5.6 Jan 31, 2024 07:44 AM [facility] LIPID PANEL FASTING Specimen Type: SERUM No comment entered. Ordering Provider: MICHAELA ROMERO F Report Released Date/Time: Nov 03, 2023 09:54 AM Reporting Lab: [address] [address] Performing Lab: [address] [address] CHOLESTEROL 151 mg/dL TRIGLYCERIDE 102 mg/dL 0-150 LDL calculated 102 mg/dL 0-129 CHOL/HDL 5.2 HDL CHOLESTEROL 29 mg/dL L 40-60 Jan 31, 2024 07:44 AM [facility] BASIC METABOLIC PANEL (fasting) Specimen Type: SERUM No comment entered. Ordering Provider: MICHAELA ROMERO F Report Released Date/Time: Nov 03, 2023 09:54 AM Reporting Lab: [address] [address] Performing Lab: [address] [address] UREA NITROGEN 22 mg/dL 7-25 GLUCOSE 128 mg/dL H 65-100 SODIUM 138 mmol/L 135-145 POTASSIUM 4.5 mmol/L 3.5-5.0 CHLORIDE 103 mmol/L 100-110 CO2 23 meq/L 20-30 CREATININE, Serum 1.56 mg/dL H 0.50-1.40 eGFR(CKD-EPI 2020) 44 mL/min L >60 Jan 31, 2024 07:44 AM [facility] LIVER FUNCTION Specimen Type: SERUM No comment entered. Ordering Provider: MICHAELA ROMERO F Report Released Date/Time: Nov 03, 2023 09:54 AM Reporting Lab: [address] [address] Performing Lab: [address] [address] PROTEIN,TOTAL 7.8 g/dL 6.0-8.3 ALBUMIN 4.3 g/dL 3.5-5.0 ALKALINE PHOSPHATASE 66 U/L 40-150 AST 32 U/L 5-34 ALT 19 U/L BILIRUBIN, TOTAL 0.5 mg/dL 0.2-1.2 Social History: Smoking Status (Most current) and Tobacco Use (All prior to encounter date) This section includes the most current, and the historical, smoking and tobacco- related health factors from the NH facility where the Encounter took place. Current Smoking Status This section includes the most current smoking, or tobacco-related health factor, from the NH facility where the Encounter took place. Date/Time Current Smoking Status Comment Sun gruber Jan 13, 2024 09:23 AM VA-TOBACCO FORMER USER [facility] Tobacco Use History This section includes a history of the smoking, or tobacco-related health factors, that were collected on or before the date of the Encounter. The data comes from the NH facility where the Encounter took place. Date/Time Smoking Status/Tobacco Use Comment F acility Jan 13, 2024 09:23 AM VA-TOBACCO QUIT 15 [facility]RS OR [facility] Dec 10, 2022 10:00 AM VA-TOBACCO FOR[facility] USER [facility] Dec 10, 2022 10:00 AM VA-TOBACCO QUIT 15 YRS OR MORE [place] [facility] [place] [facility] Jan 07, 2022 12:47 PM VA-TOBACCO DOESNT USE WI 30 MIN WAKEUP [facility] Jan 07, 2022 12:47 PM VA-TOBACCO USE 30 YEARS OR MORE [facility] Jan 07, 2022 12:47 PM VA-TOBACCO USE ADVICE [facility] Jan 07, 2022 12:47 PM 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 The data comes from all [place] treatment facilities. Date/Time Radiology Report Provider Source Feb 02, 2024 10:[address] ABDOMEN AND PELVIS WITHOUT CONT.: FABY GONZALEZ [id number] -1940 M Exm Date: FEB 02, 2024@10:56 Req Phys: ADRIANA ROMERO Loc: CWM/NO/PACT 3 (Req'g Loc) Img Loc: NHM/CT Service: Unknown [facility] [place] [facility] AMA, EVI [id number] (Case [id number] COMPLETE) CT ABDOMEN AND PELVIS WITHOUT CON(CT Detailed) CPT:42948 Reason for Study: hematuria. STones? Clinical History: Report Status: Verified Date Reported: FEB 02, 2024 Date Verified: FEB 02, 2024 Ict Sales Representative E-Sig:/ES/LINDA FONG JR Report: Study: CT scan of the abdomen and pelvis without contrast. Comparison: CT scan of the chest from November 18, 2023. Technique: Noncontrast 3 mm contiguous axial images were taken from the lung bases through the pubic symphysis. Soft tissue windows are provided. Coronal and sagittal reformatted images are also provided. Findings: Bilateral subpleural reticular opacities again seen in the lung bases. Associated traction bronchiectasis in the right middle lobe and lingula. Mild bibasilar honeycombing. Findings are unchanged. Moderate global cardiomegaly again seen with normal visualized pericardium. Moderate calcific atherosclerotic change is present to the visualized coronary arteries. The liver appears normal. The gallbladder is contracted without focal abnormality. No intrahepatic or extra hepatic biliary ductal dilatation is identified on this noncontrast examination. The pancreas, spleen, and the adrenal glands appear normal. The kidneys are overall normal and symmetric in size. The left kidney contains two separate 5 mm and 3 mm nonobstructing renal pelvic calculi. No obstructive changes are identified to either kidney. The ureters are normal in course and caliber. Likely 2 small abutting interpolar left renal cortical cystic lesions. Further evaluation with renal ultrasound is recommended to evaluate solid versus cystic etiology with the smaller and more superior one measuring 10.4 mm, 3-41 and the more inferior one that may represent lobulation versus cyst best seen 3-45 and 7-29 measuring 2.4 cm in greatest dimension but poorly visualized. The visualized ureters are normal in course and caliber. Small amount of layering dense debris and 5 mm bladder calculus within the right lateral aspect of the otherwise unremarkable bladder. Mild prostatomegaly indents the base of the bladder. The seminal vesicles appear normal. Multiple pelvic phleboliths are present. The stomach, small bowel and proximal colon are normal in course and caliber. The appendix is not seen. There is mild diverticular change to the descending and sigmoid colons without evidence of diverticulitis. Small fat-containing umbilical hernia. No bowel within it. Severe calcific atherosclerotic change is present in the aorta. No aneurysmal dilatation is identified. There is no dominant abdominal, pelvic or retroperitoneal lymphadenopathy. There is no intra-abdominal free air or free fluid. Age-appropriate degenerative changes are seen to the spine. No acute bony pathology is seen. Impression: Nonobstructive left-sided nephrolithiasis with possible renal cysts versus lobulation of the left kidney for which further evaluation with renal ultrasound is recommended, as described above. Primary Diagnostic Code: No immediate attention required Primary Interpreting Staff: LINDA FONG JR, Radiologist (Ict Sales Representative) /LINDA VASQUEZ JR [facility] Pathology Reports: +/- 30 days of the encounter Pathology Reports For cases when an order for pathology services may have been completed prior to the date of the Encounter, the report list includes the Pathology Reports that were completed up to 30 days before dateof the Encounter. For cases when an order for pathology services may have been completed after the date of the Encounter, the report list also includes the Pathology Reports that were completed up to30 days after date of the Encounter. The data comes from all NH treatment facilities. Date/Time Pathology Report Provider Source Feb 01, 2024 12:58 PM LR CYTOPATHOLOGY REPORT: LOCAL TITLE: LR CYTOPATHOLOGY REPORT STANDARD TITLE: PATHOLOGY DIAGNOSTIC STUDY REPORT DATE OF NOTE: FEB 01, 2024@12:58:09 ENTRY DATE: FEB 01, 2024@12:58:09 AUTHOR: GEORGE KAT EXP COSIGNER: URGENCY: STATUS: COMPLETED $APHDR Reporting Lab: [facility] [CLIA# [id number]] [address] [place] [phone] - - - - - - - - - - - - - - - - - - - - - - - - - - - - - - - - - - - - - - - - MEDICAL RECORD CYTOPATHOLOGY - - - - - - - - - - - - - - - - - - - - - - - - - - - - - - - - - - - - - - - - PATHOLOGY REPORT Accession No. CY [id number] - - - - - - - - - - - - - - - - - - - - - - - - - - - - - - - - - - - - - - - - $TEXT Submitted by: ADRIANA ROMERO Date obtained: Jan 31, 2024 07:45 - - - - - - - - - - - - - - - - - - - - - - - - - - - - - - - - - - - - - - - - Specimen (Received Jan 31, 2024 09:16): urine cytology [id number] - - - - - - - - - - - - - - - - - - - - - - - - - - - - - - - - - - - - - - - - BRIEF CLINICAL HISTORY: - - - - - - - - - - - - - - - - - - - - - - - - - - - - - - - - - - - - - - - - PREOPERATIVE DIAGNOSIS: - - - - - - - - - - - - - - - - - - - - - - - - - - - - - - - - - - - - - - - - OPERATIVE FINDINGS: - - - - - - - - - - - - - - - - - - - - - - - - - - - - - - - - - - - - - - - - POSTOPERATIVE DIAGNOSIS: Surgeon/physician: ADRIANA NIELSON =-=-=-=-=-=-=-=-=-=-=-=- =-=-=-=-=-=-=-=-=-=-=-=- =-=-=-=-=-=-=-=-=-=-=-=- =-=-=-= - - - - - - - - - - - - - - - - - - - - - - - - - - - - - - - - - - - - - - - - PATHOLOGY REPORT Accession No. CY [id number] 231 - - - - - - - - - - - - - - - - - - - - - - - - - - - - - - - - - - - - - - - - Screened by: BRYAN LANIER CT Description: cy 24 URINE CYTOLOGY 30 ML OF CLEAR YELLOW FLUID Diagnosis: Urine: - Satisfactory specimen - No malignant cells identified - Abundant crystals CPT:50870 /renny/ GEORGE KAT Signed Feb 01, 2024@12:58 Performing Laboratory: Cytology Report Performed By: [facility] [CLIA# [id number]] [address] [place] [address] $FTR - - - - - - - - - - - - - - - - - - - - - - - - - - - - - - - - - - - - - - - - (End of report) GEORGE KAT MD Date Feb 01, 2024 - - - - - - - - - - - - - - - - - - - - - - - - - - - - - - - - - - - - - - - - FABY GONZALEZ STANDARD FORM 515 ID:[id number] SEX:M :1940 AGE: 83 LOC:[facility] PCP: NISREEN Bassett /renny/ GEORGE KAT Signed: 02/01/2024 12:58 GEORGE KAT [facility] [employer] [facility] Encounter Notes: All associated encounter notes This section contains the clinical notes associated to the Encounter. Date/Time Encounter Note(s) Provider Source Feb 01, 2024 12:58 PM PATHOLOGY DIAGNOSTIC STUDY REPORT: LOCAL TITLE: LR CYTOPATHOLOGY REPORT STANDARD TITLE: PATHOLOGY DIAGNOSTIC STUDY REPORT DATE OF NOTE: FEB 01, 2024@12:58:09 ENTRY DATE: FEB 01, 2024@12:58:09 AUTHOR: GEORGE KAT EXP COSIGNER: URGENCY: STATUS: COMPLETED $APHDR Reporting Lab: [facility] [employer] [facility] [CLIA# [id number]] [address] [place] [address] - - - - - - - - - - - - - - - - - - - - - - - - - - - - - - - - - - - - - - - - MEDICAL RECORD CYTOPATHOLOGY - - - - - - - - - - - - - - - - - - - - - - - - - - - - - - - - - - - - - - - - PATHOLOGY REPORT Accession No. CY [id number] 231 - - - - - - - - - - - - - - - - - - - - - - - - - - - - - - - - - - - - - - - - $TEXT Submitted by: ADRIANA ROMERO Date obtained: Jan 31, 2024 07:45 - - - - - - - - - - - - - - - - - - - - - - - - - - - - - - - - - - - - - - - - Specimen (Received Jan 31, 2024 09:16): urine cytology [id number] - - - - - - - - - - - - - - - - - - - - - - - - - - - - - - - - - - - - - - - - BRIEF CLINICAL HISTORY: - - - - - - - - - - - - - - - - - - - - - - - - - - - - - - - - - - - - - - - - PREOPERATIVE DIAGNOSIS: - - - - - - - - - - - - - - - - - - - - - - - - - - - - - - - - - - - - - - - - OPERATIVE FINDINGS: - - - - - - - - - - - - - - - - - - - - - - - - - - - - - - - - - - - - - - - - POSTOPERATIVE DIAGNOSIS: Surgeon/physician: ADRIANA ROMERO PA =-=-=-=-=-=-=-=-=-=-=-=- =-=-=-=-=-=-=-=-=-=-=-=- =-=-=-=-=-=-=-=-=-=-=-=- =-=-=-= - - - - - - - - - - - - - - - - - - - - - - - - - - - - - - - - - - - - - - - - PATHOLOGY REPORT Accession No. CY [id number] - - - - - - - - - - - - - - - - - - - - - - - - - - - - - - - - - - - - - - - - Screened by: BRYAN MIXON Description: cy 24 URINE CYTOLOGY 30 ML OF CLEAR YELLOW FLUID Diagnosis: Urine: - Satisfactory specimen - No malignant cells identified - Abundant crystals CPT:[id number] /renny/ GEORGE KAT Signed Feb 01, 2024@12:58 Performing Laboratory: Cytology Report Performed By: [facility] [CLIA# [id number]] [address] [place] [address] $FTR - - - - - - - - - - - - - - - - - - - - - - - - - - - - - - - - - - - - - - - - (End of report) GEORGE KAT MD Date Feb 01, 2024 - - - - - - - - - - - - - - - - - - - - - - - - - - - - - - - - - - - - - - - - FABY GONZALEZ STANDARD FORM 515 ID:[id number] SEX:M :1940 AGE: 83 LOC:[facility] PCP: NISREEN Bassett /renny/ GEORGE KAT Signed: 02/01/2024 12:58 GEORGE KAT [facility]
--- OUTSIDE RECORDS SUMMARY | 2024-06-04 12:19 | XMS_ITS ---
Author Name [facility] [facility] [place] Organization [facility] [place] Address [address] [place] [address] Care Team Providers Care Canvas Products Sales Representative Name Role Phone ADRIANA ROMERO Primary Care [...] MEDICAL EXPENSE (OPT/PROF ) [facility] N Dec 28, 2016 [id number] [phone] EMILIA GONZALEZ HN PATIENT MEDICARE (WNR) MEDICARE (M) PART A Dec 28, 2016 PART A [id number] LISAEMILIA HN PATIENT MEDICARE (WNR) MEDICARE (M) PART B Dec 28, 2016 PART B [id number] [phone] LISAEMILIA HN PATIENT MEDICARE (WNR) MEDICARE (M) PART A Dec 28, 2016 PART A [id number] SBREGA,EMILIA HN PATIENT MEDICARE (WNR) MEDICARE (M) PART B Dec 28, 2016 PART B [id number] EMILIA GONZALEZ PATIENT BRIANA PREFERRED PROVIDER ORGANIZAT ION (PPO) [facility] Dec [facility], 2016 [id number] [phone] EMILIA GONZALEZ PATIENT UNICARE MEDICAL EXPENSE (OPT/PROF ) DENI [place] [facility] N Dec 28, 2016 [id number] [phone] EMILIA GONZALEZ PATIENT Selected Encounter This section includes the information on record at [place] for the Encounter. Date/Time Encounter Type Encounter Description Reason Pro vider Source Jan 27, 2024 12:00 AM Outpatient Encounter COMMUNITY CARE CONSULT IHE Encounter Template Text not used by AL Plan of Treatment: Future Appointments (+ 6 months) and Future Tests (+/- 45 days) The Plan of Treatment section includes future care activities for the patient from all [place] treatmentfacilities. This section includes future appointments and future orders which are active, pending or scheduled. Future Appointments This section includes appointments that were scheduled to occur 6 months from the date of the Encounter, up to a maximum of 20 appointments. The data comes from all [place] treatment facilities. Appointment Date/Time Appointment Type Appointme nt Facility Name Jan 31, 2024 01:30 PM AMBULATORY - MEDICINE [place] [facility] [place] [facility] Feb 02, 2024 11:15 AM AMBULATORY - NONE [facility] [place] [facility] Apr 10, 2024 11:00 AM AMBULATORY - MEDICINE [place] [facility] [facility] [place] [facility] May 10, 2024 09:00 AM AMBULATORY - MEDICINE AL [place] [facility] [facility] [place] [facility] Jun 11, 2024 01:00 PM AMBULATORY - MEDICINE [place] [facility] [facility] [place] [facility] Jul 12, 2024 09:00 AM AMBULATORY - MEDICINE [facility] [place] [place] [facility] Active, Pending, and Scheduled Orders This section includes a listing of several types of active, pending, and scheduled orders, including clinic medications orders, diagnostic test orders, procedure orders and consult orders; where the start date of the order is 45 days before the date of the Encounter or 45 days after the date of theEncounter. The data comes from all [place] treatment facilities. Test Date/Time Test Type Test Details Facility Name Jan 31, 2024 07:45 AM Laboratory - Chemi stry Order CYTOLOGY, URINE #1 URINE #1 [facility] Lab Results: +/- 30 days of the encounter This section includes the Chemistry and Hematology Lab Results on record with [place] for the patient. Radiology Reports and Pathology Reports are provided separately, in subsequent sections. Lab Results This section contains the Chemistry/Hematology Results that were resulted 30 days before or 30 daysafter the date of the Encounter. Date/Time Source Result Type Result - Unit Interpretation Reference Range Comment Jan 31, 2024 07:45 AM [facility] PSA Specimen Type: SERUM No comment entered. Ordering Provider: MICHAELA ROMERO F Report Released Date/Time: Jan 25, 2024 02:31 PM Reporting Lab: [facility] [address] [facility] [address] Performing Lab: [facility] [address] [facility] [address] PSA 1.70 ng/mL 0.00-4.00 Jan 31, 2024 07:45 [address] [facility] CT/GC DNA PANEL(IN-HOUSE) Specimen Type: URINE Comment: Test performed on the [employer] Genexpert. A negative test results does not exclude the possibility of infection because results may be affected by improper specimen collection, concurrent antibiotic therapy, or the number of organisms in the specimen which may be below the sensitivity of the test. Ordering Provider: MICHAELA ROMERO F Report Released Date/Time: Jan 25, 2024 02:31 PM Reporting Lab: [facility] [address] [facility] [address] Performing Lab: [address] [address] GC PCR NOT DETECTED Not Detected CT PCR NOT DETECTED Not Detected Jan 31, 2024 07:45 AM [facility] URINALYSIS Specimen Type: URINE Comment: If Glucose = >500 and Ketones are positive, please alert the Physician. Ordering Provider: MICHAELA ROMERO F Report Released Date/Time: Jan 25, 2024 02:31 PM Reporting Lab: [address] [address] Performing Lab: [facility] [address] [facility] [address] UA COLOR Light-Yellow Yellow UA APPEARANCE Clear Clear UA GLUCOSE Normal mg/dL Negative UA KETONES NEGATIVE mg/dL Negative UA BLOOD NEGATIVE mg/dL Negative UA PROTEIN NEGATIVE mg/dL Negative UA NITRITE NEGATIVE mg/dL Negative UA BILIRUBIN NEGATIVE mg/dL Negative UA SPECIFIC GRAVITY 1.013 L 1.016-1.02 2 UA pH 5.5 5.0-9.0 UA UROBILINOGEN Normal mg/dL <2.0 UA LEUKOCYTE NEGATIVE Negative Jan 31, 2024 07:44 AM [facility] HEMOGLOBIN A1C PANEL Specimen Type: [...] Nov 03, 2023 09:54 AM Reporting Lab: [address] [address] Performing Lab: [address] [address] HEMOGLOBIN A1C 7.1 H 4.0-5.6 Jan 31, 2024 07:44 AM [facility] BASIC METABOLIC PANEL (fasting) Specimen Type: SERUM No comment entered. Ordering Provider: MICHAELA ROMERO F Report Released Date/Time: Nov 03, 2023 09:54 AM Reporting Lab: [address] [address] Performing Lab: [address] [address] UREA NITROGEN 22 mg/dL 7-25 GLUCOSE 128 mg/dL H 65-100 SODIUM 138 mmol/L 135-145 POTASSIUM 4.5 mmol/L 3.5-5.0 CHLORIDE 103 mmol/L 100-110 CO2 23 meq/L 20-30 CREATININE, Serum 1.56 mg/dL H 0.50-1.40 eGFR(CKD-EPI 2020) 44 mL/min L >60 Jan 31, 2024 07:44 AM [facility] LIPID PANEL FASTING Specimen Type: SERUM No comment entered. Ordering Provider: MICHAELA ROMERO F Report Released Date/Time: Nov 03, 2023 09:54 AM Reporting Lab: [address] [address] Performing Lab: [address] [address] CHOLESTEROL 151 mg/dL TRIGLYCERIDE 102 mg/dL 0-150 LDL calculated 102 mg/dL 0-129 CHOL/HDL 5.2 HDL CHOLESTEROL 29 mg/dL L 40-60 Jan 31, 2024 07:44 AM [facility] LIVER FUNCTION Specimen Type: SERUM No comment entered. Ordering Provider: MICHAELA ROMERO F Report Released Date/Time: Nov 03, 2023 09:54 AM Reporting Lab: [address] [address] Performing Lab: [address] [address] PROTEIN,TOTAL 7.8 g/dL 6.0-8.3 ALBUMIN 4.3 g/dL 3.5-5.0 ALKALINE PHOSPHATASE 66 U/L 40-150 AST 32 U/L 5-34 ALT 19 U/L BILIRUBIN, TOTAL 0.5 mg/dL 0.2-1.2 Social History: Smoking Status (Most current) and Tobacco Use (All prior to encounter date) This section includes the most current, and the historical, smoking and tobacco- related health factors from the AL facility where the Encounter took place. Current Smoking Status This section includes the most current smoking, or tobacco-related health factor, from the AL facility where the Encounter took place. Date/Time Current Smoking Status Comment Sun gruber Jan 13, 2024 09:23 AM [facility] Tobacco Use History This section includes a history of the smoking, or tobacco-related health factors, that were collected on or before the date of the Encounter. The data comes from the AL facility where the Encounter took place. Date/Time Smoking Status/Tobacco Use Comment F acility Jan 13, 2024 09:23 AM VA-TOBACCO QUIT 15 YRS OR MORE AL [facility] [place] [facility] Dec 10, 2022 10:00 AM VA-TOBACCO FORMER USER AL [facility] [place] [facility] Dec 10, 2022 10:00 AM VA-TOBACCO QUIT 15 YRS OR MORE AL [facility] [place] [facility] Jan 07, 2022 12:47 PM VA-TOBACCO DOESNT USE WI 30 MIN WAKEUP AL [facility] [place] [facility] Jan 07, 2022 12:47 PM VA-TOBACCO USE 30 YEARS OR MORE AL [facility] [place] [facility] Jan 07, 2022 12:47 PM VA-TOBACCO USE ADVICE AL [facility] [place] [facility] Jan 07, 2022 12:47 PM 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 The data comes from all [place] treatment facilities. Date/Time Radiology Report Provider Source Feb 02, 2024 10:[address] ABDOMEN AND PELVIS WITHOUT CONT.: FABY GONZALEZ [id number] -1940 M Exm Date: FEB 02, 2024@10:56 Req Phys: VANWAGNER,ADRIANA F Pat Loc: CWM/NO/PACT 3 (Req'g Loc) Img Loc: NHM/CT Service: Unknown [place] [facility] [place] [facility] AMA, EVI [address] (Case [id number] COMPLETE) CT ABDOMEN AND PELVIS WITHOUT CON(CT Detailed) CPT:82086 Reason for Study: hematuria. STones? Clinical History: Report Status: Verified Date Reported: FEB 02, 2024 Date Verified: FEB 02, 2024 Laboratory Animal Caretaker E-Sig:/ES/LINDA FONG JR Report: Study: CT scan [...] Primary Interpreting Staff: LINDA FONG JR, Radiologist (Laboratory Animal Caretaker) /LINDA VASQUEZ JR [facility] Pathology Reports: +/- 30 days of the [...] the Encounter. The data comes from all [place] treatment facilities. Date/Time Pathology Report Provider Source Feb 01, 2024 12:58 PM LR CYTOPATHOLOGY REPORT: LOCAL TITLE: LR CYTOPATHOLOGY REPORT STANDARD TITLE: PATHOLOGY DIAGNOSTIC STUDY REPORT DATE OF NOTE: FEB 01, 2024@12:58:09 ENTRY DATE: FEB 01, 2024@12:58:09 AUTHOR: GEORGE KAT EXP COSIGNER: URGENCY: STATUS: COMPLETED $APHDR Reporting Lab: [facility] [CLIA# [id number]] [address] [place] [phone] - - - - - - - [...] (Received Jan 31, 2024 09:16): urine cytology [id number] - - - - - - - [...] Screened by: BRYAN MIXON Description: cy 24 231 URINE CYTOLOGY 30 ML OF CLEAR YELLOW FLUID Diagnosis: Urine: - Satisfactory specimen - No malignant cells identified - Abundant crystals CPT:53586 /renny/ GEORGE KAT Signed Feb 01, 2024@12:58 Performing Laboratory: Cytology Report Performed By: [facility] [CLIA# [id number]] [address] [place] [address] $FTR - - - - - - - - - - - - - - - - - - - - - - - - - - - - - - - - - - - - - - - - (End of report) GEORGE KAT MD ml Date Feb 01, 2024 - - - - - - - - - - - - - - - - - - - - - - - - - - - - - - - - - - - - - - - - FABY GONZALEZ STANDARD FORM 515 ID:[id number] SEX:M :1940 AGE: 83 [facility] PCP: NISREEN Bassett /renny/ GEORGE KAT Signed: 02/01/2024 12:58 GEORGE KAT [facility] Encounter Notes: All associated encounter notes This section contains the clinical notes associated to the Encounter. Date/Time Encounter Note(s) Provider Source Jan 27, 2024 12:00 AM NONVA CONSULT: LOCAL TITLE: COMMUNITY CARE-CONSULT RESULT NOTE STANDARD TITLE: NONVA CONSULT DATE OF NOTE: JAN 27, 2024 ENTRY DATE: FEB 16, 2024@08:10:05 AUTHOR: NATALIE VALENZUELA EXP COSIGNER: URGENCY: STATUS: COMPLETED VistA Imaging - Scanned Document SCANNED DOCUMENT SIGNATURE NOT REQUIRED Electronically Filed: 02/16/2024 by: NATALIE VALENZUELA VOLCANOLOGY PROFESSOR NATALIE VALENZUELA [facility]
--- OUTSIDE RECORDS SUMMARY | 2024-06-04 12:19 | XMS_ITS | Encounter Summary ---
Author Name [facility] [place] Organization [place] Address [address] [place] [address] Care Team Providers Care Telephone Collector Name Role Phone ADRIANA ROMERO Primary Care [...] [facility] N Dec 28, 2016 [id number] EMILIA GONZALEZ HN PATIENT MEDICARE (WNR) MEDICARE (M) PART A Dec 28, 2016 PART A [id number] EMILIA GONZALEZ HN PATIENT MEDICARE (WNR) MEDICARE (M) PART B Dec 28, 2016 PART B [id number] EMILIA GONZALEZ HN PATIENT MEDICARE (WNR) MEDICARE (M) PART A Dec 28, 2016 PART A [id number] [phone] EMILIA GONZALEZ PATIENT MEDICARE (WNR) MEDICARE (M) PART B Dec 28, 2016 PART B [id number] [phone] [id number] EMILIA GONZALEZ PATIENT BRIANA PREFERRED PROVIDER ORGANIZAT ION (PPO) DENI [place] [facility] N Dec 28, 2016 [id number] EMILIA GONZALEZ PATIENT UNICARE MEDICAL EXPENSE (OPT/PROF ) DENI [place] [facility] N Dec 28, 2016 [id number] EMILIA GONZALEZ PATIENT Selected Encounter This section includes the information on record at [place] for the Encounter. Date/Time Encounter Type Encounter Description Reason Pro vider Source Feb 20, 2024 01:57 PM Outpatient Encounter ADMIN PAT ACTIVTIES (MASNONCT) IHE Encounter Template Text not used by [place] [...] 20 appointments. The data comes from all [facility] facilities. Appointment Date/Time Appointment Type Appointme nt Facility Name Apr 10, 2024 11:00 AM AMBULATORY - MEDICINE [facility] May 10, 2024 09:00 AM AMBULATORY MEDICINE [facility] Jun 11, 2024 01:00 PM AMBULATORY [facility] Jul 12, 2024 09:00 AM AMBULATORY [facility] Active, Pending, and Scheduled Orders This section includes a listing of several types of active, pending, and scheduled orders, including clinic medications orders, diagnostic test orders, procedure orders and consult orders; where the start date of the order is 45 days before the date of the Encounter or 45 days after the date of theEncounter. The data comes from all [facility]. Test Date/Time Test Type Test Details Facility [...] Jan 25, 2024 02:31 PM Reporting Lab: [address] [address] Performing Lab: [address] [address] PSA 1.70 ng/mL 0.00-4.00 Jan 31, 2024 07:45 AM [facility] CT/GC DNA PANEL(IN-HOUSE) Specimen Type: URINE Comment: Test performed on the [employer] Genexpert. A negative test results does not exclude the possibility of infection because results may be affected by improper specimen collection, concurrent antibiotic therapy, or the number of organisms in the specimen which may be below the sensitivity of the test. Ordering Provider: MICHAELA ROMERO F Report Released Date/Time: Jan 25, 2024 02:31 PM Reporting Lab: [address] [address] Performing Lab: [address] [address] GC PCR NOT DETECTED Not Detected CT PCR NOT DETECTED Not Detected Jan 31, 2024 07:45 AM [facility] URINALYSIS Specimen Type: URINE Comment: If Glucose = >500 and Ketones are positive, please alert the Physician. Ordering Provider: MICHAELA ROMERO F Report Released Date/Time: Jan 25, 2024 02:31 PM Reporting Lab: [address] [place] [address] Performing Lab: [address] [address] UA COLOR Light-Yellow Yellow UA APPEARANCE Clear Clear UA GLUCOSE Normal mg/dL Negative UA KETONES NEGATIVE mg/dL Negative UA BLOOD NEGATIVE mg/dL Negative UA PROTEIN NEGATIVE mg/dL Negative UA NITRITE NEGATIVE mg/dL Negative UA BILIRUBIN NEGATIVE mg/dL Negative UA SPECIFIC GRAVITY 1.013 L 1.016-1.02 2 UA pH 5.5 5.0-9.0 UA UROBILINOGEN Normal mg/dL <2.0 UA LEUKOCYTE NEGATIVE Negative Jan 31, 2024 07:44 AM [facility] [...] Nov 03, 2023 09:54 AM Reporting Lab: [address] [address] Performing Lab: [address] [address] HEMOGLOBIN A1C 7.1 H 4.0-5.6 Jan 31, 2024 07:44 AM [facility] BASIC METABOLIC PANEL (fasting) Specimen Type: SERUM No comment entered. Ordering Provider: MICHAELA ROMERO F Report Released Date/Time: Nov 03, 2023 09:54 AM Reporting Lab: [address] [address] Performing Lab: [address] [address] UREA NITROGEN 22 mg/dL 7-25 GLUCOSE 128 [...] Nov 03, 2023 09:54 AM Reporting Lab: [facility] [address] [facility] [address] Performing Lab: [address] [address] CHOLESTEROL 151 mg/dL TRIGLYCERIDE 102 mg/dL 0-150 LDL calculated 102 mg/dL 0-129 CHOL/HDL 5.2 HDL CHOLESTEROL 29 mg/dL L 40-60 Jan 31, 2024 07:44 AM [facility] LIVER FUNCTION Specimen Type: SERUM No comment entered. Ordering Provider: MICHAELA ROMERO F Report Released Date/Time: Nov 03, 2023 09:54 AM Reporting Lab: [facility] [address] [facility] [address] Performing Lab: [address] [address] PROTEIN,TOTAL 7.8 g/dL 6.0-8.3 ALBUMIN 4.3 g/dL [...] Date/Time Current Smoking Status Comment Facil yasmani Jan 13, 2024 09:23 AM VA-TOBACCO FORMER [...] [facility] Dec 10, 2022 10:00 AM VA-TOBACCO FOR[facility] Dec 10, 2022 10:00 AM VA-TOBACCO QUIT 15 YRS OR MORE [facility] Jan 07, 2022 12:47 PM VA-TOBACCO DOESNT USE WI 30 MIN WAKEUP [facility] Jan 07, 2022 12:47 PM VA-TOBACCO USE 30 YEARS OR MORE [facility] Jan 07, 2022 12:47 PM VA-TOBACCO [facility] ADVICE [facility] Jan 07, 2022 12:47 PM 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 [facility] Jan 07, 2022 12:47 PM VA-TOBACCO USE MED NO [facility] Jan 07, 2022 12:47 PM VA-TOBACCO [facility]ER EVERY [facility] Radiology Reports: +/- 30 days of [...] ABDOMEN AND PELVIS WITHOUT CONT.: FABY GONZALEZ [id number] -1940 M Exm Date: FEB 02, 2024@10:56 Req Phys: ADRIANA ROMERO Loc: CWM/NO/PACT 3 (Req'g Loc) Img Loc: NHM/CT Service: [facility] [place] [address] (Case [id number] COMPLETE) CT ABDOMEN AND PELVIS WITHOUT CON(CT Detailed) CPT:43059 Reason for Study: hematuria. STones? Clinical History: Report Status: Verified Date Reported: FEB 02, 2024 Date Verified: FEB 02, 2024 Curriculum Designer E-Sig:/ES/LINDA Hinkle HETAL Report: Study: CT scan of the abdomen [...] Primary Interpreting Staff: LINDA FONG JR, Radiologist (Curriculum Designer) /EALINDA DUMONT JR [facility] Pathology Reports: +/- 30 days [...] comes from all [place] treatment facilities. Date/Time Pathology Report Provider Source Feb 01, 2024 12:58 PM LR CYTOPATHOLOGY REPORT: LOCAL TITLE: LR CYTOPATHOLOGY REPORT STANDARD TITLE: PATHOLOGY DIAGNOSTIC STUDY REPORT DATE OF NOTE: FEB 01, 2024@12:58:09 ENTRY DATE: FEB 01, 2024@12:58:09 AUTHOR: GEORGE KAT EXP COSIGNER: URGENCY: STATUS: COMPLETED $APHDR Reporting Lab: [facility] [CLIA# [id number]] [address] [place] [address] - - - - - - - [...] (Received Jan 31, 2024 09:16): urine cytology [id number] - - - - - - - [...] No malignant cells identified - Abundant crystals CPT:63320 /es/ GEORGE KAT Signed Feb 01, 2024@12:58 Performing Laboratory: Cytology Report Performed By: [facility] [CLIA# [id number]] [address] [place] [address] $FTR - - - - - - [...] - - FABY GONZALEZ STANDARD FORM 515 ID:[id number] SEX:M :1940 AGE: 83 LOC:[facility] CARE-PUL[facility]ARY PCP: NISREEN Bassett /renny/ GEORGE KAT Signed: 02/01/2024 12:58 GEORGE KAT [facility] Encounter Notes: All associated encounter notes This section contains the clinical notes associated to the Encounter. Date/Time Encounter Note(s) Provider Source Feb 20, 2024 01:57 PM ADMINISTRATIVE NOTE: LOCAL TITLE: CCC: SCHEDULING ADMINISTRATION STANDARD TITLE: ADMINISTRATIVE NOTE DATE OF NOTE: FEB 20, 2024@13:57:42 ENTRY DATE: FEB 20, 2024@13:57:42 AUTHOR: BONITA CRUZ EXP COSIGNER: URGENCY: STATUS: COMPLETED CCC: SCHEDULING ADMINISTRATION Has ADDENDA Patient Demographics Patient Name: FABY GONZALEZ Patient Primary Phone: [phone] Patient Primary [address] [address] [place] [id number] Patient : 1940 Patient Age: 83 Caller/Recipient Relation to Patient: Self Administrative Administrative Note Reason: Lab / Imaging Results Administrative Note Comments: would like the results of the CT SCAN of his lower abdomen, please call to discuss. IMPORTANT: This note was created by [facility] Clinical Contact Center staff. Please do not alert the staff member by adding them as a signer for future communications. Alerts are not monitored by this user. /renny/ BONITA ARANDA 1 CCC AMSA Signed: 02/20/2024 13:57 Receipt Acknowledged By: 02/21/2024 11:56 /renny/ NI FLETCHER RN REGISTERED NURSE 02/22/2024 14:45 /renny/ CHARLIE MARTINO LPN 02/21/2024 ADDENDUM STATUS: COMPLETED Spoke to Hixson and given results on 02/02 and today. Advised him to speak with Community Care Team for scheduling f/u with preferred provider. Understood and agreed to plan. /renny/ NI FLETCHER RN REGISTERED NURSE Signed: 02/21/2024 11:56 [facility]
--- OUTSIDE RECORDS SUMMARY | 2024-06-04 12:19 | XMS_ITS | Encounter Summary ---
Author Name [facility] [place] [facility] [place] Address [address] [place] [address] Care Team Providers Care Community Program Assistant Name Role Phone ADRIANA HUITRON Primary Care [...] GIC INDEMNITY PLAN MEDICAL EXPENSE (OPT/PROF ) FORMERLY [facility] INDEM N Dec 28, 2016 [id number] [phone] EMILIA GONZALEZ HN PATIENT MEDICARE (WNR) MEDICARE (M) PART A Dec 28, 2016 PART A [id number] EMILIA GONZALEZ HN PATIENT MEDICARE (WNR) MEDICARE (M) PART B Dec 28, 2016 PART B [id number] [phone] EMILIA GONZALEZ HN PATIENT MEDICARE (WNR) MEDICARE (M) PART A Dec 28, 2016 PART A [id number] EMILIA GONZALEZ PATIENT MEDICARE (WNR) MEDICARE (M) PART B Dec 28, 2016 PART B [id number] EMILIA GONZALEZ PATIENT BRIANA PREFERRED PROVIDER ORGANIZAT ION (PPO) DENI [facility] N Dec 28, 2016 [id number] SBEMILIA HILL PATIENT UNICARE MEDICAL EXPENSE (OPT/PROF ) DENI [facility] N Dec 28, 2016 [id number] EMILIA GONZALEZ PATIENT Selected Encounter This section includes the information on record at [place] for the Encounter. Date/Time Encounter Type Encounter Description Reason Provider Source Jan 31, 2024 01:30 PM OFFICE O/P EST LOW 20 MIN PRIMARY CARE/MEDICINE ICD-10-CM E11.21 Type 2 diabetes mellitus with diabetic nephropathy MICHAELA HUITRONM F E Encounter Template Text not used by [place] Assessments - Encounter Diagnoses This section includes the primary and secondary diagnoses documented for the Encounter. Date/Time Primary/Secondary Diagnosis Diagnosis Name Provider Source Feb 16, 2024 10:49 AM PRIMARY Type 2 diabetes mellitus with diabetic nephropathy SANDRA HUITRON [facility] [place] [facility] Feb 16, 2024 10:49 AM SECONDARY Essential (primary) hypertension SANDRA HUITRON [facility] [place] [facility] Feb 16, 2024 10:49 AM SECONDARY Pure hypercholesterolem ia, unspecified SANDRA HUITRON [facility] [place] [facility] Feb 16, 2024 10:49 AM SECONDARY Type 2 diabetes mellitus without complications SANDRA HUITRON [facility] [place] [facility] Plan of Treatment: Future Appointments (+ [...] AMBULATORY - NONE [facility] [place] [facility] Apr 10, 2024 11:00 AM AMBULATORY - MEDICINE [facility] [place] [facility] May 10, 2024 09:00 AM AMBULATORY - MEDICINE [facility] [place] [facility] Jun 11, 2024 01:00 PM AMBULATORY - MEDICINE [facility] [place] [facility] Jul 12, 2024 09:00 AM AMBULATORY - MEDICINE [facility] Active, Pending, and Scheduled Orders This section includes a listing of several types of active, pending, and scheduled orders, including clinic medications orders, diagnostic test orders, procedure orders and consult orders; where the start date of the order is 45 days before the date of the Encounter or 45 days after the date of theEncounter. The data comes from all [facility] facilities. Test Date/Time Test Type Test Details Facility Name Jan 31, 2024 07:45 AM Laboratory - Chemi stry Order CYTOLOGY, URINE #1 URINE #1 SP [facility] Lab Results: +/- 30 days [...] Range Comment Jan 31, 2024 07:45 AM [facility] PSA Specimen Type: SERUM No comment entered. Ordering Provider: MICHAELA HUITRON F Report Released Date/Time: Jan 25, 2024 02:31 PM Reporting [facility] [address] [address] Performing Lab: [facility] [address] [address] PSA 1.70 ng/mL 0.00-4.00 Jan 31, 2024 07:45 AM [facility] URINALYSIS Specimen Type: URINE Comment: If Glucose = >500 and Ketones are positive, please alert the Physician. Ordering Provider: MICHAELA HUITRON F Report Released Date/Time: Jan 25, 2024 02:31 PM Reporting Lab: [address] [phone] Performing Lab: [address] [address] UA COLOR Light-Yellow Yellow UA APPEARANCE Clear Clear UA GLUCOSE Normal mg/dL Negative UA KETONES NEGATIVE mg/dL Negative UA BLOOD NEGATIVE mg/dL Negative UA PROTEIN NEGATIVE mg/dL Negative UA NITRITE NEGATIVE mg/dL Negative UA BILIRUBIN NEGATIVE mg/dL Negative UA SPECIFIC GRAVITY 1.013 L 1.016-1.02 2 UA pH 5.5 5.0-9.0 UA UROBILINOGEN Normal mg/dL <2.0 UA LEUKOCYTE NEGATIVE Negative Jan 31, 2024 07:45 AM [facility] CT/GC DNA PANEL(IN-HOUSE) Specimen Type: URINE Comment: Test performed on the [employer] Genexpert. A negative test results does not exclude the possibility of infection because results may be affected by improper specimen collection, concurrent antibiotic therapy, or the number of organisms in the specimen which may be below the sensitivity of the test. Ordering Provider: MICHAELA HUITRON F Report Released Date/Time: Jan 25, 2024 02:31 PM Reporting Lab: [address] [address] Performing Lab: [address] [address] GC PCR NOT DETECTED Not Detected CT PCR NOT DETECTED Not Detected Jan 31, 2024 07:44 AM [facility] HEMOGLOBIN A1C PANEL Specimen Type: BLOOD Comment: Values obtained from A1C measurements can vary. For atypical A1C assays, a reported value of 7.0 could actually be between 6.72 and 7.28 if measured by a reference method. A reported value of 9.0 could actually be between 8.73 and 9.27. Ref: http://www.ngs p.org/CAPdata. asp Ordering Provider: MICHAELA HUITRONM F Report Released Date/Time: Nov 03, 2023 09:54 AM Reporting Lab: [facility] [address] [address] Performing Lab: [facility] [address] [address] HEMOGLOBIN A1C 7.1 H 4.0-5.6 Jan 31, 2024 07:44 AM [facility] LIPID PANEL FASTING Specimen Type: SERUM No comment entered. Ordering Provider: MICHAELA HUITRON F Report Released Date/Time: Nov 03, 2023 09:54 AM Reporting Lab: [facility] [address] [address] Performing Lab: [address] [address] CHOLESTEROL 151 mg/dL TRIGLYCERIDE 102 mg/dL 0-150 LDL calculated 102 mg/dL 0-129 CHOL/HDL 5.2 HDL CHOLESTEROL 29 mg/dL L 40-60 Jan 31, 2024 07:44 AM [facility] BASIC METABOLIC PANEL (fasting) Specimen Type: SERUM No comment entered. Ordering Provider: MICHAELA HUITRON Report Released Date/Time: Nov 03, 2023 09:54 AM Reporting Lab: [address] [address] Performing Lab: [address] [address] UREA NITROGEN 22 mg/dL 7-25 GLUCOSE 128 mg/dL H 65-100 SODIUM 138 mmol/L 135-145 POTASSIUM 4.5 mmol/L 3.5-5.0 CHLORIDE 103 mmol/L 100-110 CO2 23 meq/L 20-30 CREATININE, Serum 1.56 mg/dL H 0.50-1.40 eGFR(CKD-EPI 2020) 44 mL/min L >60 Jan 31, 2024 07:44 AM [facility] LIVER FUNCTION Specimen Type: SERUM No comment entered. Ordering Provider: MICHAELA HUITRON F Report Released Date/Time: Nov 03, 2023 09:54 AM Reporting Lab: [address] [address] Performing Lab: [facility] [place] [facility] [address] [address] PROTEIN,TOTAL 7.8 g/dL 6.0-8.3 ALBUMIN 4.3 g/dL 3.5-5.0 ALKALINE PHOSPHATASE 66 U/L 40-150 AST 32 U/L 5-34 ALT 19 U/L BILIRUBIN, TOTAL 0.5 mg/dL 0.2-1.2 Vital Signs: All taken on the encounter date This section contains inpatient and outpatient Vital Signs collected on the date of the Encounter. Date/Time Temperature Pulse Blood Pressure Respiratory Rate SP02 Pain Height Weight Body Mass Index Source Jan 31, 2024 01:15 PM 98.3 81 118/80 16 96 0 [address] [facility] Social History: Smoking Status (Most [...] Date/Time Current Smoking Status Comment Facil ity Jan 13, 2024 09:23 AM VA-TOBACCO FOR[facility]ER [facility] Tobacco Use History This section includes a history of the smoking, or tobacco-related health factors, that were collected on or before the date of the Encounter. The data comes from the [place] facility where the Encounter took place. Date/Time Smoking Status/Tobacco Use Comment F acility Jan 13, 2024 09:23 AM VA-TOBACCO QUIT 15 YRS OR MORE [facility] Dec 10, 2022 10:00 AM VA-TOBACCO FORMER USER [place] [facility] [place] [facility] Dec 10, 2022 10:00 AM VA-TOBACCO QUIT 15 YRS OR MORE [facility] Jan 07, 2022 12:47 PM VA-TOBACCO DOESNT USE WI 30 MIN WAKEUP [facility] [place] [facility] Jan 07, 2022 12:47 PM VA-TOBACCO USE 30 YEARS OR MORE 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 STones? Clinical History: Report Status: Verified Date Reported: FEB 02, 2024 Date Verified: FEB 02, 2024 Pharmaceutical Service Representative E-Sig:/ES/LINDA FONG JR Report: Study: CT [...] Primary Interpreting Staff: LINDA FONG JR, Radiologist (Pharmaceutical Service Representative) /LINDA VASQUEZ JR [facility] [place] [facility] Pathology Reports: +/- 30 days of [...] comes from all [place] treatment facilities. Date/Time Pathology Report Provider Source Feb 01, 2024 12:58 PM LR CYTOPATHOLOGY REPORT: LOCAL TITLE: LR CYTOPATHOLOGY REPORT STANDARD TITLE: PATHOLOGY DIAGNOSTIC STUDY REPORT DATE OF NOTE: FEB 01, 2024@12:58:09 ENTRY DATE: FEB 01, 2024@12:58:09 AUTHOR: GEORGE KAT EXP COSIGNER: URGENCY: STATUS: COMPLETED $APHDR Reporting Lab: [facility] [CLIA# [id number]] [address] [place] [phone] - - - - - - - [...] - - - $TEXT Submitted by: ADRIANA HUITRON Date obtained: Jan 31, 2024 07:45 - - - - - - - - - - - - - - - - - - - - - - - - - - - - - - - - - - - - - - - - Specimen (Received Jan 31, 2024 09:16): urine cytology [id number] - - - - - - - [...] by: BRYAN LANIER CT Description: cy 24 231 URINE CYTOLOGY 30 ML OF CLEAR YELLOW FLUID Diagnosis: Urine: - Satisfactory specimen - No malignant cells identified - Abundant crystals CPT:52507 juan/ GEORGE KAT Signed Feb 01, 2024@12:58 Performing Laboratory: Cytology Report Performed By: [facility] [CLIA# [id number]] [address] [place] [phone] $FTR - - - - - - [...] - - FABY GONZALEZ STANDARD FORM 515 ID:[id number] SEX:M :1940 AGE: 83 LOC:[facility] PCP: NISREEN Bassett /renny/ GEORGE KAT Signed: 02/01/2024 12:58 [facility] KAT [facility] Encounter Notes: All associated encounter notes This section contains the clinical notes associated to the Encounter. Date/Time Encounter Note(s) Provider Source Jan 31, 2024 01:39 PM PHYSICIAN PAYROLL DIRECTOR NOTE: LOCAL TITLE: PA NOTE STANDARD TITLE: PHYSICIAN PAYROLL DIRECTOR NOTE DATE OF NOTE: JAN 31, 2024@13:39 ENTRY DATE: JAN 31, 2024@13:39:35 AUTHOR: ADRIANA HUITRON COSIGNER: URGENCY: STATUS: COMPLETED CC/HPI/A/P: 83 year old MALE here in follow-up for; hematuria, he noted 'A drop of blood ' when he peed twice this week. THis is new. He has no prior urinary history, no cancer nor surgery. He felt 'a small twinge' but no michelle pain. Asks if it could have been a stone (never had one before) Labs thus far today are fine. All But cytology are back. We add CT A/P with OUT contrast. Consider urologyconsult. We discuss pros/cons of MEERA and decide not to perform one today. Hyperlipidemia, declines injectable, renwew fibrate with statin and Zetia. Review of systems: Patient reports no changes from [place], in meds or any admissions. Active problems - Computerized Problem List is the source for the followin. Exposure to potentially hazardous substance ([facility] [id number]) Entered automatically through [facility]AV[facility] Problem List documentation program 2. 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 Hearing Loss ([facility] [id number]) 4. Vitamin B12 Deficiency ([facility] [id number]) 5. CAD - Coronary Artery Disease ([facility] [id number]) 3 vessel cabg 2003. 6. Diabetes Mellitus Type 2 ([facility] [id number]) 7. Gout ([facility] [id number]) 8. Hypercholesterolemia 9. Hypertension SERVICE CONNECTED % - 80 VA and Non VA meds were reconciled with the patient who left with a corrected copy. See medication page for details. Active and Recently Outpatient Medications (excluding Supplies): Active Outpatient Medications Status 1) ACCU-CHEK GUIDE (GLUCOSE) TEST STRIP USE 1 STRIP TO ACTIVE (S) TEST BLOOD SUGARS TWICE A WEEK NEEDED 2) ACCU-CHEK GUIDE ME (GLUCOSE) METER USE METER TO TEST ACTIVE BLOOD SUGARS TWICE A WEEK NEEDED 3) ASPIRIN 81MG EC TAB TAKE ONE TABLET BY MOUTH ONCE ACTIVE DAILY TO PREVENT STROKE/HEART ATTACK TAKE 15 MINUTES BEFORE NIACIN TO REDUCE/PREVENT FLUSHING. 4) ATORVASTATIN CALCIUM 80MG TAB TAKE ONE TABLET BY ACTIVE MOUTH ONCE DAILY FOR CHOLESTEROL 5) CANDESARTAN CILEXETIL 8MG TAB TAKE ONE TABLET BY ACTIVE MOUTH ONCE DAILY 6) CHOLECALCIF 25MCG (D3-1,000UNIT) TAB TAKE ONE TABLET ACTIVE BY MOUTH ONCE DAILY FOR VITAMIN SUPPLEMENTATION 7) CYANOCOBALAMIN 1000MCG TAB TAKE ONE TABLET BY MOUTH ACTIVE ONCE DAILY FOR VITAMIN SUPPLEMENTATION 8) EZETIMIBE 10MG TAB TAKE ONE TABLET BY MOUTH ONCE ACTIVE DAILY TO LOWER CHOLESTEROL 9) FOLIC ACID 1MG TAB TAKE TWO TABLETS BY MOUTH ONCE ACTIVE DAILY VITAMIN/NUTRITION SUPPLEMENT 10) METFORMIN HCL 500MG TAB TAKE ONE TABLET BY MOUTH ACTIVE TWICE DAILY FOR DIABETES 11) METRONIDAZOLE 0.75% TOP CREAM APPLY A SMALL AMOUNT ACTIVE TOPICALLY AT BEDTIME NEEDED FOR SKIN INFECTION 12) MULTIVITAMIN/MINERALS CAP/TAB TAKE 1 TABLET BY MOUTH ACTIVE ONCE DAILY FOR VITAMIN SUPPLEMENTATION Pending Outpatient Medications Status 1) GEMFIBROZIL 600MG TAB TAKE ONE TABLET BY MOUTH TWICE PENDING DAILY TO LOWER CHOLESTEROL 13 Total Medications 98.3 F [36.8 C] (01/31/2024 13:15) 81 (01/31/2024 13:15) 16 (01/31/2024 13:15) 118/80 (01/31/2024 13:15) 0 (01/31/2024 13:15) 69 in [175.3 cm] (04/20/2022 10:35) 178 lb [80.74 kg] (01/31/2024 13:15) BMI: 26.3 Neuro: Alert and oriented times three, grossly nonfocal, nasolabial folds intact. Recent labs reviewed with patient today:yes /renny/ Adriana Huitron PA-C STAFF PHYSICIAN PAYROLL DIRECTOR Signed: 01/31/2024 13:45 ADRIANA HUITRON [facility]
--- OUTSIDE RECORDS SUMMARY | 2024-06-04 12:19 | XMS_ITS | Encounter Summary ---
Author Name [facility] [place] [facility] [place] [place] Address [address] [place] [address] Care Team Providers Care Soccer Player Name Role Phone ADRIANA HUITRON Primary Care [...] [facility] Dec 28, 2016 [id number] [phone] EMILIA GONZALEZ HN PATIENT MEDICARE (WNR) MEDICARE (M) PART A Dec 28, 2016 PART A [id number] EMILIA GONZALEZ HN PATIENT MEDICARE (WNR) MEDICARE (M) PART B Dec 28, 2016 PART B [id number] EMILIA GONZALEZ HN PATIENT MEDICARE (WNR) MEDICARE (M) PART A Dec 28, 2016 PART A [id number] [phone] EMILIA GONZALEZ PATIENT MEDICARE (WNR) MEDICARE (M) PART B Dec 28, 2016 PART B [id number] EMILIA GONZALEZ PATIENT UNICVIRGIL PREFERRED PROVIDER ORGANIZAT ION (PPO) DENI [facility] N Dec 28, 2016 [id number] [phone] SBEMILIA HILL PATIENT UNICARE MEDICAL EXPENSE (OPT/PROF ) DENI [facility] N Dec 28, 2016 [id number] EMILIA GONZALEZ PATIENT Selected Encounter This section includes the information on record at [place] for the Encounter. Date/Time Encounter Type Encounter Description Reason Pro vider Source Jan 25, 2024 10:04 AM Outpatient Encounter ADMIN PAT ACTIVTIES (MASNONCT) IHE Encounter Template Text not used by [place] Plan of Treatment: Future Appointments (+ 6 months) and Future Tests (+/- 45 days) The Plan of Treatment section includes future care activities for the patient from all [place] treatmentfacilities. This section includes future appointments and future orders which are active, pending or scheduled. Future Appointments This section includes appointments that were scheduled to occur 6 months from the date of the Encounter, up to a maximum of 20 appointments. The data comes from all [place] treatment facilities. Appointment Date/Time Appointment Type Appointme nt Facility Name Jan 31, 2024 01:30 PM AMBULATORY - [place]ICINE [place] [facility] [place] [facility] Feb 02, 2024 11:15 AM AMBULATORY - NONE [place] [facility] [place] [facility] Apr 10, 2024 11:00 AM AMBULATORY - MEDICINE [place] [facility] [place] [facility] May 10, 2024 09:00 AM AMBULATORY - MEDICINE [place] [facility] [place] [facility] Jun 11, 2024 01:00 PM AMBULATORY - MEDICINE [place] [facility] [place] [facility] Jul 12, 2024 09:00 AM AMBULATORY - MEDICINE [facility] [place] [facility] Active, Pending, and Scheduled Orders This section includes a listing of several types of active, pending, and scheduled orders, including clinic medications orders, diagnostic test orders, procedure orders and consult orders; where the start date of the order is 45 days before the date of the Encounter or 45 days after the date of theEncounter. The data comes from all [place] treatment facilities. Test Date/Time Test Type Test Details Facility Name Jan 31, 2024 07:45 AM Laboratory - Chemi stry Order CYTOLOGY, URINE #1 URINE #1 SP [facility] Lab Results: +/- 30 days of the encounter This section includes the Chemistry and Hematology Lab Results on record with [place] for the patient. Radiology Reports and Pathology Reports are provided separately, in subsequent sections. Lab Results This section contains the Chemistry/Hematology Results that were resulted 30 days before or 30 daysafter the date of the Encounter. Date/Time Source Result Type Result - Unit Interpretation Reference Range Comment Jan 31, 2024 07:45 AM [facility] PSA Specimen Type: SERUM No comment entered. Ordering Provider: MICHAELA HUITRON F Report Released Date/Time: Jan 25, 2024 02:31 PM Reporting Lab: [address] [address] Performing Lab: [address] [address] PSA 1.70 ng/mL 0.00-4.00 Jan 31, 2024 07:45 AM [facility] URINALYSIS Specimen Type: URINE Comment: If Glucose = >500 and Ketones are positive, please alert the Physician. Ordering Provider: MICHAELA HUITRON F Report Released Date/Time: Jan 25, 2024 02:31 PM Reporting Lab: [address] [address] Performing Lab: [address] [address] UA COLOR Light-Yellow Yellow UA APPEARANCE Clear Clear UA GLUCOSE Normal mg/dL Negative UA KETONES NEGATIVE mg/dL Negative UA BLOOD NEGATIVE mg/dL Negative UA PROTEIN NEGATIVE mg/dL Negative UA NITRITE NEGATIVE mg/dL Negative UA BILIRUBIN NEGATIVE mg/dL Negative UA SPECIFIC GRAVITY 1.013 L 1.016-1.02 2 UA pH 5.5 5.0-9.0 UA UROBILINOGEN Normal mg/dL <2.0 UA LEUKOCYTE NEGATIVE Negative Jan 31, 2024 07:[address] [facility] CT/GC DNA PANEL(IN-HOUSE) Specimen Type: URINE Comment: Test performed on the [employer] Genexpert. A negative test results does not exclude the possibility of infection because results may be affected by improper specimen collection, concurrent antibiotic therapy, or the number of organisms in the specimen which may be below the sensitivity of the test. Ordering Provider: MICHAELA HUITRON F Report Released Date/Time: Jan 25, 2024 02:31 PM Reporting Lab: [address] [address] Performing Lab: [address] [address] GC PCR NOT DETECTED Not Detected CT PCR NOT DETECTED Not Detected Jan 31, 2024 07:44 AM [facility] HEMOGLOBIN A1C PANEL Specimen Type: BLOOD Comment: [...] Nov 03, 2023 09:54 AM Reporting Lab: [address] [address] Performing Lab: [address] [address] HEMOGLOBIN A1C 7.1 H 4.0-5.6 Jan 31, 2024 07:44 AM [facility] BASIC METABOLIC PANEL (fasting) Specimen Type: SERUM No comment entered. Ordering Provider: MICHAELA HUITRON Report Released Date/Time: Nov 03, 2023 09:54 AM Reporting Lab: [address] [address] Performing Lab: [address] [address] UREA NITROGEN 22 mg/dL 7-25 GLUCOSE 128 mg/dL H 65-100 SODIUM 138 mmol/L 135-145 POTASSIUM 4.5 mmol/L 3.5-5.0 CHLORIDE 103 mmol/L 100-110 CO2 23 meq/L 20-30 CREATININE, Serum 1.56 mg/dL H 0.50-1.40 eGFR(CKD-EPI 2020) 44 mL/min L >60 Jan 31, 2024 07:44 AM [facility] LIPID PANEL FASTING Specimen Type: SERUM No comment entered. Ordering Provider: MICHAELA HUITRON F Report Released Date/Time: Nov 03, 2023 09:54 AM Reporting Lab: [address] [address] Performing Lab: [address] [address] CHOLESTEROL 151 mg/dL TRIGLYCERIDE 102 mg/dL 0-150 LDL calculated 102 mg/dL 0-129 CHOL/HDL 5.2 HDL CHOLESTEROL 29 mg/dL L 40-60 Jan 31, 2024 07:44 AM [facility] LIVER FUNCTION Specimen Type: SERUM No comment entered. Ordering Provider: MICHAELA HUITRON F Report Released Date/Time: Nov 03, 2023 09:54 AM Reporting Lab: [facility] [address] [facility] [address] Performing Lab: [address] [address] PROTEIN,TOTAL 7.8 g/dL 6.0-8.3 ALBUMIN 4.3 g/dL 3.5-5.0 ALKALINE PHOSPHATASE 66 U/L 40-150 AST 32 U/L 5-34 ALT 19 U/L BILIRUBIN, TOTAL 0.5 mg/dL 0.2-1.2 Social History: Smoking Status (Most current) and Tobacco Use (All prior to encounter date) This section includes the most current, and the historical, smoking and tobacco- related health factors from the [place] facility where the Encounter took place. Current Smoking Status This section includes the most current smoking, or tobacco-related health factor, from the [place] facility where the Encounter took place. Date/Time Current Smoking Status Comment Facil ity Jan 13, 2024 09:23 AM [facility] Tobacco Use History This section includes a history of the smoking, or tobacco-related health factors, that were collected on or before the date of the Encounter. The data comes from the [place] facility where the Encounter took place. Date/Time Smoking Status/Tobacco Use Comment F acility Jan 13, 2024 09:23 AM VA-TOBACCO QUIT 15 YRS OR MORE [place] [facility] [place] [facility] Dec 10, 2022 10:00 AM VA-TOBACCO FORMER USER [facility] [place] [facility] Dec 10, 2022 10:00 AM VA-TOBACCO QUIT 15 YRS OR MORE [place] [facility] [place] [facility] Jan 07, 2022 12:47 PM VA-TOBACCO DOESNT USE WI 30 MIN WAKEUP [place] [facility] [place] [facility] Jan 07, 2022 12:47 PM VA-TOBACCO USE 30 YEARS OR MORE [place] [facility] [place] [facility] Jan 07, 2022 12:47 PM VA-TOBACCO USE ADVICE [place] [facility] [place] [facility] Jan 07, 2022 12:47 PM VA-TOBACCO USE CAREERS ADVISER NO [place] [facility] [place] [facility] Jan 07, 2022 12:47 PM VA-TOBACCO USE MED NO [place] [facility] [place] [facility] Jan 07, 2022 12:47 PM VA-TOBACCO USER EVERY DAY [place] [facility] Radiology Reports: +/- 30 days of the [...] the Encounter. The data comes from all [place] treatment facilities. Date/Time Radiology Report Provider Source Feb 02, 2024 10:[address] ABDOMEN AND PELVIS WITHOUT CONT.: FABY GONZALEZ [id number] -1940 M Exm Date: FEB 02, 2024@10:56 Req Phys: ADRIANA HUITRON Loc: CWM/NO/PACT 3 (Req'g Loc) Img Loc: NHM/CT Service: Unknown [place] [facility] [facility] EVI SERRATO [id number] (Case [id number] COMPLETE) CT ABDOMEN AND PELVIS WITHOUT CON(CT Detailed) CPT:85527 Reason for Study: hematuria. STones? Clinical History: Report Status: Verified Date Reported: FEB 02, 2024 Date Verified: FEB 02, 2024 Analog Ic Design Architect E-Sig:/ES/LINDA FONG JR Report: Study: CT scan [...] Primary Interpreting Staff: LINDA FONG JR, Radiologist (Analog Ic Design Architect) /LINDA VASQUEZ JR [facility] Pathology Reports: +/- 30 days [...] the Encounter. The data comes from all [place] treatment facilities. Date/Time Pathology Report Provider Source Feb 01, 2024 12:58 PM LR CYTOPATHOLOGY REPORT: LOCAL TITLE: LR CYTOPATHOLOGY REPORT STANDARD TITLE: PATHOLOGY DIAGNOSTIC STUDY REPORT DATE OF NOTE: FEB 01, 2024@12:58:09 ENTRY DATE: FEB 01, 2024@12:58:09 AUTHOR: GEORGE KAT EXP COSIGNER: URGENCY: STATUS: COMPLETED $APHDR Reporting Lab: [facility] [CLIA# [id number]] [address] [place] [id number] - - - - - - - [...] (Received Jan 31, 2024 09:16): urine cytology [id number] - - - - - - - [...] - - - - Screened by: BRYAN YANNICK CT Description: cy 24 231 URINE CYTOLOGY 30 ML OF CLEAR YELLOW FLUID Diagnosis: Urine: - Satisfactory specimen - No malignant cells identified - Abundant crystals CPT:29903 /renny/ GEORGE KAT Signed Feb 01, 2024@12:58 Performing Laboratory: Cytology Report Performed By: [facility] [CLIA# [id number]] [address] [place] [address] $FTR - - - - - - [...] - - FABY GONZALEZ STANDARD FORM 515 ID:[id number] SEX:M :1940 AGE: 83 LOC:[facility] PCP: NISREEN Bassett /renny/ GEORGE KAT Signed: 02/01/2024 12:58 GEORGE KAT [place] [facility] Encounter Notes: All associated encounter notes This section contains the clinical notes associated to the Encounter. Date/Time Encounter Note(s) Provider Source Jan 25, 2024 02:30 PM ADDENDUM: LOCAL TITLE: Addendum STANDARD TITLE: ADDENDUM DATE OF NOTE: JAN 25, 2024@14:30:45 ENTRY DATE: JAN 25, 2024@14:30:46 AUTHOR: ADRIANA HUITRON EXP COSIGNER: URGENCY: STATUS: COMPLETED Please inform him that I added some labs orders pertinent to blood in urine. /renny/ Adriana Huitron PA-C STAFF PHYSICIAN SWITCHBOARD OPERATOR Signed: 01/25/2024 14:31 Receipt Acknowledged By: 01/26/2024 07:43 /renny/ NI FLETCHER RN REGISTERED NURSE === --- Original Document --- 01/25/24 CCC: SCHEDULING ADMINISTRATION: Patient Demographics Patient Name: FABY GONZALEZ Patient Primary Phone: [phone] Patient Primary Address: [address] [place] [address] [place] [address] Patient : 1940 Patient Age: 83 Caller/Recipient Relation to Patient: Self Administrative Administrative Note Reason: Other Administrative Note Comments: requesting a call back from [facility] regarding blood in urine. was offered transfer to triage and declined. [place] states he already has an appointment scheduled with PCP on Tuesday and he is currently out of state. [place] requesting a call back to discuss. IMPORTANT: This note was created by [facility] Clinical Contact Center staff. Please do not alert the staff member by adding them as a signer for future communications. Alerts are not monitored by this user. /es/ MARIPOSA SAM Signed: 01/25/2024 10:05 Receipt Acknowledged By: 01/25/2024 13:47 /es/ NI FLETCHER RN REGISTERED NURSE 01/25/2024 15:21 /es/ CHARLIE MARTINO LPN 01/25/2024 ADDENDUM STATUS: COMPLETED Spoke to who said that he recently had 2 days if light bleeding with some pain when urinating. He thought this was a kidney stone perhaps that is now passed as the bleeding has stopped. No other signs of pos UTI. Denies burning, back pain, trouble emptying, urgency. Would like PCP to know in the case additional labs or testing could be done prior to PCP appt. He thinks he may be able to come to lab on Tuesday, if not Tuesday before appt. He is in [place] now, denies wanting [facility] location to go to. /renny/ NI FLETCHER RN REGISTERED NURSE Signed: 01/25/2024 13:47 Receipt Acknowledged By: 01/25/2024 14:30 /renny/ Adriana Huitron PA-C STAFF PHYSICIAN SWITCHBOARD OPERATOR ADRIANA HUITRON [facility] [place] [facility] Jan 25, 2024 01:43 PM ADDENDUM: LOCAL TITLE: Addendum STANDARD TITLE: ADDENDUM DATE OF NOTE: JAN 25, 2024@13:43:10 ENTRY DATE: JAN 25, 2024@13:43:11 AUTHOR: NI FLETCHER COSIGNER: URGENCY: STATUS: COMPLETED Spoke to who said that he recently had 2 days if light bleeding with some pain when urinating. He thought this was a kidney stone perhaps that is now passed as the bleeding has stopped. No other signs of pos UTI. Denies burning, back pain, trouble emptying, urgency. Would like PCP to know in the case additional labs or testing could be done prior to PCP appt. He thinks he may be able to come to lab on Tuesday, if not Tuesday before appt. He is in [place] now, denies wanting [facility] location to go to. /renny/ NI FLETCHER RN REGISTERED NURSE Signed: 01/25/2024 13:47 Receipt Acknowledged By: 01/25/2024 14:30 /renny/ Adriana Huitron PA-C STAFF PHYSICIAN SWITCHBOARD OPERATOR === --- Original Document --- 01/25/24 CCC: SCHEDULING ADMINISTRATION: Patient Demographics Patient Name: FABY GONZALEZ Patient Primary Phone: [phone] Patient Primary [address] [address] [place] [phone] Patient : 1940 Patient Age: 83 Caller/Recipient Relation to Patient: Self Administrative Administrative Note Reason: Other Administrative Note Comments: [place] requesting a call back from [facility] regarding blood in urine. was offered transfer to triage and declined. states he already has an appointment scheduled with PCP on Tuesday and he is currently out of state. [place] requesting a call back to discuss. IMPORTANT: This note was created by [facility] Clinical Contact Center staff. Please do not alert the staff member by adding them as a signer for future communications. Alerts are not monitored by this user. /renny/ MARIPOSA SAM Signed: 01/25/2024 10:05 Receipt Acknowledged By: 01/25/2024 13:47 /renny/ NI FLETCHER RN REGISTERED NURSE * AWAITING SIGNATURE * CHARLIE MARTINO 01/25/2024 ADDENDUM STATUS: UNSIGNED You may not VIEW this UNSIGNED Addendum. NI FLETCHER [place] [facility] [place] [facility] Jan 25, 2024 10:04 AM ADMINISTRATIVE NOTE: LOCAL TITLE: CCC: SCHEDULING ADMINISTRATION STANDARD TITLE: ADMINISTRATIVE NOTE DATE OF NOTE: JAN 25, 2024@10:04:52 ENTRY DATE: JAN 25, 2024@10:04:53 AUTHOR: MARIPOSA SAM COSIGNER: URGENCY: STATUS: COMPLETED CCC: SCHEDULING ADMINISTRATION Has ADDENDA Patient Demographics Patient Name: FABY GONZALEZ Patient Primary Phone: [phone] Patient Primary [address]: [address] [place] [phone] Patient : 1940 Patient Age: 83 Caller/Recipient Relation to Patient: Self Administrative Administrative Note Reason: Other Administrative Note Comments: requesting a call back from [facility] regarding blood in urine. was offered transfer to triage and declined. states he already has an appointment scheduled with PCP on Tuesday and he is currently out of state. requesting a call back to discuss. IMPORTANT: This note was created by [facility] Clinical Contact Center staff. Please do not alert the staff member by adding them as a signer for future communications. Alerts are not monitored by this user. /renny/ MARIPOSA SAM Signed: 01/25/2024 10:05 Receipt Acknowledged By: 01/25/2024 13:47 /renny/ NI FLETCHER RN REGISTERED NURSE 01/25/2024 15:21 /renny/ CHARLIE MARTINO LPN 01/25/2024 ADDENDUM STATUS: COMPLETED Spoke to [place] who said that he recently had 2 days if light bleeding with some pain when urinating. He thought this was a kidney stone perhaps that is now passed as the bleeding has stopped. No other signs of pos UTI. Denies burning, back pain, trouble emptying, urgency. Would like PCP to know in the case additional labs or testing could be done prior to PCP appt. He thinks he may be able to come to lab on Tuesday, if not Tuesday before appt. He is in [place] now, denies wanting [facility] location to go to. /renny/ NI FLETCHER RN REGISTERED NURSE Signed: 01/25/2024 13:47 Receipt Acknowledged By: 01/25/2024 14:30 /renny/ Adriana Huitron PA-C STAFF PHYSICIAN SWITCHBOARD OPERATOR 01/25/2024 ADDENDUM STATUS: COMPLETED Please inform him that I added some labs orders pertinent to blood in urine. /renny/ Adriana Huitron PA-C STAFF PHYSICIAN SWITCHBOARD OPERATOR Signed: 01/25/2024 14:31 Receipt Acknowledged By: * AWAITING SIGNATURE * NI FLETCHER [facility]
--- OUTSIDE RECORDS SUMMARY | 2024-06-04 12:19 | XMS_ITS | Encounter Summary ---
Author Name [facility] [place] [place] Organization [facility] [place] Address [address] [place] [address] Care Team Providers Care Billet Heater Name Role Phone ADRIANA ROMERO Primary Care [...] GIC INDEMNITY PLAN MEDICAL EXPENSE (OPT/PROF ) [facility] N Dec 28, 2016 [id number] [phone] EMLIIA GONZALEZ HN PATIENT MEDICARE (WNR) MEDICARE (M) PART A Dec 28, 2016 PART A [id number] EMILIA GONZALEZ HN PATIENT MEDICARE (WNR) MEDICARE (M) PART B Dec 28, 2016 PART B [id number] [phone] EMILIA GONZALEZ HN PATIENT MEDICARE (WNR) MEDICARE (M) PART A Dec 28, 2016 PART A [id number] EMILIA GONZALEZ PATIENT MEDICARE (WNR) MEDICARE (M) PART B Dec 28, 2016 PART B [id number] EMILIA GONZALEZ PATIENT UNICVIRGIL PREFERRED PROVIDER ORGANIZAT ION (PPO) DENI [facility] N Dec 28, 2016 [id number] SBEMILIA HILL PATIENT UNICARE MEDICAL EXPENSE (OPT/PROF ) DENI [facility] N Dec 28, 2016 [id number] EMILIA GONZALEZ PATIENT Selected Encounter This section includes the information on record at [place] for the Encounter. Date/Time Encounter Type Encounter Description Reason Pro vider Source Jan 12, 2024 07:13 PM Outpatient Encounter ADMIN PAT ACTIVTIES (MASNONCT) IHE Encounter Template Text not used by MS Plan of Treatment: Future Appointments (+ 6 months) and Future Tests (+/- 45 days) The Plan of Treatment section includes future care activities for the patient from all [place] treatmentfacilities. This section includes future appointments and future orders which are active, pending or scheduled. Future Appointments This section includes appointments that were scheduled to occur 6 months from the date of the Encounter, up to a maximum of 20 appointments. The data comes from all [place] treatment facilities. Appointment Date/Time Appointment Type Appointme nt Facility Name Jan 31, 2024 01:30 PM AMBULATORY - MEDICINE [facility] Feb 02, 2024 11:15 AM AMBULATORY - NONE [facility] [place] Apr 10, 2024 11:00 AM AMBULATORY - MEDICINE [facility] [place] May 10, 2024 09:00 AM AMBULATORY - MEDICINE [facility] Jun 11, 2024 01:00 PM AMBULATORY - MEDICINE [facility] Jul 12, 2024 09:00 AM AMBULATORY - MEDICINE [facility] Active, Pending, and Scheduled Orders This section includes a listing of several types of active, pending, and scheduled orders, including clinic medications orders, diagnostic test orders, procedure orders and consult orders; where the start date of the order is 45 days before the date of the Encounter or 45 days after the date of theEncounter. The data comes from all [place] treatment facilities. Test Date/Time Test Type Test Details Facility Name Jan 31, 2024 07:45 AM Laboratory - Chemi stry Order CYTOLOGY, URINE #1 URINE #1 SP [facility] Lab Results: +/- 30 days of the encounter This section includes the Chemistry and Hematology Lab Results on record with [facility] for the patient. Radiology Reports and Pathology Reports are provided separately, in subsequent sections. Lab Results This section contains the Chemistry/Hematology Results that were resulted 30 days before or 30 daysafter the date of the Encounter. Date/Time Source Result Type Result - Unit Interpretation Reference Range Comment Jan 31, 2024 07:45 AM [facility] PSA Specimen Type: SERUM No comment entered. Ordering Provider: MICHAELA ROMERO F Report Released Date/Time: Jan 25, 2024 02:31 PM Reporting Lab: [address] [address] Performing Lab: [address] [address] PSA 1.70 ng/mL 0.00-4.00 Jan 31, 2024 07:45 AM [facility] CT/GC DNA PANEL(IN-HOUSE) Specimen Type: URINE Comment: Test performed on the Zoop Genexpert. A negative test results does not exclude the possibility of infection because results may be affected by improper specimen collection, concurrent antibiotic therapy, or the number of organisms in the specimen which may be below the sensitivity of the test. Ordering Provider: MICHAELA ROMERO F Report Released Date/Time: Jan 25, 2024 02:31 PM Reporting Lab: [address] [address] Performing Lab: [address] [address] GC PCR NOT DETECTED Not Detected CT PCR NOT DETECTED Not Detected Jan 31, 2024 07:45 AM [facility] URINALYSIS Specimen Type: URINE Comment: If Glucose = >500 and Ketones are positive, please alert the Physician. Ordering Provider: MICHAELA ROMERO F Report Released Date/Time: Jan 25, 2024 02:31 PM Reporting Lab: [address] [address] Performing Lab: [facility] [address] [facility] [address] UA COLOR Light-Yellow Yellow UA APPEARANCE Clear Clear UA GLUCOSE Normal mg/dL Negative UA KETONES NEGATIVE mg/dL Negative UA BLOOD NEGATIVE mg/dL Negative UA PROTEIN NEGATIVE mg/dL Negative UA NITRITE NEGATIVE mg/dL Negative UA BILIRUBIN NEGATIVE mg/dL Negative UA SPECIFIC GRAVITY 1.013 L 1.016-1.02 2 UA pH 5.5 5.0-9.0 UA UROBILINOGEN Normal mg/dL <2.0 UA LEUKOCYTE NEGATIVE Negative Jan 31, 2024 07:44 AM [facility] HEMOGLOBIN A1C PANEL Specimen Type: BLOOD Comment: [...] Nov 03, 2023 09:54 AM Reporting Lab: [address] [address] Performing Lab: [address] [address] HEMOGLOBIN A1C 7.1 H 4.0-5.6 Jan 31, 2024 07:44 AM [facility] BASIC METABOLIC PANEL (fasting) Specimen Type: SERUM No comment entered. Ordering Provider: MICHAELA ROMERO F Report Released Date/Time: Nov 03, 2023 09:54 AM Reporting Lab: [address] [address] Performing Lab: [address] [address] UREA NITROGEN 22 mg/dL 7-25 GLUCOSE 128 mg/dL H 65-100 SODIUM 138 mmol/L 135-145 POTASSIUM 4.5 mmol/L 3.5-5.0 CHLORIDE 103 mmol/L 100-110 CO2 23 meq/L 20-30 CREATININE, Serum 1.56 mg/dL H 0.50-1.40 eGFR(CKD-EPI 2020) 44 mL/min L >60 Jan 31, 2024 07:44 AM [facility] LIPID PANEL FASTING Specimen Type: SERUM No comment entered. Ordering Provider: MICHAELA ROMERO F Report Released Date/Time: Nov 03, 2023 09:54 AM Reporting Lab: [address] [address] Performing Lab: [address] [address] CHOLESTEROL 151 mg/dL TRIGLYCERIDE 102 mg/dL 0-150 LDL calculated 102 mg/dL 0-129 CHOL/HDL 5.2 HDL CHOLESTEROL 29 mg/dL L 40-60 Jan 31, 2024 07:44 AM [facility] LIVER FUNCTION Specimen Type: SERUM No comment entered. Ordering Provider: MICHAELA ROMERO F Report Released Date/Time: Nov 03, 2023 09:54 AM Reporting Lab: [facility] [address] [facility] [address] Performing Lab: [address] [address] PROTEIN,TOTAL 7.8 g/dL 6.0-8.3 ALBUMIN 4.3 g/dL 3.5-5.0 ALKALINE PHOSPHATASE 66 U/L 40-150 AST 32 U/L 5-34 ALT 19 U/L BILIRUBIN, TOTAL 0.5 mg/dL 0.2-1.2 Social History: Smoking Status (Most current) and Tobacco Use (All prior to encounter date) This section includes the most current, and the historical, smoking and tobacco- related health factors from the [place] facility where the Encounter took place. Current Smoking Status This section includes the most current smoking, or tobacco-related health factor, from the [place] facility where the Encounter took place. Date/Time Current Smoking Status Comment Facil ity Dec 10, 2022 10:00 AM VA-TOBACCO FORMER USER [facility] Tobacco Use History This section includes a history of the smoking, or tobacco-related health factors, that were collected on or before the date of the Encounter. The data comes from the [place] facility where the Encounter took place. Date/Time Smoking Status/Tobacco Use Comment F acility Dec 10, 2022 10:00 AM VA-TOBACCO QUIT [facility] OR [facility] Jan 07, 2022 12:47 PM VA-TOBACCO DOESNT USE WI 30 MIN WAKEUP [facility] Jan 07, 2022 12:47 PM VA-TOBACCO USE 30 YEARS OR MORE [facility] [place] Jan 07, 2022 12:47 PM [facility]BACCO [facility]VICE [facility] Jan 07, 2022 12:47 PM VA-TOBACCO 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 The data comes from all [place] treatment facilities. Date/Time Radiology Report Provider Source Feb 02, 2024 10:[address] ABDOMEN AND PELVIS WITHOUT CONT.: FABY GONZALEZ [id number] -1940 M Exm Date: FEB 02, 2024@10:56 Req Phys: ADRIANA ROMERO Loc: CWM/NO/PACT 3 (Req'g Loc) Img Loc: NHM/CT Service: Unknown [facility] EVI SERRATO [id number] (Case [id number] COMPLETE) CT ABDOMEN AND PELVIS WITHOUT CON(CT Detailed) CPT:18405 Reason for Study: hematuria. STones? Clinical History: Report Status: Verified Date Reported: FEB 02, 2024 Date Verified: FEB 02, 2024 Telephone Answering Service Operator E-Sig:/ES/LINDA Hinkle HETAL Report: Study: CT scan [...] Primary Interpreting Staff: LINDA FONG JR, Radiologist (Telephone Answering Service Operator) /LINDA VASQUEZ JR [facility] Pathology Reports: +/- 30 days of the [...] the Encounter. The data comes from all [place] treatment facilities. Date/Time Pathology Report Provider Source Feb 01, 2024 12:58 PM LR CYTOPATHOLOGY REPORT: LOCAL TITLE: LR CYTOPATHOLOGY REPORT STANDARD TITLE: PATHOLOGY DIAGNOSTIC STUDY REPORT DATE OF NOTE: FEB 01, 2024@12:58:09 ENTRY DATE: FEB 01, 2024@12:58:09 AUTHOR: GEORGE KAT EXP COSIGNER: URGENCY: STATUS: COMPLETED $APHDR Reporting Lab: [facility] [CLIA# [id number]] [address] [place] [address] - - - - - - - [...] (Received Jan 31, 2024 09:16): urine cytology [id number] - - - - - - - [...] No malignant cells identified - Abundant crystals CPT:97519 /es/ GEORGE KAT Signed Feb 01, 2024@12:58 Performing Laboratory: Cytology Report Performed By: [facility] [CLIA# [id number]] [address] [place] [address] $FTR - - - - - - [...] - - FABY GONZALEZ STANDARD FORM 515 ID:[id number] SEX:M :1940 AGE: 83 LOC:[facility] CARE-PULMONARY PCP: NISREEN Bassett /renny/ GEORGE KAT Signed: 02/01/2024 12:58 GEORGE KAT [facility] Encounter Notes: All associated encounter notes This section contains the clinical notes associated to the Encounter. Date/Time Encounter Note(s) Provider Source Jan 13, 2024 08:04 AM ADDENDUM: LOCAL TITLE: Addendum STANDARD TITLE: ADDENDUM DATE OF NOTE: JAN 13, 2024@08:04:29 ENTRY DATE: JAN 13, 2024@08:04:30 AUTHOR: KRYSTIAN REDDY EXP COSIGNER: URGENCY: STATUS: COMPLETED [place] with two discussions with MADELIN Hanks regarding dc of GEMFIBROZIL 600MG TAB. Please remind him that this would need discussion with CPP if he wishes to resume. Defer. /renny/ KRYSTIAN NGUYEN MS,PAAngeline PHYSICIAN MANAGER BALANCE Signed: 01/13/2024 08:06 Receipt Acknowledged By: 01/13/2024 08:50 /renny/ CHRISTIANO HANKS, PHARMD,[facility] CLINICAL PHARMACY PRACTITIONER ========= --- Original Document --- 01/12/24 V1 PHARMACY CUSTOMER CARE MEDICATION RENEWAL: Date: Dec Division: [place] Pt referred by Pharmacy Call Center for medication renewal: Non-controlled/maintena nce medication Medications requested: [id number] GEMFIBROZIL 600MG TAB Defer to primary care provider To be mailed . Please review and renew if appropriate. *This note was generated by [facility]/[place] Pharmacy Customer Care. If you have any questions or need assistance, do not contact this author. Please refer all questions to your local, on-site pharmacy departments. /renny/ [facility] CPhT Temperature Regulator, [place]/Pharmacy Customer Care Signed: 01/12/2024 19:14 Receipt Acknowledged By: * AWAITING SIGNATURE * NI FLETCHER 01/13/2024 08:04 /renny/ KRYSTIAN NGUYEN, MS,PA-C PHYSICIAN MANAGER BALANCE for ADRIANA Rangel NICK 01/13/2024 ADDENDUM STATUS: UNSIGNED You may not VIEW this UNSIGNED Addendum. KRYSTIAN REDDY [place] [facility] [place] [facility] Jan 12, 2024 07:13 PM PHARMACY NOTE: LOCAL TITLE: V1 PHARMACY CUSTOMER CARE MEDICATION RENEWAL STANDARD TITLE: PHARMACY NOTE DATE OF NOTE: JAN 12, 2024@19:13 ENTRY DATE: JAN 12, 2024@19:13:48 AUTHOR: [facility] EXP COSIGNER: URGENCY: STATUS: COMPLETED V1 PHARMACY CUSTOMER CARE MEDICATION RENEWAL Has ADDENDA Date: Dec Division: [place] Pt referred by Pharmacy Call Center for medication renewal: Non-controlled/maintena nce medication Medications requested: [id number] GEMFIBROZIL 600MG TAB Defer to primary care provider To be mailed . Please review and renew if appropriate. *This note was generated by [facility]/[place] Pharmacy Customer Care. If you have any questions or need assistance, do not contact this author. Please refer all questions to your local, on-site pharmacy departments. /mary ellen HOUSE CPhT Temperature Regulator, [place]/Pharmacy Customer Care Signed: 01/12/2024 19:14 Receipt Acknowledged By: 01/13/2024 08:59 /es/ NI M FREEDMAN, RN REGISTERED NURSE 01/13/2024 08:04 /es/ KRYSTIAN NGUYEN, MS,PAJhoannC PHYSICIAN MANAGER BALANCE for ADRIANA ROMERO 01/13/2024 ADDENDUM STATUS: COMPLETED with two discussions with MADELIN Hanks regarding dc of GEMFIBROZIL 600MG TAB. Please remind him that this would need discussion with CPP if he wishes to resume. Defer. /renny/ KRYSTIAN NGUYEN, MS,PAJohannC PHYSICIAN MANAGER BALANCE Signed: 01/13/2024 08:06 Receipt Acknowledged By: 01/13/2024 08:50 /renny/ CHRISTIANO HANKS PHARMD,MICAH CLINICAL PHARMACY PRACTITIONER 01/13/2024 ADDENDUM STATUS: COMPLETED Spoke with pt, he missed CPP apt in November d/t illness. He would like to continue gemfibrozil until apt with PCP, has enough medication at home until then. He will have labs drawn then will dx dc or continuing of gemfibrozil w/pcp /mary ellen HANKS PHARMD,BCPS CLINICAL PHARMACY PRACTITIONER Signed: 01/13/2024 08:52 [facility]
--- OUTSIDE RECORDS SUMMARY | 2024-06-04 12:19 | XMS_ITS | Encounter Summary ---
Author Name [place] Address [address] [place] [address] Care Team Providers Care Graphic Arts Technician Name Role Phone ADRIANA ROMERO Primary [...] GIC INDEMNITY PLAN MEDICAL EXPENSE (OPT/PROF ) [facility] N Dec 28, 2016 [id number] EMILIA GONZALEZ HN PATIENT MEDICARE (WNR) MEDICARE (M) PART A Dec 28, 2016 PART A [id number] EMILIA GONZALEZ HN PATIENT MEDICARE (WNR) MEDICARE (M) PART B Dec 28, 2016 PART B [id number] EMILIA GONZALEZ HN PATIENT MEDICARE (WNR) MEDICARE (M) PART A Dec 28, 2016 PART A [id number] [phone] EMILIA GONZLAEZ HN PATIENT MEDICARE (WNR) MEDICARE (M) PART B Dec 28, 2016 PART B [id number] EMILIA GONZALEZ PATIENT BRIANA PREFERRED PROVIDER ORGANIZAT ION (PPO) [facility] Dec [facility], 2016 [id number] SBEMILIA HILL PATIENT UNICVIRGIL MEDICAL EXPENSE (OPT/PROF ) DENI [facility] Dec 28, 2016 [id number] EMILIA GONZALEZ PATIENT Selected Encounter This section includes the information on record at [place] for the Encounter. Date/Time Encounter Type Encounter Description Reason Pro vider Source Apr 10, 2024 03:13 PM Outpatient Encounter ADMIN PAT ACTIVTIES (MASNONCT) [...] Date/Time Appointment Type Appointme nt Facility Name May 10, 2024 09:00 AM AMBULATORY - MEDICINE [facility] Jun 11, 2024 01:00 PM AMBULATORY MEDICINE [facility] Jul 12, 2024 09:00 AM AMBULATORY MEDICINE [facility] Lab Results: +/- 30 days of [...] Result - Unit Interpretation Reference Range Comment May 07, 2024 10:57 AM [facility] HEMOGLOBIN A1C PANEL Specimen [...] MICHAELA ROMERO F Report Released Date/Time: Jan 31, 2024 01:45 PM Reporting Lab: [address] [address] Performing Lab: [address] [address] HEMOGLOBIN A1C 6.6 H 4.0-5.6 May 07, 2024 10:57 AM [facility] BASIC METABOLIC PANEL (fasting) Specimen Type: SERUM No comment entered. Ordering Provider: MICHAELA ROMEROM F Report Released Date/Time: Jan 31, 2024 01:45 PM Reporting Lab: [address] [address] Performing Lab: [address] [address] UREA NITROGEN 28 mg/dL H 7-25 GLUCOSE 122 mg/dL H 65-100 SODIUM 141 mmol/L 135-145 POTASSIUM 4.7 mmol/L 3.5-5.0 CHLORIDE 108 mmol/L 100-110 CO2 20 meq/L 20-30 CREATININE, Serum 1.51 mg/dL H 0.50-1.40 eGFR(CKD-EPI 2020) 46 mL/min L >60 May 07, 2024 10:57 AM [facility] LIPID PANEL FASTING Specimen Type: SERUM No comment entered. Ordering Provider: MICHAELA ROMERO F Report Released Date/Time: Jan 31, 2024 01:45 PM Reporting Lab: [address] [address] Performing Lab: [address] [address] CHOLESTEROL 146 mg/dL TRIGLYCERIDE 95 mg/dL 0-150 LDL calculated 98 mg/dL 0-129 CHOL/HDL 5.0 HDL CHOLESTEROL 29 mg/dL L 40-60 May 07, 2024 10:57 AM [facility] L[facility] FUNCTION Specimen Type: SERUM No comment entered. Ordering Provider: MICHAELA ROMERO Report Released Date/Time: Jan 31, 2024 01:45 PM Reporting Lab: [facility] [address] [facility] [address] Performing Lab: [facility] [address] [facility] [address] PROTEIN,TOTAL 7.5 g/dL 6.0-8.3 ALBUMIN 4.0 g/dL 3.5-5.0 ALKALINE PHOSPHATASE 61 U/L 40-150 AST 28 U/L 5-34 ALT 16 U/L BILIRUBIN, TOTAL 0.6 mg/dL 0.2-1.2 Social History: Smoking Status (Most [...] 13, 2024 09:23 AM [facility]-TOBACCO [facility] Tobacco Use History This section includes a history of the smoking, or tobacco-related health factors, that were collected on or before the date of the Encounter. The data comes from the [place] facility where the Encounter took place. Date/Time Smoking Status/Tobacco Use Comment F acility Jan 13, 2024 09:23 AM VA-TOBACCO QUIT 15 YRS OR MORE [place] [facility] [place] [facility] Dec 10, 2022 10:00 AM VA-TOBACCO FORMER USER [place] [facility] [place] [facility] Dec 10, 2022 10:00 AM VA-TOBACCO QUIT 15 YRS OR MORE [place] [facility] [place] [facility] Jan 07, 2022 12:47 PM VA-TOBACCO DOESNT USE WI 30 MIN [facility] Jan 07, 2022 12:47 PM VA-TOBACCO USE 30 YEARS OR [facility] Jan 07, 2022 12:47 PM VA-TOBACCO USE ADVICE [place] [facility] [place] [facility] Jan 07, 2022 12:47 PM VA-TOBACCO 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 Date/Time Encounter Note(s) Provider Source Apr 10, 2024 03:18 PM ADDENDUM: LOCAL TITLE: Addendum STANDARD TITLE: ADDENDUM DATE OF NOTE: APR 10, 2024@15:18:54 ENTRY DATE: APR 10, 2024@15:18:55 AUTHOR: NI FLETCHER EXP COSIGNER: URGENCY: STATUS: COMPLETED [facility] as requested above, yes labs prior. /renny/ NI FLETCHER RN REGISTERED NURSE Signed: 04/10/2024 15:19 Receipt Acknowledged By: 04/11/2024 08:34 /renny/ HIEU YO JENNIFER === --- Original Document --- 04/10/24 CCC: SCHEDULING ADMINISTRATION: Patient Demographics Patient Name: FABY GONZALEZ Patient Primary Phone: [phone] Patient Primary [address]: [address] [place] [address] Patient : 1940 Patient Age: 83 Caller/Recipient Relation to Patient: Self Administrative Administrative Note Reason: Other Administrative Note Comments: is requesting a call back from [facility] to reschedule pcp appointment, and wants to know if he should do blood drawn. IMPORTANT: This note was created by [facility] Clinical Contact Center staff. Please do not alert the staff member by adding them as a signer for future communications. Alerts are not monitored by this user. /mary ellen GALAVIZ Signed: 04/10/2024 15:13 Receipt Acknowledged By: 04/10/2024 15:23 /renny/ NI FLETCHER RN REGISTERED NURSE * AWAITING SIGNATURE * CHARLIE MARTINO LAUREN M [place] [facility] [place] [facility] Apr 10, 2024 03:13 PM ADMINISTRATIVE NOTE: LOCAL TITLE: CCC: SCHEDULING ADMINISTRATION STANDARD TITLE: ADMINISTRATIVE NOTE DATE OF NOTE: APR 10, 2024@15:13:44 ENTRY DATE: APR 10, 2024@15:13:45 AUTHOR: ASHISH GALAVIZ COSIGNER: URGENCY: STATUS: COMPLETED CCC: SCHEDULING ADMINISTRATION Has ADDENDA Patient Demographics Patient Name: FABY GONZALEZ Patient Primary Phone: [phone] Patient Primary [address] [address] [place] [id number] Patient : 1940 Patient Age: 83 Caller/Recipient Relation to Patient: Self Administrative Administrative Note Reason: Other Administrative Note Comments: is requesting a call back from [facility] to reschedule pcp appointment, and wants to know if he should do blood drawn. IMPORTANT: This note was created by [facility] Clinical Contact Center staff. Please do not alert the staff member by adding them as a signer for future communications. Alerts are not monitored by this user. /mary ellen GALAVIZ Signed: 04/10/2024 15:13 Receipt Acknowledged By: 04/10/2024 15:23 /renny/ NI FLETCHER RN REGISTERED NURSE 04/11/2024 10:03 /renny/ CHARLIE MARTINO LPN 04/10/2024 ADDENDUM STATUS: COMPLETED Forwarding to [facility] to reschedule with PCP as requested above, yes labs prior. /mary ellen FLETCHER RN REGISTERED NURSE Signed: 04/10/2024 15:19 Receipt Acknowledged By: 04/11/2024 08:34 /renny/ HIEU EMERYASHISH ARNOLD [facility] [place] [facility]
--- OUTSIDE RECORDS SUMMARY | 2024-06-04 12:19 | XMS_ITS | Encounter Summary ---
Author Name [facility] [place] [facility] [place] [facility] [place] Address [address] [place] [address] Care Team Providers Care Chemical Dependency Counselor Name Role Phone ADRIANA ROMERO Primary Care [...] GIC INDEMNITY PLAN MEDICAL EXPENSE (OPT/PROF ) [facility] N Dec 28, 2016 [id number] EMILIA GONZALEZ HN PATIENT MEDICARE (WNR) MEDICARE (M) PART A Dec 28, 2016 PART A [id number] [phone] EMILIA GONZALEZ HN PATIENT MEDICARE (WNR) MEDICARE (M) PART B Dec 28, 2016 PART B [id number] [phone] EMILIA GONZALEZ HN PATIENT MEDICARE (WNR) MEDICARE (M) PART A Dec 28, 2016 PART A [id number] [phone] EMILIA GONZALEZ PATIENT MEDICARE (WNR) MEDICARE (M) PART B Dec 28, 2016 PART B [id number] EMILIA GONZALEZ PATIENT UNICVIRGIL PREFERRED PROVIDER ORGANIZAT ION (PPO) [facility] N Dec 28, 2016 [id number] SBEMILIA HILL PATIENT UNICARE MEDICAL EXPENSE (OPT/PROF ) [facility] N Dec 28, 2016 [id number] EMILIA GONZALEZ PATIENT Selected Encounter This section includes the information on record at [place] for the Encounter. Date/Time Encounter Type Encounter Description Reason Pro vider Source Jan 27, 2024 03:01 PM Outpatient Encounter ADMIN PAT ACTIVTIES (MASNONCT) IHE Encounter Template Text not used by [place] Plan of Treatment: Future Appointments (+ 6 months) and Future Tests (+/- 45 days) The Plan of Treatment section includes future care activities for the patient from all [place] treatmentfacilities. This section includes future appointments and future orders which are active, pending or scheduled. Future Appointments This section includes appointments that were scheduled to occur 6 months from the date of the Encounter, up to a maximum of 20 appointments. The data comes from all [place] treatment facilities. Appointment Date/Time Appointment Type Appointme nt Facility Name Jan 31, 2024 01:30 PM AM[place]ULATORY [place]ICINE [place] [facility] Feb 02, 2024 11:15 AM AMBULATORY - NONE [facility] Apr 10, 2024 11:00 AM AMBULATORY - MEDICINE [place] [facility] May 10, 2024 09:00 AM AMBULATORY - MEDICINE [place] [facility] Jun 11, 2024 01:00 PM AMBULATORY - MEDICINE [place] [facility] Jul 12, 2024 09:00 AM AMBULATORY - MEDICINE [facility] Active, Pending, and Scheduled Orders This section includes a listing of several types of active, pending, and scheduled orders, including clinic medications orders, diagnostic test orders, procedure orders and consult orders; where the start date of the order is 45 days before the date of the Encounter or 45 days after the date of theEncounter. The data comes from all [place] treatment facilities. Test Date/Time Test Type Test Details Facility Name Jan 31, 2024 07:45 AM Laboratory - Chemi stry Order CYTOLOGY, URINE #1 URINE #1 SP [facility] Lab Results: +/- 30 days of the encounter This section includes the Chemistry and Hematology Lab Results on record with [place] for the patient. Radiology Reports and Pathology Reports are provided separately, in subsequent sections. Lab Results This section contains the Chemistry/Hematology Results that were resulted 30 days before or 30 daysafter the date of the Encounter. Date/Time Source Result Type Result - Unit Interpretation Reference Range Comment Jan 31, 2024 07:45 AM [facility] PSA Specimen Type: SERUM No comment entered. Ordering Provider: MICHAELA ROMERO F Report Released Date/Time: Jan 25, 2024 02:31 PM Reporting Lab: [address] [phone] Performing Lab: [address] [address] PSA 1.70 ng/mL 0.00-4.00 Jan 31, 2024 07:45 AM [facility] URINALYSIS Specimen Type: URINE Comment: If Glucose = >500 and Ketones are positive, please alert the Physician. Ordering Provider: MICHAELA ROMERO F Report Released Date/Time: Jan 25, 2024 02:31 PM Reporting Lab: [address] [address] Performing Lab: [address] [id number] UA COLOR Light-Yellow Yellow UA APPEARANCE Clear Clear UA GLUCOSE Normal mg/dL Negative UA KETONES NEGATIVE mg/dL Negative UA BLOOD NEGATIVE mg/dL Negative UA PROTEIN NEGATIVE mg/dL Negative UA NITRITE NEGATIVE mg/dL Negative UA BILIRUBIN NEGATIVE mg/dL Negative UA SPECIFIC GRAVITY 1.013 L 1.016-1.02 2 UA pH 5.5 5.0-9.0 UA UROBILINOGEN Normal mg/dL <2.0 UA LEUKOCYTE NEGATIVE Negative Jan 31, 2024 07:45 AM [facility] CT/GC DNA PANEL(IN-HOUSE) Specimen Type: URINE Comment: Test performed on the SimpleOrder Genexpert. A negative test results does not exclude the possibility of infection because results may be affected by improper specimen collection, concurrent antibiotic therapy, or the number of organisms in the specimen which may be below the sensitivity of the test. Ordering Provider: MICHAELA ROMERO F Report Released Date/Time: Jan 25, 2024 02:31 PM Reporting Lab: [address] [address] Performing Lab: [address] [address] GC PCR NOT DETECTED Not Detected CT PCR NOT DETECTED Not Detected Jan 31, 2024 07:44 AM [facility] HEMOGLOBIN A1C PANEL Specimen Type: BLOOD [...] Nov 03, 2023 09:54 AM Reporting Lab: [address] [address] Performing Lab: [address] [address] HEMOGLOBIN A1C 7.1 H 4.0-5.6 Jan 31, 2024 07:44 AM [facility] LIPID PANEL FASTING Specimen Type: SERUM No comment entered. Ordering Provider: MICHAELA ROMERO F Report Released Date/Time: Nov 03, 2023 09:54 AM Reporting Lab: [address] [address] Performing Lab: [address] [address] CHOLESTEROL 151 mg/dL TRIGLYCERIDE 102 mg/dL 0-150 LDL calculated 102 mg/dL 0-129 CHOL/HDL 5.2 HDL CHOLESTEROL 29 mg/dL L 40-60 Jan 31, 2024 07:44 AM [facility] BASIC METABOLIC PANEL (fasting) Specimen Type: SERUM No comment entered. Ordering Provider: MICHAELA ROMERO F Report Released Date/Time: Nov 03, 2023 09:54 AM Reporting Lab: [facility] [address] [address] Performing Lab: [address] [address] UREA NITROGEN 22 mg/dL 7-25 GLUCOSE 128 mg/dL H 65-100 SODIUM 138 mmol/L 135-145 POTASSIUM 4.5 mmol/L 3.5-5.0 CHLORIDE 103 mmol/L 100-110 CO2 23 meq/L 20-30 CREATININE, Serum 1.56 mg/dL H 0.50-1.40 eGFR(CKD-EPI 2020) 44 mL/min L >60 Jan 31, 2024 07:44 AM [facility] LIVER FUNCTION Specimen Type: SERUM No comment entered. Ordering Provider: MICHAELA ROMERO F Report Released Date/Time: Nov 03, 2023 09:54 AM Reporting Lab: [facility] [address] [address] Performing Lab: [address] [address] PROTEIN,TOTAL 7.8 g/dL 6.0-8.3 ALBUMIN 4.3 g/dL 3.5-5.0 ALKALINE PHOSPHATASE 66 U/L 40-150 AST 32 U/L 5-34 ALT 19 U/L BILIRUBIN, TOTAL 0.5 mg/dL 0.2-1.2 Social History: Smoking Status (Most current) and Tobacco Use (All prior to encounter date) This section includes the most current, and the historical, smoking and tobacco- related health factors from the [place] facility where the Encounter took place. Current Smoking Status This section includes the most current smoking, or tobacco-related health factor, from the [place] facility where the Encounter took place. Date/Time Current Smoking Status Comment Facil ity Jan 13, 2024 09:23 AM [facility] Tobacco Use History This section includes a history of the smoking, or tobacco-related health factors, that were collected on or before the date of the Encounter. The data comes from the [place] facility where the Encounter took place. Date/Time Smoking Status/Tobacco Use Comment F acility Jan 13, 2024 09:23 AM VA-TOBACCO QUIT 15 YRS OR MORE [facility] Dec 10, 2022 10:00 AM VA-TOBACCO FORMER USER [facility] Dec 10, 2022 10:00 AM VA-TOBACCO QUIT 15 YRS OR MORE [facility] Jan 07, 2022 12:47 PM VA-TOBACCO DOESNT USE WI 30 MIN WAKEUP [facility] Jan 07, 2022 12:47 PM VA-TOBACCO USE 30 YEARS OR MORE [facility] Jan 07, 2022 12:47 PM VA-TOBACCO USE ADVICE [facility] Jan 07, 2022 12:47 PM VA-TOBACCO USE SPOT WELDER NO [facility] Jan 07, 2022 12:47 PM VA-TOBACCO USE MED NO [facility] Jan 07, 2022 12:47 PM VA-TOBACCO USER EVERY DAY [facility] Radiology Reports: +/- 30 days of the [...] the Encounter. The data comes from all [place] treatment facilities. Date/Time Radiology Report Provider Source Feb 02, 2024 10:[address] ABDOMEN AND PELVIS WITHOUT CONT.: FABY GONZALEZ [id number] -1940 M Exm Date: FEB 02, 2024@10:56 Req Phys: ADRIANA ROMERO Loc: CWM/NO/PACT 3 (Req'g Loc) Img Loc: NHM/CT Service: Unknown [facility] [place] [id number] (Case [id number] COMPLETE) CT ABDOMEN AND PELVIS WITHOUT CON(CT Detailed) CPT:03204 Reason for Study: hematuria. STones? Clinical History: Report Status: Verified Date Reported: FEB 02, 2024 Date Verified: FEB 02, 2024 [employer] E-Sig:/ES/LINDA FONG JR Report: Study: CT scan [...] Primary Interpreting Staff: LINDA FONG JR, Radiologist ([employer]arm [employer]) /LINDA AVSQUEZ JR [facility] Pathology Reports: +/- 30 days of [...] the Encounter. The data comes from all [place] treatment facilities. Date/Time Pathology Report Provider Source Feb 01, 2024 12:58 PM LR CYTOPATHOLOGY REPORT: LOCAL TITLE: LR CYTOPATHOLOGY REPORT STANDARD TITLE: PATHOLOGY DIAGNOSTIC STUDY REPORT DATE OF NOTE: FEB 01, 2024@12:58:09 ENTRY DATE: FEB 01, 2024@12:58:09 AUTHOR: GEORGE KAT EXP COSIGNER: URGENCY: STATUS: COMPLETED $APHDR Reporting Lab: [facility]CL[facility] [id number]] [address] [place] [id number] - - - - - - - [...] (Received Jan 31, 2024 09:16): urine cytology [id number] - - - - - - - [...] No malignant cells identified - Abundant crystals CPT:45968 /renny/ GEORGE KAT Signed Feb 01, 2024@12:58 Performing Laboratory: Cytology Report Performed By: [facility] [CLIA# [id number]] [address] [place] [address] $FTR - - - - - - [...] - - FABY GONZALEZ STANDARD FORM 515 ID:[id number] SEX:M :1940 AGE: 83 LOC:[facility] PCP: NISREEN Bassett /renny/ GEORGE KAT Signed: 02/01/2024 12:58 GEORGE KAT [facility] Encounter Notes: All associated encounter notes This section contains the clinical notes associated to the Encounter. Date/Time Encounter Note(s) Provider Source Jan 27, 2024 03:01 PM ADMINISTRATIVE NOTE: LOCAL TITLE: CCC: SCHEDULING ADMINISTRATION STANDARD TITLE: ADMINISTRATIVE NOTE DATE OF NOTE: JAN 27, 2024@15:01:40 ENTRY DATE: JAN 27, 2024@15:01:40 AUTHOR: YUE VALENCIA COSIGNER: URGENCY: STATUS: COMPLETED Patient Demographics Patient Name: FABY GONZALEZ Patient Primary Phone: [phone] Patient Primary [address] [address] [place] [address] Patient : 1940 Patient Age: 83 Caller/Recipient Relation to Patient: Self Administrative Administrative Note Comments: is calling, he had a CT scan 2 months ago, he is just had his Pulmonary Follow up today and Ben did not receive the images on the CT. wants to greens picker a copy of these when he is in for his PCP appt on Tuesday. Rachele was also transferred to [facility] to have them send copies over as well. Rachele declined the needs for nurse triage line at this time. Rachele was reminded it can take up to 3 business days for a call back from [facility]. Please follow up with the rachele @ [phone] IMPORTANT: This note was created by [facility] Clinical Contact Center staff. Please do not alert the staff member by adding them as a signer for future communications. Alerts are not monitored by this user. /es/ YUE VALENCIA VISN 1 [facility] AMS[facility] Signed: 01/27/2024 15:01 Receipt Acknowledged By: 01/31/2024 07:47 /es/ NI FLETCHER, RN REGISTERED NURSE 01/31/2024 08:45 /es/ YUE MAJANO LPN, LPN [facility]
--- OUTSIDE RECORDS SUMMARY | 2024-06-04 12:19 | XMS_ITS ---
Author Name [facility] [facility] [place] Organization [facility] [place] Address [address] [place] [address] Care Team Providers Care Rate Clerk Name Role Phone ADRIANA ROMERO Primary [...] MEDICAL EXPENSE (OPT/PROF ) [facility] N Dec 28, 2016 [id number] EMILIA GONZALEZ HN PATIENT MEDICARE (WNR) MEDICARE (M) PART A Dec 28, 2016 PART A [id number] LISAEMILIA HN PATIENT MEDICARE (WNR) MEDICARE (M) PART B Dec 28, 2016 PART B [id number] LISAEMILIA HN PATIENT MEDICARE (WNR) MEDICARE (M) PART A Dec 28, 2016 PART A [id number] SBREGA,EMILIA HN PATIENT MEDICARE (WNR) MEDICARE (M) PART B Dec 28, 2016 PART B [id number] EMILIA GONZALEZ PATIENT UNICVIRGIL PREFERRED PROVIDER ORGANIZAT ION (PPO) DENI IRAHETA [facility] IN[facility]M N Dec 28, 2016 [id number] [phone] EMILIA GONZALEZ PATIENT UNICARE MEDICAL EXPENSE (OPT/PROF ) DENI IRAHETA [facility] N Dec 28, 2016 [id number] [phone] EMILIA GONZALEZ PATIENT Selected Encounter This section includes the information on record at [place] for the Encounter. Date/Time Encounter Type Encounter Description Reason Pro vider Source Jan 13, 2024 09:23 AM Outpatient Encounter PRIMARY CARE/MEDICINE IHE Encounter Template Text not used by [place] Plan of Treatment: Future Appointments (+ 6 months) and Future Tests (+/- 45 days) The Plan of Treatment section includes future care activities for the patient from all [place] treatmentfacilities. This section includes future appointments and future orders which are active, pending or scheduled. Future Appointments This section includes appointments that were scheduled to occur 6 months from the date of the Encounter, up to a maximum of 20 appointments. The data comes from all [place] treatment facilities. Appointment Date/Time Appointment Type Appointme nt Facility Name Jan 31, 2024 01:30 PM AMBULATORY - MEDICINE [facility] [place] [facility] Feb 02, 2024 11:15 AM [facility] [place] [facility] Apr 10, 2024 11:00 AM AMBULATORY - MEDICINE [facility] [place] [facility] May 10, 2024 09:00 AM AMBULATORY - MEDICINE [facility] [facility] Jun 11, 2024 01:00 PM AMBULATORY - MEDICINE [facility] [facility] Jul 12, 2024 09:00 AM AMBULATORY - MEDICINE [facility] [place] [facility] Active, Pending, and Scheduled Orders This section includes a listing of several types of active, pending, and scheduled orders, including clinic medications orders, diagnostic test orders, procedure orders and consult orders; where the start date of the order is 45 days before the date of the Encounter or 45 days after the date of theEncounter. The data comes from all [place] treatment facilities. Test Date/Time Test Type Test Details Facility Name Jan 31, 2024 07:45 AM Laboratory - Chemi stry Order CYTOLOGY, URINE #1 URINE #1 SP [facility] Lab Results: +/- 30 days of the encounter This section includes the Chemistry and Hematology Lab Results on record with [place] for the patient. Radiology Reports and Pathology Reports are provided separately, in subsequent sections. Lab Results This section contains the Chemistry/Hematology Results that were resulted 30 days before or 30 daysafter the date of the Encounter. Date/Time Source Result Type Result - Unit Interpretation Reference Range Comment Jan 31, 2024 07:45 AM [facility] PSA Specimen Type: SERUM No comment entered. Ordering Provider: MICHAELA ROMERO Report Released Date/Time: Jan 25, 2024 02:31 PM Reporting Lab: [address] [address] Performing Lab: [address] [address] PSA 1.70 ng/mL 0.00-4.00 Jan 31, 2024 07:45 AM [facility] URINALYSIS Specimen Type: URINE Comment: If Glucose = >500 and Ketones are positive, please alert the Physician. Ordering Provider: MICHAELA ROMERO Report Released Date/Time: Jan 25, 2024 02:31 PM Reporting Lab: [address] [address] Performing Lab: [address] [address] UA COLOR Light-Yellow Yellow UA APPEARANCE Clear Clear UA GLUCOSE Normal mg/dL Negative UA KETONES NEGATIVE mg/dL Negative UA BLOOD NEGATIVE mg/dL Negative UA PROTEIN NEGATIVE mg/dL Negative UA NITRITE NEGATIVE mg/dL Negative UA BILIRUBIN NEGATIVE mg/dL Negative UA SPECIFIC GRAVITY 1.013 L 1.016-1.02 2 UA pH 5.5 5.0-9.0 UA UROBILINOGEN Normal mg/dL <2.0 UA LEUKOCYTE NEGATIVE Negative Jan 31, 2024 07:45 AM [facility] CT/GC DNA PANEL(IN-HOUSE) Specimen Type: URINE Comment: Test performed on the [employer] Genexpert. A negative test results does not exclude the possibility of infection because results may be affected by improper specimen collection, concurrent antibiotic therapy, or the number of organisms in the specimen which may be below the sensitivity of the test. Ordering Provider: MICHAELA ROMERO F Report Released Date/Time: Jan 25, 2024 02:31 PM Reporting Lab: [address] [address] Performing Lab: [address] [address] GC PCR NOT DETECTED Not Detected CT PCR NOT DETECTED Not Detected Jan 31, 2024 07:44 AM [facility] HEMOGLOBIN A1C PANEL Specimen Type: [...] Nov 03, 2023 09:54 AM Reporting Lab: [address] [address] Performing Lab: [address] [address] HEMOGLOBIN A1C 7.1 H 4.0-5.6 Jan 31, 2024 07:44 AM [facility] LIPID PANEL FASTING Specimen Type: SERUM No comment entered. Ordering Provider: MICHAELA ROMERO Report Released Date/Time: Nov 03, 2023 09:54 AM Reporting Lab: [address] [address] Performing Lab: [address] [address] CHOLESTEROL 151 mg/dL TRIGLYCERIDE 102 mg/dL 0-150 LDL calculated 102 mg/dL 0-129 CHOL/HDL 5.2 HDL CHOLESTEROL 29 mg/dL L 40-60 Jan 31, 2024 07:44 AM [facility] BASIC METABOLIC PANEL (fasting) Specimen Type: SERUM No comment entered. Ordering Provider: MICHAELA ROMERO F Report Released Date/Time: Nov 03, 2023 09:54 AM Reporting Lab: [address] [address] Performing Lab: [address] [address] UREA NITROGEN 22 mg/dL 7-25 GLUCOSE 128 mg/dL H 65-100 SODIUM 138 mmol/L 135-145 POTASSIUM 4.5 mmol/L 3.5-5.0 CHLORIDE 103 mmol/L 100-110 CO2 23 meq/L 20-30 CREATININE, Serum 1.56 mg/dL H 0.50-1.40 eGFR(CKD-EPI 2020) 44 mL/min L >60 Jan 31, 2024 07:44 AM [facility] LIVER FUNCTION Specimen Type: SERUM No comment entered. Ordering Provider: MICHAELA ROMERO F Report Released Date/Time: Nov 03, 2023 09:54 AM Reporting Lab: [address] [address] Performing Lab: [address] [address] PROTEIN,TOTAL 7.8 g/dL 6.0-8.3 ALBUMIN 4.3 g/dL 3.5-5.0 ALKALINE PHOSPHATASE 66 U/L 40-150 AST 32 U/L 5-34 ALT 19 U/L BILIRUBIN, TOTAL 0.5 mg/dL 0.2-1.2 Social History: Smoking Status (Most current) and Tobacco Use (All prior to encounter date) This section includes the most current, and the historical, smoking and tobacco- related health factors from the [place] facility where the Encounter took place. Current Smoking Status This section includes the most current smoking, or tobacco-related health factor, from the [place] facility where the Encounter took place. Date/Time Current Smoking Status Comment Facil yasmani Jan 13, 2024 09:23 AM [facility] Tobacco Use History This section includes a history of the smoking, or tobacco-related health factors, that were collected on or before the date of the Encounter. The data comes from the [place] facility where the Encounter took place. Date/Time Smoking Status/Tobacco Use Comment F acility Jan 13, 2024 09:23 AM VA-TOBACCO QUIT 15 YRS OR MORE [facility] Dec 10, 2022 10:00 AM VA-TOBACCO FORMER USER [facility] [facility] Dec 10, 2022 10:00 AM VA-TOBACCO QUIT 15 YRS OR MORE [facility] [facility] Jan 07, 2022 12:47 PM VA-TOBACCO DOESNT USE WI 30 MIN WAKEUP [facility] [facility] Jan 07, 2022 12:47 PM VA-TOBACCO USE 30 YEARS OR MORE [facility] [facility] Jan 07, 2022 12:47 PM VA-TOBACCO USE ADVICE [facility] Jan 07, 2022 12:47 PM VA-TOBACCO 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 The data comes from all [place] treatment facilities. Date/Time Radiology Report Provider Source Feb 02, 2024 10:[address] ABDOMEN AND PELVIS WITHOUT CONT.: FABY GONZALEZ [id number] -1940 M Exm Date: FEB 02, 2024@10:56 Req Phys: ADRIANA ROMERO Pat Loc: CWM/NO/PACT 3 (Req'g Loc) Img Loc: NHM/CT Service: Unknown [facility] [place] [facility] AMA, [place]I [id number] (Case [id number] COMPLETE) CT ABDOMEN AND PELVIS WITHOUT CON(CT Detailed) CPT:20493 Reason for Study: hematuria. STones? Clinical History: Report Status: Verified Date Reported: FEB 02, 2024 Date Verified: FEB 02, 2024 Assisted Living Coordinator E-Sig:/ES/LINDA FONG JR Report: Study: CT scan [...] Primary Interpreting Staff: LINDA FONG JR, Radiologist (Assisted Living Coordinator) /LINDA VASQUEZ JR [facility] Pathology Reports: +/- 30 days of [...] the Encounter. The data comes from all [place] treatment facilities. Date/Time Pathology Report Provider Source Feb 01, 2024 12:58 PM LR CYTOPATHOLOGY REPORT: LOCAL TITLE: LR CYTOPATHOLOGY REPORT STANDARD TITLE: PATHOLOGY DIAGNOSTIC STUDY REPORT DATE OF NOTE: FEB 01, 2024@12:58:09 ENTRY DATE: FEB 01, 2024@12:58:09 AUTHOR: GEORGE KAT EXP COSIGNER: URGENCY: STATUS: COMPLETED $APHDR Reporting Lab: [facility] [CLIA# [id number]] [address] [place] [address] - - - - - - - [...] (Received Jan 31, 2024 09:16): urine cytology [id number] - - - - - - - [...] No malignant cells identified - Abundant crystals CPT:56230 /renny/ GEORGE KAT Signed Feb 01, 2024@12:58 Performing Laboratory: Cytology Report Performed By: [facility] [CLIA# [id number]] [address] [place] [address] $FTR - - - - - - [...] - - FABY GONZALEZ STANDARD FORM 515 ID:[id number] SEX:M :1940 AGE: 83 [facility] PCP: NISREEN Bassett /renny/ GEORGE KAT Signed: 02/01/2024 12:58 GEORGE KAT AR CNT [facility] Encounter Notes: All associated encounter notes This section contains the clinical notes associated to the Encounter. Date/Time Encounter Note(s) Provider Source Jan 13, 2024 09:23 AM PRIMARY CARE TELEP AAMIR ENCOUNTER NOTE: LOCAL TITLE: TELEPHONE NOTE/PRIMARY CARE STANDARD TITLE: PRIMARY CARE TELEPHONE ENCOUNTER NOTE DATE OF NOTE: JAN 13, 2024@09:23 ENTRY DATE: JAN 13, 2024@09:23:55 AUTHOR: CHARLIE MARTINO EXP COSIGNER: URGENCY: STATUS: COMPLETED Suicide Screen: C-SSRS Screening [place] Suicide Severity Rating Scale (C-SSRS) screener 1. Over the past month, have you wished you were or wished you could go to sleep and not wake up? No 2. Over the past month, have you had any actual thoughts of killing yourself? No 3. Over the past month, have you been thinking about how you might do this? Response not required due to responses to other questions. 4. Over the past month, have you had these thoughts and had some intention of acting on them? Response not required due to responses to other questions. 5. Over the past month, have you started to work out or worked out the details of how to kill yourself? Response not required due to responses to other questions. 6. If yes, at any time in the past month did you intend to carry out this plan? Response not required due to responses to other questions. 7. In your lifetime, have you ever done anything, started to do anything, or prepared to do anything to end your life (for example, collected pills, obtained a gun, gave away valuables, went to the roof but didn't jump)? No 8. If YES, was this within the past 3 months? Response not required due to responses to other questions. Depression Screening: Perform PHQ-2 A PHQ-2 screen was performed. The score was 0 which is a negative screen for depression. Over the past two weeks, how often have you been bothered by the following problems? 1. Little interest or pleasure in doing things Not at all 2. Feeling down, depressed, or hopeless Not at all Tobacco Use Screening: The patient is a former tobacco user. The patient quit fifteen or more years ago. Alcohol Use Screen (AUDIT-C): Alcohol Screen: SCREEN FOR ALCOHOL (AUDIT-C) An alcohol screening test (AUDIT-C) was negative (score=3). 1. How often did you have a drink containing alcohol in the past year? Consider a drink to be a 12 ounce can or bottle of regular beer, 8 ounces of malt liquor, a 5 ounce glass of table wine, or a 1.5 ounce shot of liquor (like scotch, gin, or vodka). Two to three times per week 2. How many drinks containing alcohol did you have on a typical day when you were drinking in the past year? One or two drinks 3. How often did you have six or more drinks on one occasion in the past year? Never /es/ CHARLIE MARTINO LPN Signed: 01/13/2024 09:25 CHARLIE MARTINO [facility]
--- OUTSIDE RECORDS SUMMARY | 2024-06-04 12:20 | XMS_ITS | Patient Health Record ---
Author Organization [facility] Address [address] [place] [address] Support Name Relationship Address Phone RajArcadio gilliland Guarantor Unknown [phone] Reason For Referral No Information Medications Medication SIG (Take, Route, Frequency, Duration) Notes Start Date End Date Status TESTIM (TESTOSTERONE 1% GEL ) 5 GM TOP QD Addison05/29/2012 Entered by KELTON LARSEN 05/29/2012 Active Lisinopril 10 MG 1 PO QD Addison05/29/2012 Entered by KELTON LARSEN 05/29/2012 Active NIASPAN (NICOTINIC ACID EXTENDED RELEASE) 500 MG 1 PO QHS Addison05/29/2012 Entered by KELTON LARSEN 05/29/2012 Active atorvastatin 80 MG 1 PO QHS Addison05/29/20 12 Entered by KELTON LARSEN 05/29/2012 Active metformin 500 MG 1 PO BID Addison05/29/2012 Entered by KELTON LARSEN 05/29/2012 Active FreeStyle Lancets NONMED Addison 2 Entered by KELTON LARSEN 05/29/2012 Active Folic Acid 1 MG 1 PO QD Addison05/29/2012 Entered by KELTON LARSEN 05/29/2012 Active Problems Problem Type SNOMED Code ICD Code Onset Dates Problem Status W/U Status Risk Notes Problem Type II diabetes mellitus without complication (291101827) Diabetes mellitus without mention of complication, type II or unspecified type, not stated as uncontrolled (250.00) 05/29/20 12 Active confirmed Addison: Diabetes mellitus; Plan Of Treatment No Information Insurance Providers Payer Name Payer Address Payer Phone Subscriber Number Group Number Insured Name Patient Relationship to Insured Coverage Start Date Coverage End Date [employer] Ind[employer]ity Plan [address] [place] [id number] [phone] [id number] Arcadio Crooks Self - patient is the insured 7
--- OUTSIDE RECORDS SUMMARY | 2024-06-04 12:20 | XMS_ITS | Encounter Summary ---
Author Name [facility] [place] [facility] [place] Address [address] [place] [address] Care Team Providers Care Internal Affairs Commander Name Role Phone ADRIANA ROMERO Primary Care [...] INDEMNITY PLAN MEDICAL EXPENSE (OPT/PROF ) [facility] IN[facility] N Dec 28, 2016 [id number] EMILIA GONZALEZ HN PATIENT MEDICARE (WNR) MEDICARE (M) PART A Dec 28, 2016 PART A [id number] [phone] EMILIA GONZALEZ HN PATIENT MEDICARE (WNR) MEDICARE (M) PART B Dec 28, 2016 PART B [id number] [phone] EMILIA GONZALEZ HN PATIENT MEDICARE (WNR) MEDICARE (M) PART A Dec 28, 2016 PART A [id number] EMILIA GONZALEZ HN PATIENT MEDICARE (WNR) MEDICARE (M) PART B Dec 28, 2016 PART B [id number] [phone] EMILIA GONZALEZ PATIENT BRIANA PREFERRED PROVIDER ORGANIZAT ION (PPO) DEN[facility] Dec 28, 2016 [id number] SBEMILIA HILL PATIENT UNICVIRGIL MEDICAL EXPENSE (OPT/PROF ) DENI [place]HETA [facility] INDEM N Dec 28, 2016 [id number] EMILIA GONZALEZ PATIENT Selected Encounter This section includes the information on record at [place] for the Encounter. Date/Time Encounter Type Encounter Description Reason Pro vider Source Apr 27, 2024 02:38 PM Outpatient Encounter ADMIN PAT ACTIVTIES (MASNONCT) IHE Encounter Template Text not used by [place] Plan of Treatment: Future Appointments (+ 6 months) and Future Tests (+/- 45 days) The Plan of Treatment section includes future care activities for the patient from all [place] treatmentfacilities. This section includes future appointments and future orders which are active, pending or scheduled. Future Appointments This section includes appointments that were scheduled to occur 6 months from the date of the Encounter, up to a maximum of 20 appointments. The data comes from all [place] treatment facilities. Appointment Date/Time Appointment Type Appointme nt Facility Name May 10, 2024 09:00 AM AMBULATORY - MEDICINE [facility] Jun 11, 2024 01:00 PM AMBULATORY MEDICINE [facility] Jul 12, 2024 09:00 AM AMBULATORY MEDICINE [facility] Lab Results: +/- 30 days of the encounter This section includes the Chemistry and Hematology Lab Results on record with [place] for the patient. Radiology Reports and Pathology Reports are provided separately, in subsequent sections. Lab Results This section contains the Chemistry/Hematology Results that were resulted 30 days before or 30 daysafter the date of the Encounter. Date/Time Source Result Type Result - Unit Interpretation Reference Range Comment May 07, 2024 10:57 AM [facility] HEMOGLOBIN A1C PANEL [...] Jan 31, 2024 01:45 PM Reporting Lab: [address] [address] Performing Lab: [address] [address] HEMOGLOBIN A1C 6.6 H 4.0-5.6 May 07, 2024 10:57 AM [facility] BASIC METABOLIC PANEL (fasting) Specimen Type: SERUM No comment entered. Ordering Provider: MICHAELA ROMEROM F Report Released Date/Time: Jan 31, 2024 01:45 PM Reporting Lab: [address] [address] Performing Lab: [address] [address] UREA NITROGEN 28 mg/dL H 7-25 GLUCOSE 122 mg/dL H 65-100 SODIUM 141 mmol/L 135-145 POTASSIUM 4.7 mmol/L 3.5-5.0 CHLORIDE 108 mmol/L 100-110 CO2 20 meq/L 20-30 CREATININE, Serum 1.51 mg/dL H 0.50-1.40 eGFR(CKD-EPI 2020) 46 mL/min L >60 May 07, 2024 10:57 AM [facility] LIVER FUNCTION Specimen Type: SERUM No comment entered. Ordering Provider: MICHAELA ROMERO F Report Released Date/Time: Jan 31, 2024 01:45 PM Reporting Lab: [address] [address] Performing Lab: [address] [address] PROTEIN,TOTAL 7.5 g/dL 6.0-8.3 ALBUMIN 4.0 g/dL 3.5-5.0 ALKALINE PHOSPHATASE 61 U/L 40-150 AST 28 U/L 5-34 ALT 16 U/L BILIRUBIN, TOTAL 0.6 mg/dL 0.2-1.2 May 07, 2024 10:57 [facility] LIPID PANEL FASTING Specimen Type: SERUM No comment entered. Ordering Provider: MICHAELA ROMERO Report Released Date/Time: Jan 31, 2024 01:45 PM Reporting Lab: [facility] [address] [address] Performing Lab: [facility] [address] [address] CHOLESTEROL 146 mg/dL TRIGLYCERIDE 95 mg/dL 0-150 LDL calculated 98 mg/dL 0-129 CHOL/HDL 5.0 HDL CHOLESTEROL 29 mg/dL L 40-60 Social History: Smoking Status (Most current) and Tobacco Use (All prior to encounter date) This section includes the most current, and the historical, smoking and tobacco- related health factors from the [place] facility where the Encounter took place. Current Smoking Status This section includes the most current smoking, or tobacco-related health factor, from the [place] facility where the Encounter took place. Date/Time Current Smoking Status Comment Facil ity Jan 13, 2024 09:23 AM VA-TOBACCO FORMER USER [facility] Tobacco Use History This section includes a history of the smoking, or tobacco-related health factors, that were collected on or before the date of the Encounter. The data comes from the [place] facility where the Encounter took place. Date/Time Smoking Status/Tobacco Use Comment F acility Jan 13, 2024 09:23 AM VA-TOBACCO QUIT 15 YRS OR MORE [facility] [place] [facility] Dec 10, 2022 10:00 AM VA-TOBACCO FOR[facility] Dec 10, 2022 10:00 AM VA-TOBACCO QUIT 15 YRS OR MORE [facility] Jan 07, 2022 12:47 PM VA-TOBACCO DOESNT USE WI 30 MIN [facility]UP [facility] Jan 07, 2022 12:47 PM VA-TOBACCO USE 30 YEARS OR MORE [facility] Jan 07, 2022 12:47 PM VA-TOBACCO USE ADVICE [place] [facility] [place] [facility] Jan 07, 2022 12:47 PM 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 Date/Time Encounter Note(s) Provider Source Apr 27, 2024 02:38 PM ADMINISTRATIVE NOTE: LOCAL TITLE: CCC: SCHEDULING ADMINISTRATION STANDARD TITLE: ADMINISTRATIVE NOTE DATE OF NOTE: APR 27, 2024@14:38:10 ENTRY DATE: APR 27, 2024@14:38:11 AUTHOR: NEGRITA CASAS EXP COSIGNER: URGENCY: STATUS: COMPLETED Patient Demographics Patient Name: FABY GONZALEZ Patient Primary Phone: [phone] Patient Primary [address] [address] [place] [address] Patient : 1940 Patient Age: 83 Call Back Number: Caller/Recipient Relation to Patient: Self Caller Name: FABY GONZALEZ Administrative Administrative Note Reason: Other Administrative Note Comments: Pt is calling because he went to his community care provider below urology see [facility] care 02/04/2024 and provider saw both of the CT scans of Pts abdomen and told Pt to have a repeat CT scan and also gave Pt medication below. 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 Pt asked group underwriter enter note and if they need Pt to call outside provider for this he will. 1C Vitamin B6 50 mg tab take 1 x a day [facility] [address] [address] [phone] TAX ID #[id number] ESE SHIELDS #[id number] IMPORTANT: This note was created by [facility] Clinical Contact Center staff. Please do not alert the staff member by adding them as a signer for future communications. Alerts are not monitored by this user. /renny/ NEGRITA CASAS VISN 1 [facility] AMSA Signed: 04/27/2024 14:38 Receipt Acknowledged By: 05/01/2024 14:53 /es/ NI FLETCHER, RN REGISTERED NURSE 05/01/2024 15:37 /es/ AGNES LUCAS LPN SCIENTIFIC GLASS BLOWER for NEGRITA SHE[facility]
--- OUTSIDE RECORDS SUMMARY | 2024-06-04 12:20 | XMS_ITS ---
Author Name [facility] [facility] [place] Address [address] [place] [address] Care Team Providers Care Housing Relocation Name Role Phone ADRIANA ROMERO Primary Care [...] GIC INDEMNITY PLAN MEDICAL EXPENSE (OPT/PROF ) [facility] Dec 28, 2016 [id number] EMILIA GONZALEZ HN PATIENT MEDICARE (WNR) MEDICARE (M) PART A Dec 28, 2016 PART A [id number] LISAEMILIA HN PATIENT MEDICARE (WNR) MEDICARE (M) PART B Dec 28, 2016 PART B [id number] LISAEMILIA HN PATIENT MEDICARE (WNR) MEDICARE (M) PART A Dec 28, 2016 PART A [id number] [phone] SBREGA,EMILIA HN PATIENT MEDICARE (WNR) MEDICARE (M) PART B Dec 28, 2016 PART B [id number] EMILIA GONZALEZ PATIENT BRIANA PREFERRED PROVIDER ORGANIZAT ION (PPO) DENI [facility] Dec 28, 2016 [id number] [phone] EMILIA GONZALEZ PATIENT UNICVIRGIL MEDICAL EXPENSE (OPT/PROF ) [facility]I [facility] Dec 28, 2016 [id number] [phone] EMILIA GONZALEZ PATIENT Selected Encounter This section includes the information on record at [place] for the Encounter. Date/Time Encounter Type Encounter Description Reason Pro vider Source Apr 10, 2024 12:00 AM Outpatient Encounter COMMUNITY CARE CONSULT I[facility] Encounter Template Text not used by [place] Plan of Treatment: Future Appointments (+ 6 months) and Future Tests (+/- 45 days) The Plan of Treatment section includes future care activities for the patient from all [place] treatmentfacilities. This section includes future appointments and future orders which are active, pending or scheduled. Future Appointments This section includes appointments that were scheduled to occur 6 months from the date of the Encounter, up to a maximum of 20 appointments. The data comes from all [place] treatment facilities. Appointment Date/Time Appointment Type Appointme nt Facility Name May 10, 2024 09:00 AM AMBULATORY - MEDICINE [facility] Jun 11, 2024 01:00 PM AMBULATORY MEDICINE [facility] Jul 12, 2024 09:00 AM AMBULATORY MEDICINE [facility] Lab Results: +/- 30 days of the encounter This section includes the Chemistry and Hematology Lab Results on record with [place] for the patient. Radiology Reports and Pathology Reports are provided separately, in subsequent sections. Lab Results This section contains the Chemistry/Hematology Results that were resulted 30 days before or 30 daysafter the date of the Encounter. Date/Time Source Result Type Result - Unit Interpretation Reference Range Comment May 07, 2024 10:57 AM [facility] HEMOGLOBIN A1C PANEL Specimen Type: BLOOD [...] Jan 31, 2024 01:45 PM Reporting Lab: [address] [id number] Performing Lab: [address] [id number] HEMOGLOBIN A1C 6.6 H 4.0-5.6 May 07, 2024 10:57 AM [facility] LIVER FUNCTION Specimen Type: SERUM No comment entered. Ordering Provider: MICHAELA ROMERO F Report Released Date/Time: Jan 31, 2024 01:45 PM Reporting Lab: [address] [address] Performing Lab: [address] [address] PROTEIN,TOTAL 7.5 g/dL 6.0-8.3 ALBUMIN 4.0 g/dL 3.5-5.0 ALKALINE PHOSPHATASE 61 U/L 40-150 AST 28 U/L 5-34 ALT 16 U/L BILIRUBIN, TOTAL 0.6 mg/dL 0.2-1.2 May 07, 2024 10:57 AM [facility] BASIC METABOLIC PANEL (fasting) Specimen Type: SERUM No comment entered. Ordering Provider: MICHAELA ROMERO F Report Released Date/Time: Jan 31, 2024 01:45 PM Reporting Lab: [address] [address] Performing Lab: [address] [address] UREA NITROGEN 28 mg/dL H 7-25 GLUCOSE 122 mg/dL H 65-100 SODIUM 141 mmol/L 135-145 POTASSIUM 4.7 mmol/L 3.5-5.0 CHLORIDE 108 mmol/L 100-110 CO2 20 meq/L 20-30 CREATININE, Serum 1.51 mg/dL H 0.50-1.40 eGFR(CKD-EPI 2020) 46 mL/min L >60 [facility] 07, [facility]24 10:[facility] LIPID PANEL FASTING Specimen Type: SERUM No comment entered. Ordering Provider: MICHAELA ROMERO Report Released Date/Time: Jan 31, 2024 01:45 PM Reporting Lab: [facility] [address] [id number] Performing Lab: [facility] [address] [address] CHOLESTEROL 146 mg/dL TRIGLYCERIDE 95 mg/dL 0-150 LDL calculated 98 mg/dL 0-129 CHOL/HDL 5.0 HDL CHOLESTEROL 29 mg/dL L 40-60 Social History: Smoking Status (Most current) and Tobacco Use (All prior to encounter date) This section includes the most current, and the historical, smoking and tobacco- related health factors from the [place] facility where the Encounter took place. Current Smoking Status This section includes the most current smoking, or tobacco-related health factor, from the [place] facility where the Encounter took place. Date/Time Current Smoking Status Comment Facil ity Jan 13, 2024 09:23 AM VA-TOBACCO FORMER USER [facility] Tobacco Use History This section includes a history of the smoking, or tobacco-related health factors, that were collected on or before the date of the Encounter. The data comes from the [place] facility where the Encounter took place. Date/Time Smoking Status/Tobacco Use Comment F acility Jan 13, 2024 09:23 AM VA-TOBACCO QUIT 15 YRS OR MORE [place] [facility] [place] [facility] Dec 10, 2022 10:00 AM [facility] Dec 10, 2022 10:00 AM VA-TOBACCO QUIT 15 YRS OR MORE 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 Date/Time Encounter Note(s) Provider Source Apr 10, 2024 12:00 AM NONVA CONSULT: LOCAL TITLE: COMMUNITY CARE-CONSULT RESULT NOTE STANDARD TITLE: NONVA CONSULT DATE OF NOTE: APR 10, 2024 ENTRY DATE: MAY 17, 2024@09:54:04 AUTHOR: AP MULLIGAN COSIGNER: URGENCY: STATUS: COMPLETED VistA Imaging - Scanned Document SCANNED DOCUMENT SIGNATURE NOT REQUIRED Electronically Filed: 05/17/2024 by: OSCAR MULLIGAN Fiscal Analyst OSCAR MULLIGAN [facility]
--- OUTSIDE RECORDS SUMMARY | 2024-06-04 12:20 | XMS_ITS | Encounter Summary ---
Author Name [facility] [facility] [place] [facility] [place] Address [address] [place] [address] Care Team Providers Care Intelligence Analyst Name Role Phone ADRIANA HUITRON Primary Care [...] GIC INDEMNITY PLAN MEDICAL EXPENSE (OPT/PROF ) [facility] N Dec 28, 2016 [id number] [phone] EMILIA GONZALEZ HN PATIENT MEDICARE (WNR) MEDICARE (M) PART A Dec 28, 2016 PART A [id number] EMILIA GONZALEZ HN PATIENT MEDICARE (WNR) MEDICARE (M) PART B Dec 28, 2016 PART B [id number] EMILIA GONZALEZ HN PATIENT MEDICARE (WNR) MEDICARE (M) PART A Dec 28, 2016 PART A [id number] [phone] EMILIA GONZALEZ PATIENT MEDICARE (WNR) MEDICARE (M) PART B Dec 28, 2016 PART B [id number] EMILIA GONZALEZ PATIENT UNICARE PREFERRED PROVIDER ORGANIZAT ION (PPO) [facility] N Dec 28, 2016 [id number] EMILIA GONZALEZ PATIENT UNICARE MEDICAL EXPENSE (OPT/PROF ) [facility] N Dec 28, 2016 [id number] EMILIA GONZALEZ PATIENT Selected Encounter This section includes the information on record at [place] for the Encounter. Date/Time Encounter Type Encounter Description Reason Provider Source May 10, 2024 09:00 AM OFFICE O/P EST LOW 20 MIN PRIMARY CARE/MEDICINE ICD-10-CM E11.21 Type 2 diabetes mellitus with diabetic nephropathy MICHAELA HUITRON [facility] Encounter Template Text not used by [place] Assessments - Encounter Diagnoses This section includes the primary and secondary diagnoses documented for the Encounter. Date/Time Primary/Secondary Diagnosis Diagnosis Name Provider Source May 10, 2024 09:32 AM PRIMARY Type 2 diabetes mellitus with diabetic nephropathy SANDRA HUITRON [facility] [place] [facility] May 10, 2024 09:32 AM SECONDARY Athscl heart disease of [place] coronary artery w/o ang pctrs SANDRA HUITRON F [facility] [place] [facility] May 10, 2024 09:32 AM SECONDARY Encounter for immunization ZORAIDA LUCAS M [facility] [place] [facility] May 10, 2024 09:32 AM SECONDARY Essential (primary) hypertension SANDRA HUITRON [facility] [place] [facility] May 10, 2024 09:32 AM SECONDARY Pure hypercholesterolem ia, unspecified SANDRA HUITRON F [facility] [place] [facility] May 10, 2024 09:32 AM SECONDARY Type 2 diabetes mellitus without complications SANDRA HUITRON F [facility] [place] [facility] Plan of Treatment: Future Appointments [...] Date/Time Appointment Type Appointme nt Facility Name Jun 11, 2024 01:00 PM AMBULATORY - MEDICINE [facility] Jul 12, 2024 09:00 AM AMBULATORY - MEDICINE [facility] Lab Results: +/- 30 days [...] Range Comment May 07, 2024 10:57 AM [facility] HEMOGLOBIN A1C PANEL Specimen Type: BLOOD Comment: Values obtained from A1C measurements can vary. For atypical A1C assays, a reported value of 7.0 could actually be between 6.72 and 7.28 if measured by a reference method. A reported value of 9.0 could actually be between 8.73 and 9.27. Ref: http://www.ngs p.org/CAPdata. asp Ordering Provider: MICHAELA HUITRON Report Released Date/Time: Jan 31, 2024 01:45 PM Reporting Lab: [address] [address] Performing Lab: [address] [address] HEMOGLOBIN A1C 6.6 H 4.0-5.6 May 07, 2024 10:57 AM [facility] BASIC METABOLIC PANEL (fasting) Specimen Type: SERUM No comment entered. Ordering Provider: MICHAELA HUITRON F Report Released Date/Time: Jan 31, 2024 01:45 PM Reporting Lab: [address] [address] Performing Lab: [facility] [address] [address] UREA NITROGEN 28 mg/dL H 7-25 GLUCOSE 122 mg/dL H 65-100 SODIUM 141 mmol/L 135-145 POTASSIUM 4.7 mmol/L 3.5-5.0 CHLORIDE 108 mmol/L 100-110 CO2 20 meq/L 20-30 CREATININE, Serum 1.51 mg/dL H 0.50-1.40 eGFR(CKD-EPI 2020) 46 mL/min L >60 May 07, 2024 10:57 AM [facility] LIVER FUNCTION Specimen Type: SERUM No comment entered. Ordering Provider: MICHAELA HUITRON F Report Released Date/Time: Jan 31, 2024 01:45 PM Reporting Lab: [address] [address] Performing Lab: [address] [address] PROTEIN,TOTAL 7.5 g/dL 6.0-8.3 ALBUMIN 4.0 g/dL 3.5-5.0 ALKALINE PHOSPHATASE 61 U/L 40-150 AST 28 U/L 5-34 ALT 16 U/L BILIRUBIN, TOTAL 0.6 mg/dL 0.2-1.2 May 07, 2024 10:57 AM [facility] LIPID PANEL FASTING Specimen Type: SERUM No comment entered. Ordering Provider: MICHAELA HUITRON F Report Released Date/Time: Jan 31, 2024 01:45 PM Reporting Lab: [address] [address] Performing Lab: [address] [address] CHOLESTEROL 146 mg/dL TRIGLYCERIDE 95 mg/dL 0-150 LDL calculated 98 mg/dL 0-129 CHOL/HDL 5.0 HDL CHOLESTEROL 29 mg/dL L 40-60 Vital Signs: All taken on the encounter date This section contains inpatient and outpatient Vital Signs collected on the date of the Encounter. Date/Time Temperature Pulse Blood Pressure Respiratory Rate SP02 Pain Height Weight Body Mass Index Source May 10, 2024 08:51 AM 97.9 68 138/82 16 96 0 69 167.5 25 [place] [facility] [place] [facility] Immunizations: All administered on the encounter date This section contains immunizations associated to the Encounter. Immunization Series Date Issued Reaction Comments INFLUENZA, HIGH-DOSE, TRIVALENT, PF May 10 Social History: Smoking Status (Most current) and [...] 13, 2024 09:23 AM VA-TOBACCO FORMER USER [place] [facility] Tobacco Use History This section includes a history of the smoking, or tobacco-related health factors, that were collected on or before the date of the Encounter. The data comes from the [place] facility where the Encounter took place. Date/Time Smoking Status/Tobacco Use Comment F acility Jan 13, 2024 09:23 AM VA-TOBACCO QUIT 15 YRS OR MORE [facility] [place] [facility] Dec 10, 2022 10:00 AM VA-TOBACCO FORMER USER [facility] [place] Dec 10, 2022 10:00 AM VA-TOBACCO QUIT 15 YRS OR MORE [facility] [place] [facility] Jan 07, 2022 12:47 PM VA-TOBACCO DOESNT USE WI 30 MIN WAKEUP [facility] [place] [facility] Jan 07, 2022 12:47 PM VA-TOBACCO USE 30 YEARS OR MORE [facility] [place] [facility] Jan 07, 2022 12:47 PM VA-TOBACCO USE ADVICE [facility] [place] [facility] Jan 07, 2022 12:47 PM VA-TOBACCO USE SHORTHAND REPORTER NO [facility] [place] [facility] Jan 07, 2022 12:47 PM VA-TOBACCO USE MED NO [facility] [place] [facility] Jan 07, 2022 12:47 PM VA-TOBACCO USER EVERY DAY [facility] [place] Encounter Notes: All associated encounter notes This section contains the clinical notes associated to the Encounter. Date/Time Encounter Note(s) Provider Source May 10, 2024 10:37 AM ADDENDUM: LOCAL TITLE: Addendum STANDARD TITLE: ADDENDUM DATE OF NOTE: MAY 10, 2024@10:37:49 ENTRY DATE: MAY 10, 2024@10:37:49 AUTHOR: RADHA TEE EXP COSIGNER: URGENCY: STATUS: COMPLETED Noted A1c is at goal. Renal dysfunction noted - no dose adjustment of metformin warranted. Concern noted, however, re: use of statin and gemfibrozil. Appears gemfibrozil was d/c'd in the past due to this interaction. Pt missed last appt with Dr. Mckeon. Will ask for PACT purchasing and fiscal clerk to please contact pt for rescheduling visit with Dr. Mckeon for review of medications. /renny/ Radha Tee, PharmD, [facility] Clinical Electron Microprobe Operator Signed: 05/10/2024 10:39 Receipt Acknowledged By: 05/10/2024 11:11 /renny/ JOSE ANGEL HOUGH Clinical Teletray Operator --- Original Document --- 05/10/24 PA NOTE: CC/HPI/A/P: 83 year old MALE here in follow-up for; DM, IMPROVED! He reports cutting back on snacks (Tameka's influence) and perhaps a bit more exercise. Our 50th anniversary is Tuesday . They plan to go to [place] in September to celebrate. We discuss a week of meds in carry on and original containers in checked bags. htn, in fair control. Dyslipidemia on 3 agents. hdl of 29 discussed. lifestyle discussed. renal insufficiency, 2 month f/u with labs, I will ask Tameka to review and perhaps see him around the 2 month labs. Review of systems: Patient reports no changes from [facility], in meds or any admissions. Active problems - Computerized Problem List is the source for the followin. Exposure to potentially hazardous substance ([facility] [id number]) Entered automatically through [facility] Problem List documentation program 2. 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 Hearing Loss ([facility] [id number]) 4. Vitamin B12 Deficiency ([facility] [id number]) 5. CAD - Coronary Artery Disease ([facility] [id number]) 3 vessel cabg 2003. 6. Diabetes Mellitus Type 2 ([facility] [id number]) 7. Gout ([facility] [id number]) 8. Hypercholesterolemia 9. Hypertension SERVICE CONNECTED % - 80 VA and Non VA meds were reconciled with the patient who left with a corrected copy. See medication page for details. Active and Recently Outpatient Medications (excluding Supplies): Active Outpatient Medications Status 1) ACCU-CHEK GUIDE (GLUCOSE) TEST STRIP USE 1 STRIP TO TEST ACTIVE BLOOD SUGARS TWICE A WEEK NEEDED 2) ASPIRIN 81MG EC TAB TAKE ONE TABLET BY MOUTH ONCE DAILY TO ACTIVE PREVENT STROKE/HEART ATTACK TAKE 15 MINUTES BEFORE NIACIN TO REDUCE/PREVENT FLUSHING. Indication: FOR MYOCARDIAL REINFARCTION PREVENTION 3) ATORVASTATIN CALCIUM 80MG TAB TAKE ONE TABLET BY MOUTH ONCE ACTIVE DAILY FOR CHOLESTEROL 4) CANDESARTAN CILEXETIL 8MG TAB TAKE ONE TABLET BY MOUTH ONCE ACTIVE DAILY 5) CHOLECALCIF 25MCG (D3-1,000UNIT) TAB TAKE ONE TABLET BY ACTIVE MOUTH ONCE DAILY FOR VITAMIN SUPPLEMENTATION 6) CYANOCOBALAMIN 1000MCG TAB TAKE ONE TABLET BY MOUTH ONCE ACTIVE DAILY FOR VITAMIN SUPPLEMENTATION 7) EZETIMIBE 10MG TAB TAKE ONE TABLET BY MOUTH ONCE DAILY TO ACTIVE LOWER CHOLESTEROL 8) FOLIC ACID 1MG TAB TAKE TWO TABLETS BY MOUTH ONCE DAILY ACTIVE VITAMIN/NUTRITION SUPPLEMENT 9) GEMFIBROZIL 600MG TAB TAKE ONE TABLET BY MOUTH TWICE DAILY ACTIVE TO LOWER CHOLESTEROL 10) METFORMIN HCL 500MG TAB TAKE ONE TABLET BY MOUTH TWICE DAILY ACTIVE FOR DIABETES 11) METRONIDAZOLE 0.75% TOP CREAM APPLY A SMALL AMOUNT TOPICALLY ACTIVE AT BEDTIME NEEDED FOR SKIN INFECTION Indication: FOR ACNE ROSACEA 12) MULTIVITAMIN/MINERALS CAP/TAB TAKE 1 TABLET BY MOUTH ONCE ACTIVE DAILY FOR VITAMIN SUPPLEMENTATION 13) PYRIDOXINE HCL 50MG TAB TAKE ONE TABLET BY MOUTH ONCE DAILY ACTIVE FOR VITAMIN B6 SUPPLEMENTATION 97.9 F [36.6 C] (05/10/2024 08:51) 68 (05/10/2024 08:51) 16 (05/10/2024 08:51) 138/82 (05/10/2024 08:51) 0 (05/10/2024 08:51) 69 in [175.3 cm] (05/10/2024 08:51) 167.5 lb [75.98 kg] (05/10/2024 08:51) BMI: 24.8 Neuro: Alert and oriented times three, grossly nonfocal, nasolabial folds intact. Recent labs reviewed with patient today:yes /renny/ Adriana Huitron PA-C STAFF PHYSICIAN CONCRETE INSPECTOR Signed: 05/10/2024 09:32 Receipt Acknowledged By: 05/10/2024 10:36 /renny/ Radha Tee, PharmD, BCPS Clinical Electron Microprobe Operator for TAMEKA Hinkle RADHA VASQUEZ [facility] May 10, 2024 09:28 AM PHYSICIAN CONCRETE INSPECTOR NOTE: LOCAL TITLE: NISREEN NOTE STANDARD TITLE: PHYSICIAN CONCRETE INSPECTOR NOTE DATE OF NOTE: MAY 10, 2024@09:28 ENTRY DATE: MAY 10, 2024@09:28:10 AUTHOR: ADRIANA HUITRON EXP COSIGNER: URGENCY: STATUS: COMPLETED NISREEN NOTE Has ADDENDA CC/HPI/A/P: 83 year old MALE here in follow-up for; DM, IMPROVED! He reports cutting back on snacks (Tameka's influence) and perhaps a bit more exercise. Our 50th anniversary is Tuesday . They plan to go to [place] in September to celebrate. We discuss a week of meds in carry on and original containers in checked bags. htn, in fair control. Dyslipidemia on 3 agents. hdl of 29 discussed. lifestyle discussed. renal insufficiency, 2 month f/u with labs, I will ask Tameka to review and perhaps see him around the 2 month labs. Review of systems: Patient reports no changes from [facility], in meds or any admissions. Active problems - Computerized Problem List is the source for the followin. Exposure to potentially hazardous substance ([facility] [id number]) Entered automatically through [facility] Problem List documentation program 2. 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 Hearing Loss ([facility] [id number]) 4. Vitamin B12 Deficiency ([facility] [id number]) 5. CAD - Coronary Artery Disease ([facility] [id number]) 3 vessel cabg 2003. 6. Diabetes Mellitus Type 2 ([facility] [id number]) 7. Gout ([facility] [id number]) 8. Hypercholesterolemia 9. Hypertension SERVICE CONNECTED % - 80 VA and Non VA meds were reconciled with the patient who left with a corrected copy. See medication page for details. Active and Recently Outpatient Medications (excluding Supplies): Active Outpatient Medications Status 1) ACCU-CHEK GUIDE (GLUCOSE) TEST STRIP USE 1 STRIP TO TEST ACTIVE BLOOD SUGARS TWICE A WEEK NEEDED 2) ASPIRIN 81MG EC TAB TAKE ONE TABLET BY MOUTH ONCE DAILY TO ACTIVE PREVENT STROKE/HEART ATTACK TAKE 15 MINUTES BEFORE NIACIN TO REDUCE/PREVENT FLUSHING. Indication: FOR MYOCARDIAL REINFARCTION PREVENTION 3) ATORVASTATIN CALCIUM 80MG TAB TAKE ONE TABLET BY MOUTH ONCE ACTIVE DAILY FOR CHOLESTEROL 4) CANDESARTAN CILEXETIL 8MG TAB TAKE ONE TABLET BY MOUTH ONCE ACTIVE DAILY 5) CHOLECALCIF 25MCG (D3-1,000UNIT) TAB TAKE ONE TABLET BY ACTIVE MOUTH ONCE DAILY FOR VITAMIN SUPPLEMENTATION 6) CYANOCOBALAMIN 1000MCG TAB TAKE ONE TABLET BY MOUTH ONCE ACTIVE DAILY FOR VITAMIN SUPPLEMENTATION 7) EZETIMIBE 10MG TAB TAKE ONE TABLET BY MOUTH ONCE DAILY TO ACTIVE LOWER CHOLESTEROL 8) FOLIC ACID 1MG TAB TAKE TWO TABLETS BY MOUTH ONCE DAILY ACTIVE VITAMIN/NUTRITION SUPPLEMENT 9) GEMFIBROZIL 600MG TAB TAKE ONE TABLET BY MOUTH TWICE DAILY ACTIVE TO LOWER CHOLESTEROL 10) METFORMIN HCL 500MG TAB TAKE ONE TABLET BY MOUTH TWICE DAILY ACTIVE FOR DIABETES 11) METRONIDAZOLE 0.75% TOP CREAM APPLY A SMALL AMOUNT TOPICALLY ACTIVE AT BEDTIME NEEDED FOR SKIN INFECTION Indication: FOR ACNE ROSACEA 12) MULTIVITAMIN/MINERALS CAP/TAB TAKE 1 TABLET BY MOUTH ONCE ACTIVE DAILY FOR VITAMIN SUPPLEMENTATION 13) PYRIDOXINE HCL 50MG TAB TAKE ONE TABLET BY MOUTH ONCE DAILY ACTIVE FOR VITAMIN B6 SUPPLEMENTATION 97.9 F [36.6 C] (05/10/2024 08:51) 68 (05/10/2024 08:51) 16 (05/10/2024 08:51) 138/82 (05/10/2024 08:51) 0 (05/10/2024 08:51) 69 in [175.3 cm] (05/10/2024 08:51) 167.5 lb [75.98 kg] (05/10/2024 08:51) BMI: 24.8 Neuro: Alert and oriented times three, grossly nonfocal, nasolabial folds intact. Recent labs reviewed with patient today:yes /renny/ Adriana Huitron PA-C STAFF PHYSICIAN CONCRETE INSPECTOR Signed: 05/10/2024 09:32 Receipt Acknowledged By: 05/10/2024 10:36 /renny/ Radha Tee PharmD, [facility] Clinical Electron Microprobe Operator for TAMEKA MCKEON 05/10/2024 ADDENDUM STATUS: COMPLETED Noted A1c is at goal. Renal dysfunction noted - no dose adjustment of metformin warranted. Concern noted, however, re: use of statin and gemfibrozil. Appears gemfibrozil was d/c'd in the past due to this interaction. Pt missed last appt with Dr. Mckeon. Will ask for PACT purchasing and fiscal clerk to please contact pt for rescheduling visit with Dr. Mckeon for review of medications. /renny/ Radha Tee PharmD, [facility] Clinical Electron Microprobe Operator Signed: 05/10/2024 10:39 Receipt Acknowledged By: * AWAITING SIGNATURE * JOSE ANGEL HOUGH WILLIAM F [facility] [place] [facility] May 10, 2024 08:57 AM PREVENTIVE MEDICINE NURSING NOTE: LOCAL TITLE: CLINICAL REMINDERS/NURSING STANDARD TITLE: PREVENTIVE MEDICINE NURSING NOTE DATE OF NOTE: MAY 10, 2024@08:57 ENTRY DATE: MAY 10, 2024@08:57:22 AUTHOR: FRIDA LUCAS COSIGNER: URGENCY: STATUS: COMPLETED CLINICAL REMINDERS/NURSING Has ADDENDA Homelessness/Food Insecurity Screen: In the past 2 months, have you been living in stable housing that you own, rent, or stay in as part of a household? Yes - Living in stable housing. Are you worried or concerned that in the next 2 months you may NOT have stable housing that you own, rent, or stay in as part of a household? No - Not worried about housing near future The reports the following: Within the past 12 months, you worried whether your food would run out before you got money to buy more. Never true Within the past 12 months, the food you bought just didn't last and you didn't have money to get more. Never true Sexual Orientation: The patient thinks of their sexual orientation as: Straight or Heterosexual COVID-19 Immunization: Refused Moderna Monovalent COVID-19 vaccine Immunization: COVID-19 (MODERNA), MRNA, LNP-S, PF, 50 MCG/0.5 ML (AGES 12+ YEARS) Refusal Reason: PATIENT DECISION Patient refuses all immunization(s) in the COVID-19 group Date Documented: 05/10/24 08:58 (Optional) Whole Health Documentation: What matters the most to you? What motivates you to be healthy? (MAP) Response: to be healthy Advance Directive Screen MH AD: Patient has an up-to-date Advance Directive at an outside, non-va facility and was asked to forward a copy to his/her clinician. Comment: was given the paperwork to return upon completion /renny/ FRIDA LUCAS LPN HOME ENERGY CONSULTANT SUPERVISOR Signed: 05/10/2024 09:08 05/10/2024 ADDENDUM STATUS: COMPLETED Influenza Immunization: Influenza, High-Dose, Trivalent, Preservative Free (Fluzone-Syringe) Administered: INFLUENZA, HIGH-DOSE, TRIVALENT, PF Date Administered: May 10, 2024 09:00 Series: Complete Student Success Counselor: SANOFI PASTEUR Lot: [id number] Exp Date: Nov 26, 2024 [facility]: [phone] Admin Route/Site: INTRAMUSCULAR/LEFT DELTOID Dosage: 0.5mL Vaccine Information Statement(s): INFLUENZA(FLU) VACC(INACTIVATED OR RECOMBINANT)VIS Jan 02, 2021 (GUINEAN) Order By: Policy Administered By: Frida Lucas The Influenza Vaccine Information Statement (VIS) was reviewed with the patient/caregiver which lists the benefits and risks of the vaccine and the risks of not receiving the Influenza vaccine. The patient/caregiver denied any prior severe reaction to this vaccine or its components or a severe allergic reaction, such as anaphylaxis, to any vaccine or any injectable therapy. The patient/caregiver gave verbal consent to receive the vaccine. /renny/ FRIDA LUCAS LPN LPN Signed: 05/10/2024 09:51 FRIDA LUCAS [facility]
--- OUTSIDE RECORDS SUMMARY | 2024-06-04 12:20 | XMS_ITS | Encounter Summary ---
Author Name [facility] [place] Organization [facility] [place] Address [address] [place] [address] Care Team Providers Care Torch Operator Name Role Phone ADRIANA ROMERO Primary [...] GIC INDEMNITY PLAN MEDICAL EXPENSE (OPT/PROF ) [facility] N Dec 28, 2016 [id number] EMILIA GONZALEZ HN PATIENT MEDICARE (WNR) MEDICARE (M) PART A Dec 28, 2016 PART A [id number] [phone] EMILIA GONZALEZ HN PATIENT MEDICARE (WNR) MEDICARE (M) PART B Dec 28, 2016 PART B [id number] EMILIA GONZALEZ HN PATIENT MEDICARE (WNR) MEDICARE (M) PART A Dec 28, 2016 PART A [id number] EMILIA GONZALEZ HN PATIENT MEDICARE (WNR) MEDICARE (M) PART B Dec 28, 2016 PART B [id number] EMILIA GONZALEZ PATIENT BRIANA PREFERRED PROVIDER ORGANIZAT ION (PPO) [facility], 2016 [id number] SBEMILIA HILL PATIENT UNICVIRGIL MEDICAL EXPENSE (OPT/PROF ) DENI [place]HE[place] [facility] INDEM N Dec 28, 2016 [id number] EMILIA GONZALEZ PATIENT Selected Encounter This section includes the information on record at [place] for the Encounter. Date/Time Encounter Type Encounter Description Reason Pro vider Source May 03, 2024 12:05 PM Outpatient Encounter ADMIN PAT ACTIVTIES (MASNONCT) [...] 10, 2024 09:00 AM AMBULATORY - MEDICINE [facility] Jun 11, 2024 01:00 PM AMBULATORY MEDICINE [facility] Jul 12, 2024 09:00 AM AMBULATORY MEDICINE [facility] Lab Results: +/- 30 days [...] Range Comment May 07, 2024 10:57 AM [facility] HEMOGLOBIN A1C PANEL [...] Jan 31, 2024 01:45 PM Reporting Lab: [address] [address] Performing Lab: [address] [address] HEMOGLOBIN A1C 6.6 H 4.0-5.6 May 07, 2024 10:57 AM [facility] BASIC METABOLIC PANEL (fasting) Specimen Type: SERUM No comment entered. Ordering Provider: MICHAELA ROMEROM F Report Released Date/Time: Jan 31, 2024 01:45 PM Reporting Lab: [address] [address] Performing Lab: [address] [address] UREA NITROGEN 28 mg/dL H 7-25 GLUCOSE 122 mg/dL H 65-100 SODIUM 141 mmol/L 135-145 POTASSIUM 4.7 mmol/L 3.5-5.0 CHLORIDE 108 mmol/L 100-110 CO2 20 meq/L 20-30 CREATININE, Serum 1.51 mg/dL H 0.50-1.40 eGFR(CKD-EPI 2020) 46 mL/min L >60 May 07, 2024 10:57 AM [facility] LIVER FUNCTION Specimen Type: SERUM No comment entered. Ordering Provider: MICHAELA ROMERO F Report Released Date/Time: Jan 31, 2024 01:45 PM Reporting Lab: [address] [address] Performing Lab: [address] [address] PROTEIN,TOTAL 7.5 g/dL 6.0-8.3 ALBUMIN 4.0 g/dL 3.5-5.0 ALKALINE PHOSPHATASE 61 U/L 40-150 AST 28 U/L 5-34 ALT 16 U/L BILIRUBIN, TOTAL 0.6 mg/dL 0.2-1.2 May 07, 2024 10:57 AM [facility] LIPID PANEL FASTING Specimen Type: SERUM No comment entered. Ordering Provider: MICHAELA ROMERO Report Released Date/Time: Jan 31, 2024 01:45 PM Reporting Lab: [facility] [address] [facility] [address] Performing Lab: [facility] [address] [facility] [facility] [address] CHOLESTEROL 146 mg/dL TRIGLYCERIDE 95 mg/dL 0-150 [...] 13, 2024 09:23 AM VA-TOBACCO FORMER USER [facility] Tobacco Use History This section includes a history of the smoking, or tobacco-related health factors, that were collected on or before the date of the Encounter. The data comes from the [place] facility where the Encounter took place. Date/Time Smoking Status/Tobacco Use Comment F acility Jan 13, 2024 09:23 AM VA-TOBACCO QUIT 15 [facility] OR [facility] [place] [facility] Dec 10, 2022 10:00 AM VA-TOBACCO FOR[facility]ER [facility] Dec 10, 2022 10:00 AM VA-TOBACCO QUIT 15 YRS OR MORE [facility] Jan 07, 2022 12:47 PM VA-TOBACCO DOESNT USE WI 30 MIN [facility] [facility] Jan 07, 2022 12:47 PM VA-TOBACCO USE 30 YEARS OR MORE [facility] Jan 07, 2022 12:47 PM VA-TOBACCO USE ADVICE [facility] [place] [facility] Jan 07, 2022 12:47 PM VA-TOBACCO USE SPIKE MACHINE HEATER NO [facility] [place] [facility] Jan 07, 2022 12:47 PM VA-TOBACCO USE MED NO [facility] [place] [facility] Jan 07, 2022 12:47 PM VA-TOBACCO USER EVERY DAY [facility] Encounter Notes: All associated encounter notes This section contains the clinical notes associated to the Encounter. Date/Time Encounter Note(s) Provider Source May 03, 2024 12:05 PM ADMINISTRATIVE NOTE: LOCAL TITLE: CCC: SCHEDULING ADMINISTRATION STANDARD TITLE: ADMINISTRATIVE NOTE DATE OF NOTE: MAY 03, 2024@12:05:32 ENTRY DATE: MAY 03, 2024@12:05:33 AUTHOR: YUE VALENCIA COSIGNER: URGENCY: STATUS: COMPLETED CCC: SCHEDULING ADMINISTRATION Has ADDENDA Patient Demographics Patient Name: FABY GONZALEZ Patient Primary Phone: [phone] Patient Primary [address]: [address] [place] [address] Patient : 1940 Patient Age: 83 Caller/Recipient Relation to Patient: Self Caller Name: FABY GONZALEZ Administrative Administrative Note Reason: Other Administrative Note Comments: is calling to check on the Repeat CT scan on his lower abdomen that he needs done. Please see note from 04/27. [place] has not heard back from [facility] yet on scheduling this. Can someone please look into this and call the back @ [phone] IMPORTANT: This note was created by [facility] Clinical Contact Center staff. Please do not alert the staff member by adding them as a signer for future communications. Alerts are not monitored by this user. /renny/ YUE ARANDA 1 [facility] AMSA Signed: 05/03/2024 12:05 Receipt Acknowledged By: 05/03/2024 13:02 /renny/ NI FLETCHER, RN REGISTERED NURSE 05/03/2024 13:06 /renny/ NI FLETCHER, RN REGISTERED NURSE for CHARLIE MARTINO 05/03/2024 ADDENDUM STATUS: COMPLETED Spoke to [place] and let him know we have not received any notes or prescriptions. Explained that his consult for [facility] Urology is Good until September 2024 and all labs and imaging can be done with them. Scripts can be sent to our pharmacy to be filled. He will ask for the CT to be put in by Dr. Garrido @ [facility]. Understood and agreed to plan. /es/ NI FLETCHER RN REGISTERED NURSE Signed: 05/03/2024 13:05 YUE VALENCIA [place] [facility]
== END 2024-06-04 10:53 | disposition home or self-care (01) ==
LOC: CF 10:52
DX: Z13.89 Encounter for screening for other disorder (principal)

== ENCOUNTER 2024-09-24 12:09 | Outpatient (REF) | payer OTHER, SELFPAY ==
--- NOTE | ~2024-09-24 | US_ITS ---
EXAMINATION: US RETROPERITONEAL LIMITED (RENAL ONLY) CLINICAL INFORMATION: Calculus of kidney. COMPARISON: None available. TECHNIQUE: Seen grayscale imaging of kidneys is performed. FINDINGS: RIGHT KIDNEY: 13.2 x 5.8 x 5.9 cm (SAG x AP x TRV). The kidney is normal in size, contour, and echogenicity. Renal cortical thickness is normal. There is anechoic cyst mid pole measuring 0.9 x 0.6 x 0.9 cm an echogenic stone lower pole measuring 0.3 x 0.2 x 0.3 cm. There are other punctate echogenic foci. Small scattered calcifications seen upper and mid pole. LEFT KIDNEY: 12.2 x 7.0 x 5.2 cm (SAG x AP x TRV). The kidney is normal in size, contour, and echogenicity. Renal cortical thickness is normal. There is anechoic cyst mid pole measuring 1.2 x 1.2 x 1.1 cm. There is echogenic well-defined solid mass mid pole measuring 3.0 x 2.7 x 2.8 cm the. It has increased vascularity. There is an echogenic stone midpole without calyectasis measuring 0.5 x 0.4 0.5 cm. There is no hydronephrosis seen. US/US renal BI IMPRESSION: Solid mass mid pole left kidney with increased vascularity. Suspicious. Recommend CT without and with contrast. Bilateral renal cyst and scattered calcifications. Nonobstructive echogenic stone midpole left kidney and lower pole right kidney. Electronically signed by: Lazaro Turner MD 09/24/2024 01:40 PM EDT
--- OUTSIDE RECORDS SUMMARY | 2024-09-24 14:29 | XMS_ITS | Encounter Summary ---
Author Name [facility] [place] Organization [facility] [place] Address [address] [place] [address] Care Team Providers Care Manager Solar Name Role Phone ADRIANA ROMERO Primary Care [...] [facility] N Dec 28, 2016 [id number] EMILIA GONZALEZ HN PATIENT MEDICARE (WNR) MEDICARE (M) PART A Dec 28, 2016 PART A [id number] [phone] [id number] EMILIA GONZALEZ HN PATIENT MEDICARE (WNR) MEDICARE (M) PART B Dec 28, 2016 PART B [id number] [id number] [phone] [id number] EMILIA GONZALEZ HN PATIENT MEDICARE (WNR) MEDICARE (M) PART A Dec 28, 2016 PART A [id number] EMILIA GONZALEZ PATIENT MEDICARE (WNR) MEDICARE (M) PART B Dec 28, 2016 PART B [id number] [phone] [id number] EMILIA GONZALEZ PATIENT UNICARE MEDICAL EXPENSE (OPT/PROF ) DENI IRA[place] [facility] INDEM N Dec 28, 2016 [id number] SBEMILIA HILL PATIENT [place] PREFERRED PROVIDER ORGANIZAT ION (PPO) DENI [place]HE[place] [facility] INDEM N Dec 28, 2016 [id number] EMILIA GONZALEZ PATIENT Selected Encounter This section includes the information on record at [place] for the Encounter. Date/Time Encounter Type Encounter Description Reason Provider Source October 25, 2023 08:00 AM COMPRE OPH EXAM EST PT 1/> OPTOMETRY ICD-10-CM E11.9 Type 2 diabetes mellitus without complications KAYLEE BARRAGAN [facility] Encounter Template Text not used by [place] Assessments - Encounter Diagnoses This section includes the primary and secondary diagnoses documented for the Encounter. Date/Time Primary/Secondary Diagnosis Diagnosis Name Provider Source October 25, 2023 08:35 AM PRIMARY Type 2 diabetes mellitus without complications KAYLEE BARRAGAN [place] [facility] October 25, 2023 08:35 AM SECONDARY Age-related nuclear cataract, bilateral KAYLEE BARRAGAN [place] [facility] October 25, 2023 08:35 AM SECONDARY Hypermetropia, bilateral HENRY BARRAGANAH B [facility] [place] [place] [facility] Plan of Treatment: Future Appointments (+ [...] 03, 2023 09:00 AM AMBULATORY - MEDICINE IN [place] [facility] Nov 09, 2023 08:30 AM AMBULATORY - MEDICINE IN [place] [facility] Nov 18, 2023 08:30 AM AMBULATORY - NONE [place] [facility] Dec 13, 2023 02:30 PM [facility] Dec 21, 2023 09:45 AM AMBULATORY - MEDICINE IN [place] [facility] Jan 31, 2024 01:30 PM AMBULAT[facility] - [facility] Feb 02, 2024 11:15 AM AMBULATORY - NONE [facility] Apr 10, 2024 11:00 AM AMBULATORY - MEDICINE IN [facility] Lab Results: +/- 30 days of [...] Type Result - Unit Interpretation Reference Range Specimen Type Comment Nov 01, 2023 08:44 AM [facility] BASIC METABOLIC PANEL (fasting) SERUM Specime n Type: SERUM No comment entered. Ordering Provider: LIBIA ROMERO AM Report Released Date/Time: Apr 18, 2023 10:07 AM Reporting [facility]: [facility] [address] [address] Performing Lab: [facility] [address] [address] UREA NITROGEN 19 mg/dL 7-25 GLUCOSE 178 mg/dL H 65-100 SODIUM 138 mmol/L 135-145 POTASSIUM 5.2 mmol/L H 3.5-5.0 CHLORIDE 105 mmol/L 100-110 CO2 24 meq/L 20-30 CREATININE, Serum 1.39 mg/dL 0.50-1.40 eGFR(CKD-EPI 2020) 50 mL/min L >60 Nov 01, 2023 08:44 AM [facility] LIVER FUNCTION SERUM Specimen Type: SERUM No comment entered. Ordering Provider: ADRIANA ROMERO Report Released Date/Time: Apr 18, 2023 10:07 AM Reporting Lab: [facility] [address] [place] [address] Performing Lab: [facility] [address] [facility] [address] PROTEIN,TOTAL 7.1 g/dL 6.0-8.3 ALBUMIN 4.0 g/dL 3.5-5.0 ALKALINE PHOSPHATASE 57 U/L 40-150 AST 23 U/L 5-34 ALT 17 U/L BILIRUBIN, TOTAL 0.5 mg/dL 0.2-1.2 Nov 01, 2023 08:44 AM [facility] LIPID PANEL FASTING SERUM Specimen Type: SERU M No comment entered. Ordering Provider: ADRIANA ROMERO Report Released Date/Time: Apr 18, 2023 10:07 AM Reporting Lab: [address] [address] Performing Lab: [address] [address] CHOLESTEROL 158 mg/dL TRIGLYCERIDE 131 mg/dL 0-150 LDL calculated 103 mg/dL 0-129 CHOL/HDL 5.4 HDL CHOLESTEROL 29 mg/dL L 40-60 Nov 01, 2023 08:44 AM [facility] MICROALBUMIN CREATININE RATIO PANEL URINE Spe cimen Type: URINE No comment entered. Ordering Provider: ADRIANA ROMERO Report Released Date/Time: Apr 18, 2023 10:07 AM Reporting Lab: [address] [address] Performing Lab: [address] [address] MICROALBUMIN/CREATININE RATIO 170.4 mg/g H 0-29.9 MICROALBUMIN,QUANTITATIVE 11.6 mg/dL RR UNAVAIL CREATININE URINE 68.07 mg/dL Nov 01, 2023 08:44 AM [facility] HEMOGLOBIN A1C PANEL BLOOD Specimen Type: BLO OD Comment: Values obtained from A1C measurements can vary. For atypical A1C assays, a reported value of 7.0 could actually be between 6.72 and 7.28 if measured by a reference method. A reported value of 9.0 could actually be between 8.73 and 9.27. Ref: http://www.ngsp.org/CAPdata.asp Ordering Provider: ADRIANA ROMERO Report Released Date/Time: Apr 18, 2023 10:07 AM Reporting Lab: [facility] [address] [facility] [address] Performing Lab: [address] [address] HEMOGLOBIN A1C 8.2 H 4.0-5.6 Nov 01, 2023 08:44 AM [facility] URIC ACID SERUM Specimen Type: SERUM No comment entered. Ordering Provider: ADRIANA ROMERO Report Released Date/Time: Nov 07, 2023 10:27 AM Reporting Lab: [facility] [address] [facility] [address] Performing Lab: [address] [address] URIC ACID 5.7 mg/dL 3.5-7.2 Social History: [...] Sun ity Dec 10, 2022 10:00 AM VA-TOBACCO FORMER USER [facility] Tobacco Use History This section includes a history of the smoking, or tobacco-related health factors, that were collected on or before the date of the Encounter. The data comes from the [place] facility where the Encounter took place. Date/Time Smoking Status/Tobacco Use Comment F acsimón Dec 10, 2022 10:00 AM [place]-TOBACCO QUIT 15 YRS OR MORE [facility] Jan 07, 2022 12:47 PM VA-TOBACCO DOESNT USE WI 30 MIN [facility] Jan 07, 2022 12:47 PM VA-TOBACCO USE 30 YEARS OR MORE [facility] Jan 07, 2022 12:47 PM VA-TOBACCO [facility] Jan 07, 2022 12:47 PM VA-TOBACCO USE ONCOLOGY ACCOUNT SPECIALIST NO [facility] Jan 07, 2022 12:47 PM VA-TOBACCO USE MED NO [facility] Jan 07, 2022 12:47 PM VA-TOBACCO USER EVERY DAY [facility] Radiology Reports: +/- 30 days of the [...] AM CHEST CT W/O CONT: FABY GONZALEZ [id number] -1940 M Exm Date: NOV 18, 2023@08:12 Req Phys: ADRIANA ROMERO Loc: CWM/NO/PHARM/PACT 3 (Req'g Loc Img Loc: NHM/CT Service: Unknown [facility] , (Case [id number] COMPLETE) CT THORAX W/O CONT (CT Detailed) CPT:91726 Reason for Study: pulmonary fibrosis on cxr at [facility] last week. Clinical History: pulmonary fibrosis on cxr at [facility] last week. He finished aUGMENTIN 6/5, but now reports that phlegm is now returning. 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 READING PHYSICIAN: Kaiden Jacob D.O. -[id number] 11/24/2023 13:44 EDT [facility] National Teleradiology Program [phone] (For Medical Practitioner Use Only) Attention Patients / Veterans: If you have questions or concerns about these test results, please contact your ordering provider or primary care team. Primary Diagnostic Code: NO ALERT REQUIRED Primary Interpreting Staff: RADIOLOGY,OUTSIDE SERVICE, Staff Physician / RADIOLOGY,OUTSIDE SERVICE [facility] October 25, 2023 10:53 AM OUTSIDE CHEST (2 VIEWS): FABY GONZALEZ [id number] -1940 M Ex Date: OCTOBER 25, 2023@10:53 Req Phys: ADRIANA ROMERO Loc: NHM/OUTSIDE IMAGING NON-CNT (R Img Loc: OUTSIDE GENERAL RADIOLOGY Service: Unknown (Case 10 COMPLETE) OUTSIDE CHEST (2 VIEWS) (RAD Detailed) CPT:99402 Reason for Study: outside images downloaded for continuity of care Clinical History: outside images downloaded for continuity of care Report Status: Electronically Filed Date Reported: OCTOBER 25, 2023 Report: THIS EXAM WAS PERFORMED AND INTERPRETED AT AN OUTSIDE HOSPITAL Impression: THIS EXAM WAS PERFORMED AND INTERPRETED AT AN OUTSIDE HOSPITAL Primary Diagnostic Code: VERIFIED BY: / *ELECTRONICALLY FILED* [place] [facility] Encounter Notes: All associated encounter notes [...] the followin. Exposure to potentially hazardous substance ([facility] [id number]) 2. 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 Hearing Loss ([facility] [id number]) 4. Vitamin B12 Deficiency ([facility] [id number]) 5. CAD - Coronary Artery Disease ([facility] [id number]) 6. Diabetes Mellitus Type 2 ([facility] [id number]) 7. Gout ([facility] [id number]) 8. Hypercholesterolemia 9. Hypertension Active Outpatient Medications [...] of Time/PPD: Current Rx with last BCVA: OD:+1.25-2.93i099 20/20-1 OS:+1.00-1.95y163 20/20-2 Add:+2.50 20/20 OU DVA ( )sc (x)cc - phoropter OD: 2020-1 OS: 20/20-2 Pupils: PERRL (-)APD EOMs: SAFE OU, (-)Pain/Diplopia CVF (facial, peripheral): FTFC OU Subjective Refraction: OD:+1.25-2.71e998 20/20 OS:+0.75-1.67h106 20/20 OU 20/20 Add: +2.50 20/20 All [...] MARY JR OPTOMETRY STUDENT Signed: 10/25/2023 09:10 /es/ KAYLEE BARRAGAN OD Operations Manager/Coordinator Cosigned: 10/25/2023 09:12 10/25/2023 ADDENDUM STATUS: COMPLETED The optometry international trade analyst participated in this exam, I saw this [place] in conjunction with the optometry student. The [...] of active outpatient prescriptions dispensed from this [place] (local) and dispensed from another [place] or DoD facility (remote) as well as [...] JLV. Allergies/ADRs (Tool #5) FACILITY ALLERGY/ADR -------- [facility] BAND-AIDS [facility] [place] [facility] SHRIMP [facility] [place] [facility] [place] [facility] [place] [facility] SHRIMP Med Recon NoGlossary (Tool #1) INCLUDED IN THIS LIST: Alphabetical list of active outpatient prescriptions dispensed from this [place] (local) and dispensed from another [place] or DoD facility (remote) as well as inpatient orders (local pending and active), local clinic medications, locally documented non-VA medications, and local prescriptions that have or been discontinued in the past 90 days. Non-VA Meds Last Documented On: Data not found NOTE The display of VA prescriptions dispensed from another [place] or [facility] facility (remote) is limited to active outpatient prescription entries matched to National Drug File at the originating site and may not include some items such as investigational drugs, compounds, etc. NOT INCLUDED IN THIS LIST: Medications self-entered by the patient into personal health records (i.e. [facility]) are NOT included in this list. Non-VA medications documented outside this [place], remote inpatient orders (regardless of status) and [...] MINUTES BEFORE NIACIN TO REDUCE/PREVENT FLUSHING. Rx# [id number] Last Released: 08/10/23 Qty/Days Supply: 120/90 Rx Expiration Date: 08/24/23 Refills Remainin Indication: FOR MYOCARDIAL REINFARCTION PREVENTION OUTPT ASPIRIN 81MG EC TAB (Status = Active) TAKE ONE TABLET BY MOUTH ONCE DAILY TO PREVENT STROKE/HEART ATTACK TAKE 15 MINUTES BEFORE NIACIN TO REDUCE/PREVENT FLUSHING. Rx# [id number] Last Released: 10/19/23 Qty/Days Supply: 120/90 Rx Expiration Date: 10/18/24 Refills Remainin Indication: FOR MYOCARDIAL REINFARCTION PREVENTION OUTPT ATORVASTATIN CALCIUM 80MG TAB (Status = Discontinued) TAKE ONE TABLET BY MOUTH ONCE DAILY FOR CHOLESTEROL Rx# [id number] Last Released: 06/01/23 Qty/Days Supply: Rx Expiration Date: 08/11/23 Refills Remainin OUTPT ATORVASTATIN CALCIUM 80MG TAB (Status = Active) TAKE ONE TABLET BY MOUTH ONCE DAILY FOR CHOLESTEROL Rx# [id number] Last Released: 10/19/23 Qty/Days Supply: Rx Expiration Date: 08/08/24 Refills Remainin OUTPT CANDESARTAN CILEXETIL 8MG TAB (Status = Discontinued) TAKE ONE TABLET BY MOUTH ONCE DAILY Rx# [id number] Last Released: 06/01/23 Qty/Days Supply: Rx Expiration Date: 08/11/23 Refills Remainin OUTPT CANDESARTAN CILEXETIL 8MG TAB (Status = Active) TAKE ONE TABLET BY MOUTH ONCE DAILY Rx# [id number] Last Released: 10/19/23 Qty/Days Supply: Rx Expiration Date: 08/08/24 Refills Remainin OUTPT CHOLECALCIF 25MCG (D3-1,000UNIT) TAB (Status = Discontinued) TAKE ONE TABLET BY MOUTH ONCE DAILY FOR VITAMIN SUPPLEMENTATION Rx# [id number] Last Released: 06/01/23 Qty/Days Supply: Rx Expiration Date: 08/11/23 Refills Remainin OUTPT CHOLECALCIF 25MCG (D3-1,000UNIT) TAB (Status = Active) TAKE ONE TABLET BY MOUTH ONCE DAILY FOR VITAMIN SUPPLEMENTATION Rx# [id number] Last Released: 10/19/23 Qty/Days Supply: Rx Expiration Date: 08/08/24 Refills Remainin OUTPT CYANOCOBALAMIN 1000MCG TAB (Status = Discontinued) TAKE ONE TABLET BY MOUTH ONCE DAILY FOR VITAMIN SUPPLEMENTATION Rx# [id number] Last Released: 06/01/23 Qty/Days Supply: Rx Expiration Date: 08/11/23 Refills Remainin OUTPT CYANOCOBALAMIN 1000MCG TAB (Status = Active) TAKE ONE TABLET BY MOUTH ONCE DAILY FOR VITAMIN SUPPLEMENTATION Rx# [id number] Last Released: 10/19/23 Qty/Days Supply: Rx Expiration Date: 08/08/24 Refills Remainin OUTPT EZETIMIBE 10MG TAB (Status = Discontinued) TAKE ONE TABLET BY MOUTH ONCE DAILY TO LOWER CHOLESTEROL Rx# [id number] Last Released: 06/01/23 Qty/Days Supply: Rx Expiration Date: 08/11/23 Refills Remainin OUTPT EZETIMIBE 10MG TAB (Status = Active) TAKE ONE TABLET BY MOUTH ONCE DAILY TO LOWER CHOLESTEROL Rx# [id number] Last Released: 10/19/23 Qty/Days Supply: Rx Expiration Date: 08/08/24 Refills Remainin OUTPT FOLIC ACID 1MG TAB (Status = Discontinued) TAKE TWO TABLETS BY MOUTH ONCE DAILY VITAMIN/NUTRITION SUPPLEMENT Rx# [id number] Last Released: 06/01/23 Qty/Days Supply: Rx Expiration Date: 08/11/23 Refills Remainin OUTPT FOLIC ACID 1MG TAB (Status = Active) TAKE TWO TABLETS BY MOUTH ONCE DAILY VITAMIN/NUTRITION SUPPLEMENT Rx# [id number] Last Released: 10/19/23 Qty/Days Supply: Rx Expiration Date: 08/08/24 Refills Remainin OUTPT GEMFIBROZIL 600MG TAB (Status = Discontinued) TAKE ONE TABLET BY MOUTH TWICE DAILY TO LOWER CHOLESTEROL Rx# [id number] Last Released: 06/01/23 Qty/Days Supply: Rx Expiration Date: 08/11/23 Refills Remainin OUTPT GEMFIBROZIL 600MG TAB (Status = Active) TAKE ONE TABLET BY MOUTH TWICE DAILY TO LOWER CHOLESTEROL Rx# [id number] Last Released: 10/19/23 Qty/Days Supply: Rx Expiration Date: 08/08/24 Refills Remainin OUTPT METFORMIN HCL 500MG TAB (Status = Discontinued) TAKE ONE TABLET BY MOUTH TWICE DAILY FOR DIABETES Rx# [id number] Last Released: 06/01/23 Qty/Days Supply: Rx Expiration Date: 08/11/23 Refills Remainin OUTPT METFORMIN HCL 500MG TAB (Status = Active) TAKE ONE TABLET BY MOUTH TWICE DAILY FOR DIABETES Rx# [id number] Last Released: 10/19/23 Qty/Days Supply: Rx Expiration Date: 08/08/24 Refills Remainin OUTPT METRONIDAZOLE 0.75% TOP CREAM (Status = Discontinued) APPLY A SMALL AMOUNT TOPICALLY AT BEDTIME NEEDED FOR SKIN INFECTION Rx# [id number] Last Released: 08/18/23 Qty/Days Supply: 45 Rx Expiration Date: 04/18/24 Refills Remainin Indication: FOR ACNE ROSACEA OUTPT METRONIDAZOLE 0.75% TOP CREAM (Status = Active) APPLY A SMALL AMOUNT TOPICALLY AT BEDTIME NEEDED FOR SKIN INFECTION Rx# [id number] Last Released: 10/19/23 Qty/Days Supply: 45 Rx Expiration Date: 10/18/24 Refills Remainin Indication: FOR ACNE ROSACEA OUTPT MULTIVITAMIN/MINERALS CAP/TAB (Status = Discontinued) TAKE 1 TABLET BY MOUTH ONCE DAILY FOR VITAMIN SUPPLEMENTATION Rx# [id number] Last Released: 02/04/23 Qty/Days Supply: 100/90 Rx Expiration Date: 08/11/23 Refills Remainin OUTPT MULTIVITAMIN/MINERALS CAP/TAB (Status = Active) TAKE 1 TABLET BY MOUTH ONCE DAILY FOR VITAMIN SUPPLEMENTATION Rx# [id number] Last Released: 10/19/23 Qty/Days Supply: 100/90 Rx Expiration Date: 08/08/24 Refills Remainin SUPPLIES /mary ellen BARRAGAN OD Operations Manager/Coordinator Signed: 10/25/2023 09:13 TONYA MARY JR [facility]
--- OUTSIDE RECORDS SUMMARY | 2024-09-24 14:29 | XMS_ITS | Encounter Summary ---
Author Name [facility] [place] [facility] [place] Address [address] [place] [address] Care Team Providers Care Ultrasound Sonographer Name Role Phone ADRIANA HUITRON Primary Care [...] GIC INDEMNITY PLAN MEDICAL EXPENSE (OPT/PROF ) [facility] IN[facility] N Dec 28, 2016 [id number] [phone] EMILIA GONZALEZ HN PATIENT MEDICARE (WNR) MEDICARE (M) PART A Dec 28, 2016 PART A [id number] [phone] EMILIA GONZALEZ HN PATIENT MEDICARE (WNR) MEDICARE (M) PART B Dec 28, 2016 PART B [id number] EMILIA GONZALEZ HN PATIENT MEDICARE (WNR) MEDICARE (M) PART A Dec 28, 2016 PART A [id number] SBREGA,EMILIA HN PATIENT MEDICARE (WNR) MEDICARE (M) PART B Dec 28, 2016 PART B [id number] [phone] EMILIA GONZALEZ PATIENT UNICARE MEDICAL EXPENSE (OPT/PROF ) DENI IRAHETA [facility] INDEM N Dec 28, 2016 [id number] [phone] EMILIA GONZALEZ PATIENT WELLPOINT PREFERRED PROVIDER ORGANIZAT ION (PPO) DENI IRAHETA [facility] INDEM N Dec 28, 2016 [id number] [phone] EMILIA GONZALEZ PATIENT Selected Encounter This section includes the information on record at [place] for the Encounter. Date/Time Encounter Type Encounter Description Reason Provider Source Jul 12, 2024 09:00 AM OFFICE O/P EST MOD 30 MIN PRIMARY CARE/MEDICINE ICD-10-CM E11.21 Type 2 diabetes mellitus with diabetic nephropathy MICHAELA HUITRON FIONA F IHE Encounter Template Text not used by [place] Assessments - Encounter Diagnoses This section includes the primary and secondary diagnoses documented for the Encounter. Date/Time Primary/Secondary Diagnosis Diagnosis Name Provider Source Jul 27, 2024 01:16 PM PRIMARY Type 2 diabetes mellitus with diabetic nephropathy SANDRA HUITRON [facility] [place] [facility] Jul 27, 2024 01:16 PM SECONDARY Athscl heart disease of [place] coronary artery w/o ang pctrs SANDRA HUITRON F [facility] [place] [facility] Jul 27, 2024 01:16 PM SECONDARY Encounter for immunization TANA MARTINO [facility] [place] [facility] Jul 27, 2024 01:16 PM SECONDARY Essential (primary) hypertension SANDRA HUITRON [facility] [place] [facility] Jul 27, 2024 01:16 PM SECONDARY Gout, unspecified SANDRA HUITRON F [facility] [place] [facility] Jul 27, 2024 01:16 PM SECONDARY Pure hypercholesterolem ia, unspecified SANDRA HUITRON F [facility] [place] [facility] Jul 27, 2024 01:16 PM SECONDARY Type 2 diabetes mellitus without complications SANDRA HUITRON F [facility] [place] [facility] Jul 27, 2024 01:16 PM SECONDARY Unspecified hearing loss, unspecified ear [facility]HOANASANDRA [facility] Plan of Treatment: Future Appointments (+ [...] Date/Time Appointment Type Appointme nt Facility Name Jul 25, 2024 10:00 AM AMBULATORY - MEDICINE NM [facility] [place] [facility] Jul 25, 2024 11:00 AM AMBULATORY - REHAB MEDICIN E [place] [facility] [place] [facility] Jul 25, 2024 12:00 PM AMBULATORY - MEDICINE NM [facility] [place] [facility] Sep 18, 2024 02:30 PM AMBULATORY - REHAB MEDICIN E [facility] [place] [facility] Nov 12, 2024 11:00 AM AMBULATORY - REHAB MEDICIN E [place] [facility] [place] [facility] Nov 13, 2024 02:00 PM AMBULATORY - MEDICINE NM [facility] [place] [facility] Nov 14, 2024 08:00 AM AMBULATORY - MEDICINE [place] [facility] Lab Results: +/- 30 [...] Unit Interpretation Reference Range Specimen Type Comment Jul 12, 2024 09:45 AM [facility] VITAMIN B-1 (THIAMINE)-(QU) PLASMA Specimen Ty pe: PLASMA Comment: Vitamin supplementation within 24 hours prior to blood draw may affect the accuracy of the results. This test was developed and its analytical performance characteristics have been determined by [employer] [place], [place]. It has not been cleared or approved by the U.S. Food and Drug Administration. This assay has been validated pursuant to the CLIA regulations and is used for clinical purposes. Test Performed by [employer], [employer] [facility], [address] [place] [address] Edson Dinh M.D., Ph.D., Director of Laboratories , CLIA [id number] TEST PERFORMED AT: , Ordering Provider: ADRIANA HUITRON Report Released Date/Time: Jul 12, 2024 09:33 AM Reporting Lab: [facility] [address] [facility] [address] Performing Lab: [facility] [address] [address] VITAMIN B-1 (THIAMINE)-(QU) 30 nmol/L 8- 30 Jul 12, 2024 09:[address] [facility] SYPHILIS ABS W/RFLX SERUM Specimen Type: SERU M Comment: No laboratory evidence of syphilis infection. If recent exposure is suspected, re-draw sample in 2-4 weeks and repeat algorithm. Testing performed by T. pallidum specific immunoassay. Ordering Provider: ADRIANA HUITRON Report Released Date/Time: Jul 12, 2024 09:33 AM Reporting Lab: [facility] [address] [facility] [address] Performing Lab: [facility] [address] [facility] [address] SYPHILIS ABS W/RFLX Non Reactive Non Madisyn ctive Jul 12, 2024 09:[address] [facility] FOLATE (WROX) SERUM Specimen Type: SERUM No comment entered. Ordering Provider: ADRIANA HUITRON Report Released Date/Time: Jul 12, 2024 09:33 AM Reporting Lab: [facility] [address] [facility] [address] Performing Lab: [facility] [address] [facility] [address] FOLATE (WROX) >20.0 ng/mL >5.2 Jul 12, 2024 09:[address] [facility] HIV 1&2 Ag/Ab SCREEN SERUM Specimen Type: SER UM No comment entered. Ordering Provider: ADRIANA HUITRON Report Released Date/Time: Jul 12, 2024 09:33 AM Reporting Lab: [facility] [address] Performing Lab: [facility] [address] [address] HIV 1&2 Ag/Ab SCREEN NON-REACTIVE Nonrea ctive Jul 12, 2024 09:[address] [facility] TSH SERUM Specimen Type: SERUM No comment entered. Ordering Provider: ADRIANA HUITRON Report Released Date/Time: Jul 12, 2024 09:33 AM Reporting Lab: [facility] [address] Performing Lab: [facility] [address] [facility] [address] TSH 4.66 u[IU]/mL 0.35-5.00 Jul 12, 2024 09:[address] [facility] IRON & TIBC PANEL SERUM Specimen Type: SERUM No comment entered. Ordering Provider: ADRIANA HUITRON Report Released Date/Time: Jul 12, 2024 09:33 AM Reporting Lab: [facility] [address] Performing Lab: [facility] [address] [address] TIBC 363 ug/dL 204-475 IRON 94 ug/dL 40-160 Transferrin Saturation 25.9 20.0-50.0 Transferrin (TRF) 275 mg/dL 200-360 Jul 12, 2024 09:[address] [facility] FERRITIN SERUM Specimen Type: SERUM No comment entered. Ordering Provider: ADRIANA HUITRON Report Released Date/Time: Jul 12, 2024 09:33 AM Reporting Lab: [facility] [address] [facility] [address] Performing Lab: [facility] [address] [facility] [address] FERRITIN 179 ng/mL 20-300 Jul 12, 2024 09:45 AM [facility] CBC AND DIFF (AUTO) BLOOD Specimen Type: BLOO D No comment entered. Ordering Provider: ADRIANA HUITRON Report Released Date/Time: Jul 12, 2024 09:33 AM Reporting Lab: [facility] [address] [facility] [address] Performing Lab: [facility] [address] [facility] [address] WBC 5.93 10*3/uL 4.50-11.00 RBC 4.13 10*6/uL L 4.23-5.66 HGB 12.8 g/dL 12.8-17 HCT 37.7 L 39.2-50.4 MCV 91.3 fL 82-99 MCHC 34.0 g/dL 30.8-35.1 PLT 247 10*3/uL 140-360 RDW-CV 12.7 12.0-16.0 MONO, ABS 0.51 10*3/uL 0.30-1.10 MCH 31.0 pg 26.2-32.6 NEUT % 58.8 43.7-75.8 LYMPH % 28.5 14.0-42.3 MONO % 8.6 5.1-13.7 EOS % 3.0 0.4-6.8 BASO % 0.8 0.1-2.0 NEUT, ABS 3.48 10*3/uL 2.20-7.60 LYMPH, ABS 1.69 10*3/uL 1.00-3.20 EOS, ABS 0.18 10*3/uL 0.03-0.44 BASO, ABS 0.05 10*3/uL 0.01-0.13 IMMATURE GRAN % 0.3 0.0-0.7 IMMATURE GRAN, ABS 0.02 10*3/uL 0.00-0.0 6 NRBC % 0.0 0.0-0.0 NRBC, ABS 0.00 10*3/uL 0.00-0.00 Jul 12, 2024 09:[address] [facility] VITAMIN B12 SERUM Specimen Type: SERUM No comment entered. Ordering Provider: ADRIANA HUITRON Report Released Date/Time: Jul 12, 2024 01:43 PM Reporting Lab: [address] [address] Performing Lab: [address] [address] VITAMIN B12 858 pg/mL 200-900 Jul 10, 2024 11:[address] [facility] BASIC METABOLIC PANEL (fasting) SERUM Specime n Type: SERUM No comment entered. Ordering Provider: ADRIANA HUITRON Report Released Date/Time: May 10, 2024 09:34 AM Reporting Lab: [address] [address] Performing Lab: [address] [address] UREA NITROGEN 37 mg/dL H 7-25 GLUCOSE 119 mg/dL H 65-100 SODIUM 140 mmol/L 135-145 POTASSIUM 4.7 mmol/L 3.5-5.0 CHLORIDE 107 mmol/L 100-110 CO2 23 meq/L 20-30 CREATININE, Serum 1.53 mg/dL H 0.50-1.40 eGFR(CKD-EPI 2020) 45 mL/min L >60 Jul 10, 2024 11:[address] [facility] LIVER FUNCTION SERUM Specimen Type: SERUM No comment entered. Ordering Provider: ADRIANA HUITRON Report Released Date/Time: May 10, 2024 09:34 AM Reporting Lab: [address] [address] Performing Lab: [address] [address] PROTEIN,TOTAL 8.4 g/dL H 6.0-8.3 ALBUMIN 4.3 g/dL 3.5-5.0 ALKALINE PHOSPHATASE 65 U/L 40-150 AST 29 U/L 5-34 ALT 18 U/L BILIRUBIN, TOTAL 0.5 mg/dL 0.2-1.2 Jul 10, 2024 11:06 AM [facility] LIPID PANEL FASTING SERUM Specimen Type: SERU M No comment entered. Ordering Provider: ADRIANA HUITRON Report Released Date/Time: May 10, 2024 09:34 AM Reporting Lab: [facility] [address] [facility] [address] Performing Lab: [facility] [address] [facility] [address] CHOLESTEROL 144 mg/dL TRIGLYCERIDE 119 mg/dL 0-150 LDL calculated 86 mg/dL 0-129 CHOL/HDL 4.2 HDL CHOLESTEROL 34 mg/dL L 40-60 Jul 10, 2024 11:[address] [facility] HEMOGLOBIN A1C PANEL BLOOD Specimen Type: BLO OD Comment: Values obtained from A1C measurements can vary. For atypical A1C assays, a reported value of 7.0 could actually be between 6.72 and 7.28 if measured by a reference method. A reported value of 9.0 could actually be between 8.73 and 9.27. Ref: http://www.ngsp.org/CAPdata.asp Ordering Provider: ADRIANA HUITRON Report Released Date/Time: May 10, 2024 09:34 AM Reporting Lab: [facility] [address] [facility] [address] Performing Lab: [facility] [address] HEMOGLOBIN A1C 6.9 H 4.0-5.6 Jul 10, 2024 11:[address] [facility] MICROALBUMIN CREATININE RATIO PANEL URINE Spe cimen Type: URINE No comment entered. Ordering Provider: ADRIANA HUITRON Report Released Date/Time: May 10, 2024 09:34 AM Reporting Lab: [facility] [address] [facility] [address] Performing Lab: [facility] [address] MICROALBUMIN/CREATININE RATIO 69.4 mg/g H 0-29.9 MICROALBUMIN,QUANTITATIVE 5.7 mg/dL RR U NAVAIL CREATININE URINE 82.13 mg/dL Jul 10, 2024 11:06 AM [facility] TSH SERUM Specimen Type: SERUM No comment entered. Ordering Provider: ADRIANA HUITRON Report Released Date/Time: May 10, 2024 09:34 AM Reporting Lab: [facility] [address] [facility] [address] Performing Lab: [facility] [address] [facility] [address] TSH 2.60 u[IU]/mL 0.35-5.00 Jul 10, 2024 11:[address] [facility] URINALYSIS URINE Specimen Type: URINE Comment: If Glucose = >500 and Ketones are positive, please alert the Physician. Ordering Provider: ADRIANA HUITRON Report Released Date/Time: May 10, 2024 09:34 AM Reporting Lab: [facility] [address] [facility] [address] Performing Lab: [address] [address] UA COLOR Light-Yellow Yellow UA APPEARANCE Clear Clear UA GLUCOSE Normal mg/dL Negative UA KETONES NEGATIVE mg/dL Negative UA BLOOD NEGATIVE mg/dL Negative UA PROTEIN 10 mg/dL Negative UA NITRITE NEGATIVE mg/dL Negative UA BILIRUBIN NEGATIVE mg/dL Negative UA SPECIFIC GRAVITY 1.016 1.016-1.022 UA pH 5.5 5.0-9.0 UA UROBILINOGEN Normal mg/dL <2.0 UA LEUKOCYTE NEGATIVE Negative Vital Signs: All taken on the encounter date This section contains inpatient and outpatient Vital Signs collected on the date of the Encounter. Date/Time Temperature Pulse Blood Pressure Respiratory Rate SP02 Pain Height Weight Body Mass Index Source Jul 12, 2024 08:47 AM 98.7 74 112/60 16 98 0 169 25 [facility] Immunizations: All administered on the encounter date This section contains immunizations associated to the Encounter. Immunization Series Date Issued Administered By Site Reaction Lot Number CVX Code Drug Faro Dealer Comment(s) Source RSV, BIVALENT, PROTEIN SUBUNIT RSVPREF, DILUENT RECONSTITUTED , 0.5 ML, PF 1 Jul 12, 2024 TANA MARTINO E RIGHT DELTO ID [id number] [employer] ADMINISTERE D AT [place], [facility] Social History: Smoking Status (Most current) and [...] 13, 2024 09:23 AM VA-TOBACCO [facility] Tobacco Use History This section includes a history of the smoking, or tobacco-related health factors, that were collected on or before the date of the Encounter. The data comes from the [place] facility where the Encounter took place. Date/Time Smoking Status/Tobacco Use Comment F acility Jan 13, 2024 09:23 AM VA-TOBACCO QUIT 15 YRS OR MORE [facility] Dec 10, 2022 10:00 AM VA-TOBACCO [facility] Dec 10, 2022 10:00 AM VA-TOBACCO QUIT 15 YRS OR MORE [facility] Jan 07, 2022 12:47 PM VA-TOBACCO DOESNT USE WI 30 MIN [facility] Jan 07, 2022 12:47 PM VA-TOBACCO USE 30 YEARS OR MORE [facility] Jan 07, 2022 12:47 PM VA-TOBACCO USE ADVICE [facility] Jan 07, 2022 12:47 PM VA-TOBACCO USE B2B SALES CONSULTANT NO [facility] Jan 07, 2022 12:47 PM VA-TOBACCO USE MED NO [place] [facility] [facility] Jan 07, 2022 12:47 PM VA-TOBACCO USER EVERY DAY [facility] Encounter Notes: All associated encounter notes This section contains the clinical notes associated to the Encounter. Date/Time Encounter Note(s) Provider Source Jul 12, 2024 09:30 AM PHYSICIAN WORKGROUP LEADER NOTE: LOCAL TITLE: PA NOTE STANDARD TITLE: PHYSICIAN WORKGROUP LEADER NOTE DATE OF NOTE: JUL 12, 2024@09:30 ENTRY DATE: JUL 12, 2024@09:31:02 AUTHOR: ADRIANA HUITRON EXP COSIGNER: URGENCY: STATUS: COMPLETED CC/HPI/A/P: 83 year old MALE here in follow-up for; Dm, very well controlled, We discuss pros/cons of adding meds d/w CPP, I see his point,but note the added benefits. TBD at their f/u in ten days. htn, very well controlled on ARB for this as well as mild diabetic nephropathy, continue ARB. Dyslipidemia, on three agents, HDL remains low, we discuss lifestyle measures. Gout, none. hearing loss, no ear sirgery histroy. Canals are filled wtih cerumen. he will start using drops he has at home, I will have more mailed. We plan ear flush here ten days, when he sees Tameka. He will book an audio appt. Memory: denies getting lost driving or having accidents driving 'mostly my ... We plan labs and he agrees to an HIV and other labs today. If labs are abnl, we will correct or treat. We hope that cleaning ears and adjusting his BIlAT amps will help as well. Review of systems: Patient reports no changes from [facility], in meds or any admissions. Active problems - Computerized Problem List is the source for the followin. Exposure to potentially hazardous substance ([facility] [id number]) Entered automatically through JAVI Problem List documentation program 2. Kidney Disorder Associated with Type 2 Diabetes Mellitus ([facility] [id number]) 3. Hearing Loss ([facility] [id number]) 4. Vitamin B12 Deficiency ([facility] [id number]) 5. 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 6. Diabetes Mellitus Type 2 ([facility] [id number]) 7. Gout ([facility] [id number]) 8. Hypercholesterolemia 9. Hypertension SERVICE CONNECTED % [...] TAKE ONE TABLET BY MOUTH ONCE ACTIVE (S) DAILY FOR CHOLESTEROL 4) CANDESARTAN CILEXETIL 8MG TAB TAKE ONE TABLET BY MOUTH ONCE ACTIVE DAILY 5) CHOLECALCIF 25MCG (D3-1,000UNIT) TAB TAKE ONE TABLET BY ACTIVE (S) MOUTH ONCE DAILY FOR VITAMIN SUPPLEMENTATION 6) CYANOCOBALAMIN 1000MCG TAB TAKE ONE TABLET BY MOUTH ONCE ACTIVE (S) DAILY FOR VITAMIN SUPPLEMENTATION 7) EZETIMIBE 10MG TAB TAKE ONE TABLET BY MOUTH ONCE DAILY TO ACTIVE (S) LOWER CHOLESTEROL 8) FOLIC ACID 1MG TAB TAKE TWO TABLETS BY MOUTH ONCE DAILY ACTIVE (S) VITAMIN/NUTRITION SUPPLEMENT 9) GEMFIBROZIL 600MG TAB TAKE ONE TABLET BY MOUTH TWICE DAILY ACTIVE TO LOWER CHOLESTEROL 10) METFORMIN HCL 500MG TAB TAKE ONE TABLET BY MOUTH TWICE DAILY ACTIVE (S) FOR DIABETES 11) METRONIDAZOLE 0.75% TOP CREAM APPLY A SMALL AMOUNT TOPICALLY ACTIVE AT BEDTIME NEEDED FOR SKIN INFECTION Indication: FOR ACNE ROSACEA 12) MULTIVITAMIN/MINERALS CAP/TAB TAKE 1 TABLET BY MOUTH ONCE ACTIVE (S) DAILY FOR VITAMIN SUPPLEMENTATION 13) PYRIDOXINE HCL 50MG TAB TAKE ONE TABLET BY MOUTH ONCE DAILY ACTIVE (S) FOR VITAMIN B6 SUPPLEMENTATION 98.7 F [37.1 C] (07/12/2024 08:47) 74 (07/12/2024 08:47) 16 (07/12/2024 08:47) 112/60 (07/12/2024 08:47) 0 (07/12/2024 08:47) 69 in [175.3 cm] (05/10/2024 08:51) 169 lb [76.66 kg] (07/12/2024 08:47) BMI: 25.0 Neuro: Alert and oriented times three, grossly nonfocal, nasolabial folds intact. Recent labs reviewed with patient today:yes /es/ Adriana Huitron PA-C STAFF PHYSICIAN WORKGROUP LEADER Signed: 07/12/2024 09:44 ADRIANA HUITRON [place] [facility] [place] [facility] Jul 12, 2024 08:51 AM PREVENTIVE MEDICINE NURSING NOTE: LOCAL TITLE: CLINICAL REMINDERS/NURSING STANDARD TITLE: PREVENTIVE MEDICINE NURSING NOTE DATE OF NOTE: JUL 12, 2024@08:51 ENTRY DATE: JUL 12, 2024@08:51:52 AUTHOR: CHARLIE MARTINO EXP COSIGNER: URGENCY: STATUS: COMPLETED PAVE Foot Check: A complete foot check was completed at this encounter. VISUAL INSPECTION: Includes inspection for skin breaks, deformity, erythema, trauma, pallor on elevation, dependent rubor, nail deformities, extensive callus and pitting edema. Visual exam results: Normal PEDAL PULSES: Includes palpation of dorsalis and posterior tibial pulses and signs/symptoms of vascular compromise like pain, pallor, parasthesia or paralysis. Present (even if diminished) SENSORY CHECK: Includes 10 gram Monofilament ([place]-Dam[place]) test of sensation. Intact (Greater than or equal to 80% of sites checked) Abnormal (Less than 80% of sites checked): Intact LOW-RISK: LOW RISK INFORMATION PROVIDED: 1. Advised patient not to walk barefoot. 2. Explained the importance of daily foot checks for changes. 3. Stressed the importance of daily foot hygiene, including bathing and complete drying. The patient verbalized understanding and was offered a detailed handout on diabetic foot care. RSV Immunization: Respiratory Syncytial Virus (RSV) Vaccine: RSV vaccine administered today. Administered: RSV, BIVALENT, PROTEIN SUBUNIT RSVPREF, DILUENT RECONSTITUTED, 0.5 ML, PF Date Administered: Jul 12, 2024 09:00 Series: Series 1 Faro Dealer: [employer] Lot: [id number] Exp Date: Mar 29, [address] [facility]: [phone] Admin Route/Site: INTRAMUSCULAR/RIGHT DELTOID Dosage: 0.5mL Vaccine Information Statement(s): RSV (RESPIRATORY SYNCYTIAL VIRUS) VACCINE VIS Mar 15, 2024 ([place]) Order By: Policy Administered By: Martino,Christopher E Vaccine Information Sheet (VIS) was given to the patient/caregiver, education regarding adverse reactions was discussed, as well as barriers to learning, if any, were acknowledged. /renny/ CHARLIE MARTINO LPN Signed: 07/12/2024 09:03 CHRISTINA MARTINO [facility]
--- OUTSIDE RECORDS SUMMARY | 2024-09-24 14:29 | XMS_ITS | Encounter Summary ---
Author Name [facility] [place] [facility] [place] [facility] [facility] [place] Address [address] [place] [address] Care Team Providers Care [place]achute Folder Name Role Phone YOSELIN MEZA Primary Care Provider ADRIANA Hinojosa Primary Care Provider Unavail able Insurance Providers: All historical and current Section [...] [facility] Dec 28, 2016 [id number] EMILIA GONZALEZ HN PATIENT MEDICARE (WNR) MEDICARE (M) PART A Dec 28, 2016 PART A [id number] EMILIA GONZALEZ HN PATIENT MEDICARE (WNR) MEDICARE (M) PART B Dec 28, 2016 PART B [id number] EMILIA GONZALEZ HN PATIENT MEDICARE (WNR) MEDICARE (M) PART A Dec 28, 2016 PART A [id number] [phone] EMILIA GONZALEZ HN PATIENT MEDICARE (WNR) MEDICARE (M) PART B Dec 28, 2016 PART B [id number] EMILIA GONZALEZ PATIENT UNICARE MEDICAL EXPENSE (OPT/PROF ) DENI [facility] N Dec 28, 2016 [id number] SBEMILIA HILL PATIENT [facility] PREFERRED PROVIDER ORGANIZAT ION (PPO) DENI [facility] N Dec 28, 2016 [id number] EMILIA GONZALEZ PATIENT Selected Encounter This section includes the information on record at [place] for the Encounter. Date/Time Encounter Type Encounter Description Reason Provider Source October 27, 2023 02:26 PM QNHP OL DIG ASSMT&MGMT 21+ CLINICAL PHARMACY ICD-10-CM E11.21 Type 2 diabetes mellitus with diabetic nephropathy CHRISTIANO MCKEON [facility] Encounter Template Text not used by [place] Assessments - Encounter Diagnoses This section includes the primary and secondary diagnoses documented for the Encounter. 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 This section includes future appointments and future orders which are active, pending or scheduled. Future Appointments This section includes appointments that were scheduled to occur 6 months from the date of the Encounter, up to a maximum of 20 appointments. The data comes from all [place] treatment facilities. Appointment Date/Time Appointment Type Appointme nt Facility Name Nov 03, 2023 09:00 AM [facility] Nov 09, 2023 08:30 AM [facility] [place] [facility] Nov 18, 2023 08:30 [facility] [place] [facility] Dec 13, 2023 02:30 PM [facility] Dec 21, 2023 09:45 AM [facility]ORY - MEDICINE [place] [facility] [place] [facility] Jan 31, 2024 01:30 PM [facility] Feb 02, 2024 11:15 AM [facility] Apr 10, 2024 11:00 AM [facility] Lab Results: +/- 30 days of the encounter This section includes the Chemistry and Hematology Lab Results on record with [place] for the patient. Radiology Reports and Pathology Reports are provided separately, in subsequent sections. Lab Results This section contains the Chemistry/Hematology Results that were resulted 30 days before or 30 daysafter the date of the Encounter. Date/Time Source Result Type Result - Unit Interpretation Reference Range Specimen Type Comment Nov 01, 2023 08:44 AM [facility] BASIC METABOLIC PANEL (fasting) SERUM Specime n Type: SERUM No comment entered. Ordering Provider: LIBIA HUITRON AM Report Released Date/Time: Apr 18, 2023 10:07 AM Reporting Lab: [facility] [address] [facility] [address] Performing Lab: [address] [address] UREA NITROGEN 19 mg/dL 7-25 GLUCOSE 178 mg/dL H 65-100 SODIUM 138 mmol/L 135-145 POTASSIUM 5.2 mmol/L H 3.5-5.0 CHLORIDE 105 mmol/L 100-110 CO2 24 meq/L 20-30 CREATININE, Serum 1.39 mg/dL 0.50-1.40 eGFR(CKD-EPI 2020) 50 mL/min L >60 Nov 01, 2023 08:44 AM [facility] LIVER FUNCTION SERUM Specimen Type: SERU M No comment entered. Ordering Provider: ADRIANA HUITRON Report Released Date/Time: Apr 18, 2023 10:07 AM Reporting Lab: [facility] [address] [facility] [address] Performing Lab: [facility] [address] [facility] [address] PROTEIN,TOTAL 7.1 g/dL 6.0-8.3 ALBUMIN 4.0 g/dL 3.5-5.0 ALKALINE PHOSPHATASE 57 U/L 40-150 AST 23 U/L 5-34 ALT 17 U/L BILIRUBIN, TOTAL 0.5 mg/dL 0.2-1.2 Nov 01, 2023 08:44 AM [facility] HEMOGLOBIN A1C PANEL BLOOD Specimen Type: BL OOD Comment: Values obtained from A1C measurements can vary. For atypical A1C assays, a reported value of 7.0 could actually be between 6.72 and 7.28 if measured by a reference method. A reported value of 9.0 could actually be between 8.73 and 9.27. Ref: http://www.ngsp.org/CAPdata.asp Ordering Provider: ADRIANA HUITRON Report Released Date/Time: Apr 18, 2023 10:07 AM Reporting Lab: [facility] [address] [address] Performing Lab: [facility] [address] [facility] [address] HEMOGLOBIN A1C 8.2 H 4.0-5.6 Nov 01, 2023 08:44 AM [facility] LIPID PANEL FASTING SERUM Specimen Type: SERU M No comment entered. Ordering Provider: ADRIANA HUITRON Report Released Date/Time: Apr 18, 2023 10:07 AM Reporting Lab: [facility] [address] [facility] [address] Performing Lab: [facility] [address] [facility] [address] CHOLESTEROL 158 mg/dL TRIGLYCERIDE 131 mg/dL 0-150 LDL calculated 103 mg/dL 0-129 CHOL/HDL 5.4 HDL CHOLESTEROL 29 mg/dL L 40-60 Nov 01, 2023 08:44 AM [facility] MICROALBUMIN CREATININE RATIO PANEL URINE Spe cimen Type: URINE No comment entered. Ordering Provider: ADRIANA HUITRON Report Released Date/Time: Apr 18, 2023 10:07 AM Reporting Lab: [facility] [address] [facility] [address] Performing Lab: [facility] [address] [facility] [facility] [address] MICROALBUMIN/CREATININE RATIO 170.4 mg/g H 0-29.9 MICROALBUMIN,QUANTITATIVE 11.6 mg/dL RR UNAVAIL CREATININE URINE 68.07 mg/dL Nov 01, 2023 08:44 AM [facility] URIC ACID SERUM Specimen Type: SERUM No comment entered. Ordering Provider: ADRIANA HUITRON Report Released Date/Time: Nov 07, 2023 10:27 AM Reporting Lab: [facility] [address] [facility] [address] Performing Lab: [address] [address] URIC ACID 5.7 mg/dL 3.5-7.2 Social History: Smoking Status (Most current) and Tobacco Use (All prior to encounter date) This section includes the most current, and the historical, smoking and tobacco- related health factors from the [place] facility where the Encounter took place. Current Smoking Status This section includes the most current smoking, or tobacco-related health factor, from the [place] facility where the Encounter took place. Date/Time Current Smoking Status Comment Sun gruber Dec 10, 2022 10:00 AM VA-TOBACCO FORMER USER [facility] Tobacco Use History This section includes a history of the smoking, or tobacco-related health factors, that were collected on or before the date of the Encounter. The data comes from the [place] facility where the Encounter took place. Date/Time Smoking Status/Tobacco Use Comment Claire quiroz Dec 10, 2022 10:00 AM [place]-TOBACCO QUIT 15 YRS OR [facility] Jan 07, 2022 12:47 PM VA-TOBACCO DOESNT USE WI 30 MIN [facility] Jan 07, 2022 12:47 PM VA-TOBACCO USE 30 YEARS OR MORE [facility] Jan 07, 2022 12:47 PM VA-TOBACCO USE ADVICE [facility] Jan 07, 2022 12:47 PM VA-TOBACCO 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 The data comes from all [place] treatment facilities. Date/Time Radiology Report Provider Source Nov 18, 2023 08:[address] W/O CONT: FABY GONZALEZ [id number] -1940 M Exm Date: NOV 18, 2023@08:12 Req Phys: ADRIANA HUITRON Loc: CWM/NO/PHARM/PACT 3 (Req'g Loc Img Loc: NHM/CT Service: Unknown [facility] , (Case [id number] COMPLETE) CT THORAX W/O CONT (CT Detailed) CPT:88154 Reason for Study: pulmonary fibrosis on cxr at [facility] last week. Clinical History: pulmonary fibrosis on cxr at [facility] last week. He finished aUGMENTIN 6/5, but now reports that phlegm is now returning. Report Status: Verified Date Reported: NOV 24, 2023 Date Verified: NOV 24, 2023 Title Manager E-Sig: Report: EXAM: CT chest without contrast COMPARISON: None. HISTORY: pulmonary fibrosis on cxr at [facility] last week. He finished aUGMENTIN 6/5, but [...] pulmonary fibrosis. READING PHYSICIAN: Kaiden Jacob D.O. -[phone] 11/24/2023 13:44 EDT [facility] National Teleradiology Program [phone] (For Medical Practitioner Use Only) Attention Patients / Veterans: If you have questions or concerns about these test results, please contact your ordering provider or primary care team. Primary Diagnostic Code: NO ALERT REQUIRED Primary Interpreting Staff: RADIOLOGY,OUTSIDE SERVICE, Staff Physician / RADIOLOGY,OUTSIDE SERVICE [place] [facility] [place] [facility] October 25, 2023 10:53 AM OUTSIDE CHEST (2 VIEWS): FABY GONZALEZ [id number] -1940 M Ex Date: OCTOBER 25, 2023@10:53 Req Phys: ADRIANA HUITRON Loc: [facility]/OUTSIDE IMAGING NON-CNT (R Img Loc: OUTSIDE GENERAL RADIOLOGY Service: Unknown (Case 10 COMPLETE) OUTSIDE CHEST (2 VIEWS) (RAD Detailed) CPT:23426 Reason for Study: outside images downloaded for [...] Typ 08/10/2022 ADRIANA HUITRON Hearing Loss (SCT [id number]) H91.90 01/21/2022 ADRIANA HUITRON Vitamin B12 Deficiency (SCT [id number] 01/21/2022 ADRIANA HUITRON CAD - Coronary Artery Disease ([facility] 01/21/2022 ADRIANA HUITRON Diabetes Mellitus Type 2 ([facility] [address]82 01/21/2022 ADRIANA HUITRON Gout ([facility] [id number]) M10.9 01/13/2022 ADRIANA HUITRON Hypercholesterolemia E78.00, Onset [...] with coronary artery disease; 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 Per cardiology note 02/12/22- Pt has [...] drug reaction or event /es/ CHRISTIANO MCKEON, [facility] CLINICAL PHARMACY PRACTITIONER Signed: 10/27/2023 15:00 Receipt Acknowledged By: 11/03/2023 09:55 /renny/ Adriana Huitron PA-C STAFF PHYSICIAN HEART COORDINATOR CHRISTIANO MCKEON [facility]
--- OUTSIDE RECORDS SUMMARY | 2024-09-24 14:30 | XMS_ITS | Encounter Summary ---
Author Name [facility] [place] [facility] [place] Address [address] [place] [address] Care Team Providers Care Dairy Nutrition Specialist Name Role Phone YOSELIN MEZA Primary Care [...] INDEMNITY PLAN MEDICAL EXPENSE (OPT/PROF ) [facility] N Dec 28, 2016 [id number] EMILIA GONZALEZ HN PATIENT MEDICARE (WNR) MEDICARE (M) PART A Dec 28, 2016 PART A [id number] EMILIA GONZALEZ HN PATIENT MEDICARE (WNR) MEDICARE (M) PART B Dec 28, 2016 PART B [id number] EMILIA GONZALEZ HN PATIENT MEDICARE (WNR) MEDICARE (M) PART A Dec 28, 2016 PART A [id number] [phone] EMILIA GONZALEZ PATIENT MEDICARE (WNR) MEDICARE (M) PART B Dec 28, 2016 PART B [id number] EMILIA GONZALEZ PATIENT UNICARE MEDICAL EXPENSE (OPT/PROF ) [facility] Dec 28, 2016 [id number] [phone] SBEMILIA HILL PATIENT WELLPOINT PREFERRED PROVIDER ORGANIZAT ION (PPO) [facility] N Dec 28, 2016 [id number] [phone] EMILIA GONZALEZ PATIENT Selected Encounter This [...] - MEDICINE [place] [facility] [facility] [place] [facility] Feb 02, 2024 11:15 AM AMBULATORY - NONE [place] [facility] [place] [facility] Apr 10, 2024 11:00 AM AM[place]ULATORY [place]ICINE [place] [facility] [facility] May 10, 2024 09:00 AM AMBULATORY [place]ICINE [place] [facility] [facility] Jun 11, 2024 01:00 PM AMBULATORY [place]ICINE [place] [facility] [place] [facility] Jul 12, 2024 09:00 AM AM[place]ULATORY [place]ICINE [place] [facility] Active, Pending, and Scheduled Orders This section includes a listing of several types of active, pending, and scheduled orders, including clinic medications orders, diagnostic test orders, procedure orders and consult orders; where the start date of the order is 45 days before the date of the Encounter or 45 days after the date of theEncounter. The data comes from all [place] treatment facilities. Test Date/Time Test Type Test Details Facility Name Jan 31, 2024 07:45 AM Laboratory - Chemi stry Order CYTOLOGY, URINE #1 URINE #1 SP [facility] Lab Results: +/- 30 days of the [...] Unit Interpretation Reference Range Specimen Type Comment Jan 31, 2024 07:45 AM [facility] PSA SERUM Specimen Type: SERUM No comment entered. Ordering Provider: KAIT ROMERO Report Released Date/Time: Jan 25, 2024 02:31 PM Reporting Lab: [address] [address] Performing Lab: [address] [address] PSA 1.70 ng/mL 0.00-4.00 Jan 31, 2024 07:45 AM [facility] CT/GC DNA PANEL(IN-HOUSE) URINE Specimen Type : URINE Comment: Test performed on the [employer] Genexpert. A negative test results does not exclude the possibility of infection because results may be affected by improper specimen collection, concurrent antibiotic therapy, or the number of organisms in the specimen which may be below the sensitivity of the test. Ordering Provider: ADRIANA ROMERO Report Released Date/Time: Jan 25, 2024 02:31 PM Reporting Lab: [address] [address] Performing Lab: [address] [address] GC PCR NOT DETECTED Not Detected CT PCR NOT DETECTED Not Detected Jan 31, 2024 07:45 AM [facility] URINALYSIS URINE Specimen Type: URINE Comment: If Glucose = >500 and Ketones are positive, please alert the Physician. Ordering Provider: ADRIANA ROMERO Report Released Date/Time: Jan 25, 2024 02:31 PM Reporting Lab: [address] [address] Performing Lab: [facility] [address] [facility] [address] UA COLOR Light-Yellow Yellow UA APPEARANCE Clear Clear UA GLUCOSE Normal mg/dL Negative UA KETONES NEGATIVE mg/dL Negative UA BLOOD NEGATIVE mg/dL Negative UA PROTEIN NEGATIVE mg/dL Negative UA NITRITE NEGATIVE mg/dL Negative UA BILIRUBIN NEGATIVE mg/dL Negative UA SPECIFIC GRAVITY 1.013 L 1.016-1.022 UA pH 5.5 5.0-9.0 UA UROBILINOGEN Normal mg/dL <2.0 UA LEUKOCYTE NEGATIVE Negative Jan 31, 2024 07:44 AM [facility] HEMOGLOBIN A1C PANEL BLOOD Specimen Type: BLO OD Comment: Values obtained from A1C measurements can vary. For atypical A1C assays, a reported value of 7.0 could actually be between 6.72 and 7.28 if measured by a reference method. A reported value of 9.0 could actually be between 8.73 and 9.27. Ref: http://www.ngsp.org/CAPdata.asp Ordering Provider: ADRIANA ROMERO Report Released Date/Time: Nov 03, 2023 09:54 AM Reporting Lab: [address] [address] Performing Lab: [address] [address] HEMOGLOBIN A1C 7.1 H 4.0-5.6 Jan 31, 2024 07:44 AM [facility] LIPID PANEL FASTING SERUM Specimen Type: SERU M No comment entered. Ordering Provider: ADRIANA ROMERO Report Released Date/Time: Nov 03, 2023 09:54 AM Reporting Lab: [facility] [address] [facility] [address] Performing Lab: [address] [address] CHOLESTEROL 151 mg/dL TRIGLYCERIDE 102 mg/dL 0-150 LDL calculated 102 mg/dL 0-129 CHOL/HDL 5.2 HDL CHOLESTEROL 29 mg/dL L 40-60 Jan 31, 2024 07:44 AM [facility] BASIC METABOLIC PANEL (fasting) SERUM Specime n Type: SERUM No comment entered. Ordering Provider: ADRIANA ROMERO Report Released Date/Time: Nov 03, 2023 09:54 AM Reporting Lab: [facility] [address] [facility] [address] Performing Lab: [facility] [address] [facility] [address] UREA NITROGEN 22 mg/dL 7-25 GLUCOSE 128 mg/dL H 65-100 SODIUM 138 mmol/L 135-145 POTASSIUM 4.5 mmol/L 3.5-5.0 CHLORIDE 103 mmol/L 100-110 CO2 23 meq/L 20-30 CREATININE, Serum 1.56 mg/dL H 0.50-1.40 eGFR(CKD-EPI 2020) 44 mL/min L >60 Jan 31, 2024 07:44 AM [facility] LIVER FUNCTION SERUM Specimen Type: SERUM No comment entered. Ordering Provider: ADRIANA ROMERO Report Released Date/Time: Nov 03, 2023 09:54 AM Reporting Lab: [facility] [address] [facility] [address] Performing Lab: [address] [address] PROTEIN,TOTAL 7.8 g/dL 6.0-8.3 ALBUMIN 4.3 g/dL [...] 10, 2022 10:00 AM VA-TOBACCO FORMER USER [facility] Tobacco Use History This section includes a history of the smoking, or tobacco-related health factors, that were collected on or before the date of the Encounter. The data comes from the [place] facility where the Encounter took place. Date/Time Smoking Status/Tobacco Use Comment F acility Dec 10, 2022 10:00 AM VA-TOBACCO QUIT 15 YRS OR MORE [facility] Jan 07, 2022 12:47 PM VA-TOBACCO DOESNT USE WI 30 MIN WAKEUP [facility] Jan 07, 2022 12:47 PM VA-TOBACCO USE 30 YEARS OR MORE [facility] Jan 07, 2022 12:47 PM [facility]-TOBACCO 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 Jan 07, 2022 12:47 PM VA-TOBACCO USE MED NO [facility] Jan 07, 2022 12:47 PM VA-TOBACCO USER EVERY DAY [facility] Radiology Reports: +/- 30 days of the [...] ABDOMEN AND PELVIS WITHOUT CONT.: FABY GONZALEZ [id number] -1940 M Exm Date: FEB 02, 2024@10:56 Req Phys: ADRIANA ROMERO Loc: CWM/NO/PACT 3 (Req'g Loc) Img Loc: [facility]/CT Service: [facility] [place]I SERRATO [id number] (Case [id number] COMPLETE) CT ABDOMEN AND PELVIS WITHOUT CON(CT Detailed) CPT:40877 Reason for Study: hematuria. STones? Clinical History: Report Status: Verified Date Reported: FEB 02, 2024 Date Verified: FEB 02, 2024 Education Director E-Sig:/ES/LINDA Hinkle HETAL Report: Study: CT scan [...] Primary Interpreting Staff: LINDA FONG JR, Radiologist (Education Director) /LINDA VASQUEZ JR [facility] Pathology Reports: +/- 30 days of the [...] comes from all [place] treatment facilities. Date/Time Pathology Report Provider Source Feb 01, 2024 12:58 PM LR CYTOPATHOLOGY REPORT: LOCAL TITLE: LR CYTOPATHOLOGY REPORT STANDARD TITLE: PATHOLOGY DIAGNOSTIC STUDY REPORT DATE OF NOTE: FEB 01, 2024@12:58:09 ENTRY DATE: FEB 01, 2024@12:58:09 AUTHOR: GEORGE KAT EXP COSIGNER: URGENCY: STATUS: COMPLETED $APHDR Reporting Lab: [facility] [CLIA# [id number]] [address] [place] [id number] - - - - - - - [...] (Received Jan 31, 2024 09:16): urine cytology [id number] - - - - - - - [...] No malignant cells identified - Abundant crystals CPT:33555 /es/ GEORGE KAT Signed Feb 01, 2024@12:58 Performing Laboratory: Cytology Report Performed By: [facility] [CLIA# [id number]] [address] [place] [address] $FTR - - - - - - [...] - - FABY GONZALEZ STANDARD FORM 515 ID:[id number] SEX:M :1940 AGE: 83 LOC:[facility] CARE-PULMONARY PCP: NISREEN Bassett /renny/ GEORGE KAT Signed: 02/01/2024 12:58 GEORGE KAT [place] [facility] Encounter Notes: All associated encounter notes This section contains the clinical notes associated to the Encounter. Date/Time Encounter Note(s) Provider Source Jan 13, 2024 08:04 AM ADDENDUM: LOCAL TITLE: Addendum STANDARD TITLE: ADDENDUM DATE OF NOTE: JAN 13, 2024@08:04:29 ENTRY DATE: JAN 13, 2024@08:04:30 AUTHOR: KRYSTIAN REDDY EXP COSIGNER: URGENCY: STATUS: COMPLETED Renick with two discussions with MADELIN Hanks regarding dc of GEMFIBROZIL 600MG TAB. Please remind him that this would need discussion with CPP if he wishes to resume. Defer. /renny/ KRYSTIAN NGUYEN MS,PA-C PHYSICIAN SENIOR RADIATION THERAPIST Signed: 01/13/2024 08:06 Receipt Acknowledged By: 01/13/2024 08:50 /renny/ CHRISTIANO HANKS, PHARMD,BCPS CLINICAL PHARMACY PRACTITIONER ========= --- Original Document --- 01/12/24 V1 PHARMACY CUSTOMER CARE MEDICATION RENEWAL: Date: Dec Division: [place] Pt referred by Pharmacy Call Center for medication renewal: Non-controlled/maintena nce medication Medications requested: [id number] GEMFIBROZIL 600MG TAB Defer to primary care provider To be mailed . Please review and renew if appropriate. *This note was generated by [facility]/[place] Pharmacy Customer Care. If you have any questions or need assistance, do not contact this author. Please refer all questions to your local, on-site pharmacy departments. /renny/ [employer] Mechan[employer], [place]/Pharmacy Customer Care Signed: 01/12/2024 19:14 Receipt Acknowledged By: * AWAITING SIGNATURE * NI FLETCHER 01/13/2024 08:04 /es/ KRYSTIAN NGUYEN, MS,PA-C PHYSICIAN SENIOR RADIATION THERAPIST for ADRIANA Rangel NICK 01/13/2024 ADDENDUM STATUS: UNSIGNED You may not VIEW this UNSIGNED Addendum. KRYSTIAN REDDY [place] [facility] [place] [facility] Jan 12, 2024 07:13 PM PHARMACY NOTE: LOCAL TITLE: V1 PHARMACY CUSTOMER CARE MEDICATION RENEWAL STANDARD TITLE: PHARMACY NOTE DATE OF NOTE: JAN 12, 2024@19:13 ENTRY DATE: JAN 12, 2024@19:13:48 AUTHOR: [facility] EXP COSIGNER: URGENCY: STATUS: COMPLETED V1 PHARMACY CUSTOMER CARE MEDICATION RENEWAL Has ADDENDA Date: Dec Division: [place] Pt referred by Pharmacy Call Center for medication renewal: Non-controlled/maintena nce medication Medications requested: [id number] GEMFIBROZIL 600MG TAB Defer to primary care provider To be mailed . Please review and renew if appropriate. *This note was generated by [facility] Pharmacy Customer Care. If you have any questions or need assistance, do not contact this author. Please refer all questions to your local, on-site pharmacy departments. /mary ellen HOUSE CPh[employer]ic, [place]/Pharmacy Customer Care Signed: 01/12/2024 19:14 Receipt Acknowledged By: 01/13/2024 08:59 /es/ NI FLETCHER RN REGISTERED NURSE 01/13/2024 08:04 /es/ KRYSTIAN NGUYEN, MS,PAJohannC PHYSICIAN SENIOR RADIATION THERAPIST for ADRIANA ROMERO 01/13/2024 ADDENDUM STATUS: COMPLETED Renick with two discussions with MADELIN Hanks regarding dc of GEMFIBROZIL 600MG TAB. Please remind him that this would need discussion with CPP if he wishes to resume. Defer. /renny/ KRYSTIAN NGUYEN, MS,PAJohannC PHYSICIAN SENIOR RADIATION THERAPIST Signed: 01/13/2024 08:06 Receipt Acknowledged By: 01/13/2024 [...] PHARMACY PRACTITIONER Signed: 01/13/2024 08:52 [facility] [place] [facility]
--- OUTSIDE RECORDS SUMMARY | 2024-09-24 14:30 | XMS_ITS | Encounter Summary ---
Author Name [facility] [facility] [place] [facility] [place] [facility] [place] Address [address] [place] [address] Care Team Providers Care Website Programmer Name Role Phone ADRIANA HUITRON Primary Care [...] GIC INDEMNITY PLAN MEDICAL EXPENSE (OPT/PROF ) [facility] N Dec 28, 2016 [id number] [phone] EMILIA GONZALEZ HN PATIENT MEDICARE (WNR) MEDICARE (M) PART A Dec 28, 2016 PART A [id number] EMILIA GONZALEZ HN PATIENT MEDICARE (WNR) MEDICARE (M) PART B Dec 28, 2016 PART B [id number] [phone] EMILIA GONZALEZ HN PATIENT MEDICARE (WNR) MEDICARE (M) PART A Dec 28, 2016 PART A [id number] SBREGA,EMILIA HN PATIENT MEDICARE (WNR) MEDICARE (M) PART B Dec 28, 2016 PART B [id number] EMILIA GONZALEZ PATIENT UNICARE MEDICAL EXPENSE (OPT/PROF ) [facility] N Dec 28, 2016 [id number] [phone] EMILIA GONZALEZ PATIENT WELLPOINT PREFERRED PROVIDER ORGANIZAT ION (PPO) [facility] N Dec 28, 2016 [id number] [phone] EMILIA GONZALEZ PATIENT Selected Encounter This section includes the information on record at [place] for the Encounter. Date/Time Encounter Type Encounter Description Reason Provider Source May 10, 2024 09:00 AM OFFICE O/P EST MOD 30 MIN PRIMARY CARE/MEDICINE ICD-10-CM E11.21 Type 2 diabetes mellitus with diabetic nephropathy MICHAELA HUITRON FIONA F IHE Encounter Template Text not used by [place] Assessments - Encounter Diagnoses This section includes the primary and secondary diagnoses documented for the Encounter. 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 SANDRA HUITRON F [facility] [place] [facility] Jun 04, 2024 12:48 PM SECONDARY Encounter for immunization ZORAIDA LUCAS M [facility] [place] [facility] Jun 04, 2024 12:48 PM SECONDARY Essential (primary) hypertension SANDRA HUITRON [facility] [place] [facility] Jun 04, 2024 12:48 PM SECONDARY Pure hypercholesterolem ia, unspecified SANDRA HUITRON F [facility] [place] [facility] Jun 04, 2024 12:48 PM SECONDARY Type 2 diabetes mellitus without complications SANDRA HUITRON F [facility] [place] [facility] Plan of Treatment: Future Appointments (+ 6 months) and Future Tests (+/- 45 days) The Plan of Treatment section includes future care activities for the patient [facility] [place] [facility]. This section includes future appointments and future orders which are active, pending or scheduled. Future Appointments This section includes appointments that were scheduled to occur 6 months from the date of the Encounter, up to a maximum of 20 appointments. The data comes from all [place] treatment facilities. Appointment Date/Time Appointment Type Appointme nt Facility Name Jun 11, 2024 01:00 PM AMBULATORY - MEDICINE [place] [facility] [place] [facility] Jul 12, 2024 09:00 AM AMBULATORY - MEDICINE [place] [facility] [place] [facility] Jul 25, 2024 10:00 AM AMBULATORY - MEDICINE [place] [facility] [place] [facility] Jul 25, 2024 11:00 AM AMBULATORY - REHAB MEDICIN E [facility] [place] [facility] Jul 25, 2024 12:00 PM AMBULATORY - MEDICINE [place] [facility] [place] [facility] Sep 18, 2024 02:30 PM AMBULATORY - [facility] Lab Results: +/- 30 days of the encounter This section includes the Chemistry and Hematology Lab Results on record with [place] for the patient. Radiology Reports and Pathology Reports are provided separately, in subsequent sections. Lab Results This section contains the Chemistry/Hematology Results that were resulted 30 days before or 30 daysafter the date of the Encounter. Date/Time Source Result Type Result - Unit Interpretation Reference Range Specimen Type Comment May 07, 2024 10:57 AM [facility] HEMOGLOBIN A1C PANEL BLOOD Specimen Type: BLOOD Comment: Values obtained from A1C measurements can vary. For atypical A1C assays, a reported value of 7.0 could actually be between 6.72 and 7.28 if measured by a reference method. A reported value of 9.0 could actually be between 8.73 and 9.27. Ref: http://www.ngsp .org/CAPdata.as p Ordering Provider: LIBIA HUITRON AM Report Released Date/Time: Jan 31, 2024 01:45 PM Reporting Lab: [address] [address] Performing Lab: [address] [address] HEMOGLOBIN A1C 6.6 H 4.0-5.6 May 07, 2024 10:57 AM [facility] LIVER FUNCTION SERUM Specimen Type: SERUM No comment entered. Ordering Provider: ADRIANA HUITRON Report Released Date/Time: Jan 31, 2024 01:45 PM Reporting Lab: [address] [address] Performing Lab: [address] [address] PROTEIN,TOTAL 7.5 g/dL 6.0-8.3 ALBUMIN 4.0 g/dL 3.5-5.0 ALKALINE PHOSPHATASE 61 U/L 40-150 AST 28 U/L 5-34 ALT 16 U/L BILIRUBIN, TOTAL 0.6 mg/dL 0.2-1.2 May 07, 2024 10:57 AM [facility] BASIC METABOLIC PANEL (fasting) SERUM Specime n Type: SERUM No comment entered. Ordering Provider: ADRIANA HUITRON Report Released Date/Time: Jan 31, 2024 01:45 PM Reporting Lab: [address] [address] Performing Lab: [address] [address] UREA NITROGEN 28 mg/dL H 7-25 GLUCOSE 122 mg/dL H 65-100 SODIUM 141 mmol/L 135-145 POTASSIUM 4.7 mmol/L 3.5-5.0 CHLORIDE 108 mmol/L 100-110 CO2 20 meq/L 20-30 CREATININE, Serum 1.51 mg/dL H 0.50-1.40 eGFR(CKD-EPI 2020) 46 mL/min L >60 May 07, 2024 10:57 AM [facility] LIPID PANEL FASTING SERUM Specimen Type: SERU M No comment entered. Ordering Provider: ADRIANA HUITRON Report Released Date/Time: Jan 31, 2024 01:45 PM Reporting Lab: [address] [address] Performing Lab: [address] [place] [address] CHOLESTEROL 146 mg/dL TRIGLYCERIDE 95 mg/dL 0-150 [...] 138/82 16 96 0 69 167.5 25 [facility] Immunizations: All administered on the encounter date This section contains immunizations associated to the Encounter. Immunization Series Date Issued Administered By Site Reaction Lot Number CVX Code Drug Rubber Goods Repairer Comment(s) Source INFLUENZA, HIGH-DOSE, TRIVALENT, PF May 10, 2024 ZORAIDA LUCAS LEFT DELTO ID [id number] SANOFI PASTEUR Completed Series, ADMINISTERE D AT [place], [facility] Social History: Smoking Status (Most current) and Tobacco Use (All prior to encounter date) This section includes the most current, and the historical, smoking and tobacco- related health factors from the [place] facility where the Encounter took place. Current Smoking Status This section includes the most current smoking, or tobacco-related health factor, from the [place] facility where the Encounter took place. Date/Time Current Smoking Status Comment Sun gruebr Jan 13, 2024 09:23 AM VA-TOBACCO FORMER USER [facility] Tobacco Use History This section includes a history of the smoking, or tobacco-related health factors, that were collected on or before the date of the Encounter. The data comes from the [place] facility where the Encounter took place. Date/Time Smoking Status/Tobacco Use Comment F acility Jan 13, 2024 09:23 AM [place]-TOBACCO QUIT 15 YRS OR MORE [facility] Dec 10, 2022 10:00 AM [facility]BAC[facility] Dec 10, 2022 10:00 AM VA-TOBACCO QUIT 15 YRS OR MORE [facility] Jan 07, 2022 12:47 PM VA-TOBACCO DOESNT USE WI 30 MIN [facility] Jan 07, 2022 12:47 PM VA-TOBACCO USE 30 YEARS OR MORE [facility] [place] [facility] Jan 07, 2022 12:47 PM VA-TOBACCO USE ADVICE [facility] [place] [facility] Jan 07, 2022 12:47 PM VA-TOBACCO USE LEATHER PIECE INSPECTOR NO [facility] [place] [facility] Jan 07, 2022 12:47 PM VA-TOBACCO USE MED NO [facility] [place] [facility] Jan 07, 2022 12:47 PM VA-TOBACCO USER EVERY DAY [facility] [place] [facility] Encounter Notes: All associated encounter [...] with Dr. Mckeon. Will ask for PACT steam drier tender to please contact pt for rescheduling visit with Dr. Mckeon for review of medications. /renny/ Radha Tee PharmD, [facility] Clinical Manager Sales Support Signed: 05/10/2024 10:39 Receipt Acknowledged By: 05/10/2024 11:11 /renny/ JOSE ANGEL HOUGH Clinical Field Service Poultry Technician --- Original Document --- 05/10/24 PA NOTE: [...] the followin. Exposure to potentially hazardous substance ([facility] [id number]) Entered automatically through Asset Mapping Problem List documentation program 2. Kidney Disorder Associated with Type 2 Diabetes Mellitus ([facility] [id number]) 3. Hearing Loss ([facility] [id number]) 4. Vitamin B12 Deficiency ([facility] [id number]) 5. CAD - Coronary Artery Disease ([facility] [id number]) 3 vessel cabg 2003. 6. Diabetes Mellitus Type 2 ([facility] [id number]) 7. Gout ([facility] [id number]) 8. Hypercholesterolemia 9. Hypertension SERVICE CONNECTED % [...] today:yes /renny/ Adriana Huitron PA-C STAFF PHYSICIAN HUMAN RESOURCES COMPLIANCE MANAGER Signed: 05/10/2024 09:32 Receipt Acknowledged By: 05/10/2024 10:36 /renny/ Radha Tee, PharmD, BCPS Clinical Manager Sales Support for RADHA CARMICHAEL [facility] May 10, 2024 09:28 AM PHYSICIAN HUMAN RESOURCES COMPLIANCE MANAGER NOTE: LOCAL TITLE: NISREEN NOTE STANDARD TITLE: PHYSICIAN HUMAN RESOURCES COMPLIANCE MANAGER NOTE DATE OF NOTE: MAY 10, 2024@09:28 [...] the followin. Exposure to potentially hazardous substance ([facility] [id number]) Entered automatically through Asset Mapping Problem List documentation program 2. Kidney Disorder Associated with Type 2 Diabetes Mellitus ([facility] [id number]) 3. Hearing Loss ([facility] [id number]) 4. Vitamin B12 Deficiency ([facility] [id number]) 5. CAD - Coronary Artery Disease ([facility] [id number]) 3 vessel cabg 2003. 6. Diabetes Mellitus Type 2 ([facility] [id number]) 7. Gout ([facility] [id number]) 8. Hypercholesterolemia 9. Hypertension SERVICE CONNECTED % [...] today:yes /es/ Adriana Huitron PA-C STAFF PHYSICIAN HUMAN RESOURCES COMPLIANCE MANAGER Signed: 05/10/2024 09:32 Receipt Acknowledged By: 05/10/2024 10:36 /renny/ Radha Tee, NanciD, BCPS Clinical Manager Sales Support for TAMEKA MCKEON 05/10/2024 ADDENDUM STATUS: COMPLETED Noted A1c is at goal. Renal dysfunction noted - no dose adjustment of metformin warranted. Concern noted, however, re: use of statin and gemfibrozil. Appears gemfibrozil was d/c'd in the past due to this interaction. Pt missed last appt with Dr. Mckeon. Will ask for PACT steam drier tender to please contact pt for rescheduling visit with Dr. Mckeon for review of medications. /renny/ Radha Tee, NanciD, BCPS Clinical Manager Sales Support Signed: 05/10/2024 10:39 Receipt Acknowledged By: * AWAITING SIGNATURE * JOSE ANGEL HOUGH,ADRIANA Rangel [facility] May 10, 2024 08:57 AM PREVENTIVE MEDICINE NURSING NOTE: LOCAL TITLE: CLINICAL REMINDERS/NURSING STANDARD TITLE: PREVENTIVE MEDICINE NURSING NOTE DATE OF NOTE: MAY 10, 2024@08:57 ENTRY DATE: MAY 10, 2024@08:57:22 AUTHOR: FRIDA LUCAS EXP COSIGNER: URGENCY: STATUS: COMPLETED CLINICAL REMINDERS/NURSING Has [...] return upon completion /renny/ FRIDA LUCAS LPN LPN Signed: 05/10/2024 09:08 05/10/2024 ADDENDUM STATUS: COMPLETED Influenza Immunization: Influenza, High-Dose, Trivalent, Preservative Free (Fluzone-Syringe) Administered: INFLUENZA, HIGH-DOSE, TRIVALENT, PF Date Administered: May 10, 2024 09:00 Series: Complete Rubber Goods Repairer: SANOFI PASTEUR Lot: [id number] Exp Date: Nov 26, 2024 [facility]: [id number] Admin Route/Site: INTRAMUSCULAR/LEFT DELTOID Dosage: 0.5mL Vaccine Information Statement(s): INFLUENZA(FLU) VACC(INACTIVATED OR RECOMBINANT)VIS Jan 02, 2021 ([facility]) Order By: Policy Administered By: Frida Lucas [...] LPN LPN Signed: 05/10/2024 09:51 FRIDA LUCAS [facility]
--- OUTSIDE RECORDS SUMMARY | 2024-09-24 14:30 | XMS_ITS ---
Author Name [facility] [place] [facility] [place] Address [address] [place] [address] Care Team Providers Care Labor Relations Director Name Role Phone YOSELIN MEZA Primary Care Provider JAGDISH Hinojosa Primary Care Provider Unavail able Insurance [...] GIC INDEMNITY PLAN MEDICAL EXPENSE (OPT/PROF ) [facility] N Dec 28, 2016 [id number] EMILIA GONZALEZ HN PATIENT MEDICARE (WNR) MEDICARE (M) PART A Dec 28, 2016 PART A [id number] [phone] LISAEMILIA HN PATIENT MEDICARE (WNR) MEDICARE (M) PART B Dec 28, 2016 PART B [id number] LISAEMILIA HN PATIENT MEDICARE (WNR) MEDICARE (M) PART A Dec 28, 2016 PART A [id number] LISAEMILIA HN PATIENT MEDICARE (WNR) MEDICARE (M) PART B Dec 28, 2016 PART B [id number] EMILIA GONZALEZ PATIENT UNICARE MEDICAL EXPENSE (OPT/PROF ) DENI [place] [facility] N Dec 28, 2016 [id number] [phone] EMILIA GONZALEZ PATIENT [facility] PREFERRED PROVIDER ORGANIZAT ION (PPO) DENI [facility] Dec 28, 2016 [id number] [phone] EMILIA GONZALEZ PATIENT Selected Encounter This [...] 13, 2023 02:30 PM AMBULATORY - MEDICINE [place] [facility] [place] [facility] Dec 21, 2023 09:45 AM AMBULATORY - MEDICINE [place] [place] [facility] Jan 31, 2024 01:30 PM AMBULATORY - MEDICINE [place] [facility] [place] [facility] Feb 02, 2024 11:15 AM AMBULATORY - NONE [place] [facility] [place] [facility] Apr 10, 2024 11:00 AM AMBULATORY - MEDICINE [place] [facility] [facility] May 10, 2024 09:00 AM AMBULATORY - MEDICINE [place] [facility] [place] [facility] Lab Results: +/- 30 days of [...] Type Comment Nov 01, 2023 08:44 AM [facility] BASIC METABOLIC PANEL (fasting) SERUM Specime n Type: SERUM No comment entered. Ordering Provider: LIBIA HUITRON AM Report Released Date/Time: Apr 18, 2023 10:07 AM Reporting Lab: [address] [address] Performing Lab: [address] [address] UREA NITROGEN 19 mg/dL 7-25 GLUCOSE 178 mg/dL H 65-100 SODIUM 138 mmol/L 135-145 POTASSIUM 5.2 mmol/L H 3.5-5.0 CHLORIDE 105 mmol/L 100-110 CO2 24 meq/L 20-30 CREATININE, Serum 1.39 mg/dL 0.50-1.40 eGFR(CKD-EPI 2020) 50 mL/min L >60 Nov 01, 2023 08:44 AM [facility] LIVER FUNCTION SERUM Specimen Type: SERUM No comment entered. Ordering Provider: JAGDISH HUITRON Report Released Date/Time: Apr 18, 2023 10:07 AM Reporting Lab: [address] [address] Performing Lab: [address] [address] PROTEIN,TOTAL 7.1 g/dL 6.0-8.3 ALBUMIN 4.0 g/dL 3.5-5.0 ALKALINE PHOSPHATASE 57 U/L 40-150 AST 23 U/L 5-34 ALT 17 U/L BILIRUBIN, TOTAL 0.5 mg/dL 0.2-1.2 Nov 01, 2023 08:44 AM [facility] HEMOGLOBIN A1C PANEL BLOOD Specimen Type: BLO OD Comment: Values obtained from A1C measurements can vary. For atypical A1C assays, a reported value of 7.0 could actually be between 6.72 and 7.28 if measured by a reference method. A reported value of 9.0 could actually be between 8.73 and 9.27. Ref: [email or web address] Ordering Provider: JAGDISH HUITRON Report Released Date/Time: Apr 18, 2023 10:07 AM Reporting Lab: [facility] [address] [address] Performing Lab: [facility] [address] [address] HEMOGLOBIN A1C 8.2 H 4.0-5.6 Nov 01, 2023 08:44 AM [facility] LIPID PANEL FASTING SERUM Specimen Type: SERU M No comment entered. Ordering Provider: JAGDISH HUITRON Report Released Date/Time: Apr 18, 2023 10:07 AM Reporting Lab: [facility] [address] [address] Performing Lab: [facility] [address] [address] CHOLESTEROL 158 mg/dL TRIGLYCERIDE 131 mg/dL 0-150 LDL calculated 103 mg/dL 0-129 CHOL/HDL 5.4 HDL CHOLESTEROL 29 mg/dL L 40-60 Nov 01, 2023 08:44 AM [facility] MICROALBUMIN CREATININE RATIO PANEL URINE Spe cimen Type: URINE No comment entered. Ordering Provider: JAGDISH HUITRON Report Released Date/Time: Apr 18, 2023 10:07 AM Reporting Lab: [facility] [place] [facility] [address] [facility] [address] Performing Lab: [facility] [address] [address] MICROALBUMIN/CREATININE RATIO 170.4 mg/g H 0-29.9 MICROALBUMIN,QUANTITATIVE 11.6 mg/dL RR UNAVAIL CREATININE URINE 68.07 mg/dL Nov 01, 2023 08:44 AM [facility] URIC ACID SERUM Specimen Type: SERUM No comment entered. Ordering Provider: JAGDISH HUITRON Report Released Date/Time: Nov 07, 2023 10:27 AM Reporting Lab: [facility] [address] [address] Performing Lab: [facility] [place] [facility] [address] [facility] [address] URIC ACID 5.7 mg/dL 3.5-7.2 Social History: [...] 10, 2022 10:00 AM VA-TOBACCO FORMER USER [facility] Tobacco Use History This section includes a history of the smoking, or tobacco-related health factors, that were collected on or before the date of the Encounter. The data comes from the [place] facility where the Encounter took place. Date/Time Smoking Status/Tobacco Use Comment F acility Dec 10, 2022 10:00 AM VA-TOBACCO QUIT 15 YRS OR MORE [place] [facility] Jan 07, 2022 12:47 PM VA-TOBACCO DOESNT USE WI 30 MIN WAKEUP [facility] Jan 07, 2022 12:47 PM VA-TOBACCO USE 30 YEARS OR MORE [place] [facility] [place] [facility] Jan 07, 2022 12:47 PM VA-TOBACCO USE ADVICE [place] [facility] Jan 07, 2022 12:47 PM VA-TOBACCO USE PRINT JOURNALIST NO [place] [facility] Jan 07, 2022 12:47 PM VA-TOBACCO USE MED NO [place] [place] [facility] Jan 07, 2022 12:47 PM VA-TOBACCO USER EVERY DAY [facility] Radiology Reports: +/- 30 days of [...] the Encounter. The data comes from all [place] treatment facilities. Date/Time Radiology Report Provider Source Nov 18, 2023 08:[address] W/O CONT: FABY GONZALEZ [id number] -[id number] M Ex Date: NOV 18, 2023@08:12 Req Phys: JAGDISH HUITRON Pat Loc: CWM/NO/PHARM/PACT 3 (Req'g Loc Img Loc: NHM/CT Service: Unknown [place] [facility] , (Case [id number] COMPLETE) CT THORAX W/O CONT (CT Detailed) CPT:09255 Reason for Study: pulmonary fibrosis on cxr at [facility] last week. Clinical History: pulmonary fibrosis on cxr at [facility] last week. He finished aUGMENTIN 6/5, but now reports that phlegm is now returning. Report Status: Verified Date Reported: NOV 24, 2023 Date Verified: NOV 24, 2023 Production Sound Mixer E-Sig: Report: EXAM: CT chest without contrast COMPARISON: None. HISTORY: pulmonary fibrosis on cxr at [facility] last week. He finished aUGMENTIN 6/5, but [...] pulmonary fibrosis. READING PHYSICIAN: Kaiden Jacob D.O. -[phone] 11/24/2023 13:44 EDT [facility] National Teleradiology Program [phone] (For Medical Practitioner Use Only) Attention Patients / Veterans: If you have questions or concerns about these test results, please contact your ordering provider or primary care team. Primary Diagnostic Code: NO ALERT REQUIRED Primary Interpreting Staff: RADIOLOGY,OUTSIDE SERVICE, Staff Physician / RADIOLOGY,OUTSIDE SERVICE [facility] October 25, 2023 10:53 AM OUTSIDE CHEST (2 VIEWS): FABY GONZALEZ [id number] -[id number] M Exm Date: OCTOBER 25, 2023@10:53 Req Phys: JAGDISH HUITRON Loc: NHM/OUTSIDE IMAGING NON-CNT (R Img Loc: OUTSIDE GENERAL RADIOLOGY Service: Unknown (Case [id number] COMPLETE) OUTSIDE CHEST (2 VIEWS) (RAD Detailed) CPT:09853 Reason for Study: outside images downloaded for continuity of care Clinical History: outside images downloaded for continuity of care Report Status: Electronically Filed Date Reported: OCTOBER 25, 2023 Report: THIS EXAM WAS PERFORMED AND INTERPRETED AT AN OUTSIDE HOSPITAL Impression: THIS EXAM WAS PERFORMED AND INTERPRETED AT AN OUTSIDE HOSPITAL Primary Diagnostic Code: VERIFIED BY: / *ELECTRONICALLY FILED* [facility] Encounter Notes: All associated encounter notes This section contains the clinical notes associated to the Encounter. Date/Time Encounter Note(s) Provider Source Nov 24, 2023 02:56 PM ADDENDUM: LOCAL TITLE: Addendum STANDARD TITLE: ADDENDUM DATE OF NOTE: NOV 24, 2023@14:56:16 ENTRY DATE: NOV 24, 2023@14:56:16 AUTHOR: JAGDISH HUITRON EXP COSIGNER: URGENCY: STATUS: COMPLETED Please inform him that his CT Chest confirms fibrosis of lung, but does not find more worrisome issues. Our staff is working on booking him PFTs and will Pulmonary. Have him get a cd of his ct to take to [facility] appt /renny/ Jagdish Huitron PA-C STAFF PHYSICIAN SOLE TRIMMER Signed: 11/24/2023 14:57 Receipt Acknowledged By: 11/24/2023 15:01 /renny/ NI FLETCHER RN REGISTERED NURSE ====== --- Original Document --- 11/24/23 COMMUNITY CARE-CARE COORDINATION PLAN NOTE: [facility] notified [facility] that is scheduled for his pulmonary appt. at [facility] on 12/21/2023. Request for ALEXANDRE scheduling of PFT with existing authorization sent to [facility] PULM. New consult is not needed. CC RN called [facility] Pulmonary to make sure they understood this is a separate request in addition to his Pulmonary appt. Alert to PCP- [facility] cannot schedule at this time (RT there on emergency leave). They will schedule as soon as they are able OR [facility] can send CC pulm for PFT to another facility. I can re-activate 11/22 CC Pulm for PFT, new consult not needed. Please advise. /renny/ KT CACREES [facility] RN Signed: 11/24/2023 11:05 11/24/2023 ADDENDUM STATUS: COMPLETED CC pulm provider confirmed with CC RN. PFT not being scheduled at their facility for near future due to staffing. PCP-CC RN will forward PFT to other CCP as no availability at [facility] in near future. /renny/ KT CACERES [facility] RN Signed: 11/24/2023 12:34 Receipt Acknowledged By: 11/24/2023 14:56 /renny/ Jagdish Huitron PA-C STAFF PHYSICIAN SOLE TRIMMER JAGDISH HUITRON [place] [facility] Nov 24, 2023 12:31 PM ADDENDUM: LOCAL TITLE: Addendum STANDARD TITLE: ADDENDUM DATE OF NOTE: NOV 24, 2023@12:31:40 ENTRY DATE: NOV 24, 2023@12:31:41 AUTHOR: KT CACERES COSIGNER: URGENCY: STATUS: COMPLETED CC pulm provider confirmed with CC RN. PFT not being scheduled at their facility for near future due to staffing. PCP-CC RN will forward PFT to other CCP as no availability at [facility] in near future. /renny/ KT CACERES [facility] RN Signed: 11/24/2023 12:34 Receipt Acknowledged By: 11/24/2023 14:56 /renny/ Jagdish Huitron PA-C STAFF PHYSICIAN SOLE TRIMMER ====== --- Original Document --- 11/24/23 COMMUNITY CARE-CARE COORDINATION PLAN NOTE: [facility] notified [facility] that is scheduled for his pulmonary appt. at [facility] on 12/21/2023. Request for ALEXANDRE scheduling of PFT with existing authorization sent to [facility] PULM. New consult is not needed. CC RN called [facility] Pulmonary to make sure they understood this is a separate request in addition to his Pulmonary appt. Alert to PCP- [facility] cannot schedule at this time (RT there on emergency leave). They will schedule as soon as they are able OR [facility] can send CC pulm for PFT to another facility. I can re-activate 11/22 CC Pulm for PFT, new consult not needed. Please advise. /renny/ KT CACERES [facility] RN Signed: 11/24/2023 11:05 TK CACERES [place] [facility] Nov 24, 2023 10:22 AM NONVA NOTE: LOCAL TITLE: COMMUNITY CARE-CARE COORDINATION PLAN NOTE STANDARD TITLE: NONVA NOTE DATE OF NOTE: NOV 24, 2023@10:22 ENTRY DATE: NOV 24, 2023@10:22:15 AUTHOR: KT CACERES COSIGNER: URGENCY: STATUS: COMPLETED COMMUNITY CARE-CARE COORDINATION PLAN NOTE Has ADDENDA [facility] notified [facility] that is scheduled for his pulmonary appt. at [facility] on 12/21/2023. Request for ALEXANDRE scheduling of PFT with existing authorization sent to [facility] PULM. New consult is not needed. CC RN called [facility] Pulmonary to make sure they understood this is a separate request in addition to his Pulmonary appt. Alert to PCP- [facility] cannot schedule at this time (RT there on emergency leave). They will schedule as soon as they are able OR [facility] can send CC pulm for PFT to another facility. I can re-activate 11/22 CC Pulm for PFT, new consult not needed. Please advise. /renny/ KT CACERES [facility] RN Signed: 11/24/2023 11:05 11/24/2023 ADDENDUM STATUS: COMPLETED CC pulm provider confirmed with CC RN. PFT not being scheduled at their facility for near future due to staffing. PCP-CC RN will forward PFT to other CCP as no availability at [facility] in near future. /renny/ KT CACERES [facility] RN Signed: 11/24/2023 12:34 Receipt Acknowledged By: 11/24/2023 14:56 /renny/ Jagdish Huitron PA-C STAFF PHYSICIAN SOLE TRIMMER 11/24/2023 ADDENDUM STATUS: COMPLETED Please inform him that his CT Chest confirms fibrosis of lung, but does not find more worrisome issues. Our staff is working on booking him PFTs and will Pulmonary. Have him get a cd of his ct to take to pulm appt /renny/ Jagdish Huitron PA-C STAFF PHYSICIAN SOLE TRIMMER Signed: 11/24/2023 14:57 Receipt Acknowledged By: 11/24/2023 15:01 /renny/ NI FLETCHER RN REGISTERED NURSE [facility]
--- OUTSIDE RECORDS SUMMARY | 2024-09-24 14:30 | XMS_ITS | Continuity of Care Document ---
Author Name [facility] Organization [facility] Care Team Providers Care Rack Puller Name Role Phone [facility] Unavailable Unavailable Problems Combined list of problems from Department of Defense and Veterans Affairs facilities. It does not include entries that were removed or entered in error. Problem Status Onset Date Problem Type Date of Resolution Comments Source Diabetes Mellitus Type 2 (SCT 42489792) Active 007 Condition [facility] Hypercholesterolemia Active 007 Condition [facility] Hypertension Active 007 Condition [facility] CAD - Coronary Artery Disease (SCT 17151843) Active 004 Condition Jan 21, 2022 Entered By: MICHAELA ROMERO Comment: 3 vessel cabg 2003. [facility] Anemia (SCT 940679297) Active Condition [facility] Coronary arteriosclerosis Active Condition [facility] Coronary artery disease Active Condition [place] Diabetes mellitus type 2 without retinopathy (SNOMED CT 2717574507631) Active Condition [facility] Exposure to potentially hazardous substance (SCT 046571277461953) Active Condition Sep 06 4 Entered By: PATY MCCONNELL Comment: Entered automatically through [facility] Problem List documentation program [facility] Gout (SCT 15451709) Active Condition [facility] Hearing Loss (SCT 23774861) Active Condition [facility] Hearing loss * (ICD-9-CM 389.9) Active Condition [facility] Hyperlipidemia (SNOMED CT 64775229) Active Condition [facility] 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 Condition [facility] 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) Active Condition [facility] 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) Active Condition [facility] Vitamin B12 Deficiency (SCT 943860123) Active [facility] Diagnosis: ICD-10-CM Z46.1 Encounter for fitting and adjustment of hearing aid Active Diagnosis [facility] Diagnosis: ICD-10-CM I25.10 Athscl heart disease of [place] coronary artery w/o ang pctrs Active Diagnosis [facility] Diagnosis: ICD-10-CM H90.3 Sensorineural hearing loss, bilateral Active Diagnosis [facility] Diagnosis: ICD-10-CM H61.23 Impacted cerumen, bilateral Active Diagnosis [facility] Diagnosis: ICD-10-CM 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 [facility] Diagnosis: ICD-10-CM E11.9 Type 2 diabetes mellitus without complications Active Diagnosis [facility] Diagnosis: ICD-10-CM Z46.0 Encounter for fit/adjst of spectacles and contact lenses Active Diagnosis [facility] Diagnosis: ICD-10-CM 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 Medication Details Route Status Patient Instructions Prescription Expires Prescription Number Last Dispense Date Ordering Provider Order Date Order Qty Source ASPIRIN 81MG TAB,EC TAKE ONE TABLET BY MOUTH ONCE DAILY TO PREVENT STROKE/H EART ATTACK TAKE 15 MINUTES BEFORE NIACIN TO REDUCE/P REVENT FLUSHING . ORAL ACTIVE 07/13/2025 [id number] ADRIANA ROMERO 2024 120 [facility] ASPIRIN 81MG TAB,EC TAKE ONE TABLET BY MOUTH ONCE DAILY TO PREVENT STROKE/H EART ATTACK TAKE 15 MINUTES BEFORE NIACIN TO REDUCE/P REVENT FLUSHING . ORAL DISCONT INUED 10/18/2024 [id number] 5 KESHAWNADRIANA HARRISON 2023 120 [facility] ASPIRIN 81MG TAB,EC TAKE ONE TABLET BY MOUTH ONCE DAILY TO PREVENT STROKE/H EART ATTACK TAKE 15 MINUTES BEFORE NIACIN TO REDUCE/P REVENT FLUSHING . ORAL DISCONT INUED 08/24/2023 [id number] KESHAWNADRIANA HARRISON Claire 2022 120 [facility] ATORVASTATI N CA 80MG TAB TAKE ONE TABLET BY MOUTH ONCE DAILY FOR CHOLESTE ROL ORAL ACTIVE 05/11/2025 [id number] 5 NICKADRIANA Claire 2024 90 [facility] ATORVASTATI N CA 80MG TAB TAKE ONE TABLET BY MOUTH ONCE DAILY FOR CHOLESTE ROL ORAL DISCONT INUED 08/08/2024 [id number] 4 NICKADRIANA Claire 2023 90 [facility] CANDESARTAN CILEXETIL 8MG TAB TAKE ONE TABLET BY MOUTH ONCE DAILY ORAL ACTIVE 07/13/2025 [id number] 5 NICKADRIANA Claire 2024 90 [facility] CANDESARTAN CILEXETIL 8MG TAB TAKE ONE TABLET BY MOUTH ONCE DAILY ORAL DISCONT INUED 08/08/2024 [id number] 4 NICKADRIANA Claire 2023 90 [facility] CHOLECALCIF DEJAN 25MCG (1,000UNIT) TAB TAKE ONE TABLET BY MOUTH ONCE DAILY FOR VITAMIN SUPPLEME NTATION ORAL ACTIVE 05/11/2025 [id number] 5 ADRIANA ROMERO 2024 90 [facility] CHOLECALCIF DEJAN 25MCG (1,000UNIT) TAB TAKE ONE TABLET BY MOUTH ONCE DAILY FOR VITAMIN SUPPLEME NTATION ORAL DISCONT INUED 08/08/2024 [id number] 4 ADRIANA ROMERO 2023 90 [facility] CYANOCOBALA MIN 1000MCG TAB TAKE ONE TABLET BY MOUTH ONCE DAILY FOR VITAMIN SUPPLEME NTATION ORAL ACTIVE 05/11/2025 [id number] 5 ADRIANA ROMERO 2024 90 [facility] CYANOCOBALA MIN 1000MCG TAB TAKE ONE TABLET BY MOUTH ONCE DAILY FOR VITAMIN SUPPLEME NTATION ORAL DISCONT INUED 08/08/2024 [id number] 4 ADRIANA ROMERO 2023 90 [facility] EZETIMIBE 10MG TAB TAKE ONE TABLET BY MOUTH ONCE DAILY TO LOWER CHOLESTE ROL ORAL ACTIVE 05/11/2025 [id number] 5 ADRIANA ROMERO 2024 90 [facility] EZETIMIBE 10MG TAB TAKE ONE TABLET BY MOUTH ONCE DAILY TO LOWER CHOLESTE ROL ORAL DISCONT INUED 08/08/2024 [id number] 4 ADRIANA ROMERO 2023 90 [facility] FOLIC ACID 1MG TAB TAKE TWO TABLETS BY MOUTH ONCE DAILY VITAMIN/ NUTRITIO N SUPPLEME NT ORAL ACTIVE 05/11/2025 [id number] 5 ADRIANA ROMERO 2024 180 [facility] FOLIC ACID 1MG TAB TAKE TWO TABLETS BY MOUTH ONCE DAILY VITAMIN/ NUTRITIO N SUPPLEME NT ORAL DISCONT INUED 08/08/2024 [id number] ADRIANA ROMERO 2023 180 [facility] GEMFIBROZIL 600MG TAB TAKE ONE TABLET BY MOUTH TWICE DAILY TO LOWER CHOLESTE ROL ORAL ACTIVE 01/31/2025 [id number] ADRIANA ROMERO F 2023 180 [facility] GEMFIBROZIL 600MG TAB TAKE ONE TABLET BY MOUTH TWICE DAILY TO LOWER CHOLESTE ROL ORAL DISCONT INUED BY PROVIDE R 08/08/2024 [id number] 4 KESHAWNADRIANA HARRISON 2023 180 [facility] METFORMIN HCL 500MG TAB TAKE ONE TABLET BY MOUTH TWICE DAILY FOR DIABETES ORAL ACTIVE 05/11/2025 [id number] 5 KESHAWNADRIANA HARRISON 2024 180 [facility] METFORMIN HCL 500MG TAB TAKE ONE TABLET BY MOUTH TWICE DAILY FOR DIABETES ORAL DISCONT INUED 08/08/2024 [id number] 4 NICKADRIANA Rangel 2023 180 [facility] METRONIDAZO LE 0.75% CREAM,TOP APPLY A SMALL AMOUNT TOPICALL Y AT BEDTIME NEEDED FOR SKIN INFECTIO N TOPICA L ACTIVE 07/13/2025 [id number] 5 NICKADRIANA Rangel 2024 45 [facility] METRONIDAZO LE 0.75% CREAM,TOP APPLY A SMALL AMOUNT TOPICALL Y AT BEDTIME NEEDED FOR SKIN INFECTIO N TOPICA L DISCONT INUED 10/18/2024 [id number] 5 NICKADRIANA Claire 2023 45 [facility] METRONIDAZO LE 0.75% CREAM,TOP APPLY A SMALL AMOUNT TOPICALL Y AT BEDTIME NEEDED FOR SKIN INFECTIO N TOPICA L DISCONT INUED 04/18/2024 [id number] ADRIANA ROMERO 2022 45 [facility] MULTIVITAMI NS CAP/TAB TAKE ONE TABLET BY MOUTH EVERY MORNING ORAL ACTIVE PEDRO COLLINS 2011 [facility] MULTIVITAMI NS W/MINERALS CAP/TAB TAKE 1 TABLET BY MOUTH ONCE DAILY FOR VITAMIN SUPPLEME NTATION ORAL ACTIVE 05/11/2025 [id number] 5 ADRIANA ROMERO 2024 100 [facility] MULTIVITAMI NS W/MINERALS CAP/TAB TAKE 1 TABLET BY MOUTH ONCE DAILY FOR VITAMIN SUPPLEME NTATION ORAL DISCONT INUED 08/08/2024 [id number] 4 ADRIANA ROMERO 2023 100 [facility] OMEGA-3 ACID CAP,ORAL TAKE BY MOUTH ORAL ACTIVE ADRIANA ROMERO 2023 [facility] PYRIDOXINE HCL 50MG TAB TAKE ONE TABLET BY MOUTH ONCE DAILY FOR VITAMIN B6 SUPPLEME NTATION ORAL ACTIVE 06/28/2025 [id number] 5 ADRIANA ROMERO 2024 100 [facility] PYRIDOXINE HCL 50MG TAB TAKE ONE TABLET BY MOUTH ONCE DAILY FOR VITAMIN B6 SUPPLEME NTATION ORAL DISCONT INUED 05/08/2025 [id number] GREER SHIELDS MD 2023 100 [facility] Allergies, Adverse Reactions, Alerts Combined list of allergies from Department of Defense and Veterans Affairs facilities. It does not include entries that were removed or entered in error. Substance Category Reaction Severity Reaction type Status Date Reported Comments Source BAND-AIDS Propensity to adverse reaction (finding) active 2 [facility] [place] Propensity to adverse reactions to drug (finding) active 0 [facility] [place] Propensity to adverse reactions to drug (finding) Urticaria active 2 [facility] SHRIMP Propensity to adverse reactions to food (finding) Urticaria active 2 [facility] Immunizations Combined list of available immunizations from the Department of Defense and Veterans Affairs facilities. Immunization Series Date Given Administered By Site Reaction Lot Number CVX Code Drug Senior Corporate Recruiter Status Comments Source RSV, BIVALENT, PROTEIN SUBUNIT RSVPREF, DILUENT RECONSTITUTED , 0.5 ML, PF 1 2024 TANA MARTINO RIGHT DELTO ID [id number] 305 complet ed [facility] INFLUENZA, HIGH-DOSE, TRIVALENT, PF 2023 LANCEZORAIDA Hicks Marjorie LEFT DELTO ID [id number] 135 complet ed Completed Series, [facility] COVID-19 (MODERNA), MRNA, LNP-S, PF, 50 MCG/0.5 ML (AGES 12+ YEARS) 1 2022 PAN MONSIVAIS RIGHT DELTO ID [id number] 312 complet ed [facility] INFLUENZA, HIGH-DOSE, QUADRIVALENT 2022 TANA MARTINO E LEFT DELTO ID [id number] 197 complet ed Booster for Series, [facility] ZOSTER RECOMBINANT 2 2022 TANA MARTINO LEFT DELTO ID [id number] 187 complet ed [facility] TDAP 2022 TANA MARTINO E LEFT DELTO ID [id number] 115 complet ed Booster for Series, [facility] ZOSTER RECOMBINANT 1 2022 TANA MARTINO RIGHT DELTO ID [id number] 187 complet ed [facility] COVID-19 (PFIZER), MRNA, LNP-S, BIVALENT BOOSTER, PF, 30 MCG/0.3 ML DOSE 1 2021 300 complet ed [facility] INFLUENZA, UNSPECIFIED FORMULATION 2021 88 complet ed [facility] PNEUMOCOCCAL CONJUGATE PCV20, POLYSACCHARID E [id number] CONJUGATE, ADJUVANT, PF 2021 216 complet ed [facility] COVID-19 (PFIZER), MRNA, LNP-S, PF, 30 MCG/0.3 ML DOSE, ROSMERY-SUCROSE (AGES 12+ YEARS) 3 2021 217 complet ed [facility] INFLUENZA, UNSPECIFIED FORMULATION 2021 88 complet ed [facility] COVID-19 (PFIZER), MRNA, LNP-S, PF, 30 MCG/0.3 ML DOSE 3 2020 208 complet ed [facility] COVID-19 (PFIZER), MRNA, LNP-S, PF, 30 MCG/0.3 ML DOSE 2 2020 208 complet ed [facility] COVID-19 (PFIZER), MRNA, LNP-S, PF, 30 MCG/0.3 ML DOSE 1 2020 208 complet ed [facility] INFLUENZA, SEASONAL, INJECTABLE 2018 141 complet ed [facility] INFLUENZA, SEASONAL, INJECTABLE 2017 141 complet ed received from PMD [facility] FLU,3 YRS (HISTORICAL) 2016 88 complet ed o/s pcp [facility] ZOSTER LIVE 2015 121 complet ed Site: Left Deltoid [facility] PNEUMOCOCCAL CONJUGATE PCV 13 2014 133 complet ed [facility] FLU,3 YRS (HISTORICAL) 2014 88 complet ed at [facility] FLU,3 YRS (HISTORICAL) 2013 88 complet ed out side clinic in [place] [facility] DTAP, UNSPECIFIED FORMULATION 2012 107 complet ed Site: Left Deltoid [facility] PNEUMOCOCCAL, UNSPECIFIED FORMULATION 2012 109 complet ed Site: Left Deltoid [facility] TDAP 2012 115 complet ed [facility] FLU,3 YRS (HISTORICAL) 2012 88 complet ed [facility] FLU,3 YRS (HISTORICAL) 2010 88 complet ed [facility] TD(ADULT) UNSPECIFIED FORMULATION 2008 139 complet ed [facility] Results Combined list of recent chemistry, hematology and other laboratory results from Department of Defense and Veterans Affairs, ranging from 15 months to all on record, depending upon the facility. Order Name Results Value Reference Range Date Interpretation Specimen Comments Source VITAMIN B-1 (THIAMIN E)-(QU) THIAMINE [MOLES/VOL UME] IN SERUM OR PLASMA 30 nmol/L 8 - 30 07/12 Specimen Type: PLASMA Comment: Vitamin supplementa tion within 24 hours prior to blood draw may affect the accuracy of the results. This test was developed and its analytical performance characteris tics have been determined by [address] [place], [place]. It has not been cleared or approved by the U.S. Food and Drug Administrat ion. This assay has been validated pursuant to the CLIA regulations and is used for clinical purposes. Test Performed by [facility], [address] [facility], [address] [place] [address] Edson Dinh M.D., Ph.D., Director of Laboratorie s , CLIA [id number] TEST PERFORMED AT: , Ordering Provider: Ifeoma ROMERO Report Released Date/Time: Jul 12, 2024 09:33 AM Reporting Lab: [facility] [address] [facility] [address] Performing Lab: [facility] [id number] [place] [address] FOLATE (WROX) FOLATE [MASS/VOLU ME] IN SERUM OR PLASMA >20.0ng/ mL 5.2 07/12 Specimen Type: SERUM No comment entered. Ordering Provider: Ifeoma ROMERO Report Released Date/Time: Jul 12, 2024 09:33 AM Reporting Lab: [facility] [address] [facility] [address] Performing Lab: [facility] [address] [facility] [address] [facility] SYPHILIS ABS W/RFLX REAGIN AB [PRESENCE] IN SERUM BY RPR Non Reactive 07/12 Specimen Type: SERUM Comment: No laboratory evidence of syphilis infection. If recent exposure is suspected, re-draw sample in 2-4 weeks and repeat algorithm. Testing performed by T. pallidum specific immunoassay . Ordering Provider: Ifeoma ROMERO Report Released Date/Time: Jul 12, 2024 09:33 AM Reporting Lab: [facility] [place] [facility] [address] [facility] [address] Performing Lab: [facility] [place] [facility] [address] [facility] [address] [facility] HIV 1&2 Ag/Ab SCREEN HIV 1+2 AB+HIV1 P24 AG [PRESENCE] IN SERUM OR PLASMA BY IMMUNOASSA Y NON-REAC TIVE 07/12 Specimen Type: SERUM No comment entered. Ordering Provider: Ifeoma ROMERO Report Released Date/Time: Jul 12, 2024 09:33 AM Reporting Lab: [facility] [place] [address] [address] Performing Lab: [facility] [place] [address] [address] [facility] TSH THYROTROPI N [UNITS/VOL UME] IN SERUM OR PLASMA 4.66 u[IU]/mL 0.35 - 5.00 07/12 Specimen Type: SERUM No comment entered. Ordering Provider: Ifeoma ROMERO Report Released Date/Time: Jul 12, 2024 09:33 AM Reporting Lab: [facility] [place] [address] [address] Performing Lab: [facility] [place] [address] [address] [facility] [facility] IRON & TIBC PANEL IRON BINDING CAPACITY [MASS/VOLU ME] IN SERUM OR PLASMA 363 ug/dL 204 - 475 07/12 Specimen Type: SERUM No comment entered. Ordering Provider: Ifeoma ROMERO Report Released Date/Time: Jul 12, 2024 09:33 AM Reporting Lab: [facility] [place] [address] [place] [address] Performing Lab: [facility] [place] [facility] [address] [facility] [address] [facility] IRON & TIBC PANEL IRON [MASS/VOLU ME] IN SERUM OR PLASMA 94 ug/dL 40 - 160 07/12 Specimen Type: SERUM No comment entered. Ordering Provider: Ifeoma ROMERO Report Released Date/Time: Jul 12, 2024 09:33 AM Reporting Lab: [facility] [place] [facility] [address] [facility] [address] Performing Lab: [facility] [place] [facility] [address] [facility] [address] [facility] IRON & TIBC PANEL IRON/IRON BINDING CAPACITY.T OTAL [MASS RATIO] IN SERUM OR PLASMA 25.9 20.0 - 50.0 07/12 Specimen Type: SERUM No comment entered. Ordering Provider: Ifeoma ROMERO Report Released Date/Time: Jul 12, 2024 09:33 AM Reporting Lab: [facility] [place] [facility] [address] [facility] [address] Performing Lab: [facility] [place] [facility] [address] [facility] [address] [facility] IRON & TIBC PANEL TRANSFERRI N [MASS/VOLU ME] IN SERUM OR PLASMA 275 mg/dL 200 - 360 07/12 Specimen Type: SERUM No comment entered. Ordering Provider: Ifeoma ROMERO Report Released Date/Time: Jul 12, 2024 09:33 AM Reporting Lab: [facility] [place] [facility] [address] [facility] [address] Performing Lab: [facility] [place] [facility] [address] [facility] [address] [facility] CBC AND DIFF (AUTO) LEUKOCYTES [#/VOLUME] IN BLOOD BY AUTOMATED COUNT 5.93 10*3/uL 4.50 - 11.00 07/12 Specimen Type: BLOOD No comment entered. Ordering Provider: Ifeoma ROMERO Report Released Date/Time: Jul 12, 2024 09:33 AM Reporting Lab: [facility] [place] [facility] [address] [facility] [address] Performing Lab: [facility] [place] [facility] [address] [facility] [address] [facility] CBC AND DIFF (AUTO) ERYTHROCYT ES [#/VOLUME] IN BLOOD BY AUTOMATED COUNT 4.13 10*6/uL 4.23 - 5.66 07/12 L Specimen Type: BLOOD No comment entered. Ordering Provider: Ifeoma ROMERO Report Released Date/Time: Jul 12, 2024 09:33 AM Reporting Lab: [facility] [place] [facility] [address] [facility] [address] Performing Lab: [facility] [place] [facility] [address] [facility] [address] [facility] CBC AND DIFF (AUTO) HEMOGLOBIN [MASS/VOLU ME] IN BLOOD 12.8 g/dL 12.8 - 17 07/12 Specimen Type: BLOOD No comment entered. Ordering Provider: Ifeoma ROMERO Report Released Date/Time: Jul 12, 2024 09:33 AM Reporting Lab: [facility] [place] [address] [address] Performing Lab[facility] [place] [facility] [address] [facility] [address] [facility] CBC AND DIFF (AUTO) HEMATOCRIT [VOLUME FRACTION] OF BLOOD BY AUTOMATED COUNT 37.7 39.2 - 50.4 07/12 L Specimen Type: BLOOD No comment entered. Ordering Provider: Ifeoma ROMERO Report Released Date/Time: Jul 12, 2024 09:33 AM Reporting Lab: [facility] [place] [address] [address] Performing Lab: [facility] [place] [address] [address] [facility] CBC AND DIFF (AUTO) MCV [ENTITIC VOLUME] BY AUTOMATED COUNT 91.3 fL 82 - 99 07/12 Specimen Type: BLOOD No comment entered. Ordering Provider: Ifeoma ROMERO Report Released Date/Time: Jul 12, 2024 09:33 AM Reporting Lab: [facility] [place] [facility] [address] [facility] [address] Performing Lab: [facility] [place] [facility] [address] [facility] [address] [facility] CBC AND DIFF (AUTO) MCHC [MASS/VOLU ME] BY AUTOMATED COUNT 34.0 g/dL 30.8 - 35.1 07/12 Specimen Type: BLOOD No comment entered. Ordering Provider: Ifeoma ROMERO Report Released Date/Time: Jul 12, 2024 09:33 AM Reporting Lab: [facility] [place] [facility] [address] [facility] [address] Performing Lab: [facility] [place] [facility] [address] [facility] [address] [facility] CBC AND DIFF (AUTO) PLATELETS [#/VOLUME] IN BLOOD BY AUTOMATED COUNT 247 10*3/uL 140 - 360 07/12 Specimen Type: BLOOD No comment entered. Ordering Provider: Ifeoma ROMERO Report Released Date/Time: Jul 12, 2024 09:33 AM Reporting Lab: [facility] [place] [facility] [address] [facility] [address] Performing Lab: [facility] [place] [facility] [address] [facility] [address] [facility] CBC AND DIFF (AUTO) ERYTHROCYT E DISTRIBUTI ON WIDTH [RATIO] BY AUTOMATED COUNT 12.7 12.0 - 16.0 07/12 Specimen Type: BLOOD No comment entered. Ordering Provider: Ifeoma ROMERO Report Released Date/Time: Jul 12, 2024 09:33 AM Reporting Lab: [facility] [address] [facility] [address] Performing Lab: [facility] [address] [facility] [address] [facility] CBC AND DIFF (AUTO) MONOCYTES [#/VOLUME] IN BLOOD BY AUTOMATED COUNT 0.51 10*3/uL 0.30 - 1.10 07/12 Specimen Type: BLOOD No comment entered. Ordering Provider: Ifeoma ROMERO Report Released Date/Time: Jul 12, 2024 09:33 AM Reporting Lab: [facility] [address] [facility] [address] Performing Lab: [facility] [address] [facility] [address] [facility] CBC AND DIFF (AUTO) MCH [ENTITIC MASS] BY AUTOMATED COUNT 31.0 pg 26.2 - 32.6 07/12 Specimen Type: BLOOD No comment entered. Ordering Provider: Ifeoma ROMERO Report Released Date/Time: Jul 12, 2024 09:33 AM Reporting Lab: [facility] [address] [facility] [address] Performing Lab: [facility] [address] [facility] [address] [facility] CBC AND DIFF (AUTO) NEUTROPHIL S/100 LEUKOCYTES IN BLOOD BY AUTOMATED COUNT 58.8 43.7 - 75.8 07/12 Specimen Type: BLOOD No comment entered. Ordering Provider: Ifeoma ROMERO Report Released Date/Time: Jul 12, 2024 09:33 AM Reporting Lab: [facility] [address] [facility] [address] Performing Lab: [facility] [address] [facility] [address] [facility] CBC AND DIFF (AUTO) LYMPHOCYTE S/100 LEUKOCYTES IN BLOOD BY AUTOMATED COUNT 28.5 14.0 - 42.3 07/12 Specimen Type: BLOOD No comment entered. Ordering Provider: fIeoma ROMERO Report Released Date/Time: Jul 12, 2024 09:33 AM Reporting Lab: [facility] [address] [facility] [address] Performing Lab: [facility] [facility] [address] [facility] [address] [facility] CBC AND DIFF (AUTO) MONOCYTES/ 100 LEUKOCYTES IN BLOOD BY AUTOMATED COUNT 8.6 5.1 - 13.7 07/12 Specimen Type: BLOOD No comment entered. Ordering Provider: Ifeoma ROMERO Report Released Date/Time: Jul 12, 2024 09:33 AM Reporting Lab: [facility] [address] [facility] [address] Performing Lab: [facility] [facility] [address] [facility] [address] [facility] CBC AND DIFF (AUTO) EOSINOPHIL S/100 LEUKOCYTES IN BLOOD BY AUTOMATED COUNT 3.0 0.4 - 6.8 07/12 Specimen Type: BLOOD No comment entered. Ordering Provider: Ifeoma ROMERO Report Released Date/Time: Jul 12, 2024 09:33 AM Reporting Lab: [facility] [address] [facility] [address] Performing Lab: [facility] [address] [facility] [address] [facility] CBC AND DIFF (AUTO) BASOPHILS/ 100 LEUKOCYTES IN BLOOD BY AUTOMATED COUNT 0.8 0.1 - 2.0 07/12 Specimen Type: BLOOD No comment entered. Ordering Provider: Ifeoma ROMERO Report Released Date/Time: Jul 12, 2024 09:33 AM Reporting Lab: [facility] [facility] [address] [facility] [address] Performing Lab: [facility] [facility] [address] [facility] [address] [facility] CBC AND DIFF (AUTO) NEUTROPHIL S [#/VOLUME] IN BLOOD BY AUTOMATED COUNT 3.48 10*3/uL 2.20 - 7.60 07/12 Specimen Type: BLOOD No comment entered. Ordering Provider: Ifeoma ROMERO Report Released Date/Time: Jul 12, 2024 09:33 AM Reporting Lab: [facility] [facility] [address] [facility] [address] Performing Lab: [facility] [facility] [address] [facility] [address] [facility] CBC AND DIFF (AUTO) LYMPHOCYTE S [#/VOLUME] IN BLOOD BY AUTOMATED COUNT 1.69 10*3/uL 1.00 - 3.20 07/12 Specimen Type: BLOOD No comment entered. Ordering Provider: Ifeoma ROMERO Report Released Date/Time: Jul 12, 2024 09:33 AM Reporting Lab: [facility] [facility] [address] [facility] [address] Performing Lab: [facility] [facility] [address] [facility] [address] [facility] CBC AND DIFF (AUTO) EOSINOPHIL S [#/VOLUME] IN BLOOD BY AUTOMATED COUNT 0.18 10*3/uL 0.03 - 0.44 07/12 Specimen Type: BLOOD No comment entered. Ordering Provider: Ifeoma ROMERO Report Released Date/Time: Jul 12, 2024 09:33 AM Reporting Lab: [facility] [facility] [address] [facility] [address] Performing Lab: [facility] [facility] [address] [facility] [address] [facility] CBC AND DIFF (AUTO) BASOPHILS [#/VOLUME] IN BLOOD BY AUTOMATED COUNT 0.05 10*3/uL 0.01 - 0.13 07/12 Specimen Type: BLOOD No comment entered. Ordering Provider: VANWAGNER,W ILLIAM F Report Released Date/Time: Jul 12, 2024 09:33 AM Reporting Lab: [facility] [address] [facility] [address] Performing Lab: [facility] [facility] [address] [facility] [address] [facility] CBC AND DIFF (AUTO) IMMATURE GRANULOCYT ES/100 LEUKOCYTES IN BLOOD BY AUTOMATED COUNT 0.3 0.0 - 0.7 07/12 Specimen Type: BLOOD No comment entered. Ordering Provider: Ifeoma ROMERO F Report Released Date/Time: Jul 12, 2024 09:33 AM Reporting Lab: [facility] [facility] [address] [facility] [address] Performing Lab: [facility] [facility] [address] [facility] [address] [facility] CBC AND DIFF (AUTO) IMMATURE GRANULOCYT ES [#/VOLUME] IN BLOOD 0.02 10*3/uL 0.00 - 0.06 07/12 Specimen Type: BLOOD No comment entered. Ordering Provider: Ifeoma ROMERO F Report Released Date/Time: Jul 12, 2024 09:33 AM Reporting Lab: [facility] [facility] [address] [facility] [address] Performing Lab: [facility] [address] [address] [facility] CBC AND DIFF (AUTO) NRBC % 0.0 0.0 - 0.0 07/12 Specimen Type: BLOOD No comment entered. Ordering Provider: Ifeoma ROMERO F Report Released Date/Time: Jul 12, 2024 09:33 AM Reporting Lab: [facility] [address] [facility] [address] Performing Lab: [facility] [address] [address] [facility] CBC AND DIFF (AUTO) NRBC, ABS 0.00 10*3/uL 0.00 - 0.00 07/12 Specimen Type: BLOOD No comment entered. Ordering Provider: Ifeoma ROMERO Report Released Date/Time: Jul 12, 2024 09:33 AM Reporting Lab: [facility] [facility] [address] [facility] [address] Performing Lab: [facility] [facility] [address] [facility] [address] [facility] FERRITIN FERRITIN [MASS/VOLU ME] IN SERUM OR PLASMA 179 ng/mL 20 - 300 07/12 Specimen Type: SERUM No comment entered. Ordering Provider: Ifeoma ROMERO Report Released Date/Time: Jul 12, 2024 09:33 AM Reporting Lab: [facility] [address] [address] Performing Lab: [facility] [address] [address] [facility] VITAMIN B12 COBALAMIN (VITAMIN B12) [MASS/VOLU ME] IN SERUM OR PLASMA 858 pg/mL 200 - 900 07/12 Specimen Type: SERUM No comment entered. Ordering Provider: Ifeoma ROMERO Report Released Date/Time: Jul 12, 2024 01:43 PM Reporting Lab: [facility] [address] [address] Performing Lab: [facility] [facility] [address] [facility] [address] [facility] BASIC METABOLI C PANEL (fasting ) UREA NITROGEN [MASS/VOLU ME] IN SERUM OR PLASMA 37 mg/dL 7 - 25 07/10 H Specimen Type: SERUM No comment entered. Ordering Provider: Ifeoma ROMERO Report Released Date/Time: May 10, 2024 09:34 AM Reporting Lab: [facility] [address] [address] Performing Lab: [facility] [address] [address] [facility] BASIC METABOLI C PANEL (fasting ) GLUCOSE [MASS/VOLU ME] IN SERUM OR PLASMA 119 mg/dL 65 - 100 07/10 H Specimen Type: SERUM No comment entered. Ordering Provider: Ifeoma ROMERO Report Released Date/Time: May 10, 2024 09:34 AM Reporting Lab: [facility] [address] Performing Lab: [facility] [address] [facility]ITAL[facility]ITALN [facility] BASIC METABOLI C PANEL (fasting ) SODIUM [MOLES/VOL UME] IN SERUM OR PLASMA 140 mmol/L 135 - 145 07/10 Specimen Type: SERUM No comment entered. Ordering Provider: Ifeoma ROMERO Report Released Date/Time: May 10, 2024 09:34 AM Reporting Lab: [facility] [place] [address] Performing Lab: [facility]N [facility] [address] [facility] BASIC METABOLI C PANEL (fasting ) POTASSIUM [MOLES/VOL UME] IN SERUM OR PLASMA 4.7 mmol/L 3.5 - 5.0 07/10 Specimen Type: SERUM No comment entered. Ordering Provider: Ifeoma ROMERO Report Released Date/Time: May 10, 2024 09:34 AM Reporting Lab: [facility] [address] [address] Performing Lab: [facility] [address] [address] [facility] ANNISTONTRN [facility] BASIC METABOLI C PANEL (fasting ) CHLORIDE [MOLES/VOL UME] IN SERUM OR PLASMA 107 mmol/L 100 - 110 07/10 Specimen Type: SERUM No comment entered. Ordering Provider: Ifeoma ROMERO Report Released Date/Time: May 10, 2024 09:34 AM Reporting Lab: [facility] [facility] [address] [facility] [address] Performing Lab: [place] [place] [facility] [address] [facility] [address] [facility] BASIC METABOLI C PANEL (fasting ) CARBON DIOXIDE, TOTAL [MOLES/VOL UME] IN SERUM OR PLASMA 23 meq/L 20 - 30 07/10 Specimen Type: SERUM No comment entered. Ordering Provider: Ifeoma ROMERO Report Released Date/Time: May 10, 2024 09:34 AM Reporting Lab: [facility] [place] [facility] [address] [facility] [address] Performing Lab: [place] [facility] [address] [address] [facility] BASIC METABOLI C PANEL (fasting ) CREATININE [MASS/VOLU ME] IN SERUM OR PLASMA 1.53 mg/dL 0.50 - 1.40 07/10 H Specimen Type: SERUM No comment entered. Ordering Provider: Ifeoma ROMERO Report Released Date/Time: May 10, 2024 09:34 AM Reporting Lab: [facility] [place] [address] [address] Performing Lab: [facility] [address] [address] [facility] [place] [facility] BASIC METABOLI C PANEL (fasting ) GLOMERULAR FILTRATION RATE/1.73 SQ M.PREDICTE D [VOLUME RATE/AREA] IN SERUM, PLASMA OR BLOOD BY CREATININE -BASED FORMULA (CKD-EPI 2020) 45 mL/min 60 07/10 L Specimen Type: SERUM No comment entered. Ordering Provider: Ifeoma ROMERO Report Released Date/Time: May 10, 2024 09:34 AM Reporting Lab: [facility] [address] [address] Performing Lab: [facility] [address] [address] [facility] Vital Signs Combined list of inpatient and outpatient Vital Signs from Department of Defense and Veterans Affairs, ranging from 12 months to all on record, depending upon the facility. Vital Sign Value Date Comments Source SYSTOLIC BLOOD PRESSURE 112 07/12/19 25 08:47:16 [facility] DIASTOLIC BLOOD PRESSURE 60 025 08:47:16 [facility] PULSE OXIMETRY 98 07/12/2024 08:47:16 [facility] WEIGHT 169 07/12/2024 08:47:16 [facility] BMI 25 kg/m2 07/12/2024 08:47:16 [facility] PAIN 0 07/12/2024 08:47:16 [facility] TEMPERATURE 98.7 07/12/2024 08:47:16 [facility] PULSE 74 07/12/2024 08:47:16 [facility] RESPIRATION 16 07/12/2024 08:47:16 [facility] SYSTOLIC BLOOD PRESSURE 138 05/10/20 24 08:51:45 [facility] DIASTOLIC BLOOD PRESSURE 82 024 08:51:45 [facility] PULSE OXIMETRY 96 05/10/2024 08:51:45 [facility] WEIGHT 167.5 05/10/2024 08:51:45 [facility] BMI 25 kg/m2 05/10/2024 08:51:45 [facility] PAIN 0 05/10/2024 08:51:45 [facility] HEIGHT 69 05/10/2024 08:51:45 [facility] TEMPERATURE 97.9 05/10/2024 08:51:45 [facility] PULSE 68 05/10/2024 08:51:45 [facility] RESPIRATION 16 05/10/2024 08:51:45 [facility] SYSTOLIC BLOOD PRESSURE 118 01/31/20 24 13:15:02 [facility] DIASTOLIC BLOOD PRESSURE 80 024 13:15:02 [facility] PULSE OXIMETRY 96 01/31/2024 13:15:02 [facility] WEIGHT 178 01/31/2024 13:15:02 [facility] BMI 26 kg/m2 01/31/2024 13:15:02 [facility] PAIN 0 01/31/2024 13:15:02 [facility] TEMPERATURE 98.3 01/31/2024 13:15:02 [facility] PULSE 81 01/31/2024 13:15:02 [facility] RESPIRATION 16 01/31/2024 13:15:02 [facility] SYSTOLIC BLOOD PRESSURE 108 11/03/19 24 08:55:11 [facility] DIASTOLIC BLOOD PRESSURE 62 024 08:55:11 [facility] PULSE OXIMETRY 97 11/03/2023 08:55:11 [facility] WEIGHT 179 11/03/2023 08:55:11 [facility] BMI 26 kg/m2 11/03/2023 08:55:11 [facility] TEMPERATURE 97.7 11/03/2023 08:55:11 [facility] PULSE 70 11/03/2023 08:55:11 [facility] RESPIRATION 16 11/03/2023 08:55:11 [facility] Encounters Combined list of: 1) Encounters from Department of Veterans Affairs facilities going backup to the last 18 months, not all [facility] inpatient encounters are included; 2) Encounters from the Department of Defense facilities going backup to 280 months. 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 jimenezADRIANA Squires 04/18 [facility] OFF/OP EST SEPTEMBER X REQ PHY/QHP [id number] Diagnos is: ICD-10- CM Z23 Encount er for immuniz ation JANETT MONSIVAIS P 05/06 [facility] Outpatient Encounter [id number] 08/04 [facility] OFFICE O/P EST LOW 20 MIN [id number] Diagnos is: ICD-10- CM 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 LENNIE MARTI D 08/09 [facility] Outpatient Encounter [id number] 10/16 [facility] Outpatient Encounter [id number] 10/24 [facility] COMPRE OPH EXAM EST PT 1/> [id number] Diagnos is: ICD-10- CM E11.9 Type 2 diabete s mellitu s without complic ations MERHAR,CLARK H B 10/24 [facility] FIT SPECTACLES MULTIFOCAL [id number] Diagnos is: ICD-10- CM Z46.0 Encount er for fit/adj st of spectac les and contact lenses CLARK BARRAGAN 10/24 [facility] Out[facility] Encounter [id number] 10/25 [facility] QNHP OL DIG ASSMT&MGMT 21+ [id number] Diagnos is: ICD-10- CM 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 CHRISTIANO Lomas 10/26 [facility] En[facility] [id number] 10/27 [facility] Encounter [id number] 10/27 [facility] Encounter [id number] 10/30 [facility] OFFICE O/P EST LOW 20 MIN [id number] Diagnos is: ICD-10- CM 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 ADRIANA Prather 11/02 [facility] MTMS BY PHARM ADDL 15 MIN [id number] Diagnos is: ICD-10- CM I25.10 Athscl heart disease of [place] coronar y artery w/o ang pctrs GDMAR,CHRISTIANO A 11/03 [facility] MTMS BY PHARM ADDL 15 MIN [id number] Diagnos is: ICD-10- CM E11.9 Type 2 diabete s mellitu s without complic ations GDMAR,CHRISTIANO A 11/08 [facility] (631GE) QNHP OL DIG ASSMT&MGMT 5-10 [id number] Diagnos is: ICD-10- CM I25.10 Athscl heart disease of [place] coronar y artery w/o ang pctrs SIERRA,CHR ISTINE F 11/08 [facility] (631GE) [facility] Outpatient Encounter [id number] 11/10 [facility] Outpatient Encounter [id number] 11/10 [facility] Out[facility] Encounter [id number] 11/10 [facility] Encounter [id number] 11/13 [facility] Encounter [id number] 11/21 [facility] Encounter [id number] 11/23 [facility] Encounter [id number] Dewayne FLETCHER 11/23 [facility] Out[facility] Encounter [id number] Dewayne FLETCHER 11/23 [facility] Encounter [id number] 12/12 [facility] Encounter [id number] 12/14 [facility] Encounter [id number] 01/11 [facility] Encounter [id number] 01/12 [facility] En[facility] [id number] 1.01/24 [facility] Encounter [id number] 01/26 [facility] Encounter [id number] 01/26 [facility] OFFICE O/P EST LOW 20 MIN [id number] Diagnos is: ICD-10- CM 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 ADRIANA Prather 01/30 [facility] En[facility] [id number] EVI KAT 01/31 [facility] Encounter [id number] 02/19 [facility] Encounter [id number] [facility] Encounter [id number] 04/10 [facility] Encounter [id number] 04/27 [facility] Encounter [id number] 05/03 [facility] Encounter [id number] 05/07 [facility] OFFICE O/P EST MOD 30 MIN [id number] Diagnos is: ICD-10- CM 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 ADRIANA Prather 07/12 [facility] En[facility] [id number] 1.07/24 [facility] [id number] 1.07/24 [facility] Encounter [id number] [facility] OFF/OP EST MAY X REQ PHY/QHP [id number] Diagnos is: ICD-10- CM H61.23 Impacte d cerumen , james al RENETTA GRIER LLSelma L 07/25 [facility] HEARING AID REPAIR/MOD IFYING [id number] Diagnos is: ICD-10- CM H90.3 Sensori neural hearing loss, SUMIT Leong 07/25 [facility] MTMS BY PHARM EST 15 MIN [id number] Diagnos is: ICD-10- CM I25.10 Athscl heart disease of [place] coronar y artery w/o ang pctrs CHRISTIANO MCKEON 07/25 [facility] HEARING AID FITTING/CH ECKING [id number] Diagnos is: ICD-10- CM Z46.1 Encount er for fitting and adjustm ent of hearing aid SUMIT CASTILLO L 09/18 [facility] [place] [facility] [place] [facility] Outpatient Encounter [id number] 09/18 [facility] [place] [facility] Social History Combined list of available smoking, tobacco, and other social history from Department of Defense and Veterans Affairs facilities. Social History Type Response Date Comment Source Tobacco smoking status NHIS W[place]-TOBACCO QUIT 15 YRS OR MORE 01/13/2024 [facility] [place] [facility] History of tobacco use [place]-TOBACCO FORMER USER 01/13/2024 [facility] [place] [facility] History of tobacco use [place]-TOBACCO FORMER USER 12/10/2022 [facility] [place] [facility] [place] [facility] of [facility] 03/11/2021 [facility] History of tobacco use [place]-TOBACCO QUIT 15 YRS OR MORE 10/30/2019 [facility] 08/28/2018 [facility] History of tobacco use QUIT TOBACCO USE > 7 YEARS AGO 09/12/2017 Quit smoking in 1968 [facility] History of tobacco use QUIT TOBACCO USE > 7 YEARS AGO 10/05/2016 [facility] History of tobacco use QUIT TOBACCO USE > 7 YEARS AGO 04/30/2015 1968 quit [facility] History of tobacco use QUIT TOBACCO USE > 7 YEARS AGO 01/05/2012 [facility] Plan of Care List of future care activities from Department of Veterans Affairs facilities. Additional future care activities may be listed in the Assessment and Plan section. Date/Time Care Activity Care Activity Detail Facili ty 11/12/2024 AMBULATORY - REHAB MEDICINE AMBULATORY - REHAB MEDICINE [facility] [place] [facility]
--- OUTSIDE RECORDS SUMMARY | 2024-09-24 14:30 | XMS_ITS | Encounter Summary ---
Author Name [facility] [place] [facility] [place] Address [address] [place] [address] Care Team Providers Care Wealth Management Advisor Name Role Phone YOSELIN MEZA Primary Care [...] GIC INDEMNITY PLAN MEDICAL EXPENSE (OPT/PROF ) [facility] N Dec 28, 2016 [id number] [phone] EMILIA GONZALEZ HN PATIENT MEDICARE (WNR) MEDICARE (M) PART A Dec 28, 2016 PART A [id number] EMILIA GONZALEZ HN PATIENT MEDICARE (WNR) MEDICARE (M) PART B Dec 28, 2016 PART B [id number] EMILIA GONZALEZ HN PATIENT MEDICARE (WNR) MEDICARE (M) PART A Dec 28, 2016 PART A [id number] SBREGA,EMILIA HN PATIENT MEDICARE (WNR) MEDICARE (M) PART B Dec 28, 2016 PART B [id number] EMILIA GONZALEZ PATIENT UNICARE MEDICAL EXPENSE (OPT/PROF ) [facility] N Dec 28, 2016 [id number] [phone] EMILIA GONZALEZ PATIENT WELLPOINT PREFERRED PROVIDER ORGANIZAT ION (PPO) [facility] N Dec 28, 2016 [id number] [phone] EMILIA GONZALEZ PATIENT Selected Encounter This section includes the information on record at [place] for the Encounter. Date/Time Encounter Type Encounter Description Reason Provider Source Nov 03, 2023 09:00 AM OFFICE O/P EST LOW 20 MIN PRIMARY CARE/MEDICINE ICD-10-CM E11.21 Type 2 diabetes mellitus with diabetic nephropathy MICHAELA HUITRON FIONA F IHE Encounter Template Text not used by [place] Assessments - Encounter Diagnoses This section includes the primary and secondary diagnoses documented for the Encounter. Date/Time Primary/Secondary Diagnosis Diagnosis Name Provider Source Dec 06, 2023 10:41 AM PRIMARY Type 2 diabetes mellitus with diabetic nephropathy SANDRA HUITRON [facility] [place] [facility] Dec 06, 2023 10:41 AM SECONDARY Aths[place] heart disease of [place] coronary artery w/o ang pctrs SANDRA HUITRON [facility] [place] [facility] Dec 06, 2023 10:41 AM SECONDARY Essential (primary) hypertension SANDRA HUITRON [facility] [place] [facility] Dec 06, 2023 10:41 AM SECONDARY Pure hypercholesterolem ia, unspecified SANDRA HUITRON [place] [facility] [place] [facility] Dec 06, 2023 10:41 AM SECONDARY Type 2 diabetes mellitus without complications SANDRA HUITRON [facility] [place] [facility] Plan of Treatment: Future Appointments (+ 6 months) and Future Tests (+/- 45 days) The Plan of Treatment section includes future care activities for the patient from all [place] treatmentfacilities. This section includes future appointments and future orders which are active, pending or scheduled. Future Appointments This section includes appointments that were scheduled to occur 6 months from the date of the Encounter, up to a maximum of 20 appointments. The data comes from all [place] treatment facilities. Appointment Date/Time Appointment Type Appointme nt Facility Name Nov 09, 2023 08:30 AM AMBULATORY - MEDICINE [place] [facility] [facility] Nov 18, 2023 08:30 AM AMBULATORY - NONE [place] [facility] [facility] Dec 13, 2023 02:30 PM AMBULATORY - MEDICINE [place] [facility] [facility] Dec 21, 2023 09:45 AM AMBULATORY - MEDICINE [place] [facility] [facility] Jan 31, 2024 01:30 PM AMBULATORY - MEDICINE [place] [facility] [place] [facility] Feb 02, 2024 11:15 AM AMBULATORY - NONE [place] [facility] [facility] Apr 10, 2024 11:00 AM AMBULATORY - MEDICINE MA C N[facility]L [facility] Lab Results: +/- 30 days of the encounter This section includes the Chemistry and Hematology Lab Results on record with [place] for the patient. Radiology Reports and Pathology Reports are provided separately, in subsequent sections. Lab Results This section contains the Chemistry/Hematology Results that were resulted 30 days before or 30 daysafter the date of the Encounter. Date/Time Source Result Type Result - Unit Interpretation Reference Range Specimen Type Comment Nov 01, 2023 08:44 AM [facility] BASIC METABOLIC PANEL (fasting) SERUM Specime n Type: SERUM No comment entered. Ordering Provider: LIBIA HUITRON AM Report Released Date/Time: Apr 18, 2023 10:07 AM Reporting Lab: [facility] [address] [address] Performing Lab: [facility] [address] [facility] [address] UREA NITROGEN 19 mg/dL 7-25 GLUCOSE 178 mg/dL H 65-100 SODIUM 138 mmol/L 135-145 POTASSIUM 5.2 mmol/L H 3.5-5.0 CHLORIDE 105 mmol/L 100-110 CO2 24 meq/L 20-30 CREATININE, Serum 1.39 mg/dL 0.50-1.40 eGFR(CKD-EPI 2020) 50 mL/min L >60 Nov 01, 2023 08:44 AM [facility] LIVER FUNCTION SERUM Specimen Type: SERUM No comment entered. Ordering Provider: ADRIANA HUITRON Report Released Date/Time: Apr 18, 2023 10:07 AM Reporting Lab: [facility] [address] [address] Performing Lab: [facility] [address] [facility] [address] PROTEIN,TOTAL 7.1 g/dL 6.0-8.3 ALBUMIN 4.0 g/dL 3.5-5.0 ALKALINE PHOSPHATASE 57 U/L 40-150 AST 23 U/L 5-34 ALT 17 U/L BILIRUBIN, TOTAL 0.5 mg/dL 0.2-1.2 Nov 01, 2023 08:44 AM [facility] HEMOGLOBIN A1C PANEL BLOOD Specimen Type: [...] Apr 18, 2023 10:07 AM Reporting Lab: [facility] [address] [facility] [address] Performing Lab: [address] [address] HEMOGLOBIN A1C 8.2 H 4.0-5.6 Nov 01, 2023 08:44 AM [facility] LIPID PANEL FASTING SERUM Specimen Type: SERU M No comment entered. Ordering Provider: ADRIANA HUITRON Report Released Date/Time: Apr 18, 2023 10:07 AM Reporting Lab: [facility] [address] [facility] [facility] [address] Performing Lab: [facility] [address] [address] CHOLESTEROL 158 mg/dL TRIGLYCERIDE 131 mg/dL 0-150 LDL calculated 103 mg/dL 0-129 CHOL/HDL 5.4 HDL CHOLESTEROL 29 mg/dL L 40-60 Nov 01, 2023 08:44 AM [facility] MICROALBUMIN CREATININE RATIO PANEL URINE Spe cimen Type: URINE No comment entered. Ordering Provider: ADRIANA HUITRON Report Released Date/Time: Apr 18, 2023 10:07 AM Reporting Lab: [facility] [address] [facility] [facility] [address] Performing Lab: [facility] [address] [address] MICROALBUMIN/CREATININE RATIO 170.4 mg/g H 0-29.9 MICROALBUMIN,QUANTITATIVE 11.6 mg/dL RR UNAVAIL CREATININE URINE 68.07 mg/dL Nov 01, 2023 08:44 AM [facility] URIC ACID SERUM Specimen Type: SERUM No comment entered. Ordering Provider: ADRIANA HUITRON Report Released Date/Time: Nov 07, 2023 10:27 AM Reporting Lab: [facility] [address] [facility] [address] Performing Lab: [address] [address] URIC ACID 5.7 mg/dL 3.5-7.2 Vital Signs: All taken on the encounter date This section contains inpatient and outpatient Vital Signs collected on the date of the Encounter. Date/Time Temperature Pulse Blood Pressure Respiratory Rate SP02 Pain Height Weight Body Mass Index Source Nov 03, 2023 08:55 AM 97.7 70 108/62 16 97 179 26 [facility] Social History: Smoking Status (Most current) and Tobacco Use (All prior to encounter date) This section includes the most current, and the historical, smoking and tobacco- related health factors from the [place] facility where the Encounter took place. Current Smoking Status This section includes the most current smoking, or tobacco-related health factor, from the [place] facility where the Encounter took place. Date/Time Current Smoking Status Comment Sun christiansony Dec 10, 2022 10:00 AM VA-TOBACCO FORMER USER [facility] Tobacco Use History This section includes a history of the smoking, or tobacco-related health factors, that were collected on or before the date of the Encounter. The data comes from the [place] facility where the Encounter took place. Date/Time Smoking Status/Tobacco Use Comment F acility Dec 10, 2022 10:00 AM VA-TOBACCO QUIT 15 YRS OR MORE [facility] Jan 07, 2022 12:47 PM VA-TOBACCO DOESNT USE WI 30 MIN WAKEUP [facility] Jan 07, 2022 12:47 PM VA-TOBACCO USE 30 YEARS OR MORE [facility] Jan 07, 2022 12:47 PM VA-TOBACCO USE ADVICE [facility] Jan 07, 2022 12:47 PM VA-TOBACCO USE CHAIN BUILDER LOOM CONTROL NO MA CNTRL [facility] Jan 07, 2022 12:47 PM VA-TOBACCO USE MED NO [facility] Jan 07, 2022 12:47 PM VA-TOBACCO USER EVERY DAY [facility] Radiology Reports: +/- 30 days of [...] the Encounter. The data comes from all [place] treatment facilities. Date/Time Radiology Report Provider Source Nov 18, 2023 08:[address] W/O CONT: LISAFABY [id number] M Exm Date: NOV 18, 2023@08:12 Req Phys: ADRIANA HUITRON Loc: CWM/NO/PHARM/PACT 3 (Req'g Loc Img Loc: NHM/CT Service: Unknown [facility] , (Case [id number] COMPLETE) CT THORAX W/O CONT (CT Detailed) CPT:45880 Reason for Study: pulmonary fibrosis on cxr at [facility] last week. Clinical History: pulmonary fibrosis on cxr at [facility] last week. He finished aUGMENTIN 6/5, but now reports that phlegm is now returning. Report Status: Verified Date Reported: NOV 24, 2023 Date Verified: NOV 24, 2023 Lath Hand E-Sig: Report: EXAM: CT chest without contrast COMPARISON: None. HISTORY: pulmonary fibrosis on cxr at [facility] last week. He finished aUGMENTIN 6/5, [...] pulmonary fibrosis. READING PHYSICIAN: Kaiden Jacob D.O. -[id number] 11/24/2023 13:44 EDT [facility] [phone] (For Medical Practitioner Use Only) Attention Patients / Veterans: If you have questions or concerns about these test results, please contact your ordering provider or primary care team. Primary Diagnostic Code: NO ALERT REQUIRED Primary Interpreting Staff: RADIOLOGY,OUTSIDE SERVICE, Staff Physician / RADIOLOGY,OUTSIDE SERVICE [place] [facility] [place] [facility] October 25, 2023 10:53 AM OUTSIDE CHEST (2 VIEWS): FABY GONZALEZ [id number] -[id number] M Ex Date: OCTOBER 25, 2023@10:53 Req Phys: ADRIANA HUITRON Loc: NHM/OUTSIDE IMAGING NON-CNT (R Img Loc: OUTSIDE GENERAL RADIOLOGY Service: Unknown (Case 10 COMPLETE) OUTSIDE CHEST (2 VIEWS) (RAD Detailed) CPT:73153 Reason for Study: outside images downloaded for continuity of care Clinical History: outside images downloaded for continuity of care Report Status: Electronically Filed Date Reported: OCTOBER 25, 2023 Report: THIS EXAM WAS PERFORMED AND INTERPRETED AT AN OUTSIDE HOSPITAL Impression: THIS EXAM WAS PERFORMED AND INTERPRETED AT AN OUTSIDE HOSPITAL Primary Diagnostic Code: VERIFIED BY: / *ELECTRONICALLY FILED* [facility] [place] [facility] Encounter Notes: All associated encounter notes This section contains the clinical notes associated to the Encounter. Date/Time Encounter Note(s) Provider Source Nov 03, 2023 09:34 AM PHYSICIAN HEALTHCARE SALES REPRESENTATIVE NOTE: LOCAL TITLE: PA NOTE STANDARD TITLE: PHYSICIAN HEALTHCARE SALES REPRESENTATIVE NOTE DATE OF NOTE: NOV 03, 2023@09:34 ENTRY DATE: NOV 03, 2023@09:34:33 AUTHOR: ADRIANA HUITRON EXP COSIGNER: URGENCY: STATUS: [...] next. 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 Given. pulmonary fibrosis on cxr at [facility] last week. He finished aUGMENTIN yesterday, reports that he is doing 'really well' We plan repeat cxr one month and darianly pulm consult to follow for fibrosis. Review of systems: Patient reports no changes from [facility], in meds or any admissions. Active problems - Computerized Problem List is the source for the followin. Exposure to potentially hazardous substance (SCT 855816432251363) Entered automatically through [employer] Problem List documentation program 2. Kidney Disorder Associated with Type 2 Diabetes Mellitus (SCT 853725243) 3. Hearing Loss ([facility] [id number]) 4. Vitamin B12 Deficiency ([facility] [id number]) 5. 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 6. Diabetes Mellitus Type 2 ([facility] [id number]) 7. Gout ([facility] 40711515) 8. Hypercholesterolemia 9. Hypertension SERVICE CONNECTED % [...] full rights to use it throughout the [place] system. PRIMARY SCREEN RESULT: The Primary Screen is NEGATIVE. The individual answered never to all forms of IPV above (i.e., answered never to all 5 items) The individual accepts education and/or resources: Other: EDUCATION: Other: /renny/ Adriana Huitron PA-C STAFF PHYSICIAN HEALTHCARE SALES REPRESENTATIVE Signed: 11/03/2023 09:54 AD[facility]ANA HUITRON [facility] [place] [facility] Nov 03, 2023 09:00 AM PREVENTIVE MEDICINE NURSING NOTE: LOCAL TITLE: CLINICAL REMINDERS/NURSING STANDARD TITLE: PREVENTIVE MEDICINE NURSING NOTE DATE OF NOTE: NOV 03, 2023@09:00 ENTRY DATE: NOV 03, 2023@09:00:54 AUTHOR: CHARLIE MARTINOIGNCHRISTY: URGENCY: STATUS: COMPLETED Falls & Incontinence Screen: Falls Screen: 4. No falls within the past year. Incontinence Screen No incontinence. /renny/ CHARLIE MARTINO LPN Signed: 11/03/2023 09:01 CHRISTINA MARTINO [facility]
--- OUTSIDE RECORDS SUMMARY | 2024-09-24 14:30 | XMS_ITS | Encounter Summary ---
Author Name [facility] [place] Address [address] [place] [address] Care Team Providers Care Media Intern Name Role Phone YOSELIN MEZA Primary Care [...] GIC INDEMNITY PLAN MEDICAL EXPENSE (OPT/PROF ) [facility] N Dec 28, 2016 [id number] EMILIA GONZALEZ HN PATIENT MEDICARE (WNR) MEDICARE (M) PART A Dec 28, 2016 PART A [id number] [id number] EMILIA GONZALEZ HN PATIENT MEDICARE (WNR) MEDICARE (M) PART B Dec 28, 2016 PART B [id number] EMILIA GONZALEZ HN PATIENT MEDICARE (WNR) MEDICARE (M) PART A Dec 28, 2016 PART A [id number] [phone] [id number] SBEMILIA HILL HN PATIENT MEDICARE (WNR) MEDICARE (M) PART B Dec 28, 2016 PART B [id number] EMILIA GONZALEZ HN PATIENT UNICARE MEDICAL EXPENSE (OPT/PROF ) [facility] Dec 28, 2016 [id number] [phone] EMILIA GONZALEZ HN PATIENT WELLPOINT PREFERRED PROVIDER ORGANIZAT ION (PPO) [facility] N Dec 28, 2016 [id number] [phone] EMILIA GONZALEZ PATIENT Selected Encounter This section includes the information on record at [place] for the Encounter. Date/Time Encounter Type Encounter Description Reason Provider Source Sep 18, 2024 02:30 PM HEARING AID FITTING/CHECKING AUDIOLOGY ICD-10-CM Z46.1 Encounter for fitting and adjustment of hearing aid CATHERINE CASTILLO Encounter Template Text not used by [place] Assessments - Encounter Diagnoses This section includes the primary and secondary diagnoses documented for the Encounter. Date/Time Primary/Secondary Diagnosis Diagnosis Name Provider Source Sep 18, 2024 02:49 PM PRIMARY Encounter for fitting and adjustment of hearing aid FLORES FIELDS [place] [facility] [facility] Sep 18, 2024 02:49 PM SECONDARY Sensorineural hearing loss, bilateral FLORES FIELDS [facility] [place] [facility] Plan of Treatment: Future Appointments [...] Appointment Type Appointme nt Facility Name Nov 12, 2024 11:00 AM AMBULATORY - REHAB MEDICIN E [place] [facility] [facility] Nov 13, 2024 02:00 PM AMBULATORY - MEDICINE MS C [facility] [facility] Nov 14, 2024 08:00 AM AMBULATORY - MEDICINE [facility] [place] [facility] Social History: Smoking Status (Most current) [...] ity Jan 13, 2024 09:23 AM VA-TOBACCO QUIT 15 YRS OR MORE [facility] Tobacco Use History This section includes a history of the smoking, or tobacco-related health factors, that were collected on or before the date of the Encounter. The data comes from the [place] facility where the Encounter took place. Date/Time Smoking Status/Tobacco Use Comment F acility Jan 13, 2024 09:23 AM VA-TOBACCO QUIT 15 YRS OR MORE [facility] [facility] Dec 10, 2022 10:00 AM VA-TOBACCO FORMER USER [facility] [facility] Dec 10, 2022 10:00 AM VA-TOBACCO QUIT 15 YRS OR MORE [facility] [facility] Jan 07, 2022 12:47 PM VA-TOBACCO DOESNT USE WI 30 MIN WAKEUP [facility] [facility] Jan 07, 2022 12:47 PM VA-TOBACCO USE 30 YEARS OR MORE [facility] [facility] Jan 07, 2022 12:47 PM VA-TOBACCO USE ADVICE [facility] [facility] Jan 07, 2022 12:47 PM VA-TOBACCO USE ADDICTIONS COUNSELOR ASSISTANT NO [facility] [place] [facility] Jan 07, 2022 12:47 PM VA-TOBACCO USE MED NO [facility] [place] [facility] Jan 07, 2022 12:47 PM VA-TOBACCO USER EVERY DAY [facility] [facility] Encounter Notes: All associated encounter notes This section contains the clinical notes associated to the Encounter. Date/Time Encounter Note(s) Provider Source Sep 18, 2024 08:00 AM AUDIOLOGY NOTE: LOCAL TITLE: AUDIOLOGY HEALTH FIRST AID INSTRUCTOR STANDARD TITLE: AUDIOLOGY NOTE DATE OF NOTE: SEP 18, 2024@08:00 ENTRY DATE: SEP 18, 2024@08:00:40 AUTHOR: LACY FIELDS COSIGNER: CATHERINE CASTILLO URGENCY: STATUS: COMPLETED September 18, 2024 History/Background: was seen for a hearing aid follow up, unaccompanied. The presented today reporting his right hearing aid is not holding a charge. He noted the right hearing aid usually dies around 2p.m. Additionally, when he gets up in the morning the right side light is still flashing green. Hearing aids: Ez Evolv AI RICs--> Issued at [facility] Serial Numbers: [id number] Battery size: Rechargeable Date Issued: 12/15/2021 Hearing aid check: Both hearing aids were cleaned and checked. Replaced wax guards and domes. Biologic check was good. Both hearing aids were connected to [employer] to verify battery life, right was at 0% and left was at 74%. A firmware update was available and installed. Discussed sending the right hearing aid out for repair, the [place] would like to see if this update fixed the problem. Also, since he is due for new hearing aids in the Summer he would like to wait until he has the new hearing aids before he sends these out for repair. Plan: Follow up as needed. /renny/ LACY FIELDS Audiology Health Manufacturing Clerk Signed: 09/18/2024 14:50 /renny/ CATHERINE Cardona [facility]A CHIEF, AUDIOLOGY/SPOT MACHINE OPERATOR Cosigned: 09/18/2024 16:34 [facility] FIELDS [facility]
--- OUTSIDE RECORDS SUMMARY | 2024-09-24 14:30 | XMS_ITS | Encounter Summary ---
Author Name [facility] [place] [facility] [place] Address [address] [place] [address] Care Team Providers Care Hair Boiler Name Role Phone ADRIANA ROMERO Primary Care [...] GIC INDEMNITY PLAN MEDICAL EXPENSE (OPT/PROF ) [facility] N Dec 28, 2016 [id number] [phone] EMILIA GONZALEZ HN PATIENT MEDICARE (WNR) MEDICARE (M) PART A Dec 28, 2016 PART A [id number] EMILIA GONZALEZ HN PATIENT MEDICARE (WNR) MEDICARE (M) PART B Dec 28, 2016 PART B [id number] [phone] EMILIA GONZALEZ HN PATIENT MEDICARE (WNR) MEDICARE (M) PART A Dec 28, 2016 PART A [id number] SBREGA,EMILIA HN PATIENT MEDICARE (WNR) MEDICARE (M) PART B Dec 28, 2016 PART B [id number] EMILIA GONZALEZ PATIENT UNICARE MEDICAL EXPENSE (OPT/PROF ) DENI [facility] N Dec 28, 2016 [id number] [phone] SBEMILIA HILL PATIENT WELLPOINT PREFERRED PROVIDER ORGANIZAT ION (PPO) DENI [facility] N Dec 28, 2016 [id number] [phone] EMILIA GONZALEZ PATIENT Selected Encounter This section includes the information on record at [place] for the Encounter. Date/Time Encounter Type Encounter Description Reason Provider Source Nov 09, 2023 08:30 AM MTMS BY PHARM JON 15 MIN CLINICAL PHARMACY ICD-10-CM E11.9 Type 2 diabetes mellitus without complications CHRISTIANO MCKEON [facility] Encounter Template Text not used by [place] Assessments - Encounter Diagnoses This section includes the primary and secondary diagnoses documented for the Encounter. 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 This section includes future appointments and future orders which are active, pending or scheduled. Future Appointments This section includes appointments that were scheduled to occur 6 months from the date of the Encounter, up to a maximum of 20 appointments. The data comes from all [place] treatment facilities. Appointment Date/Time Appointment Type Appointme nt Facility Name Nov 18, 2023 08:30 AM AMBULATORY - NONE [place] [facility] Dec 13, 2023 02:30 PM AMBULATORY - MEDICINE [place] [facility] [facility] Dec 21, 2023 09:45 AM AMBULATORY - MEDICINE [place] [facility] [facility] Jan 31, 2024 01:30 PM AMBULATORY - MEDICINE [place] C [place] [facility] Feb 02, 2024 11:15 AM AMBULATORY - NONE [place] [facility] [place] [facility] Apr 10, 2024 11:00 AM [facility] [place] [facility] May 10, 2024 09:00 AM AMBULATORY - [facility]ICINE [place] [facility] Lab Results: +/- 30 days of the encounter This section includes the Chemistry and Hematology Lab Results on record with [place] for the patient. Radiology Reports and Pathology Reports are provided separately, in subsequent sections. Lab Results This section contains the Chemistry/Hematology Results that were resulted 30 days before or 30 daysafter the date of the Encounter. Date/Time Source Result Type Result - Unit Interpretation Reference Range Specimen Type Comment Nov 01, 2023 08:44 AM [facility] BASIC METABOLIC PANEL (fasting) SERUM Specime n Type: SERUM No comment entered. Ordering Provider: LIBIA ROMERO AM Report Released Date/Time: Apr 18, 2023 10:07 AM Reporting Lab: [facility] [address] [address] Performing Lab: [facility] [address] [address] UREA NITROGEN 19 mg/dL 7-25 GLUCOSE 178 mg/dL H 65-100 SODIUM 138 mmol/L 135-145 POTASSIUM 5.2 mmol/L H 3.5-5.0 CHLORIDE 105 mmol/L 100-110 CO2 24 meq/L 20-30 CREATININE, Serum 1.39 mg/dL 0.50-1.40 eGFR(CKD-EPI 2020) 50 mL/min L >60 Nov 01, 2023 08:44 AM [facility] LIVER FUNCTION SERUM Specimen Type: SERUM No comment entered. Ordering Provider: ADRIANA ROMERO Report Released Date/Time: Apr 18, 2023 10:07 AM Reporting Lab: [facility] [address] [address] Performing Lab: [facility] [address] [address] PROTEIN,TOTAL 7.1 g/dL 6.0-8.3 ALBUMIN 4.0 g/dL 3.5-5.0 ALKALINE PHOSPHATASE 57 U/L 40-150 AST 23 U/L 5-34 ALT 17 U/L BILIRUBIN, TOTAL 0.5 mg/dL 0.2-1.2 Nov 01, 2023 08:44 AM [facility] LIPID PANEL FASTING SERUM Specimen Type: SERU M No comment entered. Ordering Provider: ADRIANA ROMERO Report Released Date/Time: Apr 18, 2023 10:07 AM Reporting Lab: [facility] [address] [address] Performing Lab: [facility] [address] [address] CHOLESTEROL 158 mg/dL TRIGLYCERIDE 131 mg/dL 0-150 LDL calculated 103 mg/dL 0-129 CHOL/HDL 5.4 HDL CHOLESTEROL 29 mg/dL L 40-60 Nov 01, 2023 08:44 AM [facility] HEMOGLOBIN A1C PANEL BLOOD Specimen Type: [...] Apr 18, 2023 10:07 AM Reporting Lab: [facility] [address] [address] Performing Lab: [facility] [address] [address] HEMOGLOBIN A1C 8.2 H 4.0-5.6 Nov 01, 2023 08:44 AM [facility] MICROALBUMIN CREATININE RATIO PANEL URINE Spe cimen Type: URINE No comment entered. Ordering Provider: ADRIANA ROMERO Report Released Date/Time: Apr 18, 2023 10:07 AM Reporting Lab: [facility] [address] [address] Performing Lab: [facility] [address] [address] MICROALBUMIN/CREATININE RATIO 170.4 mg/g H 0-29.9 MICROALBUMIN,QUANTITATIVE 11.6 mg/dL RR UNAVAIL CREATININE URINE 68.07 mg/dL Nov 01, 2023 08:44 AM [facility] URIC ACID SERUM Specimen Type: SERUM No comment entered. Ordering Provider: ADRIANA ROMERO Report Released Date/Time: Nov 07, 2023 10:27 AM Reporting Lab: [facility] [address] [address] Performing Lab: [facility] [address] [address] URIC ACID 5.7 mg/dL 3.5-7.2 Social History: Smoking Status (Most current) and Tobacco Use (All prior to encounter date) This section includes the most current, and the historical, smoking and tobacco- related health factors from the [place] facility where the Encounter took place. Current Smoking Status This section includes the most current smoking, or tobacco-related health factor, from the [place] facility where the Encounter took place. Date/Time Current Smoking Status Comment Sun gruber Dec 10, 2022 10:00 AM VA-TOBACCO FORMER USER [facility] Tobacco Use History This section includes a history of the smoking, or tobacco-related health factors, that were collected on or before the date of the Encounter. The data comes from the [place] facility where the Encounter took place. Date/Time Smoking Status/Tobacco Use Comment F gabriella Dec 10, 2022 10:00 AM [place]-TOBACCO QUIT 15 YRS OR MORE [facility] Jan 07, 2022 12:47 PM VA-TOBACCO DOESNT USE WI 30 MIN WAKEUP [facility] Jan 07, 2022 12:47 PM VA-TOBACCO USE 30 YEARS OR MORE [facility] Jan 07, 2022 12:47 PM VA-TOBACCO USE ADVICE [facility] Jan 07, 2022 12:47 PM VA-TOBACCO USE MOTO MIX OPERATOR NO [facility] WSN [facility] Jan 07, 2022 12:47 PM VA-TOBACCO USE MED NO [facility] Jan 07, 2022 12:47 PM VA-TOBACCO USER EVERY DAY [facility] Radiology Reports: +/- 30 days [...] the Encounter. The data comes from all [place] treatment facilities. Date/Time Radiology Report Provider Source Nov 18, 2023 08:[address] W/O CONT: FABY GONZALEZ [id number] -1940 M Exm Date: NOV 18, 2023@08:12 Req Phys: ADRIANA ROMERO Loc: CWM/NO/PHARM/PACT 3 (Req'g Loc Img Loc: NHM/CT Service: Unknown [facility] , (Case [id number] COMPLETE) CT THORAX W/O CONT (CT Detailed) CPT:61907 Reason for Study: pulmonary fibrosis on cxr at [facility] last week. Clinical History: pulmonary fibrosis on cxr at [facility] last week. He finished aUGMENTIN 6/5, but now reports that phlegm is now returning. Report Status: Verified Date Reported: NOV 24, 2023 Date Verified: NOV 24, 2023 Soa Engineer E-Sig: Report: EXAM: CT chest without contrast COMPARISON: None. HISTORY: pulmonary fibrosis on cxr at [facility] last week. He finished aUGMENTIN [...] pulmonary fibrosis. READING PHYSICIAN: Kaiden Jacob D.O. -[id number] 11/24/2023 13:44 EDT [facility] National Teleradiology Program [phone] (For Medical Practitioner Use Only) Attention Patients / Veterans: If you have questions or concerns about these test results, please contact your ordering provider or primary care team. Primary Diagnostic Code: NO ALERT REQUIRED Primary Interpreting Staff: RADIOLOGY,OUTSIDE SERVICE, Staff Physician / RADIOLOGY,OUTSIDE SERVICE [facility] October 25, 2023 10:53 AM OUTSIDE CHEST (2 VIEWS): FABY GONZALEZ [id number] -1940 M Exm Date: OCTOBER 25, 2023@10:53 Req Phys: ADRIANA ROMERO Loc: NHM/OUTSIDE IMAGING NON-CNT (R Img Loc: OUTSIDE GENERAL RADIOLOGY Service: Unknown (Case 10 COMPLETE) OUTSIDE CHEST (2 VIEWS) (RAD Detailed) CPT:58203 Reason for Study: outside images downloaded for continuity of care Clinical History: outside images downloaded for continuity of care Report Status: Electronically Filed Date Reported: OCTOBER 25, 2023 Report: THIS EXAM WAS PERFORMED AND INTERPRETED AT AN OUTSIDE HOSPITAL Impression: THIS EXAM WAS PERFORMED AND INTERPRETED AT AN OUTSIDE HOSPITAL Primary Diagnostic Code: VERIFIED BY: / *ELECTRONICALLY FILED* [place] [facility] [place] [facility] Encounter Notes: All associated encounter notes [...] 12/12/23 0830 Thank you! /renny/ CHRISTIANO MCKEON PHARMD,[facility] CLINICAL PHARMACY PRACTITIONER Signed: 11/09/2023 12:53 Receipt Acknowledged By: 11/09/2023 13:13 /renny/ HIEU YO JENNIFER --- Original Document --- 11/09/23 PHARMACY CLINIC NOTE: AFBY GONZALEZ, 82 yo WHITE MALE, presents in [...] the development of this plan, involving the [facility], clinician, and any caregivers present. The [facility] was provided the opportunity express questions or [...] completed, no discrepancies identified) /renny/ CHRISTIANO MCKEON PHARMD,[facility] CLINICAL PHARMACY PRACTITIONER Signed: 11/09/2023 12:53 CHRISTIANO MCKEON [place] [facility] [facility] Nov 09, 2023 08:15 AM PHARMACY [...] needed to address these concerns. -Reviewed with [facility] any new medications, changes to the medication [...] review completed, no discrepancies identified) /renny/ CHRISTIANO MCKEON, [facility] CLINICAL PHARMACY PRACTITIONER Signed: 11/09/2023 12:53 11/09/2023 ADDENDUM STATUS: COMPLETED Will ask [facility] to please schedule patient for: [X] CWM/NO/PHARM/PACT 3 RTC order placed. Appointment Length: _30__ minutes. 12/12/23 0830 Thank you! /renny/ CHRISTIANO MCKEON PHARMD,[facility] CLINICAL PHARMACY PRACTITIONER Signed: 11/09/2023 12:53 Receipt Acknowledged By: * AWAITING SIGNATURE * HIEU YO JODI A [facility]
--- OUTSIDE RECORDS SUMMARY | 2024-09-24 14:30 | XMS_ITS | Encounter Summary ---
Author Name [facility] [place] Address [address] [place] [address] Care Team Providers Care Rouge Miller Name Role Phone JAGDISH HUITRON Primary Care [...] GIC INDEMNITY PLAN MEDICAL EXPENSE (OPT/PROF ) [facility] N Dec 28, 2016 [id number] [phone] EMILIA GONZALEZ HN PATIENT MEDICARE (WNR) MEDICARE (M) PART A Dec 28, 2016 PART A [id number] EMILIA GONZALEZ HN PATIENT MEDICARE (WNR) MEDICARE (M) PART B Dec 28, 2016 PART B [id number] EMILIA GONZALEZ HN PATIENT MEDICARE (WNR) MEDICARE (M) PART B Dec 28, 2016 PART B [id number] EMILIA GONZALEZ HN PATIENT MEDICARE (WNR) MEDICARE (M) PART A Dec 28, 2016 PART A [id number] EMILIA GONZALEZ HN PATIENT UNICARE MEDICAL EXPENSE (OPT/PROF ) DENI [facility] N Dec 28, 2016 [id number] SBEMILIA HILL PATIENT WELLPOINT PREFERRED PROVIDER ORGANIZAT ION (PPO) DENI [facility] N Dec 28, 2016 [id number] EMILIA GONZALEZ PATIENT Selected Encounter This section includes the information on record at [place] for the Encounter. Date/Time Encounter Type Encounter Description Reason Pro vider Source October 17, 2023 05:38 PM Outpatient Encounter ADMIN PAT ACTIVTIES (MASNONCT) IHE Encounter Template Text not used by [place] Plan of Treatment: Future Appointments (+ 6 months) and Future Tests (+/- 45 days) The Plan of Treatment section includes future care activities for the patient from all [place] treatmentfacilities. This section includes future appointments and future orders which are active, pending or scheduled. Future Appointments This section includes appointments that were scheduled to occur 6 months from the date of the Encounter, up to a maximum of 20 appointments. The data comes from all [place] treatment facilities. Appointment Date/Time Appointment Type Appointme nt Facility Name October 25, 2023 08:00 AM AMBULATORY - MEDICINE [place] [facility] Nov 03, 2023 09:00 AM AMBULATORY - MEDICINE [place] [facility] Nov 09, 2023 08:30 AM AMBULATORY - MEDICINE [place] C [place] [facility] Nov 18, 2023 08:30 AM AMBULATORY - NONE [place] [facility] [place] [facility] Dec 13, 2023 02:30 PM AMBULATORY - MEDICINE [place] C [place] [facility] Dec 21, 2023 09:45 AM AMBULATORY - MEDICINE [place] C [place] [facility] Jan 31, 2024 01:30 PM AMBULATORY - MEDICINE [place] [facility] Feb 02, 2024 11:15 AM AMBULATORY - NONE [place] [facility] [place] [facility] Apr 10, 2024 11:00 AM AMBULATORY - MEDICINE [facility] Lab Results: +/- 30 days of the encounter This section includes the Chemistry and Hematology Lab Results on record with [place] for the patient. Radiology Reports and Pathology Reports are provided separately, in subsequent sections. Lab Results This section contains the Chemistry/Hematology Results that were resulted 30 days before or 30 daysafter the date of the Encounter. Date/Time Source Result Type Result - Unit Interpretation Reference Range Specimen Type Comment Nov 01, 2023 08:44 AM [facility] BASIC METABOLIC PANEL (fasting) SERUM Specime n Type: SERUM No comment entered. Ordering Provider: LIBIA HUITRON AM Report Released Date/Time: Apr 18, 2023 10:07 AM Reporting Lab: [address] [address] Performing Lab: [address] [address] UREA NITROGEN 19 mg/dL 7-25 GLUCOSE 178 mg/dL H 65-100 SODIUM 138 mmol/L 135-145 POTASSIUM 5.2 mmol/L H 3.5-5.0 CHLORIDE 105 mmol/L 100-110 CO2 24 meq/L 20-30 CREATININE, Serum 1.39 mg/dL 0.50-1.40 eGFR(CKD-EPI 2020) 50 mL/min L >60 Nov 01, 2023 08:44 AM [facility] LIVER FUNCTION SERUM Specimen Type: SERUM No comment entered. Ordering Provider: JAGDISH HUITRON Report Released Date/Time: Apr 18, 2023 10:07 AM Reporting Lab: [address] [address] Performing Lab: [address] [address] PROTEIN,TOTAL 7.1 g/dL 6.0-8.3 ALBUMIN 4.0 g/dL 3.5-5.0 ALKALINE PHOSPHATASE 57 U/L 40-150 AST 23 U/L 5-34 ALT 17 U/L BILIRUBIN, TOTAL 0.5 mg/dL 0.2-1.2 Nov 01, 2023 08:44 AM [facility] LIPID PANEL FASTING SERUM Specimen Type: SERU M No comment entered. Ordering Provider: JAGDISH HUITRON Report Released Date/Time: Apr 18, 2023 10:07 AM Reporting Lab: [facility] [address] [address] Performing Lab: [facility] [address] [facility] [address] CHOLESTEROL 158 mg/dL TRIGLYCERIDE 131 mg/dL 0-150 LDL calculated 103 mg/dL 0-129 CHOL/HDL 5.4 HDL CHOLESTEROL 29 mg/dL L 40-60 Nov 01, 2023 08:44 AM [facility] HEMOGLOBIN A1C PANEL BLOOD Specimen Type: BLO [...] Apr 18, 2023 10:07 AM Reporting Lab: [facility] [address] [address] Performing Lab: [facility] [address] [facility] [address] HEMOGLOBIN A1C 8.2 H 4.0-5.6 Nov 01, 2023 08:44 AM [facility] MICROALBUMIN CREATININE RATIO PANEL URINE Spe cimen Type: URINE No comment entered. Ordering Provider: JAGDISH HUITRON Report Released Date/Time: Apr 18, 2023 10:07 AM Reporting Lab: [facility] [address] [facility] [address] Performing Lab: [facility] [address] [address] MICROALBUMIN/CREATININE RATIO 170.4 mg/g H 0-29.9 MICROALBUMIN,QUANTITATIVE 11.6 mg/dL RR UNAVAIL CREATININE URINE 68.07 mg/dL Nov 01, 2023 08:44 AM [facility] URIC ACID SERUM Specimen Type: SERUM No comment entered. Ordering Provider: JAGDISH HUITRON Report Released Date/Time: Nov 07, 2023 10:27 AM Reporting Lab: [facility] [address] [facility] [address] Performing Lab: [facility] [address] [facility] [address] URIC ACID 5.7 mg/dL 3.5-7.2 Social History: Smoking Status (Most current) and Tobacco Use (All prior to encounter date) This section includes the most current, and the historical, smoking and tobacco- related health factors from the [place] facility where the Encounter took place. Current Smoking Status This section includes the most current smoking, or tobacco-related health factor, from the [place] facility where the Encounter took place. Date/Time Current Smoking Status Comment Facil ity Dec 10, 2022 10:00 AM VA-TOBACCO FORMER USER [facility] Tobacco Use History This section includes a history of the smoking, or tobacco-related health factors, that were collected on or before the date of the Encounter. The data comes from the [place] facility where the Encounter took place. 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 The data comes from all [place] treatment facilities. Date/Time Radiology Report Provider Source October 25, 2023 10:53 AM OUTSIDE CHEST (2 V IEWS): FABY GONZALEZ [id number] -1940 M Exm Date: OCTOBER 25, 2023@10:53 Req Phys: JAGDISH HUITRON Loc: NHM/OUTSIDE IMAGING NON-CNT (R Img Loc: OUTSIDE GENERAL RADIOLOGY Service: Unknown (Case 10 COMPLETE) OUTSIDE CHEST (2 VIEWS) (RAD Detailed) CPT:95398 Reason for Study: outside images downloaded for continuity of care Clinical History: outside images downloaded for continuity of care Report Status: Electronically Filed Date Reported: OCTOBER 25, 2023 Report: THIS EXAM WAS PERFORMED AND INTERPRETED AT AN OUTSIDE HOSPITAL Impression: THIS EXAM WAS PERFORMED AND INTERPRETED AT AN OUTSIDE HOSPITAL Primary Diagnostic Code: VERIFIED BY: / *ELECTRONICALLY FILED* [place] [facility] [facility] Encounter Notes: All associated encounter notes This section contains the clinical notes associated to the Encounter. Date/Time Encounter Note(s) Provider Source October 17, 2023 05:38 PM PHARMACY NOTE: LOCAL TITLE: V1 PHARMACY CUSTOMER CARE MEDICATION RENEWAL STANDARD TITLE: PHARMACY NOTE DATE OF NOTE: OCTOBER 17, 2023@17:38 ENTRY DATE: OCTOBER 17, 2023@17:38:59 AUTHOR: MOMO IQBAL EXP COSIGNER: URGENCY: STATUS: COMPLETED Date: September Division: [facility] referred by Pharmacy Call Center for medication renewal: Non-controlled/maintenanc e medication Medications requested: [id number] ASPIRIN 81MG EC TAB [id number] METRONIDAZOLE 0.75% TOP CREAM Defer to primary care provider To be mailed . Please review and renew if appropriate. *This note was generated by [facility] Pharmacy Customer Care. If you have any questions or need assistance, do not contact this author. Please refer all questions to your local, on-site pharmacy departments. /renny/ MOMO IQBAL CPhT GEOSCIENCE TECHNICIAN, [place]/PHARMACY CUSTOMER CARE Signed: 10/17/2023 17:39 Receipt Acknowledged By: 10/18/2023 08:04 /renny/ NI FLETCHER RN REGISTERED NURSE 10/18/2023 08:00 /renny/ Jagdish Huitron PA-C STAFF PHYSICIAN BOOKKEEPER RECEPTIONIST MOMO IQBAL [place] CNTL [facility]
--- OUTSIDE RECORDS SUMMARY | 2024-09-24 14:30 | XMS_ITS | Patient Health Record ---
Author Organization [facility] Address [address] [place] [address] Support Name Relationship Address Phone RajArcadio gilliland Guarantor Unknown [phone] Reason For Referral No Information Medications Medication [...] Lancets NONMED Addison 2 Entered by KELTON ALRSEN 05/29/2012 Active Folic Acid 1 MG 1 PO QD Addison05/29/2012 Entered by KELTON LARSEN 05/29/2012 Active Problems Problem Type SNOMED Code ICD Code Onset Dates Problem Status W/U Status Risk Notes Problem Type II diabetes mellitus without complication (305011506) Diabetes mellitus without mention of complication, type II or unspecified type, not stated as uncontrolled (250.00) 05/29/20 12 Active confirmed Addison: Diabetes mellitus; Plan Of Treatment No Information Insurance Providers Payer Name Payer Address Payer Phone Subscriber Number Group Number Insured Name Patient Relationship to Insured Coverage Start Date Coverage End Date [employer] Ind[employer] Plan [address] [place] [id number] [phone] [id number] Arcadio Crooks Self - patient is the insured 7
== END 2024-09-24 12:10 | disposition home or self-care (01) ==
LOC: HO.US 12:09
PROVIDERS: PCP Physician Assistant; Visit Provider Urology
DX: N20.0 Calculus of kidney (principal)
CPT/HCPCS: 76775

== ENCOUNTER → 2024-09-24 12:12 | Outpatient (BNV) | payer OTHER, SELFPAY | PROVIDERS: PCP Physician Assistant; Visit Provider Radiology Diagnostic Radiology | DX: N20.0 Calculus of kidney (principal); N28.1 Cyst of kidney, acquired | CPT/HCPCS: 76775 ==

== ENCOUNTER 2024-10-31 10:49 | Outpatient (AMB) | payer OTHER, SELFPAY ==
--- NOTE | 2024-10-31 11:06 | A.OFFVIS_ITS ---
Intake Visit Reasons: 6 month follow up/ US Intake Note: Patient is present for 6M/US Urology Medication:VITAMIN B6,VITAMIN B12 Antibiotic Allergy:NONE Blood Thinner:ASPIRIN Transition Mgr Rn Required: No Allergies benazepril Allergy (Mild, Verified 10/31/24 11:07) Unknown shrimp Allergy (Mild, Verified 10/31/24 11:07) Unknown bandaids Allergy (Mild, Uncoded 10/31/24 11:07) Unknown HPI Comments Details: Arcadio is a pleasant male. He is a patient of Dr. Viramontes. He is seen for following urologic conditions - nephrolithiasis - complex renal cyst Urinary Symptoms Review - Slight increase in frequency of urination, without any discomfort. - Patient has control over urination and does not experience urgency when visiting places like the [employer]. - Reports consuming a substantial volume of seltzer daily. Discussed imaging results Continue interval surveillance Nephrolithiasis CT scan small stones bilateral - question of lobulation - cystic lesion 2.4 cm and 10 mm on left Has passed 1 without too much difficulty Imaging - 10/21 renal ultrasound small stone right 3 mm, question of lesion on left side left renal cystic lesion Recommend fluid intake with vitamin B6 Six-month follow-up renal mass CT protocol [facility] Medical History Unspecified hearing loss, unspecified ear Type 2 diabetes mellitus without complications Type 2 diabetes mellitus with diabetic nephropathy Pure hypercholesterolemia, unspecified Gout, unspecified Essential (primary) hypertension Deficiency of other specified B group vitamins Contact with and (suspected) exposure to other hazardous substances Arteriosclerotic coronary artery disease Social History Patient Tobacco Use Status: Former Tobacco user Review of Systems Const Denies chills and Denies fever(s) Card Reports no additional complaints and Denies syncope Resp Denies cough GI Denies abdominal pain and Denies heartburn Reports as per HPI and Denies change in libido Neuro Denies syncope Psych Denies change in libido Endo Denies change in libido Physical Exam Const General: cooperative, healthy appearing, comfortable and no acute distress Orientation/consciousness: patient oriented x3 HEENT Face and sinus: Yes normal facial exam Mouth: moist mucous membranes Neck Neck: Yes normal visual inspection, Yes full ROM and Yes trachea midline Chest Chest palpation & inspection: normal inspection of the chest Resp Effort & Inspection: normal respiratory effort, able to speak in complete sentences and no respiratory distress GI Inspection: Yes normal to inspection Back/Spine/Pelvis Cervical Spine: normal cervical lordosis Thoracic/Lumbar Spine: thoracic and lumbar spine normal to inspection Skin General skin exam: no rashes or lesions noted Neuro General: patient oriented x3, gait normal, tone normal and moves all extremities Extrem General: Yes normal to inspection and Yes capillary refill normal Assessment & Plan Assessment & Plan (1) Complex renal cyst: Code(s): N28.1 - Cyst of kidney, acquired Category: Medical (2) Bilateral nephrolithiasis: Code(s): N20.0 - Calculus of kidney Category: Medical Plan 1. Nephrolithiasis Continue observation due to asymptomatic presentation. 2. Complex Renal Cyst Plan follow-up CT scan in six months for further evaluation. Evaluate for progression or signs of malignancy. Discussion Notes During this consultation, I reviewed the ultrasonography results with the patient and discussed the findings of bilateral nephrolithiasis and a complex renal cyst on the left side. The stones are currently non-problematic. We focused on the complex cyst, which has been stable in size over the past six months. I explained the possible risks, including a 50% chance of developing a malignancy if it becomes more complicated, although current signs are minimal and stable. We discussed the importance of re-evaluation with a CT scan in six months to monitor any changes. The patient understood the conservative approach and agreed to the follow-up plan. There were no immediate concerns necessitating medication for urinary frequency, given it remains manageable for the patient. The potential need for interventions, such as cyst aspiration or other procedures, was not deemed necessary at this moment. We reviewed lifestyle habits, including adequate hydration. I encouraged the patient to remain observant of any new symptoms and return for evaluation as needed. Consent for monitoring and potential follow-up imaging was obtained. Patient Instructions - Continue observing urinary frequency; no medication needed at this time. - Maintain adequate fluid intake without excessive calorie intake. - Monitor for any new symptoms or changes in kidney-related discomfort. - Return in six months for a scheduled CT scan of the complex renal cyst. - Seek medical attention promptly if you notice any changes, particularly increased urinary symptoms or pain. Orders: Orders CT abdomen wo/w IV con 6 Months N28.1 - Cyst of kidney, acquired Patient Instructions: This note is constructed using voice recognition software. While every effort has been made to ensure accuracy recruiting internship errors may have been included. Imaging studies, laboratory and physical exam results were discussed and reviewed in detail. No major barriers to patient understanding were identified. An opportunity to ask questions regarding the treatment plan was provided. All questions were answered. The patient expressed understanding and agreement with the above treatment plan. The patient is aware they should contact our office by phone for worsening of their current condition or the appearance of new urologic symptoms. Compliance is encouraged with any medications and followup testing that is ordered. It is a privilege to participate in the urologic care of your patient. If you have any questions or concerns regarding treatment for the above conditions, or other urologic issues, please do not hesitate to contact me. The office telephone contact is [phone]. Sincerely, Dr Farhad Garrido MD, [facility] - Urology Compassionate Specialist Care for the Genitourinary System Coding Level of Care Code Est Pt Level 3 (44966) Complex EM visit Add On G2211 Diagnoses Complex renal cyst N28.1 Bilateral nephrolithiasis N20.0
--- OUTSIDE RECORDS SUMMARY | 2024-10-31 11:44 | XMS_ITS | Patient Health Record ---
Author Organization [facility] Address [address] [place] [address] Support Name Relationship Address Phone RajArcadio gilliland Guarantor Unknown [phone] Reason For Referral No Information Medications Medication [...] Problem Type II diabetes mellitus without complication (876085568) Diabetes mellitus without mention of complication, type II or unspecified type, not stated as uncontrolled (250.00) 05/29/20 12 Active confirmed Addison: Diabetes mellitus; Plan Of Treatment No Information Insurance Providers Payer Name Payer Address Payer Phone Subscriber Number Group Number Insured Name Patient Relationship to Insured Coverage Start Date Coverage End Date [employer] Ind[employer]ity Plan [address] [place] [id number] Arcadio Crooks Self - patient is the insured 7
== END 2024-10-31 11:36 | disposition home or self-care (01) ==
LOC: HO.HUSH 10:50
PROVIDERS: PCP Physician Assistant; Visit Provider Urology
DX: N28.1 Cyst of kidney, acquired (principal); N20.0 Calculus of kidney
CPT/HCPCS: 99213; G2211

== ENCOUNTER → 2024-10-31 10:49 | Outpatient (BNVA) | payer OTHER, SELFPAY | PROVIDERS: PCP Physician Assistant; Visit Provider Urology | DX: N28.1 Cyst of kidney, acquired (principal); N20.0 Calculus of kidney | CPT/HCPCS: 99212 ==

== ENCOUNTER 2025-01-18 07:30 | Outpatient (REF) | payer OTHER, SELFPAY ==
--- NOTE | ~2025-01-18 | CT_ITS ---
CLINICAL HISTORY: N28.1 - Cyst of kidney, acquired --- Additional Notes or Special Instructions: Renal mass protocol CT abdomen with and without contrast Comparison: None provided Findings: Subpleural reticular opacities at the lung bases consistent with fibrotic interstitial lung disease. Moderate cardiomegaly. Adrenal glands, pancreas and gallbladder unremarkable. Liver is unremarkable. No focal liver lesion. Kidneys are normal in size and there is normal cortical thickness. Within the interpolar right kidney there is a 1 cm cyst posteriorly. There is a nonobstructing 5 mm stone in the left kidney as well as a nonobstructing 3 mm stone. There is a 1.2 cm cyst in the interpolar left kidney. In the mid to lower pole of the left kidney posteriorly there is a heterogeneous enhancing mass measuring 3.0 x 2.8 x 2.6 cm. Small amount of adjacent perinephric stranding. No tumor invasion of the renal veins. No retroperitoneal lymphadenopathy. No hydronephrosis of either kidney. No bowel obstruction, pneumoperitoneum, or pneumatosis. Moderate fecal loading in the visualized bowel loops. Wall calcifications of the abdominal aorta. No aortic aneurysm. Normal appendix seen. No lytic or blastic bone lesions. IMPRESSION: 1. 3.0 heterogeneous enhancing left renal mass, highly concerning for renal cell carcinoma. No CT evidence of metastatic disease. 2. Subpleural changes of fibrotic interstitial lung disease. This document has been electronically signed by: Trip Lambert MD on 01/19/2025 19:19:27
--- OUTSIDE RECORDS SUMMARY | 2025-01-18 07:32 | XMS_ITS | Clinical Summary ---
Author Organization [facility] Address [address] [place] [phone] Phone Care Team Providers Care Hamper Maker Name Role Phone Pcp, Unknown Primary Care Provider Unavailabl e Allergies Active Allergy Reactions Criticality Noted Date Comments Adhesive 01/05/2012 Benazepril Hives 01/07/2022 Shrimp Hives 01/07/2022 Medications metFORMIN (GLUCOPHAGE) 500 MG tablet Take 500 mg by mouth 2 (two) times a day with meals. Active atorvastatin (LIPITOR) 20 MG tablet Take 20 mg by mouth daily. Active folic acid (FOLVITE) 1 MG tablet Take 1 mg by mouth daily. Active aspirin 81 mg chewable tablet Take 81 mg by mouth daily. Active benzonatate (TESSALON) 100 MG capsule Take 2 capsules (200 mg total) by mouth 3 (three) times a day as needed for cough. 21 capsule 4 Active albuterol (PROAIR HFA) 90 mcg/actuation inhaler Inhale 2 puffs into the lungs every 4 (four) hours as needed for wheezing. 18 g 4 Active Additional Information Patient not taking.Reported on 12/11/2023 inhaler spacing device (AEROCHAMBER,BR EATHERITE) Spcr Inhale 1 each into the lungs every 4 (four) hours as needed. 1 each 4 Active candesartan (ATACAND) 8 MG tablet Take 8 mg by mouth. 4 Active ezetimibe (ZETIA) 10 mg tablet Take 10 mg by mouth. 4 Active cyanocobalamin, vitamin B-12, 1000 MCG tablet Take 1,000 mcg by mouth. 4 Active cholecalciferol (VITAMIN D3) 25 MCG (1,000 unit) tablet Take 25 mcg by mouth. 4 Active emlebhcm-bsn-uf rrous gluconate (CENTRUM WITH IRON) 9 mg iron/15 mL Liqd Take by mouth. 4 Active Active Problems Problem Noted Date Diagnosed Date Chronic ischemic heart disease 12/11/2023 Postsurgical aortocoronary bypass status 024 Type 2 diabetes mellitus without retinopathy Unspecified hearing loss, unspecified ear 2023 Type 2 diabetes mellitus 05/30/2006 Social History Tobacco Use Types Packs/Day Years Used Date Smoking Tobacco: Never Smokeless Tobacco: Never Education Answer Date Recorded Are you interested in more education? Not on sigifredo e 10/25/2023 Are you concerned about learning? Not on file 10/25/2023 No 10/25/2023 No 10/25/2023 Digital Access Answer Date Recorded No 10/25/2023 No 10/25/2023 Reliable internet access at home? Not on file 10/25/2023 Device with a working camera? Not on file Sex and Gender Information Value Date Recorded Sex Assigned at Not on file Legal Sex Male 10:26 AM EDT Gender Identity Not on file Sexual Orientation Not on file Last Filed Vital Signs Vital Sign Reading Time Taken Comments Blood Pressure 118/68 12/11/2023 1:02 PM EDT Pulse 82 12/11/2023 1:02 PM EDT Temperature 36.9 C (98.4 F) 12/11/2023 1:02 PM EDT Respiratory Rate 16 12/11/2023 1:02 PM EDT Oxygen Saturation 97% 12/11/2023 1:02 PM EDT Inhaled Oxygen Concentration - - Weight 76.2 kg (168 lb) 12/11/2023 1:02 PM EDT Height 175.3 cm (5' 9 ) 12/11/2023 1:02 PM EDT Body Mass Index 24.81 12/11/2023 1:02 PM EDT Plan of Treatment Health Maintenance Due Date Last Done Comments CREATININE LEVEL 1940 HEMOGLOBIN A1C 1940 POTASSIUM LEVEL 1940 DEPRESSION SCREENING 1952 PNEUMOCOCCAL VACCINES (50+ years) (1 of 2 - PCV) 12/05/1959 RSV VACCINE (1 - 1-dose 75+ series) 12/05/2015 COVID-19 VACCINE (1 2023-2 5 season) 2024 BLOOD PRESSURE 06/12/2024 12/11/2023 DIABETIC EYE EXAM 10/24/2024 10/25/2023 Adult Td,Tdap Booster 12/10/2032 12/10/2022 , 03/22/2013 ZOSTER VACCINES Completed 04/18/2023, 12/10/2022, 08/11/2015 HEPATITIS A VACCINES Aged Out No long er eligible based on patient's age to complete this topic HIB VACCINES Aged Out No longer eligi ble based on patient's age to complete this topic MENINGOCOCCAL VACCINES (ACWY) Aged Out No longer eligible based on patient's age to complete this topic MENINGOCOCCAL VACCINES (B) Aged Out N o longer eligible based on patient's age to complete this topic Medical Devices Not on file Insurance MEDICARE PART A & B [facility] [employer] MEDICARE SUPPLEMENT MEDICARE PART A & B [employer] MEDICARE SUPPLEMENT MEDICARE PART A & B [employer] MEDICARE SUPPLEMENT MEDICARE PART A & B [employer] MEDICARE SUPPLEMENT MEDICARE PART A & B Member Subscriber Plan / Payer ( fective 2016-) Name:Arcadio Crooks Member ID:[id number] Relation to Subscriber:Self Name:Arcadio Crooks Subscriber ID:[id number] Payer ID:[id number] Group ID:Not on file Type:Medicare Address: [employer] [address] [employer] MEDICARE SUPPLE[place] [id number] [employer] MEDIC[employer] SUPPLEMENT Care Teams Hamper Maker Relationship Specialty Start Date End Date Pcp, Unknown PCP - General 10/25/23 Additional Source Comments The information contained in this document represents components of the legal health record. It is not the complete legal health record.[facility]
--- OUTSIDE RECORDS SUMMARY | 2025-01-18 07:33 | XMS_ITS | Patient Health Record ---
Author Organization [facility] Address [address] [place] [address] Support Name Relationship Address Phone RajArcadio gilliland Guarantor Unknown [phone] Reason For Referral No Information Medications Medication [...] Problem Type II diabetes mellitus without complication (543706303) Diabetes mellitus without mention of complication, type II or unspecified type, not stated as uncontrolled (250.00) 05/29/20 12 Active confirmed Addison: Diabetes mellitus; Plan Of Treatment No Information Insurance Providers Payer Name Payer Address Payer Phone Subscriber Number Group Number Insured Name Patient Relationship to Insured Coverage Start Date Coverage End Date [employer] Indemnity Plan [address] [place] [id number] Arcadio Crooks Self - patient is the insured 7
[2025-01-18 08:01] LABS: Blood Urea Nitrogen 18 mg/dL (9-16); Estimated Glomerular Filt Rate 56
[2025-01-18] MEDS: iohexoL 350 MG/ML 100 ML INFUS..BTL IV (08:43)
== END 2025-01-18 07:31 | disposition home or self-care (01) ==
LOC: HO.CT 07:30
PROVIDERS: PCP Physician Assistant; Visit Provider Urology
DX: N28.1 Cyst of kidney, acquired (principal); N20.0 Calculus of kidney
CPT/HCPCS: 36415; 74170; 82565; 84520; Q9967

== ENCOUNTER → 2025-01-18 07:37 | Outpatient (BNV) | payer OTHER, SELFPAY | PROVIDERS: PCP Physician Assistant; Visit Provider Radiology Diagnostic Radiology | DX: N28.1 Cyst of kidney, acquired (principal) | CPT/HCPCS: 74170 ==

== ENCOUNTER → 2025-03-26 09:49 | Outpatient (BNVA) | payer OTHER, SELFPAY | PROVIDERS: PCP Physician Assistant; Visit Provider Urology | DX: N20.0 Calculus of kidney (principal); N28.1 Cyst of kidney, acquired | CPT/HCPCS: 99212 ==